=== PATIENT | female | born 1940 | race Caucasian/White ===

== ENCOUNTER 2023-07-01 19:27 | Inpatient (IN) | payer MEDICARE, OTHER, SELFPAY ==
[2023-07-01] VITALS (8 sets, daily range): BP systolic 98–128; BP diastolic 43–93; BMI 47.3; BMI 45.8
[2023-07-01 15:50] LABS: % Basophils 0.4 % (0-2); % Eosinophils 3.2 % (0-6); % Immature Granulocytes 0.3 % (0-0.5); % Lymphocytes 11.6 % (20.5-51.1); % Monocytes 10.2 % (1.7-9.3); % Neutrophils 74.3 % (42.2-75.2); Absolute Eosinophils 0.2 10^3/uL (0-0.7); Absolute Lymphocytes 0.8 10^3/uL (1.2-3.4); Absolute Monocytes 0.7 10^3/uL (0.1-0.6); Absolute Neutrophils 5.4 10^3/uL (1.4-6.5); Hematocrit 36.5 % (37.0-47.0); Hemoglobin 12.5 g/dL (12.0-16.0); Mean Corp Hgb Conc. 34.2 g/dL (33.0-37.0); Mean Corpuscular Hgb 31.7 pg (27.0-31.0); Mean Corpuscular Volume 92.6 fL (81.0-99.0); Mean Platelet Volume 10.4 fL (7.4-10.4); Nucleated Red Blood Cells % 0 %; Platelet Count 171 10^3/uL (130-400); Red Blood Cell Count 3.94 10^6/uL (4.20-5.40); Red Cell Dist. Width 15.1 % (11.5-14.5); White Blood Cell Count 7.2 10^3/uL (4.8-10.8)
--- NOTE | 2023-07-01 16:01 | ED.GENMED ---
History of Present Illness
General
Chief Complaint: Breathing Problem
Source: patient and family
Exam Limitations: non verbal-adult
Time Seen by Provider: 07/01/23 15:49
Travel History
Have you had any contact with someone who has COVID-19?: No
Do you have any symptoms of coronavirus? Fever > 100 degrees, chills, cough, shortness of breath, sore throat, loss of taste or smell, muscle aches, or headache?: No
History of Present Illness
History of Present Illness:
See MDM
Past History
Past History
ED Past Medical History: Cancer (Cervical), CVA (Left-sided CVA with right hemiplegia), HTN and Other (Previous stroke with right hemiparesthesias and aphasia, hypertension, DVT, Kidney stones, Urosepsis)
ED Past Surgical History: Cholecystectomy and Other (Noncontributory)
Social History
Tobacco: Former smoker
Alcohol: None
Drug: None
Personal:
Living: with family
Employment: Not employed
Family History
Family History: Other (Noncontributory); Negative Diabetes, Hypertension or CAD
Phy Exam
Physical Exam
Physical Exam:
See MDM
Scores
Heart Failure Risk
Heart Failure Risk Score: Yes
History of Stroke or TIA: No
History of intubation for respiratory distress: No
Heart rate on ED arrival >/= 110: No
SaO2 <90% on arrival on room air: No
HR >/=110 during 3min walk test (or too ill to perform test): Yes
ECG has acute ischemic changes: No
Urea >/=12mmol/L (BUN 33.6mg/dL): No
Serum CO2>/=35mmol/L: No
Troponin I or T elevated to NC Level (0.4mg/dL): No
NT-proBNP >/=5,000ng/L (5,000pg/ml): No
HF Risk Score: 2
Admission Status: MEDIUM RISK 9.2% Consider observation or discharge to home with homecare & f/u visit to PCP/Publication Designer, or SNF for treatment
Course
Orders/Labs/Results
Orders:
Orders
07/01/23 Dinner
Regular
At Your Request: Non-Participating
07/01/23 15:28
Electrocardiogram (*1) Urgent
Reason for Study: Chest Pain
Cardiac Monitoring- Treatment ONCE
EKG- Treatment ONCE
IV Insert/Care/Rem.- Treatment PRN
O2 Therapy [RESP] Urgent
Titrate/Wean O2 to maintain O2 sat greater than (%): 90
Special Instructions: Maintain sats >/=90%
Pulse Ox/spot Check [RESP] Urgent
Quantity: 1
Special Instructions: ON ROOM AIR
07/01/23 15:39
Complete Blood Count/With Diff Urgent
Comprehensive Metabolic Panel Urgent
NT-proBNP Urgent
Comment: ADD ON
Troponin I Urgent
07/01/23 16:00
Add On- LAB Urgent
Tests Added?: Pro-BNP
CT Head W/o Iv Contrast Urgent
Comment: Prior CVA with R side weakness
Reason For Exam: worsening R arm and leg weakness
CR Chest Portable - 1 View Urgent
Comment:
Reason For Exam: SOB, leg swelling
Reason Study Needs to be Portable: Patient Unstable
07/01/23 16:56
Furosemide [Lasix] 40 mg IV NOW STA
07/01/23 17:32
Urinalysis Reflex To Culture Urgent
Date Specimen was Collected: 07/01/23
Time Specimen was Collected: 17:29
07/01/23 18:08
Ipratropium/Albuterol Sulfate [Duoneb] 3 ml INH R NOW ONE
Ipratropium/Albuterol Sulfate [Duoneb] 3 ml INH R Q4HPRN PRN
07/01/23 18:09
Admit/Transfer Patient As Directed
Co-Sign Provider:
Level of Care: Inpatient admission
Assign to:: Telemetry
Physician / Group: maximino marcum
Diagnosis: acute bronchitis vs Chf
Reason for Telemetry: Subacute Heart Failure
Date to Stop Telemetry: 07/03/23
Time to Stop Telemetry: 11:00
Reason for Hospitalization: acute bronchitis vs Chf
Expected length of stay greater than two midnights?: Yes
ELOS- Estimated Length of Stay in days: 3
I certify the patient meets the requirements for IP care: Yes
07/01/23 18:10
Code Status As Directed
Resuscitation Status: Full Code
07/01/23 18:20
COVID-19 Antigen Urgent
Source: Nasal Swab
Influenza A+B Rapid Molecular Urgent
LAURA Source: Nasal Swab
Specimen Description:
07/01/23 20:00
Ipratropium/Albuterol Sulfate [Duoneb] 3 ml INH R QID
07/01/23 21:59
Acetaminophen [Tylenol] 650 mg PO Q4HPRN PRN
Carvedilol [Coreg] 3.125 mg PO BID
07/01/23 21:59
Activity As Directed
Activity Level: With Assistance
Comment: Uses cane with assist of 1 person
Intake/ Output As Directed
Frequency: Per unit guidelines
Pneumatic Compression Sleeves As Directed
Type: Knee high
Vital Signs As Directed
Frequency: Per unit guidelines
Weight As Directed
Frequency: Daily
Pulse Ox/spot Check [RESP] Routine
Quantity: 1
Ot Eval And Treat Routine
Pt Eval And Treat Routine
Activity Level: With Assistance
DX Deep Vein Thrombosis Video Routine
07/01/23 22:00
Baclofen [Lioresal] 10 mg PO TID
Gabapentin [Neurontin] 300 mg PO TID
07/02/23 06:23
Basic Metabolic Panel IN AM
Complete Blood Count/With Diff IN AM
07/02/23 08:00
Cholecalciferol (Vitamin D3) [VITAMIN D3 (cholecalciferol)] 50 mcg PO DAILY
Multivitamin [Theragran] 1 tablet PO DAILY
07/02/23 12:00
Duloxetine Delayed Release [Cymbalta Delayed Release] 60 mg PO DAILY@1200
07/03/23 06:09
Basic Metabolic Panel IN AM
Complete Blood Count/With Diff IN AM
07/03/23 11:00
DC Protocol for Telemetry ONCE
Abnormal Lab Results
07/01/23 07/01/23
15:39 18:20
RBC 3.94 L 10^6/uL
(4.20-5.40)
Hct 36.5 L %
(37.0-47.0)
MCH 31.7 H pg
(27.0-31.0)
RDW 15.1 H %
(11.5-14.5)
Absolute Lymphs (auto) 0.8 L 10^3/uL
(1.2-3.4)
Absolute Monos (auto) 0.7 H 10^3/uL
(0.1-0.6)
Lymphocytes % 11.6 L %
(20.5-51.1)
Monocytes % 10.2 H %
(1.7-9.3)
BUN 23 H mg/dl
(7-17)
SARS-CoV-2 Antigen Positive A
(Negative)
07/01/23 15:39
07/01/23 15:39
Vital Signs
Initial and Last Documented VS:
Initial Vital Signs
Temp Pulse Resp
98.6 F 71 27
07/01/23 15:19 07/01/23 15:19 07/01/23 15:19
Last Documented Vital Signs
Temp Pulse Resp BP Pulse Ox
97.9 F 69 18 120/57 98
07/04/23 11:00 07/04/23 11:36 07/04/23 11:00 07/04/23 11:36 07/04/23 11:00
MDM/Problems Addressed
Differential Diagnosis Includes:
HPI and MDM Narrative:
82-year-old female presenting with worsening shortness of breath and confusion. She is nonverbal from a prior stroke. Family at bedside stating that she is becoming anxious and more short of breath when laying flat. They have noticed increased
leg swelling. They are also concerned about worsening right-sided weakness. Patient has chronic right-sided weakness from prior stroke. They think the weakness has worsened.
Given her symptoms, will obtain CT head and chest x-ray. She is compliant with Eliquis. Will rule out pneumonia versus CHF. Given her symptoms and inability to care for self, will ultimately admit
Physical exam
General: weak and fatigued
HEENT: protecting airway
Neck: appears supple
CV: No evidence of cyanosis. Regular rate and rhythm
Resp: No accessory muscle use. Rhonchorous breath sounds
Abd: Non-distended
Extremities: +1 pitting edema bilateral lower extremities
Neuro: alert. Nonverbal. Right facial droop. Decreased muscle strength in right arm or right leg
Psych: Normal affect
Skin: Intact
Problems Addressed including Acute and Chronic Conditions affecting care:
1. Shortness of breath
Acuity: acute
Prognosis: stable
Details: Will obtain chest x-ray
2. Weakness
Acuity: Chronic
Prognosis: stable
Details: Will obtain CT looking for recurrent strokes versus bleed
Updates
Chest x-ray consistent with CHF. Will start IV Lasix
Differential Diagnosis (but not limited to): CVA, intracranial hemorrhage, pneumonia, CHF
Testing considered: Lactic acid
Drug therapy (if applicable): OTC meds, please see d/c instruction regarding Rx drugs
Amount and/or Complexity of Data Reviewed
Clinical info obtained from: Patient and daughter
External data reviewed: N/A
Labs I independently reviewed (but not limited to): Elevated BNP
Radiology: X-ray independently reviewed: Chest x-ray with pulmonary edema
Pulse Ox: not hypoxic
EKG independently reviewed: Sinus rhythm, normal axis, no STEMI
Automation Operator: Sinus rhythm
Critical Care: N/A
Risk of Complication:
Social Determinants of health: Good social support
Discussed with other providers: Hospitalist
Escalation of Care includes Admit/Obs: Given the new onset CHF and worsening symptoms, will admit
Occasional wrong word or 'sound a like' substitutions may have occurred due to the inherent limitations of voice recognition software. Read the chart carefully and recognize, using context, where substitutions have occurred.
*Critical Care Note
Total Time (30-74mins, 75-104mins- exclusive of procedures): Not Applicable
ED Attending Note
-
Portions of this chart may have been created with voice recognition software.� Occasional wrong word or��sound alike� substitutions may have occurred due to the inherent limitations of voice recognition software.
Discharge Plan
Departure
Patient Disposition: Admit
Date of Disposition: 07/01/23
Time of Disposition: 17:21
Admit to: Med/Surg
Presentation/result/management discussed w/ accepting MD/DO: Hospitalist
Discharge Problem:
New onset of congestive heart failure, Weakness
Interventions
Interventions:
*Risk Screen - Suicide Last Done: 07/01/23 22:43
*General Assessment Last Done: 07/01/23 15:19
*Neglect/Abuse Screening Last Done: 07/01/23 15:19
ED- Fall Risk Assessment Last Done: 07/01/23 21:49
*ED COVID-19 Vaccine History Last Done: 07/01/23 22:43
*Nursing Disposition Last Done: 07/01/23 21:49
ED- Cardiac Assessment Last Done: 07/01/23 18:04
ED- Pulmonary Assessment Last Done: 07/01/23 18:03
Discharge Date and Time
Discharge Date/Time: 07/01/23 21:50
[2023-07-01 16:04] LABS: ALT (SGPT) 18 U/L (0-35); AST (SGOT) 24 U/L (14-36); Albumin 3.6 g/dl (3.5-5.0); Alkaline Phosphatase 105 U/L (38-126); Blood Urea Nitrogen 23 mg/dl (7-17); Calcium 8.5 mg/dl (8.4-10.2); Carbon Dioxide 28 mmol/L (22-30); Chloride 105 mmol/L (98-107); Estimated Creatinine Clearance 60 ml/min; Glucose 98 mg/dl (70-99); Potassium 4.4 mmol/L (3.5-5.1); Sodium 136 mmol/L (135-145); Total Bilirubin 0.5 mg/dl (0.2-1.3); Total Protein 6.4 g/dl (6.3-8.2); eGFR > 60.00
[2023-07-01 16:11] LABS: Troponin I < 0.012 ng/ml
[2023-07-01 16:28] LABS: NT-proBNP 489 pg/ml
[2023-07-01] MEDS: LASIX 40 MG IV (17:20)
--- NOTE | 2023-07-01 17:21 | PHANOTE ---
med rec note- called daughter to see is patient took her morning home mediation but call went straight to voice mail
--- NOTE | 2023-07-01 17:31 | HPS.HSE ---
Addendum entered and electronically signed by Chano Omer MD 07/01/23 18:31:
I saw and examined the patient.
The ZANJERO's note was reviewed and I agree with the note.
Comment:
82-year-old female past medical history of severe left-sided stroke status post right hemiplegia and aphasia who is presenting from home with orthopnea. Patient also with lower extremity edema. Denies any chest pain. Patient able to ambulate with
a cane. No prior cardiac history. Patient received Lasix in the ER with significant urinary output noted.
General:�Comfortable; No Pain or Fever
HEENT:�NormoCephalic, Anicteric, Moist mucous membranes and [place] Conjunctivae
Respiratory:�Wheezes (Diffuse throughout both lung centeno); No Rales or Rhonchi
Cardiac:�S1/S2 and Regular Rhythm; No Murmur, Rub, Gallop or Peripheral Edema
Breast:�Deferred by me
GI:�Soft, Non Tender, Non Distended, Normal Bowel Sounds and No Hepatosplenomegaly
Rectal:�Deferred by Provider
Genito-urinary:�Deferred by me
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
Upper Extremity or Edema, Left Lower Extremity
Skin:�Warm and Dry; No Rash
Neuro:�Awake, Alert, Oriented (To name, daughter, some review of systems), Facial Droop (Chronic right side) and Other (Chronic aphasia with right-sided hemiparesis from prior stroke 2010)
Psych:�Calm
Impression
Shortness of breath likely secondary to suspected acute heart failure exacerbation versus viral bronchitis
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
Aphasia chronic
Primary hypertension
Wound disorder
Neuropathy
Hyperlipidemia
Plan
Monitor urinary output with Lasix given in the ER
Will consider Lasix on a daily basis
Start patient bronchodilators
Check patient for COVID influenza
Hold off on corticosteroids
Chest x-ray noted
Echocardiogram
DVT prophylaxis
Discussed with daughter at bedside in detail.
Original Note:
Family Physician
-
Family Physician: Riaz Sorensen
Chief Complaint
-
Cough, wheezing, chills
History of Present Illness
82-year-old female with cough, wheezing, chills for the past several weeks increased over the past 3 days. Her daughter Madison at bedside states she has had a nonproductive cough on and off possibly for 2 weeks she has noticed wheezing. She did
point to her head yesterday possibly could have had a headache her daughter gave her some Tylenol as she was also complaining of chills. she has baseline nonverbal secondary to prior CVA they feel she had worsening facial droop over the past
several days. Pt is awake and alert can shake head yes or no although daughter states this is sometimes not reliable cognitively. Patient denies current headache, chest pain, abdominal pain, nausea, vomiting, diarrhea, urinary symptoms.
Past medical history large left-sided CVA with chronic right hemiplegia October 2010 uses cane with assistance of 1, intermittent right arm pain post stroke syndrome, chronic aphasia, HTN, DVT, renal calculi, UTIs, cervical cancer post radiation,
former smoker, morbid obesity
Medical History
Past Medical History
Past Medical History: Reports Other ( large left-sided CVA with chronic right hemiplegia October 2010 uses cane with assistance of 1, chronic aphasia, HTN, DVT, renal calculi, UTIs, cervical cancer post radiation, former smoker, morbid obesity)
Past Surgical History: Reports None and Other (unsure)
Social History
Tobacco: Former Smoker
Alcohol: None
Drug: None
Personal:
Living: With Family ()
Employment: Retired
Family History
Family History: Not pertinent
Allergies / Home Medications
Allergies reflects when Allergies were last updated in [employer].
Home Medications with original date entered in [employer]
Allergy/Medication List:
Allergies
Allergy/AdvReac Type Severity Reaction Status Date / Time
No Known Drug Allergies Allergy NONE Verified 07/10/22 13:36
Home Medications
baclofen 10 mg tablet 10 mg PO TID 10/08/11
duloxetine 60 mg capsule,delayed release 60 mg PO DAILY@1200 10/08/11
gabapentin 300 mg capsule 300 mg PO TID 10/08/11
multivitamin with folic acid 400 mcg tablet (Tab-A-Rosalee) 1 tab PO DAILY 10/08/11
simvastatin 40 mg tablet 40 mg PO QPM 10/08/11
cholecalciferol (vitamin D3) 50 mcg (2,000 unit) tablet 5,000 unit PO DAILY 09/16/15
carvedilol 3.125 mg tablet 3.125 mg PO BID 05/30/19
Review of Systems
-
History Source: Patient and Family (Daughter Madison at bedside)
A 12 point ROS was completed and negative except as noted: Yes
Constitutional: Reports Chills; Denies Fever or Fatigue
EENT: Denies Sore Throat or Runny Nose
Respiratory: Reports Cough and Other (Wheezing)
Cardiac: Denies Chest Pain, Diaphoresis, Palpitations or Syncope
Abdomen/GI: Denies Abdominal Pain, Nausea, Vomiting, Diarrhea or Constipated
: Denies Dysuria, Frequency or Flank Pain
Musculoskeletal: Reports Edema (Chronic right lower extremity secondary to right hemiparesis); Denies Joint Pain
Skin: Denies Itching or Rash
Neurological: Reports Headache
Endocrine: Reports No Symptoms
Hematologic/Lymphatic: Reports No Symptoms
Psych: Reports Calm
Physical Exam
Vital Signs
Vital Signs
Temp Pulse Resp BP Pulse Ox
98.6 F 68 27 110/49 95
07/01/23 15:19 07/01/23 17:20 07/01/23 15:19 07/01/23 17:20 07/01/23 15:29
Physical Exam
General: Comfortable; No Pain or Fever
HEENT: NormoCephalic, Anicteric, Moist mucous membranes and [place] Conjunctivae
Respiratory: Wheezes (Diffuse throughout both lung centeno); No Rales or Rhonchi
Cardiac: S1/S2 and Regular Rhythm; No Murmur, Rub, Gallop or Peripheral Edema
Breast: Deferred by me
GI: Soft, Non Tender, Non Distended, Normal Bowel Sounds and No Hepatosplenomegaly
Rectal: Deferred by Provider
Genito-urinary: Deferred by me
Musculoskeletal: No Clubbing, No Cyanosis, Edema, Right Lower Extremity (Chronic +1 right lower extremity secondary to right hemiparesis) and Other (Chronic right hand contracture from prior stroke); No Edema, Left Upper Extremity, Edema, Right
Upper Extremity or Edema, Left Lower Extremity
Skin: Warm and Dry; No Rash
Neuro: Awake, Alert, Oriented (To name, daughter, some review of systems), Facial Droop (Chronic right side) and Other (Chronic aphasia with right-sided hemiparesis from prior stroke 2010)
Psych: Calm
Laboratory Results
-
07/01/23 15:39
07/01/23 15:39
Laboratory Results
Total Bilirubin 0.5 mg/dl (0.2-1.3) 07/01/23 15:39
AST 24 U/L (14-36) 07/01/23 15:39
ALT 18 U/L (0-35) 07/01/23 15:39
Alkaline Phosphatase 105 U/L (38-126) 07/01/23 15:39
Troponin I < 0.012 ng/ml 07/01/23 15:39
Impression/Plan
-
Impression/plan:
Admit to telemetry
Acute bronchitis likely viral poss mild component Chf
95% RA, 110/49, HR 68
-DuoNebs scheduled and as needed for wheezing
-Check COVID, flu swab
Given 1 dose of IV Lasix will monitor intake and output
-PT/OT/case management consult
-2D echo
CXR: Mild CHF
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
# Chronic profound aphasia nonverbal
# Chronic neuropathy post stroke right side
-Patient does ambulate with a cane and assist of 1
-Continue gabapentin 300 mg 3 times daily, duloxetine 60 mg daily
#HTN�benign
-Continue carvedilol 3.125 mg twice daily
#HLD
-Continue simvastatin 40 mg every afternoon
#Hx DVT in past
#Morbid obesity due to excess calorie consumption/mobility�BMI 47.2 kg
DVT prophylaxis
SCDs
Full code
[2023-07-01 17:47] LABS: Urine Albumin Negative (Neg - Trace); Urine Bilirubin Negative (Negative); Urine Character Clear (Clear); Urine Color Yellow; Urine Glucose Negative (Negative); Urine Ketone Negative (Negative); Urine Leukocyte Negative (Negative); Urine Nitrite Negative (Negative); Urine Occult Blood Negative (Negative); Urine Urobilinogen Negative (Neg - 1+); Urine pH 6.5 (5.0-9.0)
[2023-07-01 18:59] LABS: COVID-19 Antigen Positive (Negative)
--- NOTE | 2023-07-01 20:00 | W.PN.UPDATE ---
Update Note
Progress Note Update
Patient COVID-positive
-Will place on COVID precautions
-Is not hypoxic does not meet remdesivir or Decadron- requirements
-Will start Paxlovid
-Hold patient's statin while on Paxlovid
-Change DuoNeb to albuterol MDI
-Patient's daughter made aware of COVID-positive status
[2023-07-01] MEDS: NEURONTIN 300 MG PO (23:07)
[2023-07-01] MEDS: LIORESAL 10 MG PO (23:07)
[2023-07-01] MEDS: COREG 3.125 MG PO (23:07)
[2023-07-02] VITALS (8 sets, daily range): BP systolic 98–144; BP diastolic 48–78; PULSE 72; BMI 46.9
[2023-07-02] MEDS: PAXLOVID 2X150 MG-100 MG DOSE PACK PO (06:57)
[2023-07-02 08:23] LABS: % Basophils 0.6 % (0-2); % Eosinophils 4.1 % (0-6); % Immature Granulocytes 0.3 % (0-0.5); % Lymphocytes 13.1 % (20.5-51.1); % Monocytes 11.2 % (1.7-9.3); % Neutrophils 70.7 % (42.2-75.2); Absolute Eosinophils 0.3 10^3/uL (0-0.7); Absolute Lymphocytes 0.9 10^3/uL (1.2-3.4); Absolute Monocytes 0.7 10^3/uL (0.1-0.6); Absolute Neutrophils 4.7 10^3/uL (1.4-6.5); Hematocrit 37.6 % (37.0-47.0); Hemoglobin 12.3 g/dL (12.0-16.0); Mean Corp Hgb Conc. 32.7 g/dL (33.0-37.0); Mean Corpuscular Hgb 31.1 pg (27.0-31.0); Mean Corpuscular Volume 94.9 fL (81.0-99.0); Mean Platelet Volume 10.6 fL (7.4-10.4); Nucleated Red Blood Cells % 0 %; Platelet Count 157 10^3/uL (130-400); Red Blood Cell Count 3.96 10^6/uL (4.20-5.40); Red Cell Dist. Width 15.3 % (11.5-14.5); White Blood Cell Count 6.6 10^3/uL (4.8-10.8)
[2023-07-02 08:52] LABS: Blood Urea Nitrogen 21 mg/dl (7-17); Calcium 8.4 mg/dl (8.4-10.2); Carbon Dioxide 34 mmol/L (22-30); Chloride 100 mmol/L (98-107); Estimated Creatinine Clearance 76 ml/min; Glucose 100 mg/dl (70-99); Potassium 3.9 mmol/L (3.5-5.1); Sodium 139 mmol/L (135-145); eGFR > 60.00
[2023-07-02] MEDS: VITAMIN D3 (cholecalciferol) 50 MCG PO (10:57)
[2023-07-02] MEDS: THERAGRAN 1 TABLET PO (10:57)
[2023-07-02] MEDS: NEURONTIN 300 MG PO ×3 (10:57→21:07)
[2023-07-02] MEDS: PAXLOVID 2X150 MG-100 MG DOSE PACK 1 DOSE PO ×2 (10:57→21:08)
[2023-07-02] MEDS: LIORESAL 10 MG PO ×3 (10:57→21:07)
[2023-07-02] MEDS: COREG 3.125 MG PO ×2 (10:58→21:07)
[2023-07-02] MEDS: CYMBALTA DELAYED RELEASE 60 MG PO (11:02)
--- NOTE | 2023-07-02 11:06 | W.PN.HOSP.TC ---
Today's Communication/Plan
-
monitor o2
paxlovid
lovenox
pt/ot
Assessment / Plan
Assessment / Plan
General:�Comfortable; No Pain or Fever
HEENT:�NormoCephalic, Anicteric, Moist mucous membranes and [place] Conjunctivae
Respiratory:�Wheezes (Diffuse throughout both lung centeno); No Rales or Rhonchi
Cardiac:�S1/S2 and Regular Rhythm; No Murmur, Rub, Gallop or Peripheral Edema
Breast:�Deferred by me
GI:�Soft, Non Tender, Non Distended, Normal Bowel Sounds and No Hepatosplenomegaly
Rectal:�Deferred by Provider
Genito-urinary:�Deferred by me
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
Upper Extremity or Edema, Left Lower Extremity
Skin:�Warm and Dry; No Rash
Neuro:�Awake, Alert, Oriented (To name, daughter, some review of systems), Facial Droop (Chronic right side) and Other (Chronic aphasia with right-sided hemiparesis from prior stroke 2010)
Psych:�Calm
Acute bronchitis likely 2/2 COVID-19 infection
-bronchodilators
-started paxlovid
-CXR noted. Probnp could be low as pt with morbid obesity. No prior ECHO.
-Monitor for now. May require lasix prn
-not a candidate for steroids or remdesivir
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
# Chronic profound aphasia nonverbal
# Chronic neuropathy post stroke right side
-Patient does ambulate with a cane and assist of 1
-Continue gabapentin 300 mg 3 times daily, duloxetine 60 mg daily
#HTN�benign
-Continue carvedilol 3.125 mg twice daily
#HLD
-Continue simvastatin 40 mg every afternoon
#Hx DVT in past
#Morbid obesity due to excess calorie consumption/mobility�BMI 47.2 kg
DVT prophylaxis-start lovenox 40mg q12h due to BMI
Full code
PT/OT
Anticipated Discharge: > 48 hours
Subjective/Interval History
-
Date of Service: July 02, 2023
No overnight events
on room air
Objective Data
-
Labs:
Laboratory Results
07/02/23
06:23
WBC 6.6
Hgb 12.3
Hct 37.6
Plt Count 157
Sodium 139
Potassium 3.9
Chloride 100
Carbon Dioxide 34 H
BUN 21 H
Creatinine 0.7
Glucose 100 H
Calcium 8.4
Vital Signs:
Vital Signs
Temp Pulse Resp BP Pulse Ox
97.9 F 72 16 144/66 94
07/02/23 07:35 07/02/23 07:41 07/02/23 07:35 07/02/23 07:35 07/02/23 07:41
I&O
07/01/23 07/02/23 07/03/23
06:59 06:59 06:59
Intake Total 240 / 240
Output Total 300 / 300
Balance -60 / -60
Data Reviewed
-
Total Time Spent with Patient (in minutes): 54
[2023-07-02] MEDS: LOVENOX 40 MG SC (16:17)
[2023-07-03 03:42] VITALS: BP 122/47
[2023-07-03] MEDS: LOVENOX 40 MG SC ×2 (05:13→17:47)
[2023-07-03 05:33] VITALS: BMI 44.5
[2023-07-03 06:17] LABS: % Basophils 0.9 % (0-2); % Eosinophils 6.9 % (0-6); % Immature Granulocytes 0.2 % (0-0.5); % Lymphocytes 21.6 % (20.5-51.1); % Monocytes 15.6 % (1.7-9.3); % Neutrophils 54.8 % (42.2-75.2); Absolute Basophils 0.1 10^3/uL (0-0.2); Absolute Eosinophils 0.4 10^3/uL (0-0.7); Absolute Lymphocytes 1.2 10^3/uL (1.2-3.4); Absolute Monocytes 0.9 10^3/uL (0.1-0.6); Hematocrit 34.8 % (37.0-47.0); Hemoglobin 12.5 g/dL (12.0-16.0); Mean Corp Hgb Conc. 35.9 g/dL (33.0-37.0); Mean Corpuscular Hgb 31.6 pg (27.0-31.0); Mean Corpuscular Volume 88.1 fL (81.0-99.0); Mean Platelet Volume 10.4 fL (7.4-10.4); Nucleated Red Blood Cells % 0 %; Platelet Count 155 10^3/uL (130-400); Red Blood Cell Count 3.95 10^6/uL (4.20-5.40); Red Cell Dist. Width 14.8 % (11.5-14.5); White Blood Cell Count 5.5 10^3/uL (4.8-10.8)
[2023-07-03 06:43] LABS: Blood Urea Nitrogen 20 mg/dl (7-17); Calcium 8.6 mg/dl (8.4-10.2); Carbon Dioxide 28 mmol/L (22-30); Chloride 101 mmol/L (98-107); Estimated Creatinine Clearance 74 ml/min; Glucose 103 mg/dl (70-99); Sodium 136 mmol/L (135-145); eGFR > 60.00
[2023-07-03 08:10] VITALS: BP 123/50
[2023-07-03] MEDS: LIORESAL 10 MG PO ×3 (08:18→22:36)
[2023-07-03] MEDS: VITAMIN D3 (cholecalciferol) 50 MCG PO (08:18)
[2023-07-03] MEDS: NEURONTIN 300 MG PO ×3 (08:18→22:36)
[2023-07-03] MEDS: PAXLOVID 2X150 MG-100 MG DOSE PACK 1 DOSE PO ×2 (08:18→19:54)
[2023-07-03] MEDS: COREG 3.125 MG PO ×2 (08:18→19:54)
[2023-07-03] MEDS: THERAGRAN 1 TABLET PO (08:18)
--- NOTE | 2023-07-03 11:00 | W.PN.HOSP.TC ---
Addendum entered and electronically signed by Chano Omer MD 07/03/23 11:52:
Patient 2 daughters with COVID and spouse needs additional time to make home arrangements and unable to take patient home today.
hold dc today
Original Note:
Today's Communication/Plan
-
dc today
Assessment / Plan
Assessment / Plan
General:�Comfortable; No Pain or Fever
HEENT:�NormoCephalic, Anicteric, Moist mucous membranes and [place] Conjunctivae
Respiratory:�dec bs due to body habitus, No Rales or Rhonchi
Cardiac:�S1/S2 and Regular Rhythm; No Murmur, Rub, Gallop or Peripheral Edema
GI:�Soft, Non Tender, Non Distended, Normal Bowel Sounds and No Hepatosplenomegaly
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
Upper Extremity or Edema, Left Lower Extremity
Skin:�Warm and Dry; No Rash
Neuro:�Awake, Facial Droop (Chronic right side) and Other (Chronic aphasia with right-sided hemiparesis from prior stroke 2010)
Psych:�Calm
Acute bronchitis likely 2/2 COVID-19 infection
-bronchodilators
-started paxlovid. albuterol prn.
-CXR noted.
-Monitor for now.
-not a candidate for steroids or remdesivir
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
# Chronic profound aphasia nonverbal
# Chronic neuropathy post stroke right side
-Patient does ambulate with a cane and assist of 1
-Continue gabapentin 300 mg 3 times daily, duloxetine 60 mg daily
#HTN�benign
-Continue carvedilol 3.125 mg twice daily
#HLD
-Continue simvastatin 40 mg every afternoon
#Hx DVT in past
#Morbid obesity due to excess calorie consumption/mobility�BMI 47.2 kg
DVT prophylaxis-start lovenox 40mg q12h due to BMI
Full code
PT/OT-home health
updated daughter over the phone in details.
Anticipated Discharge: Today
Subjective/Interval History
-
Date of Service: July 03, 2023
on room air
afebrile
not tachypneic
looks comfortable
Objective Data
-
Labs:
Laboratory Results
07/03/23
06:09
WBC 5.5
Hgb 12.5
Hct 34.8 L
Plt Count 155
Sodium 136
Potassium 4.0
Chloride 101
Carbon Dioxide 28
BUN 20 H
Creatinine 0.7
Glucose 103 H
Calcium 8.6
Vital Signs:
Vital Signs
Temp Pulse Resp BP Pulse Ox
97.5 F 98 16 123/50 97
07/03/23 08:10 07/03/23 08:10 07/03/23 08:10 07/03/23 08:10 07/03/23 08:10
I&O
07/02/23 07/03/23 07/04/23
06:59 06:59 06:59
Intake Total 240 / 240 480 / 480
Output Total 300 / 300 850 / 850
Balance -60 / -60 -370 / -370
[2023-07-03 11:18] VITALS: BP 125/61
[2023-07-03] MEDS: CYMBALTA DELAYED RELEASE 60 MG PO (12:12)
[2023-07-03 15:24] VITALS: BP 97/57
--- NOTE | 2023-07-03 16:10 | CM ---
Chart reviewed. Spoke with pts spouse
Pt lives with with FF set-up
Ramp entry into home
Has care takers thru Home instead
Needs assist with adl's
Has WC, cane, shower chair in home
Denies past snf/HH
PCP - Dr Sorensen
Pharm - [facility]
Discussed IMM with spouse
Pt for d/c - requested d/c tomorrow as will be able to arrange assistance with transport for tomorrow
PT recs home health
Referred to [facility] for home care needs
Plan discharge to previous setting with home health
[2023-07-03 19:45] VITALS: BP 100/36
[2023-07-03 23:01] VITALS: BP 119/51
[2023-07-04 03:30] VITALS: BP 136/49
--- NOTE | 2023-07-04 04:24 | PTCARENOTE ---
No BM Documented for 3days, KOLE Brown made aware. See MAR for new orders.
[2023-07-04] MEDS: LOVENOX 40 MG SC (05:39)
[2023-07-04 06:00] VITALS: BMI 44.9
[2023-07-04 07:00] VITALS: BP 120/57
[2023-07-04] MEDS: THERAGRAN 1 TABLET PO (09:13)
[2023-07-04] MEDS: SENOKOT-S 1 TABLET PO (09:16)
[2023-07-04] MEDS: NEURONTIN 300 MG PO (09:16)
[2023-07-04] MEDS: COREG 3.125 MG PO (09:17)
[2023-07-04] MEDS: VITAMIN D3 (cholecalciferol) 50 MCG PO (09:17)
[2023-07-04] MEDS: LIORESAL 10 MG PO (09:17)
[2023-07-04] MEDS: PAXLOVID 2X150 MG-100 MG DOSE PACK 1 DOSE PO (09:19)
--- NOTE | 2023-07-04 09:58 | W.PN.HOSP.TC ---
Today's Communication/Plan
-
.
Assessment / Plan
Assessment / Plan
General:�Comfortable; No Pain or Fever
HEENT:�Normocephalic, Anicteric, Moist mucous membranes and [place] Conjunctivae
Respiratory:�dec bs due to body habitus, No Rales or Rhonchi
Cardiac:�S1/S2 and Regular Rhythm; No Murmur, Rub, Gallop or Peripheral Edema
GI:�Soft, Non Tender, Non Distended, Normal Bowel Sounds and No Hepatosplenomegaly
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
Upper Extremity or Edema, Left Lower Extremity
Skin:�Warm and Dry; No Rash
Neuro:�Awake, Facial Droop (Chronic right side) and Other (Chronic aphasia with right-sided hemiparesis from prior stroke 2010)
Psych:�Calm
Acute bronchitis likely 2/2 COVID-19 infection
No hypoxia
No sob
-bronchodilators
-started paxlovid. albuterol prn.
-CXR noted.
-not a candidate for steroids or remdesivir
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
# Chronic profound aphasia nonverbal
# Chronic neuropathy post stroke right side
-Patient does ambulate with a cane and assist of 1
-Continue gabapentin 300 mg 3 times daily, duloxetine 60 mg daily
# Acute HFpEF
Mild
will give IV Lasix
#HTN�benign
-Continue carvedilol 3.125 mg twice daily
#HLD
-Continue simvastatin 40 mg every afternoon
#Hx DVT in past
#Morbid obesity due to excess calorie consumption/mobility�BMI 47.2 kg
DVT prophylaxis-start lovenox 40mg q12h due to BMI
Full code
PT/OT-home health
Total time spent to see the patient, examine the patient on the floor, review data and lab results, discuss treatment plan with patient and nursing staff around 55 minutes
Anticipated Discharge: Within 24 hours
Subjective/Interval History
-
Date of Service: July 04, 2023
Objective Data
-
Vital Signs:
Vital Signs
Temp Pulse Resp BP Pulse Ox
97.4 F 69 17 120/57 96
07/04/23 07:00 07/04/23 09:17 07/04/23 07:00 07/04/23 09:17 07/04/23 07:00
I&O
07/03/23 07/04/23 07/05/23
06:59 06:59 06:59
Intake Total 480 / 480 600 / 600
Output Total 850 / 850 590 / 590
Balance -370 / -370
[2023-07-04 11:00] VITALS: BP 116/61
[2023-07-04] MEDS: CYMBALTA DELAYED RELEASE 60 MG PO (11:36)
[2023-07-04] MEDS: LASIX 20 MG IV (11:36)
--- NOTE | 2023-07-04 12:37 | CM ---
Addendum entered by TAMMY Duffy 07/04/23 12:47:
Updated Liason for VN.
Original Note:
Spoke with RN who stated that patient has been medically cleared for discharge. Placed a all to patient's daughter who confirmed that patient's spouse can transport home. IMM reviewed and is on chart. Attending updated.
Plan: Case mangement will continue to follow and assist with discharge planning. Patient returning home no needs.
--- NOTE | 2023-07-04 12:53 | W.DCSUMMARY ---
Discharge Summary
Discharge Data
Date of Admission: 07/01/23
Date of Discharge: 07/04/23
-
Pending Results: No
Hospital Course
82 years old female presented to the emergency room with dry cough, chills and weakness. Patient was diagnosed with acute bronchitis secondary to COVID infection. Patient did not have leukocytosis, fever or hypoxia. Chest x-ray was consistent
with mild congestive heart failure. Patient was diagnosed with acute heart failure with a preserved ejection fraction. Patient received Lasix and Paxlovid treatment. Patient did well with improvement of cough. She did not have chills or fevers.
She did not have hypotension. Patient was evaluated by physical therapy and recommended home health. Patient remained hemodynamically stable and was discharged in stable condition.
Discharge Plan
-
Patient Disposition: Home with Home Care
Discharge Diagnosis/Procedures: Acute bronchitis likely 2/2 COVID-19 infection. You have 5 doses remaining of Paxlovid.
Condition: Fair
Diet: Low Fat
Activity: With assistance and As tolerated
Driving Restrictions: No driving
Other Services: [facility]
Referrals:
Riaz Sorensen MD [Family Provider] - in less than 1 week
Prescriptions:
New
albuterol sulfate 1.25 mg/3 mL solution for nebulization
1.25 mg inhalation QID PRN (Reason: shortness of breath or wheezing) Qty: 90 0RF
Paxlovid 150-100 mg tablets,dose pack
See Rx Instructions .ROUTE .COMPLEX Qty: 20 0RF
Rx Instructions:
orally per package directions
Continued
baclofen 10 MG tablet
10 mg PO TID
gabapentin 300 MG capsule
300 mg PO TID
duloxetine 60 MG capsule,delayed release(DR/EC)
60 mg PO DAILY@1200
multivitamin with folic acid [Tab-A-Rosalee] 1 TABLET tablet
1 tab PO DAILY
cholecalciferol (vitamin D3) 2,000 UNITS tablet
5,000 unit PO DAILY
carvedilol 3.125 MG tablet
3.125 mg PO BID
sennosides [Senna Lax] 8.6 mg Tablet
8.6 mg PO HS
omeprazole 20 mg Tablet,Delayed Release (Dr/Ec)
20 mg PO DAILY
Eliquis 2.5 mg tablet
2.5 mg PO BID
Held
simvastatin 40 MG tablet
40 mg PO QPM
Hold Instructions: Resume on 07/11/23. hold while on paxlovid
Discharge Orders:
Discharge Patient (As Directed); Ordered 07/04/23
Ordered By: Lucy Flores
--- NOTE | 2023-07-04 14:08 | VNURNOTE ---
Home Health Liaison spoke with patient's spouse Edwin by phone at 1400 to discuss [facility] nurse/therapy, visits, schedule and homebound status. Spouse is agreeable and understands that visits at home will be 2-3 x per week to assess and teach medical
management. Edwin stated that he has a scale at home but patient has difficulty getting on & off scale and unsure if she can log a daily weight.
[facility] brochure provided with contact information. Edwin is aware that [facility] will contact them for start of care in 1-2 days after discharge from .
[facility] referral previously accepted in [facility].
--- NOTE | 2023-07-04 16:40 | CM ---
Received a call from patient's son who stated that he had some medical concerns about patient being provided with lasix just prior to discharge and mention that there may be a cardiac issue. He also stated that upon admission someone had told him
that patient would most likely go to acute rehab and after that there was no mention of it.
Reviewed criteria for acute rehab with patient's son and reviewed patient's PT. Advised of criteria to get into an acute rehab vrs, skilled.
Advised patient's son that CM will return call to him once further information was obtained.
Spoke with patient's RN at length and she stated that she spoke with patient's family at length about the medical plan and the discharge. Patient had already been discharged at the time of patient's son's call and was on her way home.
Spoke with CM medical records supervisor who advised to TT attending to determine if patient's family could get a call for further clarification. She stated that [facility] PT can do a home PT eval and if she/he feels that patient qualifies for SNF, patient can still be
placed with the help of [facility]N.
Placed a call back to patient's son who stated that he felt his concerns were more medical as he stated that they, the family, was just advised that patient may have a cardiac issue right before discharge and no further information or intervention
came from this.
Advised patient's son that attending was contacted and made aware that he had some concerns and request was made for her to return call however could not promise the outcome.
Patient's son was appreciative and stated that he will await a potential call and talk to home PT about patient's current level of functioning to determine if patient needs a higher level of care.
--- NOTE | 2023-07-07 14:57 | CM ---
Placed a call to patient's son as he had questions about patient's discharge. He stated that he wanted patient to go to a SNF. Patient's son was advised that when PT/OT come out to evaluate patient from VN, they can make an indication and if she is
still appropriate for SNF, the [facility] SW will make referrals. He expressed his appreciation and call ended pleasantly.
== END 2023-07-04 15:34 | disposition home health service (06) | DRG 177 ==
LOC: 3 WEST ACU 19:27
PROVIDERS: Clinical Nurse Specialist Family Health; ADMITTING PHYSICIAN Hospitalist; ATTENDING PHYSICIAN Internal Medicine; EMERGENCY PHYSICIAN Student in an Organized Health Care Education/Training Program; FAMILY PHYSICIAN Family Medicine
DX: U07.1 COVID-19 (principal); I50.31 Acute diastolic (congestive) heart failure; I69.351 Hemiplegia and hemiparesis following cerebral infarction affecting right dominant side; Z68.41 Body mass index [BMI] 40.0-44.9, adult; J20.8 Acute bronchitis due to other specified organisms; I11.0 Hypertensive heart disease with heart failure; G62.9 Polyneuropathy, unspecified; E78.5 Hyperlipidemia, unspecified; E66.01 Morbid (severe) obesity due to excess calories; I69.320 Aphasia following cerebral infarction; Z79.01 Long term (current) use of anticoagulants
CPT/HCPCS: 70450; 71045; 80048; 80053; 81003; 83880; 84484; 85025; 87502; 87811; 93005; 94760; 96374; 97163; 97167; 99285

== ENCOUNTER 2023-07-21 16:25 | Inpatient (IN) | payer MEDICARE, OTHER, SELFPAY ==
[2023-07-21] VITALS (7 sets, daily range): BP systolic 102–141; BP diastolic 47–100
[2023-07-21 13:59] LABS: % Basophils 0.5 % (0-2); % Eosinophils 6.2 % (0-6); % Immature Granulocytes 0.3 % (0-0.5); % Lymphocytes 20.5 % (20.5-51.1); % Monocytes 8.4 % (1.7-9.3); % Neutrophils 64.1 % (42.2-75.2); Absolute Basophils 0.1 10^3/uL (0-0.2); Absolute Eosinophils 0.6 10^3/uL (0-0.7); Absolute Lymphocytes 1.9 10^3/uL (1.2-3.4); Absolute Monocytes 0.8 10^3/uL (0.1-0.6); Absolute Neutrophils 6.1 10^3/uL (1.4-6.5); Hematocrit 37.1 % (37.0-47.0); Hemoglobin 12.6 g/dL (12.0-16.0); Mean Corpuscular Hgb 31.3 pg (27.0-31.0); Mean Corpuscular Volume 92.3 fL (81.0-99.0); Nucleated Red Blood Cells % 0 %; Platelet Count 179 10^3/uL (130-400); Red Blood Cell Count 4.02 10^6/uL (4.20-5.40); Red Cell Dist. Width 15.7 % (11.5-14.5); White Blood Cell Count 9.5 10^3/uL (4.8-10.8)
[2023-07-21 14:13] LABS: ALT (SGPT) 34 U/L (0-35); AST (SGOT) 24 U/L (14-36); Albumin 3.5 g/dl (3.5-5.0); Alkaline Phosphatase 98 U/L (38-126); Blood Urea Nitrogen 26 mg/dl (7-17); Calcium 8.7 mg/dl (8.4-10.2); Carbon Dioxide 29 mmol/L (22-30); Chloride 105 mmol/L (98-107); Glucose 113 mg/dl (70-99); Potassium 4.1 mmol/L (3.5-5.1); Sodium 136 mmol/L (135-145); Total Bilirubin 0.6 mg/dl (0.2-1.3); Total Protein 6.2 g/dl (6.3-8.2); eGFR > 60.00
[2023-07-21] MEDS: DUONEB 3 ML INH ×2 (14:23→19:56)
[2023-07-21] MEDS: SOLU-MEDROL PF 125 MG IV (14:23)
[2023-07-21 14:24] LABS: NT-proBNP 95.3 pg/ml; Troponin I < 0.012 ng/ml
--- NOTE | 2023-07-21 15:15 | ED.GENMED ---
History of Present Illness
General
Chief Complaint: Breathing Problem
Source: patient
Exam Limitations: none
Time Seen by Provider: 07/21/23 13:40
Nursing documentation reviewed up to this point in time: agreed with
Travel History
Have you had any contact with someone who has COVID-19?: No
Do you have any symptoms of coronavirus? Fever > 100 degrees, chills, cough, shortness of breath, sore throat, loss of taste or smell, muscle aches, or headache?: Yes
Symptoms:: SOB
History of Present Illness
History of Present Illness:
82-year-old female with past medical history as documented notable for stroke with residual expressive aphasia who presents to the emergency department from home for evaluation of breathing difficulties and chest tightness. Patient is very limited
as a historian due to her aphasia but family is at bedside aiding in history. Sounds like patient had been having some wheezing over the past few weeks and was prescribed DuoNebs and prednisone burst last week. It sounds like they have weaned her
off of DuoNebs recently over the past 2 days patient started having some more wheezing today was having audible wheezing and breathing difficulties complaining of tightness in her chest and EMS called to bring her to the hospital. She did receive
albuterol prehospital from EMS. No fevers or chills, no edema in the legs. Mild cough. No other symptoms reported. Family says she had similar symptoms with CHF in the past; she is an ex-smoker, no reported history of COPD or asthma.
Past History
Past History
ED Past Medical History: Cancer (Cervical), CVA (Left-sided CVA with right hemiplegia), HTN and Other (Previous stroke with right hemiparesthesias and aphasia, hypertension, DVT, Kidney stones, Urosepsis)
ED Past Surgical History: Cholecystectomy and Other (Noncontributory)
Social History
Tobacco: Former smoker
Alcohol: None
Drug: None
Personal:
Living: with family
Employment: Not employed
Family History
Family History: Other (Noncontributory); Negative Diabetes, Hypertension or CAD
Review of Systems
Review of Systems
Unable to obtain full review of systems at this time due to: non-verbal (Aphasia)
All Other Systems: Not applicable
Phy Exam
Physical Exam
Physical Exam:
General: Awake, alert; mild respiratory distress
Head: Normocephalic, atraumatic
Eyes: Conjunctiva normal, sclera anicteric
Throat: Airway intact, handling secretions
Neck: Trachea midline, supple without meningismus
Lungs: Audible wheezing throughout all lung centeno, prolonged expiration, mild tachypnea; pulse ox 95% on room air
Heart: Regular rate and rhythm, no murmurs, gallops, or rubs
Abd: Soft, non distended, nontender
Neuro: Expressive aphasia
Skin: no rash
Extremities: No notable edema in extremities, extremities are warm and well-perfused
Scores
Heart Failure Risk
Heart Failure Risk Score: Not Applicable
Heart Score for Chest Pain Patients
STEMI patient?: Not applicable
Withdrawal Assessment of Alcohol
Withdrawal Assessment Completed?: Not applicable
Course
Orders/Labs/Results
Orders:
Orders
07/21/23 13:40
Ipratropium/Albuterol Sulfate [Duoneb] 3 ml INH R NOW STA
MethylPREDNISolone PF [Solu-Medrol Pf] 125 mg IV NOW STA
07/21/23 13:41
Electrocardiogram (*1) Urgent
Reason for Study: Shortness of Breath
EKG- Treatment ONCE
CR Chest Portable - 1 View Urgent
Comment:
Reason For Exam: sob
Reason Study Needs to be Portable: Unable to Transport
07/21/23 13:53
Complete Blood Count/With Diff Urgent
Comprehensive Metabolic Panel Urgent
NT-proBNP Urgent
Troponin I Urgent
Abnormal Lab Results
07/21/23
13:53
RBC 4.02 L 10^6/uL
(4.20-5.40)
MCH 31.3 H pg
(27.0-31.0)
RDW 15.7 H %
(11.5-14.5)
Absolute Monos (auto) 0.8 H 10^3/uL
(0.1-0.6)
Eosinophils % 6.2 H %
(0-6)
BUN 26 H mg/dl
(7-17)
Glucose 113 H mg/dl
(70-99)
Total Protein 6.2 L g/dl
(6.3-8.2)
07/21/23 13:53
07/21/23 13:53
Vital Signs
Initial and Last Documented VS:
Initial Vital Signs
Temp Pulse Resp Pulse Ox
36.8 C 77 20 95
07/21/23 13:39 07/21/23 13:39 07/21/23 13:39 07/21/23 13:39
Last Documented Vital Signs
Temp Pulse Resp Pulse Ox
36.8 C 77 20 95
07/21/23 13:39 07/21/23 13:39 07/21/23 13:39 07/21/23 13:39
MDM/Problems Addressed
Differential Diagnosis Includes:
COPD/asthma, bronchitis, CHF, pneumonia
MDM/Problems Addressed:
82-year-old female presents with chest tightness and shortness of breath with audible wheezing progressive over the past 2 days as described above. Arrives in mild distress with some tachypnea, audible wheezing throughout all lung centeno and
prolonged expiration. IV placed labs sent off including a CBC and a CMP, troponin, BNP. Will obtain an EKG and portable chest x-ray. Will treat with DuoNeb and steroids for presumed bronchitis based on exam. Will monitor closely reassess after
the above.
Initial labs reviewed: CBC unremarkable, CMP no clinically significant abnormalities. Troponin negative x 1. BNP essentially normal at 95. Chest x-ray low lung volumes questionable interstitial edema but no pneumonia�somewhat lower suspicion for
CHF based on clinical exam and low BNP at 95 but will give a dose of IV Lasix given her significant respiratory symptoms. On clinical reassessment she has improved significantly with DuoNeb and steroid although she is still having some mild
tachypnea and wheezing. Suspect this is likely acute bronchitis. Will plan to admit for continued treatment. Discussed with hospitalist for admission.
*Radiology
Radiology exam reviewed: preliminary read by ED provider and radiology read reviewed
*Pulse Oximetry
Patient hypoxic: no
*EKG
Interpreted by ED Provider?: Yes
Heart Rate: 77
Rate: normal
Rhythm: sinus
[place]: normal axis
Interval: normal interval
QRS Pattern: low voltage
Ischemia: non-specific ST changes
*Critical Care Note
Total Time (30-74mins, 75-104mins- exclusive of procedures): Not Applicable
Data Reviewed
Review of Other/Old Records Reveals: Labs, Records and Discharge Summary
Source: patient, records, family and ambulance crew
Patient Management
Discussion with other providers: Hospitalist (Discussed with hospitalist)
Escalation/DeEscalation of care consider admission/obs:
Admission indicated
ED Attending Note
-
Portions of this chart may have been created with voice recognition software.� Occasional wrong word or��sound alike� substitutions may have occurred due to the inherent limitations of voice recognition software.
Discharge Plan
Departure
Patient Disposition: Admit
Date of Disposition: 07/21/23
Time of Disposition: 15:29
Admit to doctor: Ivonne
Presentation/result/management discussed w/ accepting MD/DO: Hospitalist
Discharge Problem:
Acute bronchitis, CHF exacerbation
Prescriptions:
No Action
simvastatin 40 MG tablet
40 mg PO QPM
Hold Instructions: Resume on 07/11/23. hold while on paxlovid
baclofen 10 MG tablet
10 mg PO TID
gabapentin 300 MG capsule
300 mg PO TID
duloxetine 60 MG capsule,delayed release(DR/EC)
60 mg PO DAILY@1200
multivitamin with folic acid [Tab-A-Rosalee] 1 TABLET tablet
1 tab PO DAILY
cholecalciferol (vitamin D3) 2,000 UNITS tablet
5,000 unit PO DAILY
carvedilol 3.125 MG tablet
3.125 mg PO BID
sennosides [Senna Lax] 8.6 mg Tablet
8.6 mg PO HS
omeprazole 20 mg Tablet,Delayed Release (Dr/Ec)
20 mg PO DAILY
Eliquis 2.5 mg tablet
2.5 mg PO BID
Paxlovid 150-100 mg tablets,dose pack
See Rx Instructions .ROUTE .COMPLEX Qty: 20 0RF
Rx Instructions:
orally per package directions
albuterol sulfate 1.25 mg/3 mL solution for nebulization
1.25 mg inhalation QID PRN (Reason: shortness of breath or wheezing) Qty: 90 0RF
Rx Instructions:
Diagnosis: Heart failure, ICD 10: I50.9
Interventions
Interventions:
*Risk Screen - Suicide Last Done: 07/21/23 13:39
*General Assessment Last Done: 07/21/23 13:39
*Neglect/Abuse Screening Last Done: 07/21/23 13:39
*ED COVID-19 Vaccine History Last Done: 07/21/23 13:39
ED- Cardiac Assessment Last Done: 07/21/23 14:00
ED- Pulmonary Assessment Last Done: 07/21/23 14:00
[2023-07-21] MEDS: LASIX 40 MG IV (15:39)
[2023-07-21 16:11] LABS: COVID-19 Antigen Negative (Negative)
--- NOTE | 2023-07-21 16:17 | HPS.HSE ---
Family Physician
-
Family Physician: Riaz Sorensen
Chief Complaint
-
Shortness of breath, wheezing
History of Present Illness
82-year-old female with a history of stroke and right hemiparesis, expressive aphasia, presents to the emergency room with shortness of breath, chest tightness, wheezing since yesterday. Recently hospitalized here and discharged on July 04 with
a diagnosis of bronchitis related to COVID infection as well as CHF exacerbation.
Also recently treated with nebulizers and steroids last week by her primary care doctor, last dose of prednisone was 7 days ago. [place] better up until yesterday when wheezing and shortness of breath recurred. Has had orthopnea for the past month.
Minimal cough. Does not get weight at home due to her right hemiparesis. All information gathered by speaking with family as patient has expressive aphasia.
Medical History
Past Medical History
Past Medical History: Reports Other
Additional Past Medical History:
History of stroke in 2010, right hemiparesis, expressive aphasia
Essential hypertension
Hyperlipidemia
History of DVT
History of cervical cancer
Heart failure with preserved EF
Nephrolithiasis
Past Surgical History: Reports Cholecystectomy
Social History
Tobacco: Former Smoker
Alcohol: None
Drug: None
Personal:
Living: With Family
Family History
Family History: Not pertinent
Allergies / Home Medications
Allergies reflects when Allergies were last updated in [employer].
Home Medications with original date entered in [employer]
Allergy/Medication List:
Allergies
Allergy/AdvReac Type Severity Reaction Status Date / Time
No Known Drug Allergies Allergy NONE Verified 07/10/22 13:36
Home Medications
baclofen 10 mg tablet 10 mg PO TID Muscle Spasms 10/08/11
duloxetine 60 mg capsule,delayed release 60 mg PO DAILY@1200 Mental Health/Anxiety 10/08/11
gabapentin 300 mg capsule 300 mg PO TID Pain 10/08/11
multivitamin with folic acid 400 mcg tablet (Tab-A-Rosalee) 1 tab PO DAILY Supplement 10/08/11
simvastatin 40 mg tablet 40 mg PO QPM High Cholesterol 10/08/11
cholecalciferol (vitamin D3) 50 mcg (2,000 unit) tablet 5,000 unit PO DAILY Supplement 09/16/15
carvedilol 3.125 mg tablet 3.125 mg PO BID Blood Pressure 05/30/19
apixaban 2.5 mg tablet (Eliquis) 2.5 mg PO BID Blood Clot Prevention/Tx 07/04/23
omeprazole 20 mg tablet,delayed release 20 mg PO DAILY Gastrointestinal Issue 07/04/23
sennosides 8.6 mg tablet (Senna Lax) 8.6 mg PO HS Constipation 07/04/23
Review of Systems
-
Unable to obtain full review of systems at this time due to: Acuity
History Source: Family
Respiratory: Reports Trouble Breathing
Physical Exam
Vital Signs
Vital Signs
Temp Pulse Resp BP Pulse Ox
98.2 F 76 27 106/55 95
07/21/23 13:39 07/21/23 15:45 07/21/23 15:45 07/21/23 15:00 07/21/23 15:45
Physical Exam
General: Well Developed, Well Nourished, No Apparent Distress and Comfortable
HEENT: NormoCephalic, Anicteric and Moist mucous membranes
Respiratory: Wheezes (Primarily upper airway wheezes over the trachea)
Cardiac: S1/S2 and Regular Rhythm
Breast: Deferred by me
GI: Soft, Non Tender and Non Distended
Genito-urinary: Deferred by me
Musculoskeletal: No Clubbing, No Cyanosis, Edema, Left Lower Extremity and Edema, Right Lower Extremity
Skin: Warm and Dry
Neuro: Awake and Alert
Hematologic/Lymphatic: No Lymphadenopathy
Psych: Calm
Laboratory Results
-
07/21/23 13:53
07/21/23 13:53
Laboratory Results
Total Bilirubin 0.6 mg/dl (0.2-1.3) 07/21/23 13:53
AST 24 U/L (14-36) 07/21/23 13:53
ALT 34 U/L (0-35) 07/21/23 13:53
Alkaline Phosphatase 98 U/L (38-126) 07/21/23 13:53
Troponin I < 0.012 ng/ml 07/21/23 13:53
Impression/Plan
-
Acute hypoxic respiratory insufficiency -oxygenation stable on room air currently. Suspect etiology is ongoing bronchospasm from tracheobronchitis due to recent COVID-19 infection. Cannot rule out a component of mild pulmonary edema from heart
failure exacerbation.
Admit to telemetry.
Subacute tracheobronchitis -suspect due to recent COVID-19 infection. Continue steroids and nebs. Add Mucinex and Acapella.
Given her smoking history, recommend outpatient follow-up with pulmonary for evaluation of COPD. Will need outpatient PFTs. Discussed with family.
Subacute heart failure with preserved EF exacerbation -check echocardiogram. Admit to telemetry. Continue IV Lasix. Consult cardiology. She is known to Dr. ROSALIA Membreno. BNP is low but can be suppressed in the face of obesity. Weight is noted to
be 2 kg higher today compared to her discharge weight on July 04.
Essential hypertension -stable.
Hyperlipidemia -on simvastatin at home.
History of stroke, right hemiparesis, expressive aphasia -family reports she is on Eliquis for secondary stroke prevention. Family denies history of atrial fibrillation or flutter.
History of DVT
Chronic ambulatory dysfunction -due to prior stroke, right hemiparesis. Uses a cane at home. Consult PT.
Morbid obesity due to excess calories
Full code
Family updated at the bedside.
--- NOTE | 2023-07-21 17:40 | CON.CAR ---
Consultation
Consultation Request
Date/Time Consultation Requested: July 21 2023
Date/Time Consultation Performed: July 21 2023
Requesting Provider: Dr Beckett
Performing Provider: Dr Leyva
Reason for Consultation: Eval for HF
Medical History
-
Chief Complaint: shortness of breath
History of Present Illness:
.
82-year-old female with a history of CVA and residual right hemiparesis, expressive aphasia, presented to the emergency room with shortness of breath, chest tightness, wheezing since yesterday.� She was recently discharged from Jul 04 with
treatment of bronchitis related to COVID infection as well as CHF exacerbation. She was gentley diuresed but not seen by cardiology at that time. She was recently treated by PCP last week with nebs and steroids with last prednisone 1 week ago.
Yesterday her symptoms recurred and she comes in for eval. She has had orthopnea per records. Her wt is up 4 lbs from discharge. History from records given pt has expressive aphasia.
Cardiology was consulted for evaluation for element of heart failure in the setting of tracheobronchitis and respiratory insufficiency. Her proBNP is 95. Her proBNP was 489 during her last hospitalization.
She was last seen by Dr. Alexi Membreno June 2022. At that time she was stable from a cardiac standpoint. No changes were made to her regimen. Her last echo August 2020 showed EF 55 to 60% with mild MR, PASP 33 mmHg. Last pharmacological
stress test August 2020 showed normal perfusion with EF 68%.
Past medical history
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
Hypertension
Hyperlipidemia
History of DVT
History of cervical cancer
Nephrolithiasis
Cholecystectomy history
Social History
Tobacco: Former Smoker
Alcohol: None
Drug: None
Personal:
Family History
Family History: Reviewed & Not Pertinent
Allergies / Home Medications
Allergy/AdvReac Type Severity Reaction Status Date / Time
No Known Drug Allergies Allergy NONE Verified 07/10/22 13:36
Medication Instructions Recorded Confirmed Type
baclofen 10 mg tablet 10 mg PO TID Muscle Spasms 10/08/11 07/21/23 History
duloxetine 60 mg capsule,delayed 60 mg PO DAILY@1200 Mental 10/08/11 07/21/23 History
release Health/Anxiety
gabapentin 300 mg capsule 300 mg PO TID Pain 10/08/11 07/21/23 History
multivitamin with folic acid 400 1 tab PO DAILY Supplement 10/08/11 07/21/23 History
mcg tablet (Tab-A-Rosalee)
simvastatin 40 mg tablet 40 mg PO QPM High Cholesterol 10/08/11 07/21/23 History
cholecalciferol (vitamin D3) 50 5,000 unit PO DAILY Supplement 09/16/15 07/21/23 History
mcg (2,000 unit) tablet
carvedilol 3.125 mg tablet 3.125 mg PO BID Blood Pressure 05/30/19 07/21/23 History
apixaban 2.5 mg tablet (Eliquis) 2.5 mg PO BID Blood Clot 07/04/23 07/21/23 History
Prevention/Tx
omeprazole 20 mg tablet,delayed 20 mg PO DAILY Gastrointestinal 07/04/23 07/21/23 History
release Issue
sennosides 8.6 mg tablet (Senna 8.6 mg PO HS Constipation 07/04/23 07/21/23 History
Lax)
Review of Systems
-
History Source: Patient (Pt has aphasia and can not answer questions) and Other (records)
All other systems: Negative unless noted
Respiratory: Trouble Breathing
Physical Exam
Vital Signs
Temp Pulse Resp BP Pulse Ox
98.2 F 76 27 106/55 95
07/21/23 13:39 07/21/23 15:45 07/21/23 15:45 07/21/23 15:00 07/21/23 15:45
Physical Examination:
General: No acute distress, Awake. expressive aphasia
Neck: Negative JVD
Heart: Regular, Negative S3 positive S1/S2, Negative S4, No murmur
Lungs: CTA b/l, negative wheezes/rales/rhonchi
Abd: Positive BS, NT/ND, neg rebound/rigidity/guarding
Ext: Negative cyanosis/clubbing/edema
Neuro: right sided weaknessl
Lab Results
07/21/23 13:53
07/21/23 13:53
Troponin I < 0.012 ng/ml 07/21/23 13:53
Xic-O-Hvmcvqbtxzp Pept 95.3 pg/ml 07/21/23 13:53
Impression / Plan
-
.
Impression:
Acute hypoxic respiratory insufficiency likely secondary to ongoing bronchospasm from tracheobronchitis/recent COVID infection
Possible mild diastolic congestive heart failure component
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
Hypertension
Hyperlipidemia
History of DVT
History of cervical cancer
Plan:
Multifactorial dyspnea more likely pulmonary in nature.
Gentle diuresis with IV Lasix.
Follow-up proBNP
Monitor daily weights. She is up 4 pounds from last visit.
Check echo to reevaluate left ventricular systolic function.
Continue Eliquis for stroke prophylaxis
Outpatient cardiac follow-up.
Data Reviewed
-
EKG: Tracing Personally Visualized and interpreted
Radiology: Image Personally Visualized and interpreted
Labs: Labs Reviewed by me
Old Records: Reviewed
[2023-07-21] MEDS: ELIQUIS 2.5 MG PO (19:34)
[2023-07-21] MEDS: MUCINEX 600 MG PO (19:34)
[2023-07-21] MEDS: COREG 3.125 MG PO (19:37)
[2023-07-21] MEDS: LIORESAL 10 MG PO (21:27)
[2023-07-21] MEDS: NEURONTIN 300 MG PO (21:27)
[2023-07-21] MEDS: SENOKOT 8.59999999999999964 MG PO (21:27)
[2023-07-22 03:54] VITALS: BP 120/50
[2023-07-22] MEDS: DUONEB 3 ML INH ×4 (07:20→19:59)
[2023-07-22 08:29] VITALS: BP 134/89
[2023-07-22 08:53] LABS: Blood Urea Nitrogen 21 mg/dl (7-17); Calcium 8.5 mg/dl (8.4-10.2); Carbon Dioxide 28 mmol/L (22-30); Chloride 103 mmol/L (98-107); Glucose 163 mg/dl (70-99); Potassium 4.2 mmol/L (3.5-5.1); Sodium 138 mmol/L (135-145); eGFR > 60.00
--- NOTE | 2023-07-22 09:51 | W.PN.HOSP.TC ---
Today's Communication/Plan
-
Follow-up echocardiogram
Continue Lasix
PT/OT
Assessment / Plan
Assessment / Plan
Gen-awake, alert, NAD
HEENT-NC, AT, anicteric, clear oral mm
Neck-supple
CV-reg, no M, +S1/S2
Lungs-clear B/L
Abd-soft, NT, ND
Ext-bilateral lower extremity edema
Musculoskeletal-no cyanosis, clubbing
Skin-warm and dry
Neuro-grossly non-focal
Psych-calm, cooperative
Acute hypoxic respiratory insufficiency - Suspect etiology is ongoing bronchospasm from tracheobronchitis due to recent COVID-19 infection.� Cannot rule out a component of mild pulmonary edema from heart failure exacerbation. Currently on 2 L nasal
cannula oxygen, wean down as able.
Subacute tracheobronchitis -suspect due to recent COVID-19 infection.� Continue steroids and nebs.� Add Mucinex and Acapella.
Given her smoking history, recommend outpatient follow-up with pulmonary for evaluation of COPD.� Will need outpatient PFTs.� Discussed with family.
Subacute heart failure with preserved EF exacerbation -check echocardiogram.� Continue IV Lasix.� Appreciate cardiology input.� She is known to Dr. ROSALIA Membreno.� BNP is low but can be suppressed in the face of obesity.� Weight is coming down on Lasix.
Essential hypertension -stable.
Hyperlipidemia -on simvastatin at home.
History of stroke, right hemiparesis, expressive aphasia -family reports she is on Eliquis for secondary stroke prevention.� Family denies history of atrial fibrillation or flutter.
History of DVT
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
Morbid obesity due to excess calories
Full code
Anticipated Discharge: 24 - 48 hours
Subjective/Interval History
-
Date of Service: July 22, 2023
Patient seen and examined. Just got back from echocardiogram this morning. Looks comfortable.
Objective Data
-
Labs:
Laboratory Results
07/22/23
06:57
Sodium 138
Potassium 4.2
Chloride 103
Carbon Dioxide 28
BUN 21 H
Creatinine 0.7
Glucose 163 H
Calcium 8.5
Vital Signs:
Vital Signs
Temp Pulse Resp BP Pulse Ox
97.9 F 82 18 134/89 94
07/22/23 08:29 07/22/23 08:29 07/22/23 08:29 07/22/23 08:29 07/22/23 08:29
I&O
07/21/23 07/22/23 07/23/23
06:59 06:59 06:59
Intake Total 240 / 240
Balance 240 / 240
Review of Systems
-
Unable to obtain full review of systems at this time due to: Other (Expressive aphasia)
[2023-07-22] MEDS: ELIQUIS 2.5 MG PO ×2 (09:54→20:27)
[2023-07-22] MEDS: LIORESAL 10 MG PO ×3 (09:54→21:10)
[2023-07-22] MEDS: MUCINEX 600 MG PO ×2 (09:55→20:28)
[2023-07-22] MEDS: NEURONTIN 300 MG PO ×3 (09:55→21:10)
[2023-07-22] MEDS: DELTASONE 40 MG PO (09:55)
[2023-07-22] MEDS: THERAGRAN 1 TABLET PO (09:56)
[2023-07-22] MEDS: VITAMIN D3 (cholecalciferol) 50 MCG PO (09:56)
[2023-07-22] MEDS: COREG 3.125 MG PO ×2 (09:56→20:27)
[2023-07-22] MEDS: LASIX 40 MG IV (09:57)
[2023-07-22 10:04] VITALS: PULSE 75; O2SAT 98
[2023-07-22 11:30] VITALS: BP 132/41
[2023-07-22] MEDS: CYMBALTA DELAYED RELEASE 60 MG PO (11:59)
--- NOTE | 2023-07-22 14:26 | VNURNOTE ---
Home health liaison met with patient to discuss resumption of care for [facility] services. Patient with expressive and receptive aphasia. Nods her head appropriately to name and address, says '[place]' to all questions. Patient made aware visits will be
1-2 times a week to assess and teach medical management. Patient made aware a visiting nurse will contact her for start of care within 1-2 days after discharge from . [facility] Referral completed in care port
--- NOTE | 2023-07-22 14:46 | CM ---
Patient seen bedside.
IA completed.
Patient lives with spouse in 2 story home with first floor set up.
patient with hx CVA with right hemiparesis and expressive aphasia.
Patient has a WC, Cane, Shower chair and ramp into the home.
Patient had [facility] in the past.
PT/OT recommending Home health.
Spoke with spouse, agreeable to [facility].
PCP: Dr Sorensen
Pharmacy: [facility]
Plan: home with [facility] when stable.
[2023-07-22 15:30] VITALS: BP 121/53
--- NOTE | 2023-07-22 16:20 | W.PN.CARDCBS ---
Addendum entered and electronically signed by Alexi Membreno MD 07/22/23 18:01:
She appears comfortable, family at bedside, discharged from [place] July 04 with COVID and CHF exacerbation, placed on steroids 1 week ago for bronchitis, now readmitted, is comfortable now has received IV Lasix
No allergies
Outpatient medications: Carvedilol 3.125 twice daily, Eliquis 2.5 twice daily for DVT, gabapentin, simvastatin 40 mg a day
Current medications: Eliquis 2.5 twice daily, carvedilol 3.125 twice daily, prednisone 40 mg a day, albuterol, furosemide 40 mg daily
PMH/PSH/SH/FH: Reviewed
ROS: Not obtainable
121/53, pulse 81, respiratory 20, head neck exam unremarkable, aphasia, mostly expressive, right hemiparesis/plegia, clear lungs, regular rate rhythm no obvious murmurs, abdomen benign extremities 1+ to 2+ edema
BUN and creatinine 21 and 0.7, proBNP was less than 100
Echo 07/22/2023: EF 55-60%, MAC, trace MR, mildly dilated left atrium, aortic sclerosis, pulmonary artery systolic pressure 34 mmHg
Impression:
Acute hypoxic respiratory insufficiency likely secondary to ongoing bronchospasm from tracheobronchitis/recent COVID infection
Possible mild diastolic congestive heart failure component
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
Hypertension
Hyperlipidemia
History of DVT
History of cervical cancer
Echo 08/28/2020:�EF 55 to 60%, stage I DD, mild MR
Lexiscan Nuclear Stress test 08/28/20:�EKG is inconclusive for ischemia given pharmacologic study. Arrhythmia: PVCs. Perfusion is normal and no fixed or reversible defects are seen. The transient dilation is not present. The ratio is 1.26. Functional
imaging shows normal contractility. Gated images revealed an EF of 68%.
Plan:
At this point, she seems stable from a cardiac standpoint, and her volume/CHF status is good on furosemide 40 mg a day.
Any residual pulmonary abnormalities likely related to her bronchitis/COVID earlier in the month.
No new cardiac recommendations at this time.
We will arrange for outpatient cardiac follow-up.
We will sign off, please call with questions.
Recommended cardiac meds at discharge:
Carvedilol 3.125 mg twice daily
Eliquis 2.5 mg twice daily
Furosemide 40 mg daily
Please check BMP in 1 week.
Original Note:
Today's Communication / Plan
-
Transition to oral Lasix in next 24 hours
Continue Eliquis and Coreg
Outpatient cardiology follow up arranged
Impression / Plan
-
Family Physician:� Riaz Sorensen
Museum Assistant:Dr. ROSALIA Membreno
Impression:
Presented 07/21/2023 with Shortness of breath, wheezing
Acute hypoxic respiratory insufficiency likely secondary to ongoing bronchospasm from tracheobronchitis/recent COVID infection
Possible mild diastolic congestive heart failure component
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
Hypertension
Hyperlipidemia
History of DVT
History of cervical cancer
Echo 08/28/2020: EF 55 to 60%, stage I DD, mild MR
Lexiscan Nuclear Stress test 08/28/20: EKG is inconclusive for ischemia given pharmacologic study. Arrhythmia: PVCs. Perfusion is normal and no fixed or reversible defects are seen. The transient dilation is not present. The ratio is 1.26. Functional
imaging shows normal contractility. Gated images revealed an EF of 68%.
Plan:
-Presented 07/21/2023 with SOB and wheezing.
-Suspect symptoms are likely multifactorial dyspnea and more pulmonary in nature as proBNP is 95.3
-Gentle diuresis with IV Lasix, weight is down 5 lbs overnight and overall weight is currently lower this admission than when she was here 3 weeks ago. Would transition to oral Lasix in next 24 hours. Patient was not in diuretic prior to admission
-Monitor daily weights.
-Echo to reevaluate left ventricular systolic function is pending
History of prior stroke and DVT. Continue Eliquis for stroke prophylaxis
Outpatient cardiac follow-up.
HPI data:
82-year-old female with a history of CVA and residual right hemiparesis, expressive aphasia, presented to the emergency room with shortness of breath, chest tightness, wheezing since yesterday.� She was recently discharged from Jul 04 with
treatment of bronchitis related to COVID infection as well as CHF exacerbation. She was gently diuresed but not seen by cardiology at that time. She was recently treated by PCP last week with nebs and steroids with last prednisone 1 week ago.
Yesterday her symptoms recurred and she comes in for eval. She has had orthopnea per records. Her wt is up 4 lbs from discharge. History from records given pt has expressive aphasia.
Cardiology was consulted for evaluation for element of heart failure in the setting of tracheobronchitis and respiratory insufficiency.� Her proBNP is 95.� Her proBNP was 489 during her last hospitalization.
She was last seen by Dr. Alexi Membreno June 2022.� At that time she was stable from a cardiac standpoint.� No changes were made to her regimen.� Her last echo August 2020 showed EF 55 to 60% with mild MR, PASP 33 mmHg.� Last pharmacological
stress test August 2020 showed normal perfusion with EF 68%.
Progress Note - Museum Assistant
Subjective
Date of Service: July 22, 2023
Patient seen and examined. Shakes head that she is feeling less SOB.
Objective
Labs:
07/21/23 13:53
07/22/23 06:57
Labs
Hgb 12.6 g/dL (12.0-16.0) 07/21/23 13:53
Hct 37.1 % (37.0-47.0) 07/21/23 13:53
Plt Count 179 10^3/uL (130-400) 07/21/23 13:53
Sodium 138 mmol/L (135-145) 07/22/23 06:57
Potassium 4.2 mmol/L (3.5-5.1) 07/22/23 06:57
BUN 21 mg/dl (7-17) H 07/22/23 06:57
Creatinine 0.7 mg/dL (0.6-1.0) 07/22/23 06:57
Glucose 163 mg/dl (70-99) H 07/22/23 06:57
Troponins
07/21/23
13:53
Troponin I < 0.012
Vital Signs and I&O:
Vital Signs
Temp Pulse Resp BP Pulse Ox
99.1 F 81 20 121/53 93
07/22/23 15:30 07/22/23 15:48 07/22/23 15:48 07/22/23 15:30 07/22/23 15:48
Vital Signs
Temp Pulse Resp BP Pulse Ox
99.1 F 81 20 121/53 93
07/22/23 15:30 07/22/23 15:48 07/22/23 15:48 07/22/23 15:30 07/22/23 15:48
Intake & Output
07/20/23 07/21/23 07/22/23 07/23/23
06:59 06:59 06:59 06:59
Intake Total 240 / 240
Balance 240 / 240
Physical Exam
Physical Exam
GEN: No distress, awake, Ox3, morbidly obese
HEENT: supple, anicteric, mmm
LUNGS: CTA, no wheezes/rales
CV: Reg, S1/S2, no murmur, rubs or gallops
ABD: soft, BS+, NT/ND
EXT: No edema, clubbing or cyanosis
NEURO: expressive aphasia and right sided weakness
SKIN: No rash, warm, dry
[2023-07-22 20:06] VITALS: BP 134/57
[2023-07-22] MEDS: SENOKOT 8.59999999999999964 MG PO (21:10)
[2023-07-23] VITALS (8 sets, daily range): BP systolic 120–146; BP diastolic 51–94
[2023-07-23] MEDS: DUONEB 3 ML INH ×4 (07:38→20:23)
[2023-07-23 07:53] LABS: Blood Urea Nitrogen 23 mg/dl (7-17); Calcium 8.5 mg/dl (8.4-10.2); Carbon Dioxide 31 mmol/L (22-30); Chloride 103 mmol/L (98-107); Glucose 117 mg/dl (70-99); Potassium 3.9 mmol/L (3.5-5.1); Sodium 137 mmol/L (135-145); eGFR > 60.00
[2023-07-23] MEDS: DELTASONE 40 MG PO (07:56)
[2023-07-23] MEDS: LIORESAL 10 MG PO ×3 (07:56→21:00)
[2023-07-23] MEDS: COREG 3.125 MG PO ×2 (07:56→19:25)
[2023-07-23] MEDS: MUCINEX 600 MG PO ×2 (07:56→19:25)
[2023-07-23] MEDS: VITAMIN D3 (cholecalciferol) 50 MCG PO (07:57)
[2023-07-23] MEDS: NEURONTIN 300 MG PO ×3 (07:57→21:00)
[2023-07-23] MEDS: LASIX 40 MG PO (07:57)
[2023-07-23] MEDS: THERAGRAN 1 TABLET PO (07:57)
[2023-07-23] MEDS: ELIQUIS 2.5 MG PO ×2 (08:01→19:25)
--- NOTE | 2023-07-23 08:17 | W.PN.HOSP.TC ---
Today's Communication/Plan
-
Discharge planning
Assessment / Plan
Assessment / Plan
Gen-awake, alert, NAD, obese
HEENT-NC, AT, anicteric, clear oral mm
Neck-supple
CV-reg, no M, +S1/S2
Lungs-clear B/L
Abd-soft, NT, ND
Ext-bilateral lower extremity edema
Musculoskeletal-no cyanosis, clubbing
Skin-warm and dry
Neuro-grossly non-focal
Psych-calm, cooperative
Acute hypoxic respiratory insufficiency - Suspect etiology is ongoing bronchospasm from tracheobronchitis due to recent COVID-19 infection.� Cannot rule out a component of mild pulmonary edema from heart failure exacerbation. Oxygenation improved,
now on room air.
Subacute tracheobronchitis -suspect due to recent COVID-19 infection.� Continue steroids and nebs.� Continue Mucinex and Acapella.
Given her smoking history, recommend outpatient follow-up with pulmonary for evaluation of COPD.� Will need outpatient PFTs.� Discussed with family.
Subacute heart failure with preserved EF exacerbation -echocardiogram with normal LVEF, indeterminate diastolic function.� Continue oral Lasix per cardiology.� Appreciate cardiology input.� She is known to Dr. ROSALIA Membreno.� BNP is low but can be
suppressed in the face of obesity.� Weight is coming down on Lasix.
Essential hypertension -stable.
Hyperlipidemia -on simvastatin at home.
History of stroke, right hemiparesis, expressive aphasia -family reports she is on Eliquis for secondary stroke prevention.� Family denies history of atrial fibrillation or flutter.
History of DVT
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
Morbid obesity due to excess calories
Full code
Dispo -medically stable for discharge. Family prefers SNF placement. Social work to assist. Updated daughter Madison on the phone today.
Anticipated Discharge: Within 24 hours
Subjective/Interval History
-
Date of Service: July 23, 2023
Patient seen and examined. Expressive aphasia makes it difficult assessing review of systems. Looks comfortable.
Objective Data
-
Labs:
Laboratory Results
07/23/23
06:07
Sodium 137
Potassium 3.9
Chloride 103
Carbon Dioxide 31 H
BUN 23 H
Creatinine 0.7
Glucose 117 H
Calcium 8.5
Vital Signs:
Vital Signs
Temp Pulse Resp BP Pulse Ox
98 F 72 18 130/59 93
07/23/23 08:11 07/23/23 08:11 07/23/23 08:11 07/23/23 08:11 07/23/23 08:11
I&O
07/22/23 07/23/23 07/24/23
06:59 06:59 06:59
Intake Total 240 / 240 660 / 660
Balance 240 / 240 660 / 660
Review of Systems
-
Unable to obtain full review of systems at this time due to: Other (Expressive aphasia)
[2023-07-23] MEDS: CYMBALTA DELAYED RELEASE 60 MG PO (11:37)
[2023-07-23] MEDS: SENOKOT 8.59999999999999964 MG PO (21:00)
[2023-07-24 03:42] VITALS: BP 126/61
[2023-07-24] MEDS: DUONEB 3 ML INH ×4 (07:24→20:31)
[2023-07-24 07:34] VITALS: BP 141/60
[2023-07-24 07:34] LABS: Blood Urea Nitrogen 27 mg/dl (7-17); Calcium 8.5 mg/dl (8.4-10.2); Carbon Dioxide 34 mmol/L (22-30); Chloride 102 mmol/L (98-107); Glucose 93 mg/dl (70-99); Potassium 3.8 mmol/L (3.5-5.1); Sodium 139 mmol/L (135-145); eGFR > 60.00
--- NOTE | 2023-07-24 08:27 | W.PN.HOSP.TC ---
Today's Communication/Plan
-
Taper steroids
Discharge planning
Assessment / Plan
Assessment / Plan
Gen-awake, alert, NAD, obese
HEENT-NC, AT, anicteric, clear oral mm
Neck-supple
CV-reg, no M, +S1/S2
Lungs-clear B/L
Abd-soft, NT, ND
Ext-bilateral lower extremity edema
Musculoskeletal-no cyanosis, clubbing
Skin-warm and dry
Neuro-right hemiparesis, expressive aphasia
Psych-calm, cooperative
Acute hypoxic respiratory insufficiency - Suspect etiology is ongoing bronchospasm from tracheobronchitis due to recent COVID-19 infection.� Cannot rule out a component of mild pulmonary edema from heart failure exacerbation. Oxygenation improved,
now on room air.
Subacute tracheobronchitis -suspect due to recent COVID-19 infection.� Continue steroids and nebs.� Continue Mucinex and Acapella. Taper prednisone.
Given her smoking history, recommend outpatient follow-up with pulmonary for evaluation of COPD.� Will need outpatient PFTs.� Discussed with family.
Subacute heart failure with preserved EF exacerbation -echocardiogram with normal LVEF, indeterminate diastolic function.� Continue oral Lasix per cardiology.� Appreciate cardiology input.� She is known to Dr. ROSALIA Membreno.� BNP is low but can be
suppressed in the face of obesity.� Weight is coming down on Lasix.
Essential hypertension -stable.
Hyperlipidemia -on simvastatin at home.
History of stroke, right hemiparesis, expressive aphasia -family reports she is on Eliquis for secondary stroke prevention.� Family denies history of atrial fibrillation or flutter.
History of DVT
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
Morbid obesity due to excess calories
Full code
Dispo -medically stable for discharge. Family prefers SNF placement. Social work to assist. Updated daughter Madison on the phone today.
Anticipated Discharge: Within 24 hours
Subjective/Interval History
-
Date of Service: July 24, 2023
Patient seen and examined. Looks comfortable. No complaints.
Objective Data
-
Labs:
Laboratory Results
07/24/23
06:31
Sodium 139
Potassium 3.8
Chloride 102
Carbon Dioxide 34 H
BUN 27 H
Creatinine 0.9
Glucose 93
Calcium 8.5
Vital Signs:
Vital Signs
Temp Pulse Resp BP Pulse Ox
97.4 F 66 16 126/61 92
07/24/23 03:42 07/24/23 07:27 07/24/23 07:27 07/24/23 03:42 07/24/23 07:27
I&O
07/23/23 07/24/23 07/25/23
06:59 06:59 06:59
Intake Total 660 / 660 680 / 680
Balance 660 / 660 680 / 680
Review of Systems
-
Unable to obtain full review of systems at this time due to: Other (Expressive aphasia)
[2023-07-24] MEDS: DELTASONE PO (08:38)
[2023-07-24] MEDS: THERAGRAN 1 TABLET PO (08:39)
[2023-07-24] MEDS: LIORESAL 10 MG PO ×3 (08:39→21:11)
[2023-07-24] MEDS: MUCINEX 600 MG PO ×2 (08:39→19:58)
[2023-07-24] MEDS: ELIQUIS 2.5 MG PO ×2 (08:39→19:58)
[2023-07-24] MEDS: LASIX 40 MG PO (08:39)
[2023-07-24] MEDS: NEURONTIN 300 MG PO ×3 (08:39→21:11)
[2023-07-24] MEDS: VITAMIN D3 (cholecalciferol) 50 MCG PO (08:39)
[2023-07-24] MEDS: COREG 3.125 MG PO ×2 (08:40→19:57)
[2023-07-24] MEDS: DELTASONE 30 MG PO (08:40)
[2023-07-24] MEDS: MIRALAX 17 GRAMS PO (08:48)
[2023-07-24 11:38] VITALS: BP 122/55
[2023-07-24] MEDS: CYMBALTA DELAYED RELEASE 60 MG PO (11:48)
[2023-07-24] MEDS: SENOKOT 8.59999999999999964 MG PO (21:11)
[2023-07-24 23:13] VITALS: BP 126/91
[2023-07-25] MEDS: DUONEB 3 ML INH ×4 (08:03→20:06)
[2023-07-25 08:30] LABS: Blood Urea Nitrogen 36 mg/dl (7-17); Calcium 8.6 mg/dl (8.4-10.2); Carbon Dioxide 34 mmol/L (22-30); Chloride 101 mmol/L (98-107); Glucose 132 mg/dl (70-99); Potassium 3.6 mmol/L (3.5-5.1); Sodium 138 mmol/L (135-145); eGFR > 60.00
[2023-07-25] MEDS: MIRALAX 17 GRAMS PO (08:47)
[2023-07-25] MEDS: ELIQUIS 2.5 MG PO ×2 (08:51→19:44)
[2023-07-25] MEDS: LASIX 40 MG PO (08:51)
[2023-07-25] MEDS: VITAMIN D3 (cholecalciferol) 50 MCG PO (08:51)
[2023-07-25] MEDS: THERAGRAN 1 TABLET PO (08:51)
[2023-07-25] MEDS: LIORESAL 10 MG PO ×3 (08:51→21:27)
[2023-07-25] MEDS: MUCINEX 600 MG PO ×2 (08:51→19:44)
[2023-07-25] MEDS: NEURONTIN 300 MG PO ×3 (08:52→21:27)
[2023-07-25] MEDS: DELTASONE 30 MG PO (08:52)
[2023-07-25] MEDS: COREG 3.125 MG PO ×2 (08:52→19:44)
[2023-07-25 09:14] VITALS: BP 118/59
[2023-07-25] MEDS: CYMBALTA DELAYED RELEASE 60 MG PO (11:23)
[2023-07-25 11:24] VITALS: BP 138/69; PULSE 79
--- NOTE | 2023-07-25 11:33 | W.PN.HOSP.TC ---
Today's Communication/Plan
-
d/c planning to SNF
Assessment / Plan
Assessment / Plan
pt is an 82 year old female
Acute hypoxic respiratory insufficiency - Suspect etiology is ongoing bronchospasm from tracheobronchitis due to recent COVID-19 infection.� Cannot rule out a component of mild pulmonary edema from heart failure exacerbation. Oxygenation improved,
now on room air.
Subacute tracheobronchitis -suspect due to recent COVID-19 infection.� Continue steroids and nebs.� Continue Mucinex and Acapella. Taper prednisone--Given her smoking history, recommend outpatient follow-up with pulmonary for evaluation of COPD.�
Will need outpatient PFTs.� Discussed with family.
Subacute heart failure with preserved EF exacerbation -echocardiogram with normal LVEF, indeterminate diastolic function.� Continue oral Lasix per cardiology.� Appreciate cardiology input.� She is known to Dr. ROSALIA Membreno.� BNP is low but can be
suppressed in the face of obesity.� Weight is coming down on Lasix.
Essential hypertension -stable.
Hyperlipidemia -on simvastatin at home.
History of stroke, right hemiparesis, expressive aphasia -family reports she is on Eliquis for secondary stroke prevention.� Family denies history of atrial fibrillation or flutter.
History of DVT
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
Morbid obesity due to excess calories
Full code
Dispo -medically stable for discharge. Family prefers SNF placement. Social work to assist. Updated daughter Madison on the phone today.
Anticipated Discharge: Within 24 hours
Subjective/Interval History
-
Date of Service: July 25, 2023
pt with expressive aphasia--therapy notes not at baseline and will need SNF
Objective Data
-
Labs:
Laboratory Results
07/25/23
07:31
Sodium 138
Potassium 3.6
Chloride 101
Carbon Dioxide 34 H
BUN 36 H
Creatinine 0.8
Glucose 132 H
Calcium 8.6
Vital Signs:
max temp for 24 hours
07/24/23
11:38
Temp 98.3 F
Vital Signs
Temp Pulse Resp BP Pulse Ox
98.0 F 79 18 118/59 95
07/25/23 09:14 07/25/23 09:14 07/25/23 09:14 07/25/23 09:14 07/25/23 08:06
I&O
07/24/23 07/25/23 07/26/23
06:59 06:59 06:59
Intake Total 680 / 680 1430 / 1430
Balance 680 / 680 1430 / 1430
Review of Systems
-
Unable to obtain full review of systems at this time due to: Other (expressive aphasia)
Physical Exam
-
General: Well Developed, Well Nourished, No Apparent Distress and Obese
HEENT: Normocephalic and Atraumatic; Negative Oxygen
Respiratory: Clear to Auscultation; Negative Wheezes or Rhonchi
Cardiac: Regular Rhythm and S1/S2; Negative Murmur
GI: Soft, Nontender, Nondistended and Normal Bowel Sounds
Musculoskeletal: No Clubbing, No Cyanosis and No Edema
Neuro: Other (expressive aphasia--contracted right arm/hand)
[2023-07-25 12:03] VITALS: BP 138/69; PULSE 79
--- NOTE | 2023-07-25 13:29 | CM ---
Addendum entered by Claudia Casanova 07/25/23 17:03:
referrals sent via all scripts. awaiting response
Original Note:
Patient daughter Madison, spoke with CM . Daughter requested referrals to SNF, [facility] and [facility] CM will send referrals via all script and await response.
Plan; SNF
[2023-07-25 15:30] VITALS: BP 114/61
[2023-07-25] MEDS: SENOKOT 8.59999999999999964 MG PO (21:27)
[2023-07-25 22:39] VITALS: BP 111/68
[2023-07-26 07:30] VITALS: BP 126/66
[2023-07-26] MEDS: DUONEB 3 ML INH ×3 (07:35→16:08)
[2023-07-26] MEDS: MIRALAX 17 GRAMS PO (08:28)
[2023-07-26] MEDS: DELTASONE 30 MG PO (08:29)
[2023-07-26] MEDS: ELIQUIS 2.5 MG PO (08:29)
[2023-07-26] MEDS: VITAMIN D3 (cholecalciferol) 50 MCG PO (08:30)
[2023-07-26] MEDS: COREG 3.125 MG PO (08:30)
[2023-07-26] MEDS: NEURONTIN 300 MG PO ×2 (08:30→15:08)
[2023-07-26] MEDS: MUCINEX 600 MG PO (08:30)
[2023-07-26] MEDS: THERAGRAN 1 TABLET PO (08:30)
[2023-07-26] MEDS: LIORESAL 10 MG PO ×2 (08:30→15:08)
[2023-07-26] MEDS: LASIX 40 MG PO (08:30)
[2023-07-26 08:39] LABS: Hematocrit 40.5 % (37.0-47.0); Hemoglobin 13.4 g/dL (12.0-16.0); Mean Corp Hgb Conc. 33.1 g/dL (33.0-37.0); Mean Corpuscular Hgb 30.7 pg (27.0-31.0); Mean Corpuscular Volume 92.9 fL (81.0-99.0); Mean Platelet Volume 10.4 fL (7.4-10.4); Platelet Count 177 10^3/uL (130-400); Red Blood Cell Count 4.36 10^6/uL (4.20-5.40); Red Cell Dist. Width 15.3 % (11.5-14.5); White Blood Cell Count 11.9 10^3/uL (4.8-10.8)
[2023-07-26 09:04] LABS: Blood Urea Nitrogen 31 mg/dl (7-17); Calcium 8.7 mg/dl (8.4-10.2); Carbon Dioxide 35 mmol/L (22-30); Chloride 99 mmol/L (98-107); Glucose 87 mg/dl (70-99); Magnesium 2.4 mg/dl (1.6-2.3); Sodium 137 mmol/L (135-145); eGFR > 60.00
[2023-07-26 09:40] LABS: Potassium 3.7 mmol/L (3.5-5.1)
[2023-07-26] MEDS: CYMBALTA DELAYED RELEASE 60 MG PO (11:09)
[2023-07-26 11:48] VITALS: BP 111/79; PULSE 71; O2SAT 95
--- NOTE | 2023-07-26 12:01 | W.PN.HOSP.TC ---
Today's Communication/Plan
-
d/c planning
Assessment / Plan
Assessment / Plan
pt is an 82 year old female
Acute hypoxic respiratory insufficiency - Suspect etiology is ongoing bronchospasm from tracheobronchitis due to recent COVID-19 infection.� Cannot rule out a component of mild pulmonary edema from heart failure exacerbation. Oxygenation improved,
now on room air.
Subacute tracheobronchitis -suspect due to recent COVID-19 infection.� Continue steroids and nebs.� Continue Mucinex and Acapella. Taper prednisone--Given her smoking history, recommend outpatient follow-up with pulmonary for evaluation of COPD.�
Will need outpatient PFTs.�
Subacute heart failure with preserved EF exacerbation -echocardiogram with normal LVEF, indeterminate diastolic function.� Continue oral Lasix per cardiology.� Appreciate cardiology input.� She is known to Dr. ROSALIA Membreno.� BNP is low but can be
suppressed in the face of obesity.� Weight is coming down on Lasix.
Essential hypertension -stable.
Hyperlipidemia -on simvastatin at home.
History of stroke, right hemiparesis, expressive aphasia -family reports she is on Eliquis for secondary stroke prevention.� Family denies history of atrial fibrillation or flutter.
History of DVT
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
Morbid obesity due to excess calories
Full code
Dispo -medically stable for discharge. Family prefers SNF placement. Social work to assist. Updated daughter Madison on the phone today.
Anticipated Discharge: 24 - 48 hours
Subjective/Interval History
-
Date of Service: July 26, 2023
pt denies pain or SOB--says nothing bothering her
Objective Data
-
Labs:
Laboratory Results
07/26/23
07:16
WBC 11.9 H
Hgb 13.4
Hct 40.5
Plt Count 177
Sodium 137
Potassium 3.7
Chloride 99
Carbon Dioxide 35 H
BUN 31 H
Creatinine 0.9
Glucose 87
Calcium 8.7
Vital Signs:
max temp for 24 hours
07/25/23
15:30
Temp 98.0 F
Vital Signs
Temp Pulse Resp BP Pulse Ox
97.8 F 67 16 126/66 94
07/26/23 07:30 07/26/23 11:44 07/26/23 11:44 07/26/23 07:30 07/26/23 11:44
I&O
07/25/23 07/26/23 07/27/23
06:59 06:59 06:59
Intake Total 1430 / 1430 820 / 820
Balance 1430 / 1430 820 / 820
Review of Systems
-
Unable to obtain full review of systems at this time due to: Language Barrier (expressive aphasia but will nod yes or no)
All other systems: Reviewed and negative
Physical Exam
-
General: Well Developed, Well Nourished and No Apparent Distress
HEENT: Normocephalic and Atraumatic
Respiratory: Clear to Auscultation; Negative Wheezes or Rhonchi
Cardiac: Regular Rhythm and S1/S2; Negative Murmur
GI: Soft, Nontender, Nondistended and Normal Bowel Sounds
Musculoskeletal: No Clubbing, No Cyanosis and No Edema
Neuro: Other (left sided hemiparesis -- expressive aphasia)
Psych: Calm
--- NOTE | 2023-07-26 13:11 | CM ---
Patient accepted to [facility] for transfer today. CM spoke with daughter and will email IMM to [email or web address]. Patient for ambulance transportation. Patient daughter indicated that she was happy with plan. Please [phone]/fax [phone]
for transfer to SNF today. CM completed transfer forms and placed on chart. CM will continue for discharge planning needs.
Plan; transfer to SNF today
[2023-07-26 15:30] VITALS: BP 124/55
--- NOTE | 2023-07-27 07:49 | W.DCSUMMARY ---
Discharge Summary
Discharge Data
Date of Admission: 07/21/23
Date of Discharge: 07/26/23
-
Pending Results: No
Hospital Course
Primary care physician : Moises Sorensen
Principal Discharge diagnosis : Acute hypoxemic respiratory insufficiency, subacute tracheobronchitis suspected due to recent COVID-19 infection, subacute diastolic congestive heart failure exacerbation
Chronic Discharge diagnosis : Essential hypertension, hyperlipidemia, history of stroke with right sided hemiparesis and expressive aphasia, history of deep venous thrombosis, chronic ambulatory dysfunction
Hospital Course : Patient was an 82-year-old female with a history of stroke and right-sided hemiparesis as well as expressive aphasia who presented with shortness of breath along with chest tightness and wheezing since the day prior to admission.
She was recently hospitalized for diagnosis of bronchitis related to COVID. She was treated with nebulizers and steroids without improvement. Last dose of prednisone was 7 days prior to admission. Patient was admitted.
Problem #1: Acute hypoxemic respiratory insufficiency. This was thought to be due to ongoing bronchospasm from tracheobronchitis due to recent COVID-19 infection. Patient was initially on oxygen but was weaned to room air by the time of discharge.
Steroids and nebulizers were continued. She was also given Mucinex and Acapella.
Problem #2: Subacute tracheobronchitis. This is likely due to COVID-19 infection as mentioned above.
Problem #3: Subacute diastolic congestive heart failure exacerbation. Patient was seen in consultation by cardiology. Echocardiogram showed normal left ventricular ejection fraction. Lasix was continued. Weights did improve.
Problem #4: All other medical issues. These include Essential hypertension, hyperlipidemia, history of stroke with right sided hemiparesis and expressive aphasia, history of deep venous thrombosis, chronic ambulatory dysfunction. These medical
issues were stable during her hospitalization. Medications were continued as able.
Patient was seen in consultation by physical therapy and Occupational Therapy who recommended jail facility. Patient is stable for discharge at this time. If there are any questions regarding this dictation or her hospital stay, please
not hesitate to call. Our office number is [phone].
Procedure findings :
ECHOCARDIOGRAM CONCLUSIONS:
�Normal left ventricular size, wall thickness and systolic function. No regional
�wall motion abnormalities are seen. LV ejection fraction is 55-60% by Haywood's
�method of discs. Diastolic function indeterminate.
�Mitral valve opens normally. Thickened mitral valve leaflets. Mitral annular
�calcification. Trace mitral regurgitation is seen.
�Mildly dilated left atrium. Indexed LA volume is within normal range (15-34
�mL/m2).
�Trileaflet aortic valve. Aortic valve opens normally. Aortic sclerosis without
�stenosis. No aortic regurgitation is seen.
�Since echocardiogram August 2020, there is no significant change.
Discharge Plan
-
Patient Disposition: Skilled Nursing/SNF
Discharge Diagnosis/Procedures: Acute hypoxemic respiratory insufficiency etiology is bronchospasm from tracheobronchitis due to recent COVID-19 infection, subacute tracheobronchitis, subacute congestive heart failure with preserved ejection
fraction and exacerbation, essential hypertension, hyperlipidemia, history of stroke and right hemiparesis with expressive aphasia, history of deep venous thrombosis, chronic ambulatory dysfunction, morbid obesity due to excess calories
Condition: Good
Diet: Low Cholesterol and 2 Gram Sodium
Activity: As tolerated
Driving Restrictions: No driving
Bathing Restrictions: None
Specialty Instructions: Weigh Daily- Call MD for wt gain/loss 3 lbs overnight/5 lbs in 1 week
Referrals:
Riaz Sorensen MD [Family Provider] - in less than 1 week
Barbara Drummond PA-C [Specified Professional Personl] - 08/04/23 1:00 pm (You have cardiology follow up with Barbara Drummond on August 03 at 1 pm in [address] [facility] [address] [facility]. If you are unable to make this visit please call [phone] to
reschedule)
Prescriptions:
New
acetaminophen 325 mg Tablet
650 mg PO Q6HPRN PRN (Reason: mild pain/ fever>100.5F) Qty: 0 0RF
ipratropium-albuterol 0.5 mg-3 mg(2.5 mg base)/3 mL Solution For Nebulization
3 ml inhalation R Q4HPRN PRN (Reason: wheezing) Qty: 0 0RF
polyethylene glycol 3350 [HealthyLax] 17 gram Powder In Packet
17 g PO DAILY Qty: 0 0RF
furosemide 40 mg Tablet
40 mg PO DAILY Qty: 0 0RF
guaifenesin 600 mg Tablet Extended Release 12hr
600 mg PO Q12 Qty: 0 0RF
prednisone 10 mg Tablet
See Rx Instructions .ROUTE .COMPLEX Qty: 30 0RF
Rx Instructions:
Take By Mouth:
20 mg daily x3 days, 10 mg daily x3 days.
Continued
simvastatin 40 MG tablet
40 mg PO QPM
Hold Instructions: Resume on 07/11/23. hold while on paxlovid
baclofen 10 MG tablet
10 mg PO TID
gabapentin 300 MG capsule
300 mg PO TID
duloxetine 60 MG capsule,delayed release(DR/EC)
60 mg PO DAILY@1200
multivitamin with folic acid [Tab-A-Rosalee] 1 TABLET tablet
1 tab PO DAILY
cholecalciferol (vitamin D3) 2,000 UNITS tablet
5,000 unit PO DAILY
carvedilol 3.125 MG tablet
3.125 mg PO BID
sennosides [Senna Lax] 8.6 mg Tablet
8.6 mg PO HS
omeprazole 20 mg Tablet,Delayed Release (Dr/Ec)
20 mg PO DAILY
Eliquis 2.5 mg tablet
2.5 mg PO BID
Discharge Orders:
Discharge Patient (As Directed); Ordered 07/26/23
Ordered By: Concha Bills
Discharge Date and Time
Discharge Date/Time: 07/26/23 19:01
== END 2023-07-26 19:01 | DRG 202 ==
LOC: 4 WEST ACU 16:25
PROVIDERS: ADMITTING PHYSICIAN Hospitalist; ATTENDING PHYSICIAN Internal Medicine; CONSULT PHYSICIAN Nuclear Medicine Nuclear Cardiology; EMERGENCY PHYSICIAN Emergency Medicine; FAMILY PHYSICIAN Family Medicine
DX: J20.8 Acute bronchitis due to other specified organisms (principal); I50.33 Acute on chronic diastolic (congestive) heart failure; I69.351 Hemiplegia and hemiparesis following cerebral infarction affecting right dominant side; U09.9 Post COVID-19 condition, unspecified; I11.0 Hypertensive heart disease with heart failure; R09.02 Hypoxemia; E78.00 Pure hypercholesterolemia, unspecified; E66.01 Morbid (severe) obesity due to excess calories; I69.320 Aphasia following cerebral infarction; Z86.718 Personal history of other venous thrombosis and embolism
CPT/HCPCS: 71045; 80048; 80053; 83735; 83880; 84484; 85025; 85027; 87502; 87811; 93005; 93306; 94640; 96374; 96375; 97116; 97163; 97167; 97530; 99285

== ENCOUNTER → 2023-07-29 11:08 | Outpatient (REF) | payer OTHER, MEDICARE, SELFPAY ==
[2023-07-29 12:13] LABS: % Basophils 0.3 % (0-2); % Eosinophils 5.2 % (0-6); % Immature Granulocytes 0.6 % (0-0.5); % Monocytes 6.6 % (1.7-9.3); % Neutrophils 68.3 % (42.2-75.2); Absolute Eosinophils 0.6 10^3/uL (0-0.7); Absolute Immature Granulocytes 0.1 10^3/uL (0-0.05); Absolute Lymphocytes 2.2 10^3/uL (1.2-3.4); Absolute Monocytes 0.8 10^3/uL (0.1-0.6); Absolute Neutrophils 7.8 10^3/uL (1.4-6.5); Hematocrit 37.1 % (37.0-47.0); Hemoglobin 12.4 g/dL (12.0-16.0); Mean Corp Hgb Conc. 33.4 g/dL (33.0-37.0); Mean Corpuscular Hgb 30.8 pg (27.0-31.0); Mean Corpuscular Volume 92.1 fL (81.0-99.0); Nucleated Red Blood Cells % 0 %; Platelet Count 173 10^3/uL (130-400); Red Blood Cell Count 4.03 10^6/uL (4.20-5.40); Red Cell Dist. Width 15.2 % (11.5-14.5); White Blood Cell Count 11.4 10^3/uL (4.8-10.8)
== END ==
LOC: OLABP 11:08
PROVIDERS: ATTENDING PHYSICIAN Family Medicine
DX: J96.01 Acute respiratory failure with hypoxia (principal); J20.9 Acute bronchitis, unspecified; I10 Essential (primary) hypertension; E78.5 Hyperlipidemia, unspecified; M62.81 Muscle weakness (generalized); R26.2 Difficulty in walking, not elsewhere classified; I50.33 Acute on chronic diastolic (congestive) heart failure
CPT/HCPCS: 36415; 85025

== ENCOUNTER → 2023-08-01 13:13 | Outpatient (REF) | payer OTHER, MEDICARE, SELFPAY ==
[2023-08-01 13:47] LABS: % Basophils 0.4 % (0-2); % Eosinophils 2.8 % (0-6); % Immature Granulocytes 0.5 % (0-0.5); % Lymphocytes 23.7 % (20.5-51.1); % Monocytes 7.7 % (1.7-9.3); % Neutrophils 64.9 % (42.2-75.2); Absolute Eosinophils 0.3 10^3/uL (0-0.7); Absolute Immature Granulocytes 0.1 10^3/uL (0-0.05); Absolute Lymphocytes 2.4 10^3/uL (1.2-3.4); Absolute Monocytes 0.8 10^3/uL (0.1-0.6); Absolute Neutrophils 6.6 10^3/uL (1.4-6.5); Hematocrit 35.6 % (37.0-47.0); Hemoglobin 11.8 g/dL (12.0-16.0); Mean Corp Hgb Conc. 33.1 g/dL (33.0-37.0); Mean Corpuscular Hgb 30.7 pg (27.0-31.0); Mean Corpuscular Volume 92.7 fL (81.0-99.0); Mean Platelet Volume 10.8 fL (7.4-10.4); Nucleated Red Blood Cells % 0 %; Platelet Count 181 10^3/uL (130-400); Red Blood Cell Count 3.84 10^6/uL (4.20-5.40); Red Cell Dist. Width 15.6 % (11.5-14.5); White Blood Cell Count 10.2 10^3/uL (4.8-10.8)
[2023-08-01 13:55] LABS: Blood Urea Nitrogen 24 mg/dl (7-17); Carbon Dioxide 30 mmol/L (22-30); Chloride 99 mmol/L (98-107); Glucose 86 mg/dl (70-99); Potassium 3.8 mmol/L (3.5-5.1); Sodium 137 mmol/L (135-145); eGFR > 60.00
== END ==
LOC: OLABP 13:13
PROVIDERS: ATTENDING PHYSICIAN Family Medicine
DX: J96.01 Acute respiratory failure with hypoxia (principal); J20.9 Acute bronchitis, unspecified; I10 Essential (primary) hypertension; E78.5 Hyperlipidemia, unspecified; M62.81 Muscle weakness (generalized); R26.2 Difficulty in walking, not elsewhere classified; I50.33 Acute on chronic diastolic (congestive) heart failure
CPT/HCPCS: 36415; 80048; 85025

== ENCOUNTER → 2023-08-04 14:22 | Outpatient (REF) | payer OTHER, MEDICARE, SELFPAY | LOC: RAD 14:22 | PROVIDERS: ATTENDING PHYSICIAN Physician Assistant; FAMILY PHYSICIAN Family Medicine | DX: R06.2 Wheezing (principal); I50.30 Unspecified diastolic (congestive) heart failure | CPT/HCPCS: 71046 ==

== ENCOUNTER → 2023-08-09 12:16 | Outpatient (REF) | payer OTHER, MEDICARE, SELFPAY ==
[2023-08-09 12:35] LABS: Hematocrit 33.7 % (37.0-47.0); Hemoglobin 11.5 g/dL (12.0-16.0); Mean Corp Hgb Conc. 34.1 g/dL (33.0-37.0); Mean Corpuscular Hgb 31.2 pg (27.0-31.0); Mean Corpuscular Volume 91.3 fL (81.0-99.0); Mean Platelet Volume 10.6 fL (7.4-10.4); Platelet Count 202 10^3/uL (130-400); Red Blood Cell Count 3.69 10^6/uL (4.20-5.40); Red Cell Dist. Width 15.1 % (11.5-14.5); White Blood Cell Count 9.1 10^3/uL (4.8-10.8)
[2023-08-09 13:08] LABS: Blood Urea Nitrogen 17 mg/dl (7-17); Calcium 8.7 mg/dl (8.4-10.2); Carbon Dioxide 30 mmol/L (22-30); Chloride 105 mmol/L (98-107); Glucose 116 mg/dl (70-99); Potassium 4.1 mmol/L (3.5-5.1); Sodium 137 mmol/L (135-145); eGFR > 60.00
== END ==
LOC: OLABP 12:16
PROVIDERS: ATTENDING PHYSICIAN Family Medicine
DX: J96.01 Acute respiratory failure with hypoxia (principal); J20.9 Acute bronchitis, unspecified; I10 Essential (primary) hypertension; E78.5 Hyperlipidemia, unspecified; M62.81 Muscle weakness (generalized); R26.2 Difficulty in walking, not elsewhere classified
CPT/HCPCS: 36415; 80048; 85027

== ENCOUNTER → 2023-08-16 11:34 | Outpatient (REF) | payer OTHER, MEDICARE, SELFPAY ==
[2023-08-16 12:16] LABS: % Basophils 0.4 % (0-2); % Eosinophils 5.7 % (0-6); % Immature Granulocytes 0.7 % (0-0.5); % Lymphocytes 19.2 % (20.5-51.1); % Monocytes 7.4 % (1.7-9.3); % Neutrophils 66.6 % (42.2-75.2); Absolute Eosinophils 0.5 10^3/uL (0-0.7); Absolute Immature Granulocytes 0.1 10^3/uL (0-0.05); Absolute Lymphocytes 1.8 10^3/uL (1.2-3.4); Absolute Monocytes 0.7 10^3/uL (0.1-0.6); Absolute Neutrophils 6.1 10^3/uL (1.4-6.5); Hematocrit 34.9 % (37.0-47.0); Hemoglobin 11.7 g/dL (12.0-16.0); Mean Corp Hgb Conc. 33.5 g/dL (33.0-37.0); Mean Corpuscular Hgb 30.9 pg (27.0-31.0); Mean Corpuscular Volume 92.1 fL (81.0-99.0); Mean Platelet Volume 10.3 fL (7.4-10.4); Nucleated Red Blood Cells % 0 %; Platelet Count 211 10^3/uL (130-400); Red Blood Cell Count 3.79 10^6/uL (4.20-5.40); Red Cell Dist. Width 15.9 % (11.5-14.5); White Blood Cell Count 9.2 10^3/uL (4.8-10.8)
[2023-08-16 12:24] LABS: Blood Urea Nitrogen 19 mg/dl (7-17); Carbon Dioxide 31 mmol/L (22-30); Chloride 102 mmol/L (98-107); Glucose 101 mg/dl (70-99); Potassium 3.9 mmol/L (3.5-5.1); Sodium 135 mmol/L (135-145); eGFR > 60.00
== END ==
LOC: OLABP 11:34
PROVIDERS: ATTENDING PHYSICIAN Family Medicine
DX: J96.01 Acute respiratory failure with hypoxia (principal); J20.9 Acute bronchitis, unspecified; I10 Essential (primary) hypertension; E78.5 Hyperlipidemia, unspecified; M62.81 Muscle weakness (generalized); R26.2 Difficulty in walking, not elsewhere classified; I50.33 Acute on chronic diastolic (congestive) heart failure
CPT/HCPCS: 36415; 80048; 85025

== ENCOUNTER → 2023-08-19 11:40 | Outpatient (REF) | payer OTHER, MEDICARE, SELFPAY ==
[2023-08-19 12:29] LABS: Blood Urea Nitrogen 18 mg/dl (7-17); Calcium 9.1 mg/dl (8.4-10.2); Carbon Dioxide 29 mmol/L (22-30); Chloride 101 mmol/L (98-107); Glucose 143 mg/dl (70-99); Sodium 139 mmol/L (135-145); eGFR > 60.00
== END ==
LOC: OLABP 11:40
PROVIDERS: ATTENDING PHYSICIAN Family Medicine
DX: J96.01 Acute respiratory failure with hypoxia (principal); J20.9 Acute bronchitis, unspecified; I10 Essential (primary) hypertension; E78.5 Hyperlipidemia, unspecified; M62.81 Muscle weakness (generalized); R26.2 Difficulty in walking, not elsewhere classified; I50.33 Acute on chronic diastolic (congestive) heart failure
CPT/HCPCS: 36415; 80048

== ENCOUNTER 2023-08-30 14:00 | Emergency (ER) | payer MEDICARE, OTHER, SELFPAY ==
[2023-08-30 14:03] VITALS: BP 130/83
[2023-08-30] MEDS: LET TOPICAL ANESTHETIC GEL 3 ML TOPICAL (15:07)
--- NOTE | 2023-08-30 15:46 | ED.GENMED ---
History of Present Illness
General
Chief Complaint: Head Injury
Source: patient
Exam Limitations: none
Time Seen by Provider: 08/30/23 14:45
Nursing documentation reviewed up to this point in time: agreed with
Travel History
Have you had any contact with someone who has COVID-19?: No
Do you have any symptoms of coronavirus? Fever > 100 degrees, chills, cough, shortness of breath, sore throat, loss of taste or smell, muscle aches, or headache?: No
History of Present Illness
History of Present Illness:
82-year-old female with Marielle history of previous stroke expressive aphasia previous DVT currently on Eliquis presenting to the emergency department after mechanical fall that was witnessed by the family where she hit the back of her head
otherwise is acting normally no vomiting no new neurologic deficits according to family and caregiver.
Past History
Past History
ED Past Medical History: Cancer (Cervical), CVA (Left-sided CVA with right hemiplegia), HTN and Other (Previous stroke with right hemiparesthesias and aphasia, hypertension, DVT, Kidney stones, Urosepsis)
ED Past Surgical History: Cholecystectomy and Other (Noncontributory)
Social History
Tobacco: Former smoker
Alcohol: None
Drug: None
Personal:
Living: with family
Employment: Not employed
Family History
Family History: Other (Noncontributory); Negative Diabetes, Hypertension or CAD
Review of Systems
Review of Systems
Allergies reviewed?: Yes
All Other Systems: ROS reviewed and negative except as documented in HPI and ROS
Phy Exam
Physical Exam
Physical Exam:
GENERAL: Alert , in no apparent distress
EYE: pupils equal and reactive
NECK: Supple, no significant adenopathy.
ENT: Scalp laceration occipital scalp 3.5 cm in length subcutaneous in depth o/p clr, mmm.
CARDIAC: Regular rate and rhythm .
LUNGS: Clear breath sounds bilaterally, no acute respiratory distress, no wheezes/rales/rhonchi
ABDOMEN: Soft, without focal tenderness, no r/g, no cvat
NEUROLOGICAL: Alert and oriented, weakness to the right side of the body which is at patient's baseline according to family and caregiver.
SKIN: Warm and dry, skin intact.
MUSCULOSKELETAL: No edema, well perfused.
PSYCH: Normal and appropriate interaction.
Course
Orders/Labs/Results
Orders:
Orders
08/30/23 14:07
CT Head W/o Iv Contrast Urgent
Comment:
Reason For Exam: fall on eliquis
08/30/23 15:04
Lidocaine/Epinephrine/Tetracai [Let Topical Anesthetic Gel] 3 ml TOPICAL NOW STA
Vital Signs
Initial and Last Documented VS:
Initial Vital Signs
Temp Pulse Resp BP Pulse Ox
98.5 F 73 20 130/83 95
08/30/23 14:03 08/30/23 14:03 08/30/23 14:03 08/30/23 14:03 08/30/23 14:03
Last Documented Vital Signs
Temp Pulse Resp BP Pulse Ox
98.5 F 73 20 130/83 95
08/30/23 14:03 08/30/23 14:03 08/30/23 14:03 08/30/23 14:03 08/30/23 14:03
MDM/Problems Addressed
MDM/Problems Addressed:
82-year-old female presenting to the emergency department today after mechanical fall hitting the back of her head causing a laceration. Otherwise at patient's baseline she does have chronic deficits to the right side from previous stroke. CT scan
without emergent findings. Laceration was thoroughly cleaned and closed with 6 sean to be removed in 7 to 10 days. Return precautions given but otherwise stable for discharge.
*Critical Care Note
Total Time (30-74mins, 75-104mins- exclusive of procedures): Not Applicable
ED Attending Note
-
Portions of this chart may have been created with voice recognition software.� Occasional wrong word or��sound alike� substitutions may have occurred due to the inherent limitations of voice recognition software.
Discharge Plan
Departure
Patient Disposition: Home (Routine Discharge)
Date of Disposition: 08/30/23
Time of Disposition: 15:46
Patient with high blood pressure during this ER visit?: No
Condition: Good
Covid-19: Not Applicable
Discharge Problem:
Laceration of scalp
Instructions: Laceration Repair With Sean (DC)
Prescriptions:
No Action
simvastatin 40 MG tablet
40 mg PO QPM
Hold Instructions: Resume on 07/11/23. hold while on paxlovid
baclofen 10 MG tablet
10 mg PO TID
gabapentin 300 MG capsule
300 mg PO TID
duloxetine 60 MG capsule,delayed release(DR/EC)
60 mg PO DAILY@1200
multivitamin with folic acid [Tab-A-Rosalee] 1 TABLET tablet
1 tab PO DAILY
cholecalciferol (vitamin D3) 2,000 UNITS tablet
5,000 unit PO DAILY
carvedilol 3.125 MG tablet
3.125 mg PO BID
sennosides [Senna Lax] 8.6 mg Tablet
8.6 mg PO HS
omeprazole 20 mg Tablet,Delayed Release (Dr/Ec)
20 mg PO DAILY
Eliquis 2.5 mg tablet
2.5 mg PO BID
acetaminophen 325 mg Tablet
650 mg PO Q6HPRN PRN (Reason: mild pain/ fever>100.5F) Qty: 0 0RF
ipratropium-albuterol 0.5 mg-3 mg(2.5 mg base)/3 mL Solution For Nebulization
3 ml inhalation R Q4HPRN PRN (Reason: wheezing) Qty: 0 0RF
polyethylene glycol 3350 [HealthyLax] 17 gram Powder In Packet
17 g PO DAILY Qty: 0 0RF
furosemide 40 mg Tablet
40 mg PO DAILY Qty: 0 0RF
guaifenesin 600 mg Tablet Extended Release 12hr
600 mg PO Q12 Qty: 0 0RF
prednisone 10 mg Tablet
See Rx Instructions .ROUTE .COMPLEX Qty: 30 0RF
Rx Instructions:
Take By Mouth:
20 mg daily x3 days, 10 mg daily x3 days.
Referrals:
Riaz Sorensen MD [Family Provider] -
Activity Restrictions/Additional Instructions:
And you came to the emergency department today after falling and hitting the back of your head. Here you had a normal CT scan without evidence of acute injury. Your laceration was cleaned thoroughly and was closed with 6 sean. Please have this
removed in 7 to 10 days and otherwise keep the area clean. Return to the emergency department for any worsening, new or concerning symptoms.
Interventions
Interventions:
*Risk Screen - Suicide Last Done: 08/30/23 14:03
*General Assessment Last Done: 08/30/23 14:03
*Neglect/Abuse Screening Last Done: 08/30/23 14:03
ED- Fall Risk Assessment Last Done: 08/30/23 14:53
*ED COVID-19 Vaccine History Last Done: 08/30/23 14:53
ED-Musculoskeletal Assessment Last Done: 08/30/23 14:53
ED- Neurological Assessment Last Done: 08/30/23 14:53
ED-Skin Assessment Last Done: 08/30/23 14:53
Discharge Date and Time
Print Language: UGANDAN
== END 2023-08-30 15:58 | disposition home or self-care (01) ==
LOC: EMR 14:00
PROVIDERS: EMERGENCY PHYSICIAN Emergency Medicine; FAMILY PHYSICIAN Family Medicine
DX: S01.01XA Laceration without foreign body of scalp, initial encounter (principal); W19.XXXA Unspecified fall, initial encounter; Z79.01 Long term (current) use of anticoagulants; Z87.891 Personal history of nicotine dependence; Z86.73 Personal history of transient ischemic attack (TIA), and cerebral infarction without residual deficits
CPT/HCPCS: 99284; 12002; 70450

== ENCOUNTER 2023-09-06 22:02 | Observation (INO) | payer MEDICARE, OTHER, SELFPAY ==
[2023-09-06] VITALS (8 sets, daily range): BP systolic 93–125; BP diastolic 40–76
[2023-09-06 18:15] LABS: % Basophils 0.3 % (0-2); % Eosinophils 5.7 % (0-6); % Immature Granulocytes 0.2 % (0-0.5); % Lymphocytes 10.7 % (20.5-51.1); % Monocytes 8.9 % (1.7-9.3); % Neutrophils 74.2 % (42.2-75.2); Absolute Eosinophils 0.6 10^3/uL (0-0.7); Absolute Lymphocytes 1.1 10^3/uL (1.2-3.4); Absolute Monocytes 0.9 10^3/uL (0.1-0.6); Absolute Neutrophils 7.7 10^3/uL (1.4-6.5); Hematocrit 39.9 % (37.0-47.0); Mean Corp Hgb Conc. 32.6 g/dL (33.0-37.0); Mean Corpuscular Hgb 30.7 pg (27.0-31.0); Mean Corpuscular Volume 94.1 fL (81.0-99.0); Mean Platelet Volume 10.4 fL (7.4-10.4); Nucleated Red Blood Cells % 0 %; Platelet Count 156 10^3/uL (130-400); Red Blood Cell Count 4.24 10^6/uL (4.20-5.40); Red Cell Dist. Width 16.1 % (11.5-14.5); White Blood Cell Count 10.4 10^3/uL (4.8-10.8)
--- NOTE | 2023-09-06 18:40 | ED.GENMED ---
History of Present Illness
General
Chief Complaint: Breathing Problem
Source: patient
Exam Limitations: none
Time Seen by Provider: 09/06/23 18:31
Nursing documentation reviewed up to this point in time: agreed with
Travel History
Have you had any contact with someone who has COVID-19?: No
Do you have any symptoms of coronavirus? Fever > 100 degrees, chills, cough, shortness of breath, sore throat, loss of taste or smell, muscle aches, or headache?: Yes
Symptoms:: SOB
History of Present Illness
History of Present Illness:
82-year-old female presents emergency department due to wheezing and shortness of breath. Is been ongoing for several days but worsening. She is a former smoker, with no formal diagnosis of COPD.
Past History
Past History
ED Past Medical History: Cancer (Cervical), CVA (Left-sided CVA with right hemiplegia), HTN and Other (Previous stroke with right hemiparesthesias and aphasia, hypertension, DVT, Kidney stones, Urosepsis)
ED Past Surgical History: Cholecystectomy and Other (Noncontributory)
Social History
Tobacco: Former smoker
Alcohol: None
Drug: None
Personal:
Living: with family
Employment: Not employed
Family History
Family History: Other (Noncontributory); Negative Diabetes, Hypertension or CAD
Review of Systems
Review of Systems
Allergies reviewed?: Yes
All Other Systems: Not applicable
Constitutional: Reports no symptoms
EENT: Reports no symptoms
Respiratory: Reports trouble breathing
Cardiac: Reports no symptoms
ABD/GI: Reports no symptoms
: Reports no symptoms
Musculoskeletal: Reports no symptoms
Skin: Reports no symptoms
Neurological: Reports other (Chronic expressive aphasia and right-sided weakness)
Endocrine: Reports no symptoms
Hematologic/Lymphatic: Reports no symptoms
Psychiatric: Reports no symptoms
Phy Exam
Physical Exam
Physical Exam:
Physical Exam
General: Afebrile
Neck: supple. no meningeal signs. normal posterior pharynx
Heart: s1/s2 regular rate and rhythm, no murmur. equal radial
pulses.
HEENT: Pupils equal round reactive to light, EOMI
Lungs: Moderate respiratory distress. Wheezing bilaterally
Abdomen: normal bowel sounds. not tender. no CVAT
Neuro: alert, right-sided weakness, expressive aphasia
Skin: no rash
Psychiatric: well kept. interactive and cooperative
Extremities: no edema. no calf tenderness. negative homans. good distal pulses
Scores
Heart Failure Risk
Heart Failure Risk Score: Not Applicable
Course
Orders/Labs/Results
Orders:
Orders
09/06/23 17:16
Chest [CR Chest - 2 Views ] Urgent
Comment:
Reason For Exam: wheezing, resp distress
09/06/23 17:17
EKG [Electrocardiogram (*1)] Urgent
Reason for Study: Shortness of Breath
EKG- Treatment ONCE
09/06/23 18:01
CBC/With Diff [Complete Blood Count/With Diff] Urgent
09/06/23 18:36
Ipratropium/Albuterol Sulfate [Duoneb] 3 ml INH R NOW STA
09/06/23 18:39
Dexamethasone Sod Phosphate [Decadron] 10 mg IV NOW STA
09/06/23 19:11
Comprehensive Metabolic Panel Urgent
NT-proBNP Urgent
Troponin I Urgent
09/06/23 19:56
Ipratropium/Albuterol Sulfate [Duoneb] 3 ml INH R NOW STA
09/06/23 21:44
Admit/Transfer Patient As Directed
Co-Sign Provider:
Level of Care: Observation services
Assign to:: Medical/Surgical
Physician / Group: Jose Roberto
Diagnosis: Wheezing
09/06/23 21:46
Code Status As Directed
Resuscitation Status: Full Code
09/06/23 22:17
Albuterol Nebs [Ventolin Nebules] 2.5 mg INH R Q4HPRN PRN
09/06/23 22:20
Acetaminophen [Tylenol] 650 mg PO Q6HPRN PRN
Baclofen [Lioresal] 10 mg PO TID
Gabapentin [Neurontin] 300 mg PO TID
Polyethylene Glycol Powder [Miralax] 17 grams PO DAILYPRN PRN
09/06/23 22:20
Activity As Directed
Activity Level: Ambulate
With Assistance
Bladder Scan As Directed
Follow Bladder Retention/Intermittent Cath Algorithm?: Yes
PRN if no void in __ hours: 6
Frequency: Per Retention Algorithm
If Bladder Scan Result >: 400
then:: Straight cath
I/O [Intake/ Output] As Directed
Frequency: Per unit guidelines
Straight Cath As Directed
Frequency: Per Retention Algorithm
Additional Instructions: straight cath as needed per acute urinary retention algorithm for 24 hrs
Additional Instructions: for bladder scan greater than 400 mL
Vital Signs As Directed
Frequency: Per unit guidelines
Weight As Directed
Frequency: Daily
Acapella [Rx Pep / Acapela] [RESP] Routine
Chest PT [Rx Chest Pt] [RESP] Routine
Special Instructions: BID
Oxygen Therapy [O2 Therapy] [RESP] Routine
Titrate/Wean O2 to maintain O2 sat greater than (%): 94
Ot Eval And Treat Routine
PT Consult [Pt Eval And Treat] Routine
Activity Level: Ambulate
With Assistance
09/07/23 Breakfast
Regular
At Your Request: Non-Participating
Basic Metabolic Panel IN AM
Complete Blood Count/No Diff IN AM
09/07/23 08:00
Apixaban [Eliquis] 2.5 mg PO BID
Carvedilol [Coreg] 3.125 mg PO BID
Docusate Sodium [Colace] 100 mg PO BID
Furosemide [Lasix] 40 mg PO DAILY
Guaifenesin [Mucinex] 600 mg PO Q12
Ipratropium/Albuterol Sulfate [Duoneb] 3 ml INH R QID
Pantoprazole [Protonix] 40 mg PO DAILY
Potassium Chloride 10% Elixir [KCl Elixir] 40 meq PO DAILY
09/07/23 12:00
Duloxetine Delayed Release [Cymbalta Delayed Release] 60 mg PO NOON
09/07/23 18:00
Atorvastatin [Lipitor] 20 mg PO QPM
Furosemide [Lasix] 20 mg PO QPM
Sennosides [Senokot] 8.6 mg PO QPM
Abnormal Lab Results
09/06/23 09/06/23
18:01 19:11
MCHC 32.6 L g/dL
(33.0-37.0)
RDW 16.1 H %
(11.5-14.5)
Absolute Neuts (auto) 7.7 H 10^3/uL
(1.4-6.5)
Absolute Lymphs (auto) 1.1 L 10^3/uL
(1.2-3.4)
Absolute Monos (auto) 0.9 H 10^3/uL
(0.1-0.6)
Lymphocytes % 10.7 L %
(20.5-51.1)
Potassium 3.4 L mmol/L
(3.5-5.1)
BUN 25 H mg/dl
(7-17)
Glucose 112 H mg/dl
(70-99)
Total Protein 5.8 L g/dl
(6.3-8.2)
Albumin 3.3 L g/dl
(3.5-5.0)
09/06/23 18:01
09/06/23 19:11
Vital Signs
Initial and Last Documented VS:
Initial Vital Signs
Temp Pulse Resp BP Pulse Ox
98.3 F 77 32 93/74 95
09/06/23 17:12 09/06/23 17:12 09/06/23 17:12 09/06/23 17:12 09/06/23 17:12
Last Documented Vital Signs
Temp Pulse Resp BP Pulse Ox
98.3 F 78 31 105/50 95
09/06/23 17:12 09/06/23 22:15 09/06/23 22:15 09/06/23 22:00 09/06/23 21:30
MDM/Problems Addressed
Differential Diagnosis Includes:
COPD, pneumonia, CHF
MDM/Problems Addressed:
82-year-old female with COPD exacerbation, no signs of pneumonia or CHF, do not suspect PE.
Chronic conditions affecting care: COPD
Acute Exacerbation and/or Progression of Chronic Illness: COPD
*Radiology
Radiology exam reviewed: radiology read reviewed (Chest x-ray no acute findings)
*Pulse Oximetry
Patient hypoxic: no
*EKG
Interpreted by ED Provider?: NA
*Manager Mail Interpretation
Rate: normal
Interpretation: normal
Rhythm: sinus
*Critical Care Note
Total Time (30-74mins, 75-104mins- exclusive of procedures): Not Applicable
Patient Management
Social determinants of health affecting care: Living situation
Discussion with other providers: Hospitalist
Escalation/DeEscalation of care consider admission/obs:
admit not indicated
ED Attending Note
-
Portions of this chart may have been created with voice recognition software.� Occasional wrong word or��sound alike� substitutions may have occurred due to the inherent limitations of voice recognition software.
Discharge Plan
Departure
Patient Disposition: Admit
Date of Disposition: 09/06/23
Time of Disposition: 20:44
Admit to: Telemetry
Presentation/result/management discussed w/ accepting MD/DO: Hospitalist
Patient with high blood pressure during this ER visit?: No
Condition: Fair
Discharge Problem:
Acute exacerbation of chronic obstructive pulmonary disease
Interventions
Interventions:
*Risk Screen - Suicide Last Done: 09/06/23 18:10
*General Assessment Last Done: 09/06/23 17:18
*Neglect/Abuse Screening Last Done: 09/06/23 18:10
*ED COVID-19 Vaccine History Last Done: 09/06/23 17:18
ED- Cardiac Assessment Last Done: 09/06/23 18:10
ED- Pulmonary Assessment Last Done: 09/06/23 18:10
[2023-09-06] MEDS: DECADRON 10 MG IV (18:53)
[2023-09-06] MEDS: DUONEB 3 ML INH ×2 (18:53→20:06)
[2023-09-06 19:42] LABS: ALT (SGPT) 20 U/L (0-35); AST (SGOT) 21 U/L (14-36); Albumin 3.3 g/dl (3.5-5.0); Alkaline Phosphatase 88 U/L (38-126); Blood Urea Nitrogen 25 mg/dl (7-17); Calcium 8.6 mg/dl (8.4-10.2); Carbon Dioxide 30 mmol/L (22-30); Chloride 99 mmol/L (98-107); Glucose 112 mg/dl (70-99); Potassium 3.4 mmol/L (3.5-5.1); Sodium 137 mmol/L (135-145); Total Protein 5.8 g/dl (6.3-8.2); eGFR > 60.00
[2023-09-06 19:43] LABS: NT-proBNP 178 pg/ml; Troponin I < 0.012 ng/ml
--- NOTE | 2023-09-06 21:51 | HPS.HSE ---
Addendum entered and electronically signed by Richard Cid DO 09/07/23 00:12:
Omitted from original H&P:
Patient seen here 08/29 for fall backwards and resultant scalp laceration. CT head at that time unremarkable.
Rising Fawn placed to laceration over the L posterior / superior scalp.
No interim neurologic changes per family.
No bleeding at staple line.
Follow for any changes and repeat [facility] [employer] imaging if needed.
Evaluate for staple removal in 7-10 days (September 05-) - likely prior to discharge.
Original Note:
Family Physician
-
Family Physician: Riaz Sorensen
Chief Complaint
-
Wheezing
History of Present Illness
Patient is an 82y F with PMH significant for CVA / R hemiparesis and aphasia, CHF, obesity and hypertension who presents to ED for evaluation of wheezing. History obtained from family at the bedside given patient's baseline expressive aphasia.
Patient had COVID-19 infection in late June. She was hospitalized here in July for wheezing / dyspnea associated with that diagnosis. Family states that she has continued to have some intermittent wheezing since that time. She has no fevers
/ chills. Rare, non-productive cough. No coughing / choking with eating or drinking.
Patient was seen recently by outpatient physicians who felt the patient was stable and noted that some degree of intermittent wheezing may be chronic.
Patient was seen by VN today who appreciated wheezing at home and 'other abnormal sounds' and recommended family bring her to the ED for evaluation.
In the ED, patient is afebrile. She has mild / intermittent hypoxemia with oxygen levels as low as 89% on room air.
She has very faint expiratory wheezing over the LUCHO - but lungs are otherwise decreased / clear.
On patient's last admission, she was treated with Acapella device and nebulizers - though family states that they have neither of these at home.
Family also notes that patient's recently - his was last week - and they suspect a degree of stress / grief is contributing to her symptoms.
Medical History
Past Medical History
Past Medical History: Reports Other
Additional Past Medical History:
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
Hypertension
Dyslipidemia
History of DVT
History of cervical cancer
Chronic HFpEF
Nephrolithiasis
Obesity
Depression
Past Surgical History: Reports Other
Additional Past Surgical History:
Cholecystectomy
JUVENTINO
Social History
Tobacco: Former Smoker (5 packs per day x 25 years. Quit smoking 30 years ago.)
Alcohol: None
Drug: None
Personal:
Living: With Family
Family History
Family History: Not pertinent
Allergies / Home Medications
Allergies reflects when Allergies were last updated in [facility].
Home Medications with original date entered in [facility]
Allergy/Medication List:
Allergies
Allergy/AdvReac Type Severity Reaction Status Date / Time
No Known Drug Allergies Allergy NONE Verified 09/06/23 17:16
Home Medications
baclofen 10 mg tablet 10 mg PO TID Muscle Spasms 10/08/11
duloxetine 60 mg capsule,delayed release 60 mg PO NOON Mental Health/Anxiety 10/08/11
gabapentin 300 mg capsule 300 mg PO TID Pain 10/08/11
simvastatin 40 mg tablet 40 mg PO QPM High Cholesterol 10/08/11
carvedilol 3.125 mg tablet 3.125 mg PO BID Blood Pressure 05/30/19
apixaban 2.5 mg tablet (Eliquis) 2.5 mg PO BID Blood Clot Prevention/Tx 07/04/23
sennosides 8.6 mg tablet (Senna Lax) 8.6 mg PO QPM Constipation 07/04/23
furosemide 40 mg tablet 40 mg PO DAILY #0 tabs 07/26/23
acetaminophen 325 mg tablet 650 mg PO Q6HPRN PRN mild pain 09/06/23
cholecalciferol (vitamin D3) 125 mcg (5,000 unit) tablet 125 mcg PO DAILY 09/06/23
furosemide 40 mg tablet 20 mg PO QPM 09/06/23
guaifenesin 600 mg tablet, extended release 12 hr 600 mg PO [id number] PRN cough 09/06/23
ipratropium 0.5 mg-albuterol 3 mg (2.5 mg base)/3 mL nebulization soln 3 ml inhalation R Q6HPRN PRN wheezing 09/06/23
omeprazole 20 mg capsule,delayed release 20 mg PO DAILY 09/06/23
therapeutic multivitamin 1 tab PO DAILY 09/06/23
Review of Systems
-
History Source: Family
A 12 point ROS was completed and negative except as noted: Yes
Constitutional: Denies Fever or Chills
EENT: Denies Sore Throat
Respiratory: Reports Cough, Trouble Breathing (orthopnea) and Other (wheezing); Denies Hemoptysis
Cardiac: Denies Chest Pain
Abdomen/GI: Denies Nausea, Vomiting or Diarrhea
Musculoskeletal: Denies Joint Pain or Edema
Psych: Reports Depression
Physical Exam
Vital Signs
Vital Signs
Temp Pulse Resp BP Pulse Ox
98.3 F 79 24 125/64 95
09/06/23 17:12 09/06/23 21:30 09/06/23 21:30 09/06/23 21:00 09/06/23 21:30
Physical Exam
General: Other (82y F in no acute distress. Lethargic / sleeping - but does respond to loud speech / noxious stimuli.)
HEENT: Other (Thick neck. No appreciable JVD. MMM.)
Respiratory: Other (Decreased BS throughout. Faint exp wheeze LUCHO. Otherwise clear.)
Cardiac: S1/S2 and Regular Rhythm; No Murmur
GI: Soft, Non Tender, Non Distended and Normal Bowel Sounds
Musculoskeletal: No Clubbing, No Cyanosis and Other (Trace - 1+ edema b/l LEs.)
Neuro: Other (R hemiparesis / expressive aphasia as late effect of prior CVA. No new appreciated deficitis.)
Laboratory Results
-
09/06/23 18:01
09/06/23 19:11
Laboratory Results
Total Bilirubin 1.0 mg/dl (0.2-1.3) 09/06/23 19:11
AST 21 U/L (14-36) 09/06/23 19:11
ALT 20 U/L (0-35) 09/06/23 19:11
Alkaline Phosphatase 88 U/L (38-126) 09/06/23 19:11
Troponin I < 0.012 ng/ml 09/06/23 19:11
Impression/Plan
-
A/P: Patient is an 82y F with PMH significant for CVA, HTN and significant smoking history who presents to ED for evaluation of wheezing.
Wheezing
Hypoxemic Respiratory Insufficiency
- Observe overnight for further evaluation and treatment.
- Likely multifactorial with components of recent URI / COVID, obesity / JAYLA, CHF, etc.
- Suspect underlying diagnosis of COPD / chronic bronchitis based on significant smoking history.
- Resume nebs, chest PT, Acapella, etc and follow for clinical improvement.
- Pulm evaluation.
- Patient would likely benefit from nebulizers, Acapella / vest therapy on chronic / ongoing basis at home.
- Will hold further systemic steroids for now as no significant wheezing noted during my exam.
Chronic HFpEF
- Stable. No evidence of significant / acute volume overload.
- Continue current diuretic regimen.
- Replace potassium as needed and follow.
- Monitor I/Os, daily weights, etc.
ASCVD
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
Chronic Pain / Spasticity secondary to the above.
- Stable. No new deficits.
- Continue current CV med regimen.
- PT / OT evaluations.
- Continue current pain control and antispasmodic regimen.
Benign Hypertension
- Stable. Continue current med regimen and adjust as needed.
History of DVT
DVT Prophylaxis
- Continue Eliquis.
Code Status: Full
[2023-09-06] MEDS: LIORESAL 10 MG PO (22:49)
[2023-09-06] MEDS: NEURONTIN 300 MG PO (22:49)
[2023-09-07] VITALS (10 sets, daily range): BP systolic 106–131; BP diastolic 48–87; PULSE 81
[2023-09-07 06:39] LABS: Hematocrit 38.6 % (37.0-47.0); Hemoglobin 12.7 g/dL (12.0-16.0); Mean Corp Hgb Conc. 32.9 g/dL (33.0-37.0); Mean Corpuscular Hgb 30.6 pg (27.0-31.0); Mean Platelet Volume 10.3 fL (7.4-10.4); Platelet Count 151 10^3/uL (130-400); Red Blood Cell Count 4.15 10^6/uL (4.20-5.40); Red Cell Dist. Width 15.3 % (11.5-14.5); White Blood Cell Count 8.5 10^3/uL (4.8-10.8)
[2023-09-07 06:58] LABS: Blood Urea Nitrogen 21 mg/dl (7-17); Calcium 8.5 mg/dl (8.4-10.2); Carbon Dioxide 30 mmol/L (22-30); Chloride 104 mmol/L (98-107); Estimated Creatinine Clearance 88 ml/min; Glucose 168 mg/dl (70-99); Potassium 3.8 mmol/L (3.5-5.1); Sodium 137 mmol/L (135-145); eGFR > 60.00
[2023-09-07] MEDS: PROTONIX 40 MG PO (08:23)
[2023-09-07] MEDS: MUCINEX 600 MG PO ×2 (08:23→20:27)
[2023-09-07] MEDS: NEURONTIN 300 MG PO ×3 (08:23→21:32)
[2023-09-07] MEDS: COLACE 100 MG PO ×2 (08:23→20:27)
[2023-09-07] MEDS: COREG 3.125 MG PO ×2 (08:23→20:27)
[2023-09-07] MEDS: ELIQUIS 2.5 MG PO ×2 (08:23→20:27)
[2023-09-07] MEDS: LASIX 40 MG PO (08:24)
[2023-09-07] MEDS: LIORESAL 10 MG PO ×3 (08:24→21:32)
[2023-09-07] MEDS: KCL ELIXIR 40 MEQ PO (08:24)
[2023-09-07] MEDS: DUONEB 3 ML INH ×3 (08:46→19:48)
--- NOTE | 2023-09-07 10:07 | VNURNOTE ---
Patient is current with [facility] since 07/05 with resumption of care 08/22 following stay at [facility], with SN/PT.
Will monitor progress and plan at discharge.
--- NOTE | 2023-09-07 10:36 | CON.PUL ---
Consultation
Consultation Request
Date/Time Consultation Requested: 09/07/23
Date/Time Consultation Performed: 09/07/23
Performing Provider: Amy
Reason for Consultation: Wheezing
Medical History
-
History of Present Illness:
Patient is an 82 year old F with PMH significant for CVA with R hemiparesis/ aphasia, COPD, obesity who presents to ED for evaluation of wheezing. History obtained from family/records given baseline expressive aphasia. Patient had COVID-19
infection 06/2023. She was hospitalized here in July for wheezing, this is noted to be chronic based on her outpatient records. She also has a history of chronic cough.
PFTs in 2019 showing moderate obstruction consistent with COPD, but she has never been seen by pulmonary. Managed as OP with nebs PRN no maintenance therapy.
In the ED, patient has mild hypoxemia with O2 thor 89% on room air. CXR is clear with no acute process.
Labs are mostly unremarkable.
Past Medical History
Past Medical History: Other (see list below)
Social History
Tobacco: Former Smoker
Alcohol: None
Drug: None
Family History
Family History: Reviewed & Not Pertinent
Allergies / Home Medications
Allergies
Allergy/AdvReac Type Severity Reaction Status Date / Time
No Known Drug Allergies Allergy NONE Verified 09/06/23 17:16
Home Medications
�Medication �Instructions �Recorded �Confirmed �Last Taken �Type
baclofen 10 mg tablet 10 mg PO TID Muscle Spasms 10/08/11 09/06/23 09/06/23 History
duloxetine 60 mg capsule,delayed 60 mg PO NOON Mental Health/Anxiety 10/08/11 09/06/23 09/06/23 History
release
gabapentin 300 mg capsule 300 mg PO TID Pain 10/08/11 09/06/23 09/06/23 History
simvastatin 40 mg tablet 40 mg PO QPM High Cholesterol 10/08/11 09/06/23 09/05/23 History
carvedilol 3.125 mg tablet 3.125 mg PO BID Blood Pressure 05/30/19 09/06/23 09/06/23 History
apixaban 2.5 mg tablet (Eliquis) 2.5 mg PO BID Blood Clot 07/04/23 09/06/23 09/06/23 History
Prevention/Tx
sennosides 8.6 mg tablet (Senna 8.6 mg PO QPM Constipation 07/04/23 09/06/23 09/05/23 History
Lax)
furosemide 40 mg tablet 40 mg PO DAILY #0 tabs 07/26/23 09/06/23 09/06/23 Rx
acetaminophen 325 mg tablet 650 mg PO Q6HPRN PRN mild pain 09/06/23 09/06/23 09/06/23 History
cholecalciferol (vitamin D3) 125 125 mcg PO DAILY 09/06/23 09/06/23 09/06/23 History
mcg (5,000 unit) tablet
furosemide 40 mg tablet 20 mg PO QPM 09/06/23 09/06/23 09/05/23 History
guaifenesin 600 mg tablet, 600 mg PO [id number] PRN cough 09/06/23 09/06/23 09/05/23 History
extended release 12 hr
ipratropium 0.5 mg-albuterol 3 mg 3 ml inhalation R Q6HPRN PRN 09/06/23 09/06/23 09/06/23 History
(2.5 mg base)/3 mL nebulization wheezing
soln
omeprazole 20 mg capsule,delayed 20 mg PO DAILY 09/06/23 09/06/23 09/06/23 History
release
therapeutic multivitamin 1 tab PO DAILY 09/06/23 09/06/23 09/06/23 History
Review of Systems
Vitals / Labs / Diagnostic Testing
Vital Signs
Temp Pulse Resp BP Pulse Ox
97.8 F 78 16 131/87 94
09/07/23 08:19 09/07/23 08:50 09/07/23 08:50 09/07/23 08:19 09/07/23 08:50
Lab Data
09/07/23 06:03
09/07/23 06:03
Diagnostic Testing:
Physical Exam
-
HEENT: Normocephalic, Anicteric and Moist Mucous Membranes
Cardiovascular: S1/S2 and Regular Rhythm
Respiratory: Clear and Non-Labored Respirations
GI: Soft, Non Distended and Non Tender
Neurology: Awake, Alert and Other (aphasia, does not respond appropriately or follow commands, can move L side spontaneously)
Skin: Warm, Dry and Good Color
General: Comfortable and Other (NAD)
Assessment
-
Patient is an 82 year old F with PMH significant for CVA with R hemiparesis/ aphasia, COPD, obesity who presents to ED for evaluation of wheezing. History obtained from family/records given baseline expressive aphasia. Patient had COVID-19
infection 06/2023. She was hospitalized here in July for wheezing, this is noted to be chronic based on her outpatient records. She also has a history of chronic cough. In the ED, patient has mild hypoxemia with O2 thor 89% on room air. CXR is
clear with no acute process. We are consulted for wheezing
Chronic wheezing
Chronic cough
Mild hypoxemia, not sufficient for O2 use, mild pulmonary insufficiency
COPD, not on treatment
Baseline aphasia with aspiration risk
Conditions present prior to admission:
COPD, moderate obstruction on PFTs
Not on maintenance inhalers at home, nebs PRN
Pulmonary nodules - 5 and 6 mm RLL pulmonary nodules, PET neg 2019
ELB-wvgacmyzewpwyf-0/2010 with brief ventilator dependence
Residual right hemiparesis/aphasia
CAD
Cervical/endometrial CA status post XRT
Hypertension
Renal calculi status post stone removal 2011
Acute cholecystitis status post cholecystectomy 2011
Right common femoral DVT-chronic Coumadin
Chronic anticoagulation
/right knee arthroscopy
Former smoker
Morbid obesity, BMI 45
Plan
Currently patient is 94% on room air
She is currently not wheezing and appears comfortable/not in distress
O2 thor 89% but this does not qualify for O2 use
She does not have history of O2 use at home
Former smoker
PFTs in 2019 showing moderate obstruction consistent with COPD, but she has never been seen by pulmonary.
Managed as OP with nebs PRN no maintenance therapy.
Prior OP notes reviewed in regards to her respiratory complaints--
Exertional dyspnea-Likely multifactorial, obesity, deconditioning and mild airflow obstruction
Past medical history of smoking-Patient also not able to ambulate for 6-minute walk due to her chronic immobility from her stroke.
Patient refused physical therapy in the past.
Discussed weight loss and increase activity as able- is trying his best.
Chronic cough likely multifactorial-aspiration it's a possibility. Will need speech evaluation at some point.
Patient has also upper airway sounds/stridor-perhaps from redundant tissue. It is encouraging that PET/CT in May 2019 did not show any abnormality on the cervical area.Soft tissue x-ray in July 2019 also normal.Hospital and did not take her to
ENT for evaluation.
Patient also with a crowded airway, history of stroke, morbid obesity. This makes her high risk of a obstructive sleep disordered. Her has decided not to pursue PSG at this point. He thinks that she is unable to tolerate CPAP.
Prior history of tiny lung nodules-on PET/CT 06/14/2028 lung nodules or FDG avidity in the long was found. No further imaging of the chest will be necessary.
Given chronicity of her complaints, this does not seem new
She was referred to ENT as OP for suspected UAO, VCD eval which I agree with
For completeness, will obtain speech eval for aspiration assessment given her past history of CVA
CXR on arrival, clear
No obvious pulmonary or cardiac cause for wheezing, proBNP neg
ECHO in past stable
COPD history-not on treatment
There may be an issue with using inhaler
I will add scheduled budesonide neb and TID Duoneb
She needs pulmonary OP FU
Snoring, EDS, morbid obesity noted
She is at risk for JAYLA, has declined testing
Chronic anticoagulation for history of DVT
Resumed
Outpatient pulmonary follow-up is recommended
We will follow
Diagnostic Data
Chest X-Ray: 09/06/23- No acute disease of the chest. Mild cardiomegaly. Stable
08/04/23- No acute cardiopulmonary process.
CT Scan:
PET/CT 06/14/19- There are no areas of abnormal FDG avidity in the chest. The 5 and 6 mm pulmonary nodules seen at the posterior right lung base on the 01/16/2019 examination are not seen on today's study this area is not significantly FDG avid
measuring 2.7 SUV max suggesting highly probably benign etiology. The lungs are otherwise clear. There is no hilar, mediastinal or axillary lymphadenopathy.
Echo: 07/22/23- Normal left ventricular size, wall thickness and systolic function. No regional wall motion abnormalities are seen. LV ejection fraction is 55-60% by Haywood's method of discs. Diastolic function indeterminate. Mitral valve opens
normally. Thickened mitral valve leaflets. Mitral annular
calcification. Trace mitral regurgitation is seen. Mildly dilated left atrium. Indexed LA volume is within normal range (15-34 mL/m2). Trileaflet aortic valve. Aortic valve opens normally. Aortic sclerosis without stenosis. No aortic
regurgitation is seen. Since echocardiogram August 2020, there is no significant change.
08/28/20- Normal left ventricular size, wall thickness and systolic function. No regional wall motion abnormalities are seen. Estimated ejection fraction is 55- 60%. Stage I diastolic dysfunction suggestive of abnormal relaxation. Mild mitral
regurgitation. Compared to prior echocardiogram from September 24, 2015 there is no significant change
PFT's: Spirometry 08/02/19: FEV1 0.96L 52%, FVC 1.49L 60%, ratio 64 (moderate obstruction)
Reports and relevant images were personally reviewed.
[2023-09-07] MEDS: CYMBALTA DELAYED RELEASE 60 MG PO (12:59)
--- NOTE | 2023-09-07 13:16 | W.PN.HOSP.TC ---
Today's Communication/Plan
-
All discussed with the son and daughter at the bedside
Discussed with the nurse
Assessment / Plan
Assessment / Plan
Physical exam: Does not follow command fully
General: Awake, alert and nonverbal only say 1 word, has mild audible wheezing, not in distress, has mild audible wheezing,
HEENT: No active discharge, ecchymosis or bruising, moist lips, tongue and mucous membrane.
Eyes: No discharge or red conjunctiva, no nystagmus, pupils are reactive and equal
Neck:Supple, no JVD no bruit no goiter.
Respiratory: Normal AP contour and diameter, normal chest wall movement, normal respiratory effort, no respiratory distress,
Lungs: Good air entry bilaterally, fine bilateral wheezing could be heard in neck, no rhonchi, no rales or crackles
Heart: S1, S2 regular, normal rate, no added sound.
Gastrointestinal: Positive bowel sounds, soft, nontender, no guarding or rigidity or organomegaly
Musculoskeletal: , no chest wall abnormality or tenderness. All joints and extremities have good range of motion, no muscle tenderness or any joint swelling or tenderness.
Extremities: pitting edema, good peripheral pulses, good range of motion
Skin: Warm and dry, no ulceration, normal color.
Neurological: Awake, alert nonverbal, weakness in the right extremity, expressive aphasia appreciated. Some degree of cognitive dysfunction appreciated, does not follows commands
Assessment and plan:
A/P: Patient is an 82y F with PMH significant for CVA, HTN and significant smoking history who presents to ED for evaluation of wheezing.
Wheezing: Pulmonary versus upper airway or from tracheal origin especially the wheezing is could be heard around her neck,
Hypoxemic Respiratory Insufficiency, resolved off oxygen
- Will get a CT of neck since this has been going on for a while according to the family to see if there is any source of a wheezing from upper airway and trachea
- Likely multifactorial with components of recent URI / COVID, obesity / JAYLA, CHF, etc.
- Suspect underlying diagnosis of COPD / chronic bronchitis based on significant smoking history.
- Resume nebs, chest PT, Acapella, etc and follow for clinical improvement.
- Pulm input appreciated, started on Pulmicort and scheduled DuoNeb
- Will hold further systemic steroids for now as no significant wheezing noted during my exam.
-Continue to monitor vital sign
Chronic HFpEF
- Stable. No evidence of significant / acute volume overload.
- Continue current diuretic regimen.
- Replace potassium as needed and follow.
- Monitor I/Os, daily weights, etc.
ASCVD
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
Chronic Pain / Spasticity secondary to the above.
- Stable. No new deficits.
- Continue current CV med regimen.
- PT / OT evaluations.
- Continue current pain control and antispasmodic regimen.
Benign Hypertension
- Stable. Continue current med regimen and adjust as needed.
History of DVT
DVT Prophylaxis
- Continue Eliquis.
Code Status: Full
Anticipated Discharge: > 48 hours
Subjective/Interval History
-
Date of Service: September 07, 2023
Seen and examined, awake and alert, having expressive aphasia because of prior strokes only reported as she says we while her son and daughter at the bedside help out to provide information.
Brought back to the hospital for wheezing. According to the family have wheezing and overall her shortness of breath is better today compared to yesterday in the last few days.
This happened couple months ago and she had a workup as an outpatient. And he wheezing mostly in upper airway and around her neck.
Not in distress
Objective Data
-
Labs:
Laboratory Results
09/07/23
06:03
WBC 8.5
Hgb 12.7
Hct 38.6
Plt Count 151
Sodium 137
Potassium 3.8
Chloride 104
Carbon Dioxide 30
BUN 21 H
Creatinine 0.6
Glucose 168 H
Calcium 8.5
Vital Signs:
Vital Signs
Temp Pulse Resp BP Pulse Ox
97.8 F 78 16 131/87 94
09/07/23 08:19 09/07/23 08:50 09/07/23 08:50 09/07/23 08:19 09/07/23 08:50
I&O
09/06/23 09/07/23 09/08/23
07:59 07:59 07:59
Output Total 150 / 150
Balance -150 / -150
Review of Systems
-
Unable to obtain full review of systems at this time due to: Patient Non-verbal
--- NOTE | 2023-09-07 13:36 | PTOTSP ---
Speech Therapy Swallowing Evaluation
Oral and pharyngeal swallow deemed within functional limits without overt signs of aspiration.
Recommend
1. Continue current diet of regular solids and thin liquids.
2. Upright with meals.
3. Meds with liquid as tolerated.
4. Rest breaks as needed if sob.
5. No skilled ST indicated at this time.
[2023-09-07 13:39] LABS: Urine Albumin Negative (Neg - Trace); Urine Bilirubin Negative (Negative); Urine Character Clear (Clear); Urine Color Yellow; Urine Glucose Negative (Negative); Urine Ketone 2+ (Negative); Urine Leukocyte 2+ (Negative); Urine Nitrite Positive (Negative); Urine Occult Blood Negative (Negative); Urine Urobilinogen Negative (Neg - 1+)
[2023-09-07 13:58] LABS: Urine Red Blood Cell 0-2 /HPF (0-2)
[2023-09-07 13:59] LABS: Urine Bacteria Many (Negative)
--- NOTE | 2023-09-07 16:18 | VNURNOTE ---
Home Health Liaison spoke to patient's son Edwin and the plan currently is to resume [facility] at discharge.
Liaison will contact intake office at the time of discharge.
--- NOTE | 2023-09-07 16:35 | CM ---
Addendum entered by Jazzmine Rocha RN 09/07/23 17:38:
Patient's son has decided NOT to sign patient out AMA.
Addendum entered by Jazzmine Rocha RN 09/07/23 17:28:
Patient's son has expressed that he doesn't agree with OBSERVATION status and is refusing to sign OBS letter. CM explained that OBSERVATION status is a billing status from medical while patient's physician's decide to admit to hospital. Son stated
that OBSERVATION means that the hospital is not 'doing' anything for patient. CM explained that patient is being observed for changes in her symptoms and testing.
CM updated attending physician and cross cover. Patient's son is going to call his sister to discuss if they want patient to leave AMA.
CM updated bedside RN.
Original Note:
CM spoke with patient's son via phone. He confirmed that patient lives alone, but currently has 24 hour supervision. Patient is current with [facility]. Patient has been to [email or web address], patient's son is adamant about not returning. Patient has a cane for
ambulation. PT has cleared for home. Patient is active with her PCP and has medication coverage.
[facility] letter discussed with home.
[facility] patient relations liaison updated with plan for home discharge.
Patient son is concerned that patient has an ortho appointment for tomorrow at 2pm. He is concerned that she will miss the appointment. CM made attending MD aware.
[2023-09-07] MEDS: LIPITOR 20 MG PO (18:11)
[2023-09-07] MEDS: LASIX 20 MG PO (18:11)
[2023-09-07] MEDS: SENOKOT 8.59999999999999964 MG PO (18:11)
[2023-09-07] MEDS: PULMICORT 0.5 MG INH (19:48)
[2023-09-07] MEDS: TYLENOL 650 MG PO (21:32)
[2023-09-07] MEDS: VENTOLIN NEBULES 2.5 MG INH (23:25)
[2023-09-08] MEDS: DUONEB 3 ML INH ×2 (07:27→11:31)
[2023-09-08] MEDS: PULMICORT 0.5 MG INH (07:27)
[2023-09-08] MEDS: ELIQUIS 2.5 MG PO (09:02)
[2023-09-08] MEDS: LASIX 40 MG PO (09:02)
[2023-09-08] MEDS: NEURONTIN 300 MG PO (09:02)
[2023-09-08] MEDS: COREG 3.125 MG PO (09:05)
[2023-09-08] MEDS: COLACE 100 MG PO (09:06)
[2023-09-08] MEDS: MUCINEX 600 MG PO (09:07)
[2023-09-08] MEDS: LIORESAL 10 MG PO (09:07)
[2023-09-08] MEDS: KCL ELIXIR 40 MEQ PO (09:08)
[2023-09-08 09:15] VITALS: BP 98/69
[2023-09-08] MEDS: PROTONIX 40 MG PO (09:20)
--- NOTE | 2023-09-08 10:04 | W.PN.PUL3 ---
Today's Communication / Plan
-
Still not wheezing, stable on room air
Neck CT neg
Would continue nebs at home, continue at discharge
Further OP w/u recommended, reviewed this with category consultant, we will arrange
We will sign off at this time
Discharge planning per team
Assessment
-
Patient is an 82 year old F with PMH significant for CVA with R hemiparesis/ aphasia, COPD, obesity who presents to ED for evaluation of wheezing. History obtained from family/records given baseline expressive aphasia. Patient had COVID-19
infection 06/2023. She was hospitalized here in July for wheezing, this is noted to be chronic based on her outpatient records. She also has a history of chronic cough. In the ED, patient has mild hypoxemia with O2 thor 89% on room air. CXR is
clear with no acute process. We are consulted for wheezing
Chronic wheezing
Chronic cough
Mild hypoxemia, not sufficient for O2 use, mild pulmonary insufficiency
COPD, not on treatment
Baseline aphasia with aspiration risk
Conditions present prior to admission:
COPD, moderate obstruction on PFTs
Not on maintenance inhalers at home, nebs PRN
Pulmonary nodules - 5 and 6 mm RLL pulmonary nodules, PET neg 2019
LUX-aeynhrdmzcadhx-4/2010 with brief ventilator dependence
Residual right hemiparesis/aphasia
CAD
Cervical/endometrial CA status post XRT
Hypertension
Renal calculi status post stone removal 2011
Acute cholecystitis status post cholecystectomy 2011
Right common femoral DVT-chronic Coumadin
Chronic anticoagulation
/right knee arthroscopy
Former smoker
Morbid obesity, BMI 45
Plan
Currently patient is 94% on room air
She is currently not wheezing and appears comfortable/not in distress
O2 thor 89% but this does not qualify for O2 use
She does not have history of O2 use at home
Former smoker
PFTs in 2019 showing moderate obstruction consistent with COPD, but she has never been seen by pulmonary.
Managed as OP with nebs PRN no maintenance therapy.
Prior OP notes reviewed in regards to her respiratory complaints--
Exertional dyspnea-Likely multifactorial, obesity, deconditioning and mild airflow obstruction
Past medical history of smoking-Patient also not able to ambulate for 6-minute walk due to her chronic immobility from her stroke.
Patient refused physical therapy in the past.
Discussed weight loss and increase activity as able- is trying his best.
Chronic cough likely multifactorial-aspiration it's a possibility. Will need speech evaluation at some point.
Patient has also upper airway sounds/stridor-perhaps from redundant tissue. It is encouraging that PET/CT in May 2019 did not show any abnormality on the cervical area.Soft tissue x-ray in July 2019 also normal.Hospital and did not take her to
ENT for evaluation.
Patient also with a crowded airway, history of stroke, morbid obesity. This makes her high risk of a obstructive sleep disordered. Her has decided not to pursue PSG at this point. He thinks that she is unable to tolerate CPAP.
Prior history of tiny lung nodules-on PET/CT 06/14/2028 lung nodules or FDG avidity in the long was found. No further imaging of the chest will be necessary.
Given chronicity of her complaints, this does not seem new
She was referred to ENT as OP for suspected UAO, VCD eval which I agree with
For completeness, will obtain speech eval for aspiration assessment given her past history of CVA
Speech eval showing no overt signs of aspiration
Neck CT neg for acute issue
CXR on arrival, clear
No obvious pulmonary or cardiac cause for wheezing, proBNP neg
ECHO in past stable
COPD history-not on treatment
There may be an issue with using inhaler
I will add scheduled budesonide neb and TID Duoneb--this can be continued as OP
She needs pulmonary OP FU
Snoring, EDS, morbid obesity noted
She is at risk for JAYLA, has declined testing
Chronic anticoagulation for history of DVT
Resumed
Outpatient pulmonary follow-up is recommended
Discharge planning per team
Diagnostic Data
Chest X-Ray: 09/06/23- No acute disease of the chest. Mild cardiomegaly. Stable
08/04/23- No acute cardiopulmonary process.
CT Scan:
PET/CT 06/14/19- There are no areas of abnormal FDG avidity in the chest. The 5 and 6 mm pulmonary nodules seen at the posterior right lung base on the 01/16/2019 examination are not seen on today's study this area is not significantly FDG avid
measuring 2.7 SUV max suggesting highly probably benign etiology. The lungs are otherwise clear. There is no hilar, mediastinal or axillary lymphadenopathy.
Echo: 07/22/23- Normal left ventricular size, wall thickness and systolic function. No regional wall motion abnormalities are seen. LV ejection fraction is 55-60% by Haywood's method of discs. Diastolic function indeterminate. Mitral valve opens
normally. Thickened mitral valve leaflets. Mitral annular
calcification. Trace mitral regurgitation is seen. Mildly dilated left atrium. Indexed LA volume is within normal range (15-34 mL/m2). Trileaflet aortic valve. Aortic valve opens normally. Aortic sclerosis without stenosis. No aortic
regurgitation is seen. Since echocardiogram August 2020, there is no significant change.
08/28/20- Normal left ventricular size, wall thickness and systolic function. No regional wall motion abnormalities are seen. Estimated ejection fraction is 55- 60%. Stage I diastolic dysfunction suggestive of abnormal relaxation. Mild mitral
regurgitation. Compared to prior echocardiogram from September 24, 2015 there is no significant change
PFT's: Spirometry 08/02/19: FEV1 0.96L 52%, FVC 1.49L 60%, ratio 64 (moderate obstruction)
Reports and relevant images were personally reviewed.
Subjective Data
-
Date of Service:
Date of Service: September 08, 2023
Chief Complaint: Pulmonary Follow Up
Subjective:
no acute events ON, stable on room air
category consultant at bedside
Objective Data
Data Reviewed
Vital Signs / I&O / Oxygen:
Vital Signs
Temp Pulse Resp BP Pulse Ox
97.8 F 78 16 98/69 97
09/07/23 22:47 09/08/23 09:05 09/07/23 23:25 09/08/23 09:15 09/08/23 09:58
Intake and Output
09/07/23 09/08/23 09/09/23
06:59 06:59 06:59
Output Total 150 / 150 1650 / 1650 600 / 600
Balance -150 / -150 -1650 / -1650 -600 / -600
SaO2 97
Nasal Cannula flow liters per 2
minute
Physical Exam
General: Comfortable and Other (NAD)
HEENT: Normocephalic, Anicteric and Moist Mucous Membranes
Cardiovascular: S1-S2 and Regular Rhythm
Respiratory: Clear and Non-Labored Respirations
GI: Soft, Non Distended and Non Tender
Neurology: Awake, Alert, Oriented, AO x 3 and No Motor Deficits
Skin: Warm, Dry and Good Color
Labs/Micro/Reports
Lab Data
09/07/23 06:03
09/07/23 06:03
Microbiology
09/07/23 13:19 Urine Urine Culture - Preliminary
Escherichia coli
[2023-09-08] MEDS: CYMBALTA DELAYED RELEASE 60 MG PO (11:52)
[2023-09-08] MEDS: STERILE WATER FOR INJECTION 10 ML IV (11:53)
[2023-09-08] MEDS: ROCEPHIN 1000 MG IV (11:53)
--- NOTE | 2023-09-08 12:07 | W.DS.TRANS ---
DC Summary - Assistant Manager
-
Discharge Instructions:
Discharge Diagnosis/Procedures COPD exacerbation
Diet Low Cholesterol,2 Gram Sodium
Activity With assistance
Driving Restrictions No driving
Instructions:
Stand-Alone Forms:
Changes to Home Medications: No
Discharge Medications:
DC Medications w/original date entered in [employer]
baclofen 10 mg tablet 10 mg PO TID Muscle Spasms 10/08/11
duloxetine 60 mg capsule,delayed release 60 mg PO NOON Mental Health/Anxiety 10/08/11
gabapentin 300 mg capsule 300 mg PO TID Pain 10/08/11
simvastatin 40 mg tablet 40 mg PO QPM High Cholesterol 10/08/11
carvedilol 3.125 mg tablet 3.125 mg PO BID Blood Pressure 05/30/19
apixaban 2.5 mg tablet (Eliquis) 2.5 mg PO BID Blood Clot Prevention/Tx 07/04/23
sennosides 8.6 mg tablet (Senna Lax) 8.6 mg PO QPM Constipation 07/04/23
furosemide 40 mg tablet 40 mg PO DAILY #0 tabs 07/26/23
acetaminophen 325 mg tablet 650 mg PO Q6HPRN PRN mild pain 09/06/23
cholecalciferol (vitamin D3) 125 mcg (5,000 unit) tablet 125 mcg PO DAILY 09/06/23
furosemide 40 mg tablet 20 mg PO QPM 09/06/23
guaifenesin 600 mg tablet, extended release 12 hr 600 mg PO [id number] PRN cough 09/06/23
ipratropium 0.5 mg-albuterol 3 mg (2.5 mg base)/3 mL nebulization soln 3 ml inhalation R Q6HPRN PRN wheezing 09/06/23
omeprazole 20 mg capsule,delayed release 20 mg PO DAILY 09/06/23
therapeutic multivitamin 1 tab PO DAILY 09/06/23
cefuroxime axetil 500 mg tablet 500 mg PO BID #14 tabs 09/08/23
Home Medication Changes
Pending Results: No
Additional Pending Results:
Physical exam:
General: Awake, alert and oriented x3, not in distress and holds appropriate conversation.
HEENT: No active discharge, ecchymosis or bruising, moist lips, tongue and mucous membrane.
Eyes: No discharge or red conjunctiva, no nystagmus, pupils are reactive and equal
Neck:Supple, no JVD no bruit no goiter.
Respiratory: Normal AP contour and diameter, normal chest wall movement, normal respiratory effort, no respiratory distress,
Lungs: Good air entry bilaterally, no wheezing or rhonchi, no rales or crackles
Heart: S1, S2 regular, normal rate, no added sound.
Gastrointestinal: Positive bowel sounds, soft, nontender, no guarding or rigidity or organomegaly
Musculoskeletal: , no chest wall abnormality or tenderness. All joints and extremities have good range of motion, no muscle tenderness or any joint swelling or tenderness.
Extremities: pitting edema, good peripheral pulses, good range of motion
Skin: Warm and dry, no ulceration, normal color.
Neurological: Awake, alert , severe expressive aphasia, moves extremities well,
Psychiatric: Normal mood, normal thought and judgment, normal affect,
Condition on discharge: Awake, alert and oriented x3, answer question properly, not able to make own decision and take care of activities of daily living, she needs close monitoring and care, have expressive aphasia continent of the bowel and
bladder, ambulate with assistant in nursing, goes home where lives with the family independently.
--- NOTE | 2023-09-08 12:24 | CM ---
CM reviewed medical records. Patient is discharged to home. [facility]. Cm updated [facility] patient relations liaison.
[2023-09-08 12:40] VITALS: BP 107/48
--- NOTE | 2023-09-08 14:45 | W.DCSUMMARY ---
Discharge Summary
Discharge Data
Date of Admission: 09/06/23
Date of Discharge: 10/01/23
-
Pending Results: No
Hospital Course
Discharging Physician : Dr. Hoa Guadalupe
Disposition :
Primary care physician :
Principal Discharge diagnosis :
1. COPD exacerbation
2. Acute hypoxic failure: Resolved
3. Chronic congestive heart failure with preserved ejection fraction, stable
4. History of atherosclerotic cardiovascular disease with a prior stroke and right hemiparesis
5. Chronic expressive and severe aphasia
5. Hypertension
6. Ambulatory dysfunction
7. History of DVT on Eliquis
8. Urinary tract infection
9. Recent fall and laceration of scalp, marisela removed
History of present illness:
Patient is an 82y F with PMH significant for CVA / R hemiparesis and aphasia, CHF, obesity and hypertension who presents to ED for evaluation of wheezing. History obtained from family at the bedside given patient's baseline expressive aphasia.
Patient had COVID-19 infection in late June. She was hospitalized here in July for wheezing / dyspnea associated with that diagnosis. Family states that she has continued to have some intermittent wheezing since that time. She has no fevers
/ chills. Rare, non-productive cough. No coughing / choking with eating or drinking.
Patient was seen recently by outpatient physicians who felt the patient was stable and noted that some degree of intermittent wheezing may be chronic.
Patient was seen by VN today who appreciated wheezing at home and 'other abnormal sounds' and recommended family bring her to the ED for evaluation.
In the ED, patient is afebrile. She has mild / intermittent hypoxemia with oxygen levels as low as 89% on room air.
She has very faint expiratory wheezing over the LUCHO - but lungs are otherwise decreased / clear.
On patient's last admission, she was treated with Acapella device and nebulizers - though family states that they have neither of these at home.
Family also notes that patient's recently - his was last week - and they suspect a degree of stress / grief is contributing to her symptoms.
Hospital Course :
So patient admitted for shortness of breath and audible wheezing this is her third admission this year for the same issue, with a history of prior smoking concern about COPD, even she has a DuoNeb at home.
In the ER started on DuoNeb and she turned around quickly. She had not much wheezing left but her wheezes kind of came in from upper airway and around her neck, therefore she was even referred to see ENT as an outpatient but look like she did not
make it. We did a CT neck with contrast showed no any airway abnormality in the neck causing wheezing and stridor.
Overall improved and she was doing well.
Some of the symptoms family can concern about having another UTI, urinalysis showed evidence urinary tract infection and culture grew E. coli. Given a dose of Rocephin and continue cefuroxime 500 twice daily at home and if the final culture came
back and not sensitive, we will call the patient and the family to adjust antibiotic, looking at the archive in the past she grew E. coli pansensitive.
Pulmonary were consulted and they recommended continuing DuoNeb and adding but then the site and nebulizer to her regimen and have outpatient follow-up with pulmonary.
Also had a staple on the left side of the scalp they were removed has been there for 8 to 9-day., The last 1 was can a little hard to take it out was flipped around, eventually ER physician help out to removing it, left a very small opening in the
scalp but decided against not stapling it and leave it be open and monitor for discharge or any infection.
Patient's condition discussed with his son and daughter on daily basis.
Stable for discharge home with outpatient follow-up with primary care and director drug.
Encourage oral hydration intake and have a cup of yogurt daily while on antibiotic.
Changes to Home Medications: No
Discharge Medications:
DC Medications w/original date entered in [employer]
baclofen 10 mg tablet 10 mg PO TID Muscle Spasms 10/08/11
duloxetine 60 mg capsule,delayed release 60 mg PO NOON Mental Health/Anxiety 10/08/11
gabapentin 300 mg capsule 300 mg PO TID Pain 10/08/11
simvastatin 40 mg tablet 40 mg PO QPM High Cholesterol 10/08/11
carvedilol 3.125 mg tablet 3.125 mg PO BID Blood Pressure 05/30/19
apixaban 2.5 mg tablet (Eliquis) 2.5 mg PO BID Blood Clot Prevention/Tx 07/04/23
sennosides 8.6 mg tablet (Senna Lax) 8.6 mg PO QPM Constipation 07/04/23
furosemide 40 mg tablet 40 mg PO DAILY #0 tabs 07/26/23
acetaminophen 325 mg tablet 650 mg PO Q6HPRN PRN mild pain 09/06/23
cholecalciferol (vitamin D3) 125 mcg (5,000 unit) tablet 125 mcg PO DAILY 09/06/23
furosemide 40 mg tablet 20 mg PO QPM 09/06/23
guaifenesin 600 mg tablet, extended release 12 hr 600 mg PO [id number] PRN cough 09/06/23
ipratropium 0.5 mg-albuterol 3 mg (2.5 mg base)/3 mL nebulization soln 3 ml inhalation R Q6HPRN PRN wheezing 09/06/23
omeprazole 20 mg capsule,delayed release 20 mg PO DAILY 09/06/23
therapeutic multivitamin 1 tab PO DAILY 09/06/23
cefuroxime axetil 500 mg tablet 500 mg PO BID #14 tabs 09/08/23
Home Medication Changes
Pending Results: No
Additional Pending Results:
Physical exam:
General: Awake, alert and oriented x3, not in distress and holds appropriate conversation.
HEENT: No active discharge, ecchymosis or bruising, moist lips, tongue and mucous membrane.
Eyes: No discharge or red conjunctiva, no nystagmus, pupils are reactive and equal
Neck:Supple, no JVD no bruit no goiter.
Respiratory: Normal AP contour and diameter, normal chest wall movement, normal respiratory effort, no respiratory distress,
Lungs: Good air entry bilaterally, no wheezing or rhonchi, no rales or crackles
Heart: S1, S2 regular, normal rate, no added sound.
Gastrointestinal: Positive bowel sounds, soft, nontender, no guarding or rigidity or organomegaly
Musculoskeletal: , no chest wall abnormality or tenderness. All joints and extremities have good range of motion, no muscle tenderness or any joint swelling or tenderness.
Extremities: pitting edema, good peripheral pulses, good range of motion
Skin: Warm and dry, no ulceration, normal color.
Neurological: Awake, alert , severe expressive aphasia, moves extremities well,
Psychiatric: Normal mood, normal thought and judgment, normal affect,
Condition on discharge: Awake, alert and oriented x3, answer question properly, not able to make own decision and take care of activities of daily living, she needs close monitoring and care, have expressive aphasia continent of the bowel and
bladder, ambulate with press assistant and feeder, goes home where lives with the family independently.
Discharge Plan
-
Patient Disposition: Home with Home Care
Discharge Diagnosis/Procedures: COPD exacerbation
Condition: Fair
Diet: Low Cholesterol and 2 Gram Sodium
Activity: With assistance
Driving Restrictions: No driving
Activity Restrictions/Additional Instructions:
Of COPD flareup
Continue DuoNeb scheduled at home for now as per recommendation of pulmonary
Outpatient follow-up with director drug
CT neck did not show any structural abnormalities
Scheduled to arrange outpatient follow-up with ENT
Return to the hospital if symptoms return
Urinalysis showed evidence of UTI, will start antibiotic orally cefuroxime 500 mg twice a day for 7-day, however Yogurt daily while on antibiotic
Antibiotic may cause diarrhea did not resolve outpatient no fever or abdominal pain need to come back to the hospital.
Referrals:
Samantha Reyes, DO [Active] - in two weeks (PFT, sleep study)
Riaz Sorensen MD [Family Provider] -
Prescriptions:
Continued
simvastatin 40 MG tablet
40 mg PO QPM
Hold Instructions: Resume on 07/11/23. hold while on paxlovid
baclofen 10 MG tablet
10 mg PO TID
gabapentin 300 MG capsule
300 mg PO TID
duloxetine 60 MG capsule,delayed release(DR/EC)
60 mg PO NOON
carvedilol 3.125 MG tablet
3.125 mg PO BID
sennosides [Senna Lax] 8.6 mg Tablet
8.6 mg PO QPM
Eliquis 2.5 mg tablet
2.5 mg PO BID
furosemide 40 mg Tablet
40 mg PO DAILY Qty: 0 0RF
furosemide 40 mg Tablet
20 mg PO QPM
therapeutic multivitamin Tablet
1 tab PO DAILY
omeprazole 20 mg Capsule,Delayed Release(Dr/Ec)
20 mg PO DAILY
cholecalciferol (vitamin D3) 125 mcg (5,000 unit) Tablet
125 mcg PO DAILY
acetaminophen 325 mg tablet
650 mg PO Q6HPRN PRN (Reason: mild pain)
guaifenesin 600 mg tablet extended release 12hr
600 mg PO [id number] PRN (Reason: cough)
No Action
ipratropium-albuterol 0.5 mg-3 mg(2.5 mg base)/3 mL Solution For Nebulization
3 ml inhalation R QID Qty: 180 0RF
budesonide 0.5 mg/2 mL Suspension For Nebulization
0.5 mg inhalation R BID Qty: 60 0RF
miconazole nitrate [Miconazorb AF] 2 % Powder
1 applic topical BID Qty: 85 0RF
metformin 500 mg tablet
500 mg PO DAILY Qty: 30 0RF
ipratropium-albuterol 0.5 mg-3 mg(2.5 mg base)/3 mL solution for nebulization
3 ml inhalation Q4H PRN (Reason: shortness of breath or wheezing) Qty: 180 0RF
prednisone 50 mg Tablet
50 mg PO DAILY Qty: 0 0RF
Rx Instructions:
Taper by 10 mg every 72 hours until done
cefdinir 300 mg capsule
300 mg PO BID 5 Days Qty: 10 0RF
Rx Instructions:
Last day September 28
Discharge Orders:
Discharge Patient (As Directed); Ordered 09/08/23
Ordered By: Hoa Guadalupe
Discharge Date and Time
Discharge Date/Time: 09/08/23 14:00
Print Language: NEPALI
--- NOTE | 2023-09-08 16:19 | VNURNOTE ---
[facility] intake notified of discharge earlier today, patient in OBS status.
== END 2023-09-08 14:00 | disposition home health service (06) ==
LOC: ED 22:02
PROVIDERS: ADMITTING PHYSICIAN Hospitalist; ATTENDING PHYSICIAN Internal Medicine; EMERGENCY PHYSICIAN Emergency Medicine; FAMILY PHYSICIAN Family Medicine; OTHER PHYSICIAN Internal Medicine
DX: J44.1 Chronic obstructive pulmonary disease with (acute) exacerbation (principal); J96.01 Acute respiratory failure with hypoxia; N39.0 Urinary tract infection, site not specified; I69.351 Hemiplegia and hemiparesis following cerebral infarction affecting right dominant side; I69.320 Aphasia following cerebral infarction; E66.01 Morbid (severe) obesity due to excess calories; I11.0 Hypertensive heart disease with heart failure; I50.32 Chronic diastolic (congestive) heart failure; E78.5 Hyperlipidemia, unspecified; F32.A Depression, unspecified; I25.10 Atherosclerotic heart disease of native coronary artery without angina pectoris; I82.511 Chronic embolism and thrombosis of right femoral vein; R06.83 Snoring; G89.29 Other chronic pain; R05.3 Chronic cough; R91.1 Solitary pulmonary nodule; R26.2 Difficulty in walking, not elsewhere classified; B96.20 Unspecified Escherichia coli [E. coli] as the cause of diseases classified elsewhere; Z68.42 Body mass index [BMI] 45.0-49.9, adult; Z79.01 Long term (current) use of anticoagulants; Z79.899 Other long term (current) drug therapy; Z85.41 Personal history of malignant neoplasm of cervix uteri; Z86.16 Personal history of COVID-19; Z86.718 Personal history of other venous thrombosis and embolism; Z87.891 Personal history of nicotine dependence
CPT/HCPCS: 70491; 71046; 80048; 80053; 81003; 81015; 83880; 84484; 85025; 85027; 87077; 87086; 87186; 92610; 94640; 94667; 96374; 99285; G0378; Q9967

== ENCOUNTER 2023-09-20 06:38 | Inpatient (IN) | payer MEDICARE, OTHER, SELFPAY ==
[2023-09-20] VITALS (88 sets, daily range): BP systolic 42–152; BP diastolic 21–85; BMI 46.8
[2023-09-20 05:33] LABS: % Basophils 0.6 % (0-2); % Eosinophils 5.2 % (0-6); % Immature Granulocytes 2.2 % (0-0.5); % Lymphocytes 14.5 % (20.5-51.1); % Monocytes 2.9 % (1.7-9.3); % Neutrophils 74.6 % (42.2-75.2); Absolute Basophils 0.1 10^3/uL (0-0.2); Absolute Eosinophils 0.4 10^3/uL (0-0.7); Absolute Immature Granulocytes 0.2 10^3/uL (0-0.05); Absolute Lymphocytes 1.2 10^3/uL (1.2-3.4); Absolute Monocytes 0.2 10^3/uL (0.1-0.6); Absolute Neutrophils 6.1 10^3/uL (1.4-6.5); Hemoglobin 11.7 g/dL (12.0-16.0); Mean Corp Hgb Conc. 32.5 g/dL (33.0-37.0); Mean Corpuscular Hgb 31.2 pg (27.0-31.0); Mean Platelet Volume 10.2 fL (7.4-10.4); Nucleated Red Blood Cells % 0 %; Platelet Count 245 10^3/uL (130-400); Red Blood Cell Count 3.75 10^6/uL (4.20-5.40); Red Cell Dist. Width 15.6 % (11.5-14.5); White Blood Cell Count 8.1 10^3/uL (4.8-10.8)
[2023-09-20 05:42] LABS: B.E. -4.9 mmol/L; HCO3 24.3 mmol/L (21-28); O2 Saturation % 99.6 % (94-98); PCO2 65 mmHg (32-35); PO2 277 mmHg (83-108)
--- NOTE | 2023-09-20 05:42 | EDRN ---
Addendum entered by Rosamaria Cullen RN 09/20/23 06:15:
06:15 2nd 1L NSS given per verbal order by Dr. Tompkins
Addendum entered by Rosamaria Cullen RN 09/20/23 06:14:
06:01 2nd 20mcg epi given per verbal order by Dr. Tompkins
06:03 3rd dose of 20mcg epi given per verbal order by Dr. Tompkins
Addendum entered by Rosamaria Cullen RN 09/20/23 05:58:
05:55 BP 60s/40s -- 20mcg epi given IV by Dr. Tompkins
Original Note:
05:12 Pt arrives to ED intubated in field, ETT 7 at 23 1/, resp at bedside.
05:24 1L NSS given bolus per verbal by Dr. Tompkins
05:26 16F OG tube placed
05:40 Propofol gtt started per verbal order by Dr. Tompkins at 25mg/kg/min (17.4ml/hr)
[2023-09-20 05:49] LABS: O2 Therapy VENT; pH 7.18 (7.35-7.45)
--- NOTE | 2023-09-20 06:00 | EDRN ---
Pts BP continues trending down, Dr. Tompkins notified and aware. Verbal order by Dr. Tompkins to given second dose of IV epi 20mcg. Dr. Tompkins at bedside with patient, BP isn't responding to the dose of Epi, Dr. Tompkins verbal order to give 3rd dose of IV epi
20mcg, will continue to evaluate patients BP.
[2023-09-20] MEDS: DECADRON 10 MG IV (06:04)
[2023-09-20 06:06] LABS: Lactic Acid 7.1 mmol/L (0.7-2.0)
--- NOTE | 2023-09-20 06:08 | EDRN ---
Pt not responding to IV, Dr. Tompkins notified. Order for IV kp placed by Dr. Tompkins and given per order -- See MAR and worklist for Levo protocol.
[2023-09-20] MEDS: LEVOPHED 250 IV (06:09)
[2023-09-20 06:12] LABS: Triglycerides 107 mg/dl (10-149)
[2023-09-20 06:22] LABS: ALT (SGPT) 42 U/L (0-35); AST (SGOT) 76 U/L (14-36); Albumin 2.9 g/dl (3.5-5.0); Alkaline Phosphatase 70 U/L (38-126); Blood Urea Nitrogen 14 mg/dl (7-17); Calcium 7.8 mg/dl (8.4-10.2); Carbon Dioxide 25 mmol/L (22-30); Chloride 107 mmol/L (98-107); Glucose 165 mg/dl (70-99); Sodium 140 mmol/L (135-145); Total Bilirubin 0.6 mg/dl (0.2-1.3); Total Protein 5.5 g/dl (6.3-8.2); eGFR > 60.00
[2023-09-20 06:23] LABS: NT-proBNP 238 pg/ml; Troponin I 0.024 ng/ml
--- NOTE | 2023-09-20 06:24 | ED.GENMED ---
History of Present Illness
General
Chief Complaint: Breathing Problem
Source: family (Daughters at bedside), ambulance crew and previous hospital records (Recent hospitalization September 05 to September 07 for COPD exacerbation, hypoxic respiratory failure requiring supplemental oxygen.)
Exam Limitations: clinical condition
Time Seen by Provider: 09/20/23 05:11
Nursing documentation reviewed up to this point in time: agreed with
Travel History
Have you had any contact with someone who has COVID-19?: Unable to Answer
Do you have any symptoms of coronavirus? Fever > 100 degrees, chills, cough, shortness of breath, sore throat, loss of taste or smell, muscle aches, or headache?: Unable to Answer
History of Present Illness
History of Present Illness:
This is an 82-year-old woman who resides at home with family. 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
and since that time has had repeated hospitalizations for shortness of breath, wheezing, exacerbation of COPD. Most recent hospitalization was September 05 to September 07 for cough, wheezing, acute hypoxic failure requiring supplemental nasal cannula
oxygen. Discharged to home on July 10 where family states patient continued with some cough and wheezing that has slowly worsened especially over the past 4 to 5 days and this morning she called her son complaining of severe shortness of
breath. Upon EMS arrival patient in severe respiratory distress with initial pulse ox in the 60s and significant wheezing on exam. She was given [id number] nebulizer treatments prehospital, supplemental oxygen with improvement in pulse ox to the
90s but patient became much more somnolent, poor respiratory drive requiring Ambu bag assisted ventilations and then subsequently sedated and orally intubated prehospital. Paramedics report initial blood pressure 140s to 150s, heart rate in the 80s
to 90s. She never lost a pulse but developed moderate hypotension after RSI and sedation prehospital.
Patient arrives to the ED orally intubated, sedated. She is assisting the ventilator and is noted to have intermittent cough. No spontaneous movement and no eye-opening with verbal nor tactile stimuli.
Transition to assist-control ventilator 100% oxygen, tidal volume of 450. Moderately elevated PIP's noted.
Past History
Past History
ED Past Medical History: Cancer (Cervical), COPD, CVA (Left-sided CVA with right hemiplegia), HTN and Other (Previous stroke with right hemiparesthesias and aphasia, hypertension, DVT, Kidney stones, Urosepsis)
ED Past Surgical History: Cholecystectomy and Other (Noncontributory)
Social History
Tobacco: Former smoker
Alcohol: None
Drug: None
Personal: ( July 2023)
Living: with family
Employment: Not employed
Family History
Family History: Other (Noncontributory); Negative Diabetes, Hypertension or CAD
Phy Exam
Physical Exam
Physical Exam:
GENERAL: 82-year-old morbidly obese woman arrives via EMS orally intubated, sedated. Spontaneous respirations are noted as well as occasional brief cough.
EYE: Eyes do not spontaneously open. Pupils are 5 mm briskly reactive to light bilaterally.
NECK: Supple, no JVD.
ENT: posterior pharynx is clear, oral mucosa is moist. TM clear b/l, nares patent. Orally intubated. There is a tiny abrasion mid upper lip as well as a small abrasion anterior tongue. No active bleeding. Teeth appear intact.
CARDIAC: Regular rate and rhythm. no murmur.
LUNGS: Orally intubated, ventilator assisted. Markedly decreased breath sounds bilaterally with expiratory wheezing bilaterally with prolonged expiratory phase.
ABDOMEN: Obese, soft, mildly distended, without focal tenderness, normoactive BS.
NEUROLOGICAL: Obtunded, GCS 3-T
SKIN: Warm and dry, normal color, no rash.
MUSCULOSKELETAL: No C/C/E. peripheral pulses are full and equal b/l.
PSYCH: Unobtainable.
Scores
Heart Failure Risk
Heart Failure Risk Score: Yes
History of Stroke or TIA: Yes
History of intubation for respiratory distress: Yes
Heart rate on ED arrival >/= 110: No
SaO2 <90% on arrival on room air: Yes
HR >/=110 during 3min walk test (or too ill to perform test): Yes
ECG has acute ischemic changes: No
Urea >/=12mmol/L (BUN 33.6mg/dL): No
Serum CO2>/=35mmol/L: No
Troponin I or T elevated to LA Level (0.4mg/dL): No
NT-proBNP >/=5,000ng/L (5,000pg/ml): No
HF Risk Score: 6
Admission Status: VERY HIGH RISK 55.3% Consider admission to hospital
Course
Orders/Labs/Results
Orders:
Orders
09/20/23 05:13
EKG [Electrocardiogram (*1)] Urgent
Reason for Study: Shortness of Breath
EKG- Treatment ONCE
09/20/23 05:19
Propofol 1,000,000 Mcg/100 ml [Diprivan] 1,000,000 mcg in 100 ml .ROUTE .STK-MED
09/20/23 05:22
Portable Chest Xray [CR Chest Portable - 1 View] Urgent
Comment:
Reason For Exam: vent/ resp arrest
Reason Study Needs to be Portable: Unable to Transport
09/20/23 05:24
Arterial Blood Gas Urgent
%Oxygen/Room Air: on vent
Complete Blood Count/With Diff Urgent
Lactic Acid Urgent
09/20/23 05:25
INR [Prothrombin Time] Urgent
PTT Urgent
09/20/23 05:31
Albuterol Nebs [Ventolin Nebules] 10 mg .ROUTE .STK-MED ONE
09/20/23 05:40
Fentanyl Citrate/Pf [Sublimaze] 50 mcg IV [id number] PRN
09/20/23 05:42
Dexamethasone Sod Phosphate [Decadron] 10 mg IV NOW STA
09/20/23 05:45
Propofol 1,000,000 Mcg/100 ml [Diprivan] 1,000,000 mcg in 100 ml IV PER PROTOCOL
Indication:: Light Sedation
Begin Infusion:: Now
Goal:: RASS 0 to -2
Maximum dose in mcg/kg/min:: 50
Initial dose based on RASS:: Yes
If RASS is:: +1 or pt hemodynamically unstable (SBP < 90mmHg), initiate at 10 mcg/kg/min
If RASS is:: +2, initiate at 20 mcg/kg/min
If RASS is:: greater than or equal to +3, initiate at 30 mcg/kg/min
Titration Instructions:: Titrate by 5-10 mcg/kg/min every 5 minutes until RASS 0 to -2 achieved.
Taper Instructions:: If RASS is at or below goal for 4 consecutive hours decrease infusion by
Taper Instructions:: 5-10 mcg/kg/min every 2 hours to off.
Over-sedation Instructions:: If CPOT 0-2 (at goal) AND RASS -3 to -5 (below goal) decrease sedative by
Over-sedation Instructions:: 50% first. If pain score remains at goal and RASS remains below goal in
Over-sedation Instructions:: 1 hour, decrease opioid infusion by 50%.
Notify provider:: immediately if patient exhibits signs/symptoms of propofol-related
Notify provider:: infusion syndrome.
Additional Instructions:: Patient MUST be mechanically ventilated and MUST recieve analgesia
09/20/23 05:46
Comprehensive Metabolic Panel Urgent
Magnesium Urgent
Comment: ADD ON
NT-proBNP Urgent
Triglycerides Routine
Comment: baseline levels with propofol infusion
Troponin I Urgent
09/20/23 06:06
NORepinephrine 4 MG/250 ML [Levophed] 4 mg in 250 ml IV NOW
Initial dose in mcg/min, then titrate:: 2
Titrate to keep:: MAP > 65 mmHg
Titrate by mcg/min:: 1-2 mcg/min
Frequency of titrations (minutes):: 5
Maximum dose in ICU in mcg/min:: 30
Maximum dose in IMU in mcg/min:: 8
Maximum dose in IVU in mcg/min:: 4
Begin to taper infusion when:: Remained at goal for 4hrs
Taper by mcg/min:: 1-2 mcg/min
Frequency of taper (minutes) if patient maintains goal:: 30
Taper to off?: Yes
If infusion off & no longer maintaining goal:: Contact Provider
09/20/23 06:08
NORepinephrine 4 MG/250 ML [Levophed] 4 mg in 250 ml .ROUTE .STK-MED
09/20/23 06:25
Admit/Transfer Patient As Directed
Co-Sign Provider:
Level of Care: Inpatient admission
Assign to:: ICU
Physician / Group: Jose Roberto
Diagnosis: Acute Hypoxemic Respiratory Failure / VDRF
Reason for Hospitalization: Acute Hypoxemic Respiratory Failure / VDRF
Expected length of stay greater than two midnights?: Yes
ELOS- Estimated Length of Stay in days: 5
I certify the patient meets the requirements for IP care: Yes
09/20/23 06:26
Code Status As Directed
Resuscitation Status: Full Code
09/20/23 07:05
COVID-19 Antigen Urgent
Source: Nasal Swab
Procalcitonin Urgent
PCT Algorithmm Indication: Sepsis
Influenza A+B Rapid Molecular Urgent
LAURA Source: Nasal Swab
Specimen Description:
09/20/23 07:17
Troponin I Q6H
Blood Culture Q1M
LAURA Source: Blood/Venous
Specimen Description:
Acetaminophen [Tylenol/Feverall] 650 mg RECTAL Q4HPRN PRN
Albuterol Nebs [Ventolin Nebules] 2.5 mg INH R Q4HPRN PRN
Dexamethasone Sod Phosphate [Decadron] 6 mg IV Q8H
FentaNYL 1,000 MCG/100 ML [Sublimaze] 1,000 mcg in 100 ml IV PER PROTOCOL
Indication:: Light Sedation
Begin Infusion:: Other
Begin infusion when:: patient requires 3 or more bolus doses in 2 consecutive hours
Goal:: pain score </= 1, CPOT 0-2, RASS 0 to -2
Maximum dose in mcg/hr:: 300
Initial Dose in mcg/hr:: 25
Titration Instructions:: Titrate every 30 minutes if patient exhibits signs of pain or discomfort
Titration Instructions:: (pain score >/= 2, CPOT>/= 3).
Titration Instructions:: Administer bolus dose and increase infusion by 25 mcg/hr.
Taper Instructions:: If pain score at goal for 4 consecutive hours (pain score </= 1, CPOT 0-2)
Taper Instructions:: decrease infusion by 50 mcg/hr every 2 hours.
Taper Instructions:: When dose </= 50 mcg/hr may turn infusion off and consider PRN
Taper Instructions:: intermittent bolus doses only.
Over-sedation Instructions:: If CPOT 0-2 (goal) and RASS -3 to -5 (below goal) decrease sedative by 50%
Over-sedation Instructions:: first. If pain score remains at goal and RASS remains below goal in 1 hour,
Over-sedation Instructions:: decrease opioid infusion by 50%.
Notify provider:: immediately if pt exhibits: chest wall rigidity, hemodynamic instability,
Notify provider:: agitation/pain despite maximum dosing, pain when RASS -3 to -5 (below goal)
Additional Instructions:: When starting infusion, administer bolus dose per PRN order first.
Additional Instructions:: Patient MUST be mechanically ventilated.
Fentanyl Citrate/Pf [Sublimaze] 50 mcg IV [id number] PRN
Prochlorperazine [Compazine] 5 mg IV Q6HPRN PRN
09/20/23 07:17
Consult Notification Routine
Specialty to Notify: Shingles Roofer
Date consulting provider notified: 09/20/23
Time consulting provider notified: :
Notified:: Provider
Shingles Roofer Consult Routine
Consulting Provider: Chris Olmos
Was physician already notified: No
Reason for consult: VDRF / Resp Failure
TSH Reflex To Free T4 Routine
STOOL [C difficile Antigen & Toxins] Routine
ALURA Source: Feces/Stool
Specimen Description:
Stool Culture Routine
LAURA Source: Feces/Stool
Specimen Description:
Stool For WBC Routine
LAURA Source: Feces/Stool
Specimen Description:
Activity As Directed
Activity Level: Bedrest
EKG with chest pain [ECG as needed] As Directed
ECG as needed for:: Chest Pain
Gastrointestinal Tubes As Directed
Type: Augustus olivia
To suction?: Yes
Type of suction: Low intermittent
Irrigate tube?: Yes
Irrigant: Tap Water
Frequency: Q4H
Amount in mls: 30
Irrigation Directions: Irrigate Q4H and PRN
I/O [Intake/ Output] As Directed
Frequency: Per unit guidelines
Pneumatic Compression Sleeves As Directed
Type: Knee high
Vital Signs As Directed
Frequency: Per unit guidelines
Weight As Directed
Frequency: Daily
Ventilator Initial Settings [RESP] Routine
DX Deep Vein Thrombosis Video Routine
09/20/23 07:18
Blood Culture Q1M
LAURA Source: Blood/Venous
Specimen Description:
09/20/23 07:30
ABG [Arterial Blood Gas] Routine
%Oxygen/Room Air: vent
09/20/23 08:00
Ipratropium/Albuterol Sulfate [Duoneb] 3 ml INH R QID
Pantoprazole [Protonix IV] 40 mg IV DAILY
Piperacillin/Tazo 4.5 Gram [Zosyn] 4.5 gram in 100 ml IV Q6H
VANCOMYCIN Pharmacy to Dose [VANCOCIN Pharmacy to Dose] 1 each Pharmacy To Prepare [Call Pharmacy To Prepare] 0 ml IV PER PROTOCOL
09/20/23 13:17
Troponin I Q6H
09/20/23 18:00
Enoxaparin Sodium [Lovenox] 40 mg SC QPM
09/20/23 19:17
Troponin I Q6H
09/21/23 06:00
EKG [Electrocardiogram (*1)] IN AM
Reason for Study: Chest Pain
NPO
Allow oral meds: Yes
Allow clear liquids: Sips of Clears
ABG [Arterial Blood Gas] IN AM
%Oxygen/Room Air: vent
Basic Metabolic Panel IN AM
Complete Blood Count/No Diff IN AM
09/21/23 08:00
Polyethylene Glycol Powder [Miralax] 17 grams TUBE DAILY
Polyethylene Glycol Powder [Miralax] 17 grams TUBE DAILY
09/23/23 06:00
Triglycerides Q3D
Comment: every 72 hours while patient is on propofol
09/26/23 06:00
Triglycerides Q3D
Comment: every 72 hours while patient is on propofol
09/29/23 06:00
Triglycerides Q3D
Comment: every 72 hours while patient is on propofol
Abnormal Lab Results
09/20/23 09/20/23 09/20/23
05: 05:25 05:46
RBC 3.75 L 10^6/uL
(4.20-5.40)
Hgb 11.7 L g/dL
(12.0-16.0)
Hct 36.0 L %
(37.0-47.0)
MCH 31.2 H pg
(27.0-31.0)
MCHC 32.5 L g/dL
(33.0-37.0)
RDW 15.6 H %
(11.5-14.5)
Abs Immat Gran (auto) 0.2 H 10^3/uL
(0-0.05)
Immature Gran % 2.2 H %
(0-0.5)
Lymphocytes % 14.5 L %
(20.5-51.1)
PT 16.0 H Sec
(11.4-14.6)
pH 7.18 L*
(7.35-7.45)
pCO2 65 H mmHg
(32-35)
pO2 277 H mmHg
(83-108)
ABG O2 Sat (Measured) 99.6 H %
(94-98)
Glucose 165 H mg/dl
(70-99)
Lactic Acid 7.1 H* mmol/L
(0.7-2.0)
Calcium 7.8 L mg/dl
(8.4-10.2)
AST 76 H U/L
(14-36)
ALT 42 H U/L
(0-35)
Total Protein 5.5 L g/dl
(6.3-8.2)
Albumin 2.9 L g/dl
(3.5-5.0)
09/20/23 05:24
09/20/23 05:46
Vital Signs
Initial and Last Documented VS:
Initial Vital Signs
BP
73/61
09/20/23 05:16
Last Documented Vital Signs
Temp Pulse Resp BP Pulse Ox
97.8 F 75 16 132/29 98
09/20/23 05:17 09/20/23 07:15 09/20/23 07:15 09/20/23 07:15 09/20/23 07:15
MDM/Problems Addressed
Differential Diagnosis Includes:
Patient presents after acute respiratory arrest requiring sedation and prehospital intubation.
Noted to to have significant wheezing with minimal air movement bilaterally. Although breath sounds are markedly decreased they are equal bilaterally and initial pulse ox 97% on 100% oxygen thus ET tube in correct position.
Initial blood pressure 70s to 80s I suspect is related to RSI and sedation medications. Will initiate IV fluid bolus and consider pressors if needed.
There has been no report of fever but must consider sepsis as well.
Peripheral pulses are equal bilaterally.
Will initiate continuous albuterol nebulizer through ET tube.
IV Decadron, IV fluids. Consider IV antibiotics. Consider CHF combined with exacerbation of COPD. Consider pneumonia.
Will check ABG, labs, BNP lactic acid.
2 daughters at bedside. Patient is currently full CODE STATUS.
Chronic conditions affecting care: HTN, COPD and Neurological disorder
Acute Exacerbation and/or Progression of Chronic Illness: COPD
*Radiology
Radiology exam reviewed: preliminary read by ED provider (Chest x-ray shows ET tube above ana, NG tube past the diaphragm into the stomach. No evidence of CHF nor infiltrate. Mildly hyperinflated. No pneumothorax.)
*Pulse Oximetry
Patient hypoxic: yes
*EKG
Interpreted by ED Provider?: Yes
Comparison EKG: no changes (Unchanged from previous June 2023)
Rate: normal
Rhythm: sinus
[place]: normal axis
Interval: long QT
QRS Pattern: low voltage
Ischemia: no ischemia
*Clinical Informatics Manager Interpretation
Rate: normal
Interpretation: normal
Rhythm: sinus
*Critical Care Note
Total Time (30-74mins, 75-104mins- exclusive of procedures): 60
comment:
Critical care statement: A total of 60 minutes of critical care time was provided for this patient. This includes management of unstable vital signs, evaluation of the patient at bedside, reviewing the patient's pertinent medical records, discussion
with consultants, review of old EKGs and review of pertinent medical records. This time with separate from time utilized to perform the aforementioned documented procedures
Update Note
Update Note:
Despite IV fluid bolus and push dose epinephrine patient remains hypotensive thus IV Levophed initiated, currently at 8 mcs with improvement in blood pressure to 1 20-1 30 systolic.
Labs show significant lactic acidosis at 7.1. This may be sepsis in nature but I suspect related to acute significantly hypoxic state. There has been no report of fever. And afebrile upon arrival to the ED.
BNP unremarkable at 238, no evidence of CHF. Will continue IV fluid bolus.
With initiation of IV propofol patient is much more comfortable. Albuterol nebulizer continues with marked improvement in air movement. She continues with moderate wheezing but markedly improved.
Due to elevated lactic acid there is some concern for sepsis, occult pneumonia thus will check procalcitonin.
Will admit to hospitalist service.
ED Attending Note
-
Portions of this chart may have been created with voice recognition software.� Occasional wrong word or��sound alike� substitutions may have occurred due to the inherent limitations of voice recognition software.
Discharge Plan
Departure
Patient Disposition: Admit
Date of Disposition: 09/20/23
Time of Disposition: 06:01
Admit to: ICU
Admit to doctor: Jose Roberto
Presentation/result/management discussed w/ accepting MD/DO: Hospitalist
Condition: Critical
Discharge Problem:
Acute on chronic respiratory failure with hypoxia and hypercapnia, Acute exacerbation of chronic obstructive pulmonary disease, Acute VDRF, Acute lactic acidosis
Interventions
Interventions:
*Risk Screen - Suicide Last Done: 09/20/23 05:17
*General Assessment Last Done: 09/20/23 05:17
*Neglect/Abuse Screening Last Done: 09/20/23 05:17
ED- Fall Risk Assessment Last Done: 09/20/23 07:29
*ED COVID-19 Vaccine History Last Done: 09/20/23 05:17
*Nursing Disposition Last Done: 09/20/23 07:29
ED- Cardiac Assessment Last Done: 09/20/23 05:56
ED- Pulmonary Assessment Last Done: 09/20/23 05:56
Discharge Date and Time
Discharge Date/Time: 09/20/23 07:20
[2023-09-20 06:29] LABS: APTT 29.2 Sec (23.4-35.0)
--- NOTE | 2023-09-20 06:58 | HPS.HSE ---
Family Physician
-
Family Physician: Riaz Sorensen
Chief Complaint
-
Respiratory Distress
History of Present Illness
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 History obtained from ED staff and discussion with
family at the bedside. Patient was recently hospitalized here from - 09/07 secondary to audible wheezing appreciated by visiting nurses. She received nebulizer therapy, mucolytics and chest PT / Acapella with improvement in her symptoms. She
did not require systemic steroids. CT of the neck was done during that stay and showed no evidence of airway compromise.
Patient was doing better at the time of discharge per family. Since that time, she has had gradually progressive SOB and audible wheezing.
Family states that wheezing is intermittent and quite severe at time. It does seem to improve with nebulizer treatments.
Follow-up with Pulmonary was scheduled for later this week.
Last PM, patient was given a nebulizer treatment at bedtime. Her oxygen saturation was 96% at that time per family and she appeared comfortable.
She woke around 4 AM today verbalizing for help (patient has very limited speech due to prior stroke).
Son responded and found that patient seemed agitated. Her lips appeared blue and she seemed to be having trouble breathing. He called 911 and notes that he 'pushed on her chest' for a bit - though he did not assess for or appreciate an absent
pulse.
EMS arrived and reported initial SpO2 in the 60s. Patient did have a pulse. They initiated bag ventilation and transport to the ED for further evaluation.
Patient had persistent hypoxemia despite attempts at bag ventilation and she was intubated in the ambulance en route to the ED.
In the ED, patient is sedated on the ventilator.
Medical History
Past Medical History
Past Medical History: Reports Other
Additional Past Medical History:
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
Hypertension
Dyslipidemia
History of DVT
History of cervical cancer
Chronic HFpEF
Nephrolithiasis
Obesity
Depression
Past Surgical History: Reports Other
Additional Past Surgical History:
Cholecystectomy
JUVENTINO
Social History
Tobacco: Former Smoker (5 packs per day x 25 years. Quit smoking 30 years ago.)
Alcohol: None
Drug: None
Personal:
Living: With Family
Family History
Family History: Not pertinent
Allergies / Home Medications
Allergies reflects when Allergies were last updated in [facility].
Home Medications with original date entered in [facility]
Allergy/Medication List:
Allergies
Allergy/AdvReac Type Severity Reaction Status Date / Time
No Known Drug Allergies Allergy NONE Verified 09/06/23 17:16
Home Medications
baclofen 10 mg tablet 10 mg PO TID Muscle Spasms 10/08/11
duloxetine 60 mg capsule,delayed release 60 mg PO NOON Mental Health/Anxiety 10/08/11
gabapentin 300 mg capsule 300 mg PO TID Pain 10/08/11
simvastatin 40 mg tablet 40 mg PO QPM High Cholesterol 10/08/11
carvedilol 3.125 mg tablet 3.125 mg PO BID Blood Pressure 05/30/19
apixaban 2.5 mg tablet (Eliquis) 2.5 mg PO BID Blood Clot Prevention/Tx 07/04/23
sennosides 8.6 mg tablet (Senna Lax) 8.6 mg PO QPM Constipation 07/04/23
furosemide 40 mg tablet 40 mg PO DAILY #0 tabs 07/26/23
acetaminophen 325 mg tablet 650 mg PO Q6HPRN PRN mild pain 09/06/23
cholecalciferol (vitamin D3) 125 mcg (5,000 unit) tablet 125 mcg PO DAILY 09/06/23
furosemide 40 mg tablet 20 mg PO QPM 09/06/23
guaifenesin 600 mg tablet, extended release 12 hr 600 mg PO [id number] PRN cough 09/06/23
ipratropium 0.5 mg-albuterol 3 mg (2.5 mg base)/3 mL nebulization soln 3 ml inhalation R Q6HPRN PRN wheezing 09/06/23
omeprazole 20 mg capsule,delayed release 20 mg PO DAILY 09/06/23
therapeutic multivitamin 1 tab PO DAILY 09/06/23
budesonide 0.5 mg/2 mL suspension for nebulization 0.5 mg (2 mL) inhalation R BID #60 mL 09/08/23
Review of Systems
-
Unable to obtain full review of systems at this time due to: Patient Intubation
Physical Exam
Vital Signs
Vital Signs
Temp Pulse Resp BP Pulse Ox
97.8 F 70 16 116/50 98
09/20/23 05:17 09/20/23 06:30 09/20/23 06:30 09/20/23 06:25 09/20/23 06:30
Physical Exam
General: Other (82y F intubated and sedated in the ED.)
HEENT: Other (Thick neck. ETT and OGT in place.)
Respiratory: Other (Decreased BS throughout. Prolonged inspiratory phase. Minimal wheezing. No rales / rhonchi.)
Cardiac: S1/S2 and Regular Rhythm; No Murmur
GI: Other (Obese, not tender, pos BS.)
Musculoskeletal: No Clubbing, No Cyanosis and No Edema
Neuro: Sedated
Laboratory Results
-
09/20/23 05:24
09/20/23 05:46
Laboratory Results
PT 16.0 Sec (11.4-14.6) H 09/20/23 05:25
INR 1.30 09/20/23 05:25
APTT 29.2 Sec (23.4-35.0) 09/20/23 05:25
pH 7.18 (7.35-7.45) L* 09/20/23 05:24
pCO2 65 mmHg (32-35) H 09/20/23 05:24
pO2 277 mmHg (83-108) H 09/20/23 05:24
HCO3 24.3 mmol/L (21-28) 09/20/23 05:24
Lactic Acid 7.1 mmol/L (0.7-2.0) H* 09/20/23 05:24
Total Bilirubin 0.6 mg/dl (0.2-1.3) 09/20/23 05:46
AST 76 U/L (14-36) H 09/20/23 05:46
ALT 42 U/L (0-35) H 09/20/23 05:46
Alkaline Phosphatase 70 U/L (38-126) 09/20/23 05:46
Troponin I 0.024 ng/ml 09/20/23 05:46
Impression/Plan
-
A/P: Patient is an 82y F with PMH significant for CVA, CHF and obesity who presents to ED via EMS in respiratory distress having been intubated in the field.
Acute Hypoxemic and Hypercapnic Respiratory Failure
VDRF secondary to the above
COPD with Acute Exacerbation
Suspected JAYLA / OHV
- Admit to ICU for further evaluation and treatment.
- Continue vent support, sedation, etc.
- IV steroids, nebs ATC and PRN.
- Pulmonary / Food Service Helper evaluation.
- Follow ABGs for improvement in gas exchange.
- Given timing of event - ? apnea triggered respiratory distress.
- Will cover with IV abx for now pending further evaluation.
- Procalcitonin, blood cultures, serial CXR.
- Follow for any fever, etc and discontinue abx in 24 hours if no evidence of infection.
- Patient does have prior history of DVT and is chronically sedentary due to prior CVA.
- Will check CTA chest to rule out PE - she is maintained on only low-dose Eliquis for stroke prevention.
Lactic Acidosis
Hypotension
- Lactate level 7 with normal anion gap.
- ? secondary to respiratory distress / albuterol treatments / etc.
- BP low in the ED, but responded to fluids +/- pressors.
- ? secondary to sedation. Wean pressors as able.
- Follow for normalization of lactate.
- Patient 'runs low' in terms of BP with systolic pressures in the 90s - 100s during last admission.
Chronic HFpEF
- No evidence on exam of volume overload.
- BNP is unremarkable.
- Hold diuretics acutely with borderline BPs.
- Follow daily weights, I/Os, etc.
ASCVD
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
- Stable. No evidence of any new deficit - though difficult exam given acuity / sedation / etc.
- Hold Eliquis acutely.
- Follow for any new symptoms.
Morbid Obesity due to excess calories
- Affects all aspects of care including increased risk for sleep disordered breathing, OHV, etc.
- PSG has been discussed in the past and declined as family does not believe she would tolerate PAP therapy - may wish to revisit this.
- Do not believe that this 82y F with R hemiparesis is capable of dietary or activity changes necessary to realize significant weight loss.
DVT Prophylaxis: Lovenox while Eliquis on hold.
Code Status: Full
[2023-09-20 07:34] LABS: COVID-19 Antigen Negative (Negative)
[2023-09-20] MEDS: DUONEB 3 ML INH ×5 (07:47→23:30)
[2023-09-20 08:05] LABS: Procalcitonin 0.13 ng/ml (0.0-0.25)
[2023-09-20 08:17] LABS: Magnesium 1.7 mg/dl (1.6-2.3)
[2023-09-20] MEDS: DIPRIVAN 100 IV ×3 (08:22→20:20)
[2023-09-20] MEDS: SUBLIMAZE 50 MCG IV ×3 (08:22→21:12)
[2023-09-20] MEDS: PROTONIX IV 40 MG IV (08:23)
--- NOTE | 2023-09-20 08:30 | PHA.VAN.IN ---
Assessment
- Assessment
Renal Function: Appears similar to baseline
Concomitant Antimicrobials: piperacilln/tazobactam
AUC Dosing Plan
- Dosing Variables
Dosing Weight (kg): 116
Dosing CrCl (ml/min): 67
Vd coefficient (L/kg): 0.5
Also evaluated CrCl (IBW) ~44 ml/min + Vd coefficient 0.5
Anticipate patient's CrCl is likely overestimated given BMI and probable that half-life is > 12H
- Empiric Dosing
Initial / Loading Dose: 2000mg - administration pending
Maintenance Regimen: Vanc 1750mg Q24H starting 09/20 06
Estimated AUC (mcg*h/mL): 533 - 548
Estimated Peak (mcg*h/mL): 34.5 - 39.5
Estimated Trough (mcg/ml): 10.6 - 14
Estimated Half Life (H): 11.5 - 16.9
- Monitoring
No levels ordered at this time: consider levels in next few days
MRSA Screen: Ordered per protocol
Pharmacokinetics Vancomycin I
- -
Patient Age: 82
Patient Sex: Female
Vancomycin Day #: 1
Indication: Pulmonary/Respiratory
Requesting Provider: Dr. Cid
Pertinent Antimicrobial Allergies:
NKDA
Height / Weight:
Height 5 ft 2 in
Actual Weight 116 kg
Pertinent Past Medical History: BMI ~47
- Vital Signs / Lab Results
Temp Pulse Resp BP Pulse Ox
96.0 F L 75 16 132/29 99
09/20/23 08:12 09/20/23 07:15 09/20/23 07:15 09/20/23 07:15 09/20/23 07:30
Lab Results - Hematology
09/20/23
05:24
WBC 8.1
Lab Results - Chemistry
09/20/23 09/20/23
05:24 05:46
BUN Cancelled 14
Creatinine Cancelled 0.8
Estimated Creat Clear Cancelled
Albumin Cancelled 2.9 L
09/20/23
05:24
Lactic Acid 7.1 H*
Microbiology Results
09/20/23 07:05 Influenza Types A & B (YUKI) - Final
Nasal Swab Negative for Influenza A & B, NAAT
Negative results must be combined with clinical observations
and patient history.
Nucleic Acid Amplification test (NAAT)performed on the
[employer] platform.
--- NOTE | 2023-09-20 08:45 | CON.INTV ---
Consultation
Consultation Request
Date/Time Consultation Requested: 09/20/2023716
Date/Time Consultation Performed: 09/20/2023854
Requesting Provider: Dr. Cid
Performing Provider: Dr. Olmos
Reason for Consultation: SOB/intubated
Medical History
-
Chief Complaint: SOB
History of Present Illness:
82-year-old F former tobacco smoker with PMHx of COVID-19, HX of CVA, ?COPD and HX of DVT on Eliquis who p/w SOB, and EMS found patient to be unresponsive, apneic with pulse ox in the 60s on room air. Patient was intubated in the field and then
BIBEMS here to for further management. Blood gas here showed that she was hypoxic and hypercapneic. Labs also showed severe lactic acidosis with lactic acid level of 7.1. Initial procalcitonin also negative at 0.13. Urinalysis does not show
evidence of UTI. COVID antigen as well as flu A/B were negative. Blood cultures were collected as well as urine culture. CXR showed widespread bilateral prominent interstitial markings suspicious for interstitial edema versus pneumonitis.
Patient given Decadron and also Levophed was started due to hypotension with SBP as low as the 40s. Pt brought to ICU for further care and Chief Privacy Officer service consulted for further care.
Pt seen this AM. She is sedated on propofol at 25mcg/kg/min. She does awaken but is too sedated to follow commands; plus her baseline with expressive aphasia also makes it difficult for her to interact as she is nonverbal. She is on levophed at
4mcg/min. She remains intubated on vent via AC/VC mode: 14/450/40%/5, SPo2 99%m R 77, BP 148/67, RR 14. Of note, CT of the chest was performed this morning showing no evidence of central PE, with subsegmental atelectasis in the upper lobes. No
obvious pneumonia seen. I discussed the patient's clinical status with the patient's family and answered all her questions.
Of note patient saw us at the [facility] office in June 2019 after hospitalization for a follow-up. At that time patient was seen due to CAP with worsening DAMON. Patient has severe aphasia at that time and was unable to perform spirometry as she was
unable to follow directions. She also was unable to do a 6MWT at that time due to chronic immobility from her stroke. Inhaler therapy was deferred at that time. She had upper airway stridor/wheezing and was referred to ENT. She also had
suspected JAYLA and PSG was discussed. She had followed with us in September 2019 as a telemedicine visit and PSG was deferred as the said at the time that the patient would likely not tolerate CPAP. Unfortunately since that office visit, the
patient's has since . The patient is scheduled to see us in the office on 09/22/2023, however this will need to be rescheduled given her current acutely ill state.
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
calculi, CAD
PSHx: Laparoscopic cholecystectomy, total hysterectomy
Past Medical History
Past Medical History: Other (Above as per HPI)
Past Surgical History: Other
Social History
Tobacco: Former Smoker
Alcohol: None
Drug: None
Family History
Family History: Other (Father: Stroke)
Allergies / Home Medications
Allergies
Allergy/AdvReac Type Severity Reaction Status Date / Time
No Known Drug Allergies Allergy NONE Verified 09/06/23 17:16
Home Medications
�Medication �Instructions �Recorded �Confirmed �Last Taken �Type
baclofen 10 mg tablet 10 mg PO TID Muscle Spasms 10/08/11 09/20/23 09/06/23 History
duloxetine 60 mg capsule,delayed 60 mg PO NOON Mental Health/Anxiety 10/08/11 09/20/23 09/06/23 History
release
gabapentin 300 mg capsule 300 mg PO TID Pain 10/08/11 09/20/23 09/06/23 History
simvastatin 40 mg tablet 40 mg PO QPM High Cholesterol 10/08/11 09/20/23 09/05/23 History
carvedilol 3.125 mg tablet 3.125 mg PO BID Blood Pressure 05/30/19 09/20/23 09/06/23 History
apixaban 2.5 mg tablet (Eliquis) 2.5 mg PO BID Blood Clot 07/04/23 09/20/23 09/06/23 History
Prevention/Tx
sennosides 8.6 mg tablet (Senna 8.6 mg PO QPM Constipation 07/04/23 09/20/23 09/05/23 History
Lax)
furosemide 40 mg tablet 40 mg PO DAILY #0 tabs 07/26/23 09/20/23 09/06/23 Rx
acetaminophen 325 mg tablet 650 mg PO Q6HPRN PRN mild pain 09/06/23 09/20/23 09/06/23 History
cholecalciferol (vitamin D3) 125 125 mcg PO DAILY Supplement 09/06/23 09/20/23 09/06/23 History
mcg (5,000 unit) tablet
furosemide 40 mg tablet 20 mg PO QPM Fluid 09/06/23 09/20/23 09/05/23 History
Retention/Swelling
guaifenesin 600 mg tablet, 600 mg PO [id number] PRN cough 09/06/23 09/20/23 09/05/23 History
extended release 12 hr
ipratropium 0.5 mg-albuterol 3 mg 3 ml inhalation R Q6HPRN PRN 09/06/23 09/20/23 09/06/23 History
(2.5 mg base)/3 mL nebulization wheezing
soln
omeprazole 20 mg capsule,delayed 20 mg PO DAILY Gastrointestinal 09/06/23 09/20/23 09/06/23 History
release Issue
therapeutic multivitamin 1 tab PO DAILY Supplement 09/06/23 09/20/23 09/06/23 History
budesonide 0.5 mg/2 mL suspension 0.5 mg (2 mL) inhalation R BID #60 09/08/23 09/20/23 Unknown Rx
for nebulization mL
Review of Systems
-
Unable to Obtain full review of systems at this time due to: Patient Intubation and Patient Non Verbal
Vitals / Labs / Diagnostic Testing
Vital Signs
Temp Pulse Resp BP Pulse Ox
96.0 F L 75 16 132/29 99
09/20/23 08:12 09/20/23 07:15 09/20/23 07:15 09/20/23 07:15 09/20/23 07:30
Lab Data
09/20/23 05:24
09/20/23 05:46
Laboratory Results
09/20/23 09/20/23
05:24 05:25
PT 16.0 H
INR 1.30
APTT 29.2
pH 7.18 L*
pCO2 65 H
pO2 277 H
HCO3 24.3
O2 Delivery Level Vent
Microbiology
09/20/23 07:05 Nasal Swab Influenza Types A & B (YUKI) - Final
Negative for Influenza A & B, NAAT
Negative results must be combined with clinical observations
and patient history.
Nucleic Acid Amplification test (NAAT)performed on the
[employer] platform.
Diagnostic Testing:
Physical Exam
-
HEENT: Normocephalic and Anicteric
Cardiovascular: S1/S2 and Peripheral Edema (Negative)
Respiratory: Wheeze (Negative), Rales (Negative) and Other (ETT in place; mechanical breath sounds heard bilaterally with coarse breath sounds)
GI: Soft, Non Distended and Non Tender
Neurology: Tremors (negative) and Other (Sedated; pupils are equal at 4-5 mm)
Skin: Warm and Dry
General: Chills (Negative)
Assessment
-
Assessment: 82-year-old F former tobacco smoker with PMHx of COVID-19, HX of CVA, ?COPD and HX of DVT on Eliquis who p/w SOB, and EMS found patient to be unresponsive, apneic with pulse ox in the 60s on room air. Patient was intubated in the field
and then BIBEMS here to for further management. Blood gas here showed that she was hypoxic and hypercapneic. Labs also showed severe lactic acidosis with lactic acid level of 7.1. Initial procalcitonin also negative at 0.13. Urinalysis does
not show evidence of UTI. COVID antigen as well as flu A/B were negative. Blood cultures were collected as well as urine culture. CXR showed widespread bilateral prominent interstitial markings suspicious for interstitial edema versus
pneumonitis. Patient given Decadron and also Levophed was started due to hypotension with SBP as low as the 40s. Pt brought to ICU for further care and Chief Privacy Officer service consulted for further care.
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
hyperlipidemia, history of renal calculi, CAD
Impression:
#Acute hypoxic/hypercapnic respiratory failure on mechanical ventilation � suspected to be due to AECOPD
#Suspected COPD with acute flare
#Shock - suspected to be due to sedation
#Anemia
#Lactic acidosis - resolved
#Elevated troponin - suspected to be due to type II ID/demand ischemia
#Abnormal spirometry with both obstructive and restrictive lung defect seen via spirometry from July 2019
#Former tobacco smoker (quit approximately 30 years ago)
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
#Morbid obesity with increased risk of JAYLA
#History of RLE DVT on chronic anticoagulation (Eliquis - ppx dosing)
Plan:
- No need for ABx given no PNA on CTA chest and procal negative
- Follow up blood Cx; scanty ETT secretions, hence unable to get sputum Cx at this time
- Daily blood gas and adjust ventlator as necessary
- Continue mechanical ventilation with daily SAT/SBT if clinically appropriate
- Lightly sedate with goal RASS -1 to -2, and plan to perform PS trial in AM on 10/01
- Titrate PEEP and FiO2 to maintain SpO2 >90-94%
- Maintain plateau pressure <30 & peak pressure <35
- Change decadron to solumedrol 40mg IV q6hr and wean as tolerated
- Change nebulized bronchodilators from QID to q4hr
Of note, she has a long chronic history of DAMON. She was referred to ENT as an outpatient for suspected vocal cord dysfunction - patient never ended up seeing ENT
- Continue vasopressors and maintain MAP>65
- Replete electrolytes with K>4, Mg>2
- Maintain euglycemia with goal BG 140-180
- Trend LFTs
- Continue to trend troponin until cTnI levels peak and begins to downtrend
- Incentive spirometer
- Stress ulcer ppx: PPI
- DVT ppx
Continue ICU level care for this critically ill patient.
Critical care statement: A total of 40 minutes of critical care time was provided for this patient today. This includes management of unstable vital signs, evaluation of the patient at bedside, reviewing the patient's pertinent medical records
including radiographs, microbiology, laboratory evaluations, and discussion with primary team, consultants, pharmacy, nutrition, physical therapy, case management, charge nurse, critical care nursing, and respiratory therapy.
Data:
CTA Chest 09-20-2023:
No evidence of central pulmonary embolism.
Small areas of opacification in the upper lobes bilaterally including the lingula most likely representing subsegmental atelectasis. Cannot exclude small areas of pneumonia.
Mild cardiomegaly.
No pneumothorax.
CXR 09-20-2023:
Endotracheal tube with tip in trachea above the ana. Nasogastric tube extending into the abdomen with tip off the image.
No pneumothorax.
Widespread bilateral prominent pulmonary interstitial markings. Findings could represent interstitial edema or pneumonitis.
TTE 07-22-2023:
Normal left ventricular size, wall thickness and systolic function. No regional
wall motion abnormalities are seen. LV ejection fraction is 55-60% by Haywood's
method of discs. Diastolic function indeterminate.
Mitral valve opens normally. Thickened mitral valve leaflets. Mitral annular
calcification. Trace mitral regurgitation is seen.
Mildly dilated left atrium. Indexed LA volume is within normal range (15-34
mL/m2).
Trileaflet aortic valve. Aortic valve opens normally. Aortic sclerosis without
stenosis. No aortic regurgitation is seen.
Since echocardiogram August 2020, there is no significant change.
[2023-09-20 08:49] LABS: Lactic Acid 1.2 mmol/L (0.7-2.0)
[2023-09-20 09:04] LABS: Troponin I 0.082 ng/ml
[2023-09-20] MEDS: NSS (PRESERVATIVE FREE) 10 ML IV (09:40)
[2023-09-20] MEDS: VANCOCIN 540 MG IV (09:41)
[2023-09-20 09:44] LABS: B.E. 1.5 mmol/L; HCO3 27.7 mmol/L (21-28); O2 Saturation % 99.1 % (94-98); PCO2 49 mmHg (32-35); PO2 104 mmHg (83-108); pH 7.36 (7.35-7.45)
[2023-09-20 09:45] LABS: Urine Albumin Negative (Neg - Trace); Urine Bilirubin Negative (Negative); Urine Character Clear (Clear); Urine Color Straw; Urine Glucose 1+ (Negative); Urine Ketone 1+ (Negative); Urine Leukocyte Negative (Negative); Urine Nitrite Negative (Negative); Urine Occult Blood Negative (Negative); Urine Specific Gravity 1.015 (<1.030); Urine Urobilinogen Negative (Neg - 1+)
--- NOTE | 2023-09-20 10:00 | PTCARENOTE ---
Pt admitted from ED for resp distress. Sedated with propofol gtt, Intubated 7.0/23R lip. Ventilator AC14/450/5/40%. Insp/Exp wheezing throughout. SpO2 98% with elevated peak pressures. Oropharynx with large amount of blood present. Oral care
performed. OGT to LIWS with small amt light green gastric contents out. NSS bolus 3L completed upon arrival in ICU. Duarte in place draining large amount clear yellow urine. MASD present in R groin. CHG bath given. Levophed infusing, weaning as
appropriate. Labs/cultures drawn. CT chest performed with no PE noted. Family at bedside and updated.
--- NOTE | 2023-09-20 12:11 | CM ---
CM following re: discharge planning.
Discussed in rounds, reviewed pt's chart, met with pt. Pt's 3 daughters, a son and [facility] caregiver at bedside.
Pt is an 82 year old female, admitted with primary dx of Acute Hypoxemic and Hypercapnic Respiratory Failure. Per Rounds meeting, pr was intubated at home, remains intubated, continue supportive care.
Per family, pt lives with son Edwin in a 2SH, no steps, there is a ramp. Per family pt ambulates with a cane, cannot use a walker due to stroke. Pt has / caregiver services provided by family and [facility]. Per family pt has a shower
chair. per family pt was before at [facility] and family members were adamant against going to [facility]. Pt is known to [facility].
Pt's family feels that pt might needs a short term rehab and they preferred [facility] acute [facility]. CM explained to pt's family acute rehab admitting criteria and they expressed their understanding. SNF level of care has been discussed as an
option, a list of SNFs provided and pt's family expressed not motivated feelings regarding placing their loved one to a SNFs and they feel if acute rehab will not be an option then returning pt home with [facility] and resumptions of caregiver services
will be a realistic option. Pt's family stated they still will visit a few SNFs.
PT and OT will evaluate the pt when clinically appropriate.
PCP: Riaz Sorensen
Pharmacy: [facility].
D/C plan: per family: Plan A - [facility] acute rehab at [place] or [place] acute rehab. Plan B: SNF or home with [facility]
CM will follow with discharge plan updates as hospitalization progresses
[2023-09-20] MEDS: CYMBALTA DELAYED RELEASE TUBE (12:29)
[2023-09-20] MEDS: SOLU-MEDROL PF 40 MG IV ×3 (12:29→23:28)
[2023-09-20] MEDS: NEURONTIN 300 MG TUBE ×3 (12:29→23:00)
[2023-09-20] MEDS: CYMBALTA DELAYED RELEASE 60 MG TUBE (12:37)
[2023-09-20 13:25] LABS: Troponin I 0.121 ng/ml
--- NOTE | 2023-09-20 13:25 | PTCARENOTE ---
Pt tolerating ventilator settings. Levophed weaned off with MAP currently 72. OGT clamped after med administration.
--- NOTE | 2023-09-20 14:19 | W.PN.UPDATE ---
Update Note
Progress Note Update
No clear evidence of infection at this time although urine is equivocal. Can follow-up urine cultures
� Continue DuoNebs, steroids
� Wean pressors as tolerated
� Wean sedation, SBT as tolerated
[2023-09-20] MEDS: LIORESAL 10 MG TUBE ×2 (15:00→23:00)
[2023-09-20] MEDS: DESENEX/MITRAZOL/ZEASORB 1 APPLIC TOPICAL ×2 (16:11→20:21)
--- NOTE | 2023-09-20 16:30 | PTCARENOTE ---
pt resting comfortably. Levophed off/on low dose throughout shift.
[2023-09-20] MEDS: LOVENOX 40 MG SC (18:11)
[2023-09-20 18:56] LABS: Troponin I 0.124 ng/ml
--- NOTE | 2023-09-20 21:00 | PTCARENOTE ---
Rec'd pt intubated/sedated no s/s pain. Afebrile. NSR on monitor. Positive pulses, no edema. blood sugar checks q6h requiring coverage with sliding scale. Turns q2h. Trending troponins. 7.0 @23, vent settings as ordered. expiratory wheezing/rhonchi.
Minimal secretions. Nebs ATC as well as solu medrol. OGT to liws. Duarte draining cloudy urine with sediment. Will monitor.
[2023-09-21] VITALS (73 sets, daily range): BP systolic 75–183; BP diastolic 39–96; BMI 45.8
[2023-09-21 00:09] LABS: Glucose - Point of Care 235 mg/dl (70-99)
[2023-09-21] MEDS: LEVOPHED 250 IV (00:16)
[2023-09-21] MEDS: DIPRIVAN 100 IV ×2 (00:16→04:58)
[2023-09-21] MEDS: NOVOLOG FLEXPEN-LOW RESISTANCE 2 UNITS SC (00:30)
--- NOTE | 2023-09-21 01:00 | PTCARENOTE ---
Pt reassessed. no change.
[2023-09-21 01:44] LABS: Hematocrit 33.4 % (37.0-47.0); Hemoglobin 11.7 g/dL (12.0-16.0); Mean Corpuscular Hgb 31.1 pg (27.0-31.0); Mean Corpuscular Volume 88.8 fL (81.0-99.0); Platelet Count 245 10^3/uL (130-400); Red Blood Cell Count 3.76 10^6/uL (4.20-5.40); Red Cell Dist. Width 15.4 % (11.5-14.5); White Blood Cell Count 13.8 10^3/uL (4.8-10.8)
[2023-09-21 02:07] LABS: Blood Urea Nitrogen 12 mg/dl (7-17); Calcium 8.2 mg/dl (8.4-10.2); Carbon Dioxide 26 mmol/L (22-30); Chloride 107 mmol/L (98-107); Estimated Creatinine Clearance 89 ml/min; Glucose 215 mg/dl (70-99); Potassium 3.1 mmol/L (3.5-5.1); Sodium 140 mmol/L (135-145); eGFR > 60.00
[2023-09-21 02:20] LABS: Troponin I 0.101 ng/ml
[2023-09-21] MEDS: DUONEB 3 ML INH ×5 (05:03→19:41)
[2023-09-21 05:30] LABS: B.E. 1.3 mmol/L; HCO3 25.9 mmol/L (21-28); O2 Saturation % 98.8 % (94-98); PCO2 40 mmHg (32-35); PO2 114 mmHg (83-108); pH 7.42 (7.35-7.45)
[2023-09-21 05:36] LABS: O2 Therapy VENT
[2023-09-21 06:08] LABS: Glucose - Point of Care 296 mg/dl (70-99)
[2023-09-21] MEDS: SOLU-MEDROL PF 40 MG IV ×3 (06:16→23:44)
[2023-09-21] MEDS: KCL ELIXIR 40 MEQ TUBE (06:16)
[2023-09-21] MEDS: NOVOLOG FLEXPEN-LOW RESISTANCE 3 UNITS SC (06:16)
[2023-09-21 07:12] LABS: Troponin I 0.093 ng/ml
[2023-09-21] MEDS: NEURONTIN 300 MG TUBE (08:06)
[2023-09-21] MEDS: MIRALAX 17 GRAMS TUBE (08:06)
[2023-09-21] MEDS: NSS (PRESERVATIVE FREE) 10 ML IV (08:07)
[2023-09-21] MEDS: LIORESAL 10 MG TUBE (08:07)
[2023-09-21] MEDS: PROTONIX IV 40 MG IV (08:09)
--- NOTE | 2023-09-21 08:10 | PTCARENOTE ---
Rec'd pt intubated/sedated no s/s pain. Afebrile. NSR on monitor. Positive pulses, no edema. blood sugar checks q6h requiring coverage with sliding scale. Turns q2h. 7.0 @23, vent settings as ordered. expiratory wheezing/rhonchi. Minimal secretions.
Nebs ATC as well as solu medrol.OGT clamped. Duarte draining cloudy urine with sediment. Propofol off for SBT/SAT. Will monitor.
[2023-09-21] MEDS: DESENEX/MITRAZOL/ZEASORB 1 APPLIC TOPICAL ×2 (08:16→21:58)
--- NOTE | 2023-09-21 08:35 | W.PN.INTV ---
Today's Communication / Plan
Recommendations
Extubated to nasal cannula this AM
Maintain SpO2>88%
Swallow eval by nursing
Wean off levophed - once able to tolerate PO then start midodrine
Start lantus and raise ISS to moderate resistance given hyperglycemia
Assessment
-
Assessment: 82-year-old F former tobacco smoker with PMHx of COVID-19, HX of CVA, ?COPD and HX of DVT on Eliquis who p/w SOB, and EMS found patient to be unresponsive, apneic with pulse ox in the 60s on room air. Patient was intubated in the field
and then BIBEMS here to for further management. Blood gas here showed that she was hypoxic and hypercapneic. Labs also showed severe lactic acidosis with lactic acid level of 7.1. Initial procalcitonin also negative at 0.13. Urinalysis does
not show evidence of UTI. COVID antigen as well as flu A/B were negative. Blood cultures were collected as well as urine culture. CXR showed widespread bilateral prominent interstitial markings suspicious for interstitial edema versus
pneumonitis. Patient given Decadron and also Levophed was started due to hypotension with SBP as low as the 40s. Pt brought to ICU for further care and Syruper service consulted for further care.
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
hyperlipidemia, history of renal calculi, CAD
Impression:
#Acute hypoxic/hypercapnic respiratory failure on mechanical ventilation � suspected to be due to AECOPD
#Suspected COPD with acute flare
#Shock - suspected to be due to sedation + reduced PO intake +/- sepsis from UTI (doubt sepsis as only 30,000 CFU seen on urine Cx of GNR)
#Positive urinalysis with suspected UTI
#Anemia - stable
#Lactic acidosis - resolved
#Hyperglycemia - likely steroid induced in setting of critical illness
#Elevated troponin - suspected to be due to type II MT/demand ischemia - peaked at 0.124 on 09/20/2023
#Abnormal spirometry with both obstructive and restrictive lung defect seen via spirometry from July 2019
#Former tobacco smoker (quit approximately 30 years ago)
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
#Morbid obesity with increased risk of JAYLA
#History of RLE DVT on chronic anticoagulation (Eliquis - ppx dosing)
Plan:
- Given urine culture is positive for gram-negative rods, I will resume antibiotics with Zosyn. Follow-up urine culture species/sensitivities
- Pressure support trial this morning was successful and patient extubated to nasal cannula. No stridor post-extubation
- Follow up blood Cx; scanty ETT secretions, hence unable to get sputum Cx at this time
- Maintain SpO2 >88-94%
- Changed decadron to solumedrol 40mg IV q6hr and wean as tolerated --> wean down to 40mg IV q8hr
- Changed nebulized bronchodilators from q4hr back to QID now that she has been extubated
- Of note, she has a long chronic history of DAMON. She was referred to ENT as an outpatient for suspected vocal cord dysfunction - patient never ended up seeing ENT
- Continue vasopressors and maintain MAP>65
- Replete electrolytes with K>4, Mg>2
- Maintain euglycemia with goal BG 140-180 --> start lantus tonight and raise ISS to moderate resistance scale
- Trend LFTs
- No longer need to trend troponin given it already peaked
- Incentive spirometer
- Stress ulcer ppx: n/a (will continue PPI however as she takes this at home)
- DVT ppx
Continue ICU level care for this critically ill patient given she remains on levophed.
Critical care statement: A total of 39 minutes of critical care time was provided for this patient today. This includes management of unstable vital signs, evaluation of the patient at bedside, reviewing the patient's pertinent medical records
including radiographs, microbiology, laboratory evaluations, and discussion with primary team, consultants, pharmacy, nutrition, physical therapy, case management, charge nurse, critical care nursing, and respiratory therapy.
Data:
CTA Chest 09-20-2023:
No evidence of central pulmonary embolism.
Small areas of opacification in the upper lobes bilaterally including the lingula most likely representing subsegmental atelectasis. Cannot exclude small areas of pneumonia.
Mild cardiomegaly.
No pneumothorax.
CXR 09-20-2023:
Endotracheal tube with tip in trachea above the ana. Nasogastric tube extending into the abdomen with tip off the image.
No pneumothorax.
Widespread bilateral prominent pulmonary interstitial markings. Findings could represent interstitial edema or pneumonitis.
TTE 07-22-2023:
Normal left ventricular size, wall thickness and systolic function. No regional
wall motion abnormalities are seen. LV ejection fraction is 55-60% by Haywood's
method of discs. Diastolic function indeterminate.
Mitral valve opens normally. Thickened mitral valve leaflets. Mitral annular
calcification. Trace mitral regurgitation is seen.
Mildly dilated left atrium. Indexed LA volume is within normal range (15-34
mL/m2).
Trileaflet aortic valve. Aortic valve opens normally. Aortic sclerosis without
stenosis. No aortic regurgitation is seen.
Since echocardiogram August 2020, there is no significant change.
Subjective Dataa
Subjective Data
Date of Service:
Date of Service: September 21, 2023
Chief Complaint: Syruper Follow Up
Subjective:
Patient seen this morning. Remains on ventilator this morning. Tolerated pressure support trial and extubated to nasal cannula. Family at bedside all questions were answered. Patient remains on Levophed at 2 mcg/min. No acute events reported
from overnight.
Review of Systems
General: Unobtainable - Pat Unresp
Objective Data
Data Reviewed
Vital Signs / I&O / Oxygen:
Vital Signs
Temp Pulse Resp BP Pulse Ox
98.1 F 98 23 110/44 96
09/21/23 07:59 09/21/23 08:58 09/21/23 08:58 09/21/23 06:15 09/21/23 09:33
Intake and Output
09/20/23 09/21/23 09/22/23
06:59 06:59 06:59
Intake Total 4120.3 / 4120.3
Output Total 4105 / 4105
Balance 15.3 / 15.3
SaO2 [A/C] 96
SaO2 96
Nasal Cannula flow liters per 3
minute
Physical Exam
General: Respiratory Distress (negative) and Comfortable
HEENT: Normocephalic and Anicteric
Cardiovascular: S1-S2 and Peripheral Edema (negative)
Respiratory: Wheeze (Faint wheezing heard during expiration), Crackles (negative), Rhonchi (negative), Non-Labored Respirations and ET Tube (this AM prior to extubation)
GI: Soft, Non Distended, Non Tender and Normal Bowel Sounds
Neurology: Tremors (negative) and Unresponsive
Skin: Warm and Dry
Labs/Micro/Reports
Lab Data
09/21/23 01:34
09/21/23 06:00
Laboratory Results
09/21/23 09/21/23
05:19 08:55
pH 7.42 7.45
pCO2 40 H 37 H
pO2 114 H 164 H
HCO3 25.9 25.7
O2 Delivery Level Vent
Microbiology
09/20/23 09:26 Urine Urine Culture - Preliminary
Gram negative bacilli
09/20/23 08:12 Blood/Venous Blood Culture - Preliminary
No Growth in 24 hours- Final report to follow
09/20/23 08:17 Blood/Venous Blood Culture - Preliminary
No Growth in 24 hours- Final report to follow
09/20/23 12:45 Nose Nasal Screen MRSA (PCR) - Final
MRSA not detected - performed by PCR methodology.
09/20/23 07:05 Nasal Swab Influenza Types A & B (YUKI) - Final
Negative for Influenza A & B, NAAT
Negative results must be combined with clinical observations
and patient history.
Nucleic Acid Amplification test (NAAT)performed on the
[employer] platform.
[2023-09-21 09:04] LABS: B.E. 1.8 mmol/L; HCO3 25.7 mmol/L (21-28); PCO2 37 mmHg (32-35); PO2 164 mmHg (83-108); pH 7.45 (7.35-7.45)
[2023-09-21 09:09] LABS: Glycohemoglobin (HgbA1c) 6.7 % (4.0-5.6)
--- NOTE | 2023-09-21 10:33 | VNURNOTE ---
Patient is current with [facility] since 07/05 with SN/PT, will monitor progress and plan at discharge.
[2023-09-21] MEDS: ZOSYN 100 IV ×3 (10:43→21:58)
[2023-09-21] MEDS: KCL 270 MEQ IV (11:28)
[2023-09-21] MEDS: NOVOLOG FLEXPEN-MODERATE RESISTANCE 5 UNITS SC (12:11)
--- NOTE | 2023-09-21 12:36 | PTCARENOTE ---
Pt extubated at 0925 to 2L NC. SpO2 97%. OGT removed. Family at bedside.
[2023-09-21 12:46] LABS: Glucose - Point of Care 297 mg/dl (70-99)
[2023-09-21] MEDS: CYMBALTA DELAYED RELEASE 60 MG TUBE (14:49)
--- NOTE | 2023-09-21 15:01 | W.PN.HOSP.TC ---
Today's Communication/Plan
-
cont duonebs, iv steroids
zosyn - f/u cultures
Assessment / Plan
Assessment / Plan
Physical Exam
General: Other (lethargic, extubated.)
Respiratory: Other (CTAB)
Cardiac: S1/S2 and Regular Rhythm; No Murmur
GI: Other (Obese, not tender, pos BS.)
Musculoskeletal: No Clubbing, No Cyanosis and No Edema
Neuro: lethargic
A/P: Patient is an 82y F with PMH significant for CVA, CHF and obesity who presents to ED via EMS in respiratory distress having been intubated in the field.
Acute Hypoxemic and Hypercapnic Respiratory Failure
VDRF secondary to the above
COPD with Acute Exacerbation
Suspected JAYLA / OHV
- IV steroids
- Duonebs standing
-Extubated today 09/20
�No evidence of pneumonia or PE on CT imaging
� Discontinue antibiotics for pneumonia
� Speech eval, lethargic postextubation
#Shock
#UTI
#Lactic acidosis
� Likely septic shock
� Continue antibiotics
� Wean pressors as tolerated
�follow-up cultures and urine
�IVF as needed
#Nonischemic myocardial injury
-This most likely secondary to septic shock
� Troponins peaked
� Follow-up echo
Chronic HFpEF
- No evidence on exam of volume overload.
- BNP is unremarkable.
- Hold diuretics acutely with borderline BPs.
- Follow daily weights, I/Os, etc.
ASCVD
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
- Stable. No evidence of any new deficit - though difficult exam given acuity / sedation / etc.
- Hold Eliquis acutely.
- Follow for any new symptoms.
#Hypokalemia
Monitor and replete
Morbid Obesity due to excess calories
- Affects all aspects of care including increased risk for sleep disordered breathing, OHV, etc.
- PSG has been discussed in the past and declined as family does not believe she would tolerate PAP therapy - may wish to revisit this.
- Do not believe that this 82y F with R hemiparesis is capable of dietary or activity changes necessary to realize significant weight loss.
DVT Prophylaxis: Lovenox while Eliquis on hold.
Code Status: Full
Total time spent on today's encounter was 50 minutes which included time spent in counseling the patient/family regarding diagnosis and treatment plan as listed above, goals of care, and symptom management. Case was discussed with nursing staff,
specialists, and care coordinators/case management. All labs and imaging personally reviewed by me. Remainder the time spent in detailed review of previous records, lab data, imaging, and other medical provider documentation.
Anticipated Discharge: Within 24 hours
Subjective/Interval History
-
Date of Service: September 21, 2023
extubated today, lethargic
Objective Data
-
Labs:
Laboratory Results
09/21/23 09/21/23 09/21/23
05:19 06:00 08:55
HCO3 25.9 25.7
Sodium Cancelled
Potassium Cancelled
Chloride Cancelled
Carbon Dioxide Cancelled
BUN Cancelled
Creatinine Cancelled
Glucose Cancelled
Calcium Cancelled
Vital Signs:
Vital Signs
Temp Pulse Resp BP Pulse Ox
98.5 F 91 19 122/76 96
09/21/23 11:01 09/21/23 13:00 09/21/23 13:00 09/21/23 13:00 09/21/23 13:00
I&O
09/20/23 09/21/23 09/22/23
06:59 06:59 06:59
Intake Total 4120.3 / 4145.2 184.9 / 184.9
Output Total 4105 / 4105 200 / 200
Balance 15.3 / 40.2 -15.1 / -15.1
Review of Systems
-
Unable to obtain full review of systems at this time due to: Patient Non-verbal
Physical Exam
-
General: Well Developed, Well Nourished and No Apparent Distress
HEENT: Normocephalic and Atraumatic
Respiratory: Clear to Auscultation; Negative Wheezes or Rhonchi
Cardiac: Regular Rhythm and S1/S2; Negative Murmur
GI: Soft, Nontender, Nondistended and Normal Bowel Sounds
Musculoskeletal: No Clubbing, No Cyanosis and No Edema
Neuro: Other (left sided hemiparesis -- expressive aphasia)
Psych: Calm
Data Reviewed
-
Total Time Spent with Patient (in minutes): 54
Diagnostic Radiology: Image personally visualized and interpreted and Report Reviewed by me
CT Scan: Image personally visualized and interpreted and Report Reviewed by me
Labs: Labs Reviewed by me
[2023-09-21] MEDS: NOVOLIN N vial 0.100000000000000006 UNITS SC (15:16)
[2023-09-21 16:37] LABS: Glucose - Point of Care 144 mg/dl (70-99)
[2023-09-21] MEDS: NOVOLOG FLEXPEN-MODERATE RESISTANCE SC (16:54)
--- NOTE | 2023-09-21 17:08 | PTCARENOTE ---
Pt resting comfortably. Following directions for bedside swallow intermittently. Swallows without issue when patient understands what the task is but sometimes blows on straw or opens mouth wide and will not close mouth around straw.
[2023-09-21] MEDS: LOVENOX 40 MG SC (17:53)
[2023-09-21] MEDS: PULMICORT 0.5 MG INH (19:41)
--- NOTE | 2023-09-21 20:00 | PTCARENOTE ---
Assumed care of patient at 1900. Patient with hx of CVA and right hemiplegia and expressive aphasia only able to say 'away', tracks with eyes, nods yes/no, and able to FSC. On RA, lung sounds diminished rhonchi throughout, with non productive dry
cough. SR/ST on monitor rates 90-100's, weak PP, TR edema to BLLE. Round obese abdomen, purewick in place draining leonor urine. Repositioned for comfort, family at bedside - answered all questions. Weaned levo off, see worklist for documentation.
VSS, call amezcua within reach, care ongoing.
[2023-09-21] MEDS: LANTUS 0.100000000000000006 UNITS SC (21:58)
[2023-09-21 22:08] LABS: Glucose - Point of Care 195 mg/dl (70-99)
[2023-09-21 23:07] LABS: Glucose - Point of Care 184 mg/dl (70-99)
[2023-09-22] VITALS (43 sets, daily range): BP systolic 90–145; BP diastolic 30–105; PULSE 90–132; O2SAT 92; BMI 45.5
--- NOTE | 2023-09-22 | PTCARENOTE ---
Physical assessment unchanged. Restarted levo for MAP of 59, see worklist for documentation. Patient resting comfortably. Call amezcua within reach, VSS, care ongoing.
[2023-09-22] MEDS: ZOSYN 100 IV ×4 (04:02→21:56)
[2023-09-22 04:30] LABS: Hematocrit 35.8 % (37.0-47.0); Hemoglobin 11.9 g/dL (12.0-16.0); Mean Corp Hgb Conc. 33.2 g/dL (33.0-37.0); Mean Corpuscular Hgb 30.9 pg (27.0-31.0); Mean Platelet Volume 10.1 fL (7.4-10.4); Platelet Count 262 10^3/uL (130-400); Red Blood Cell Count 3.85 10^6/uL (4.20-5.40); Red Cell Dist. Width 16.2 % (11.5-14.5); White Blood Cell Count 19.3 10^3/uL (4.8-10.8)
[2023-09-22 05:00] LABS: Blood Urea Nitrogen 16 mg/dl (7-17); Calcium 8.8 mg/dl (8.4-10.2); Carbon Dioxide 26 mmol/L (22-30); Chloride 107 mmol/L (98-107); Estimated Creatinine Clearance 88 ml/min; Glucose 185 mg/dl (70-99); Potassium 3.9 mmol/L (3.5-5.1); Sodium 140 mmol/L (135-145); eGFR > 60.00
[2023-09-22 06:22] LABS: Glucose - Point of Care 190 mg/dl (70-99)
[2023-09-22] MEDS: LEVOPHED 250 IV (07:20)
[2023-09-22] MEDS: DUONEB 3 ML INH ×4 (08:09→21:01)
[2023-09-22] MEDS: PULMICORT 0.5 MG INH ×2 (08:09→21:01)
--- NOTE | 2023-09-22 08:15 | W.PN.INTV ---
Today's Communication / Plan
Recommendations
Maintain SpO2>88%
Diet as per [employer]
Weaned off levophed - will start midodrine if SBP remains low
Continue basal-bolus insulin with lantus and ISS
Steroid taper
Duonebs and budesonide --> pt needs to be discharged home with nebulizer as she will derive a benefit from this given her difficulty with inhaler technique for MDI inhalers, given her Hx of COPD with current exacerabtion
Patient stable for downgrade out of ICU to IMU. Pulmonary service will continue to follow along and we will arrange for outpatient pulmonary follow-up.
Assessment
-
Assessment: 82-year-old F former tobacco smoker with PMHx of COVID-19, HX of CVA, ?COPD and HX of DVT on Eliquis who p/w SOB, and EMS found patient to be unresponsive, apneic with pulse ox in the 60s on room air. Patient was intubated in the field
and then BIBEMS here to for further management. Blood gas here showed that she was hypoxic and hypercapneic. Labs also showed severe lactic acidosis with lactic acid level of 7.1. Initial procalcitonin also negative at 0.13. Urinalysis does
not show evidence of UTI. COVID antigen as well as flu A/B were negative. Blood cultures were collected as well as urine culture. CXR showed widespread bilateral prominent interstitial markings suspicious for interstitial edema versus
pneumonitis. Patient given Decadron and also Levophed was started due to hypotension with SBP as low as the 40s. Pt brought to ICU for further care and [employer] service consulted for further care.
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
hyperlipidemia, history of renal calculi, CAD
Impression:
#Acute hypoxic/hypercapnic respiratory failure - intubated in field on 09/20/2023 - extubated 09/21/2023 � suspected to be due to AECOPD
#Suspected COPD with acute flare
#Chronic cough
#Shock - suspected to be due to sedation + reduced PO intake +/- sepsis from UTI (doubt sepsis as only 30,000 CFU seen on urine Cx of GNR)
#Positive urinalysis with suspected UTI - Enterobacter cloacae
#Anemia - stable
#Lactic acidosis - resolved
#Hyperglycemia - likely steroid induced in setting of critical illness
#Elevated troponin - suspected to be due to type II NH/demand ischemia - peaked at 0.124 on 09/20/2023
#Abnormal spirometry with both obstructive and restrictive lung defect seen via spirometry from July 2019
#Former tobacco smoker (quit approximately 30 years ago)
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
#Morbid obesity with increased risk of JAYLA
#History of RLE DVT on chronic anticoagulation (Eliquis - ppx dosing)
Plan:
- Given urine culture is positive for Enterobacter cloacae with MDR, continue Zosyn - restarted on 09/20 - give total of 7 days
- Follow up blood Cx; little sputum production, hence unable to get sputum Cx at this time
- Maintain SpO2 >88-94%
- Changed decadron to solumedrol 40mg IV q6hr and wean as tolerated --> on 09/20 I weaned down to 40mg IV q8hr --> will start 40mg IV q12hr tomorrow; once pt ready to go home, DC on prednisone taper starting at 50mg and reducing by 10mg every 4th day
until off.
- Changed nebulized bronchodilators from q4hr back to QID now that she has been extubated --> DC home on duonebs and budesonide
- Of note, she has a long chronic history of DAMON. She was referred to ENT as an outpatient for suspected vocal cord dysfunction - patient never ended up seeing ENT
- Pt weaned off vasopressors later on AM of 09/21 --> maintain MAP>65
- Replete electrolytes with K>4, Mg>2
- Maintain euglycemia with goal BG 140-180 --> started lantus on 09/20 and raised ISS to moderate resistance scale
- Trend LFTs
- No longer need to trend troponin given it already peaked
- Incentive spirometer
- Stress ulcer ppx: n/a (will continue PPI however as she takes this at home)
- DVT ppx
Patient stable for downgrade out of ICU to IMU. Pulmonary service will continue to follow along and we will arrange for outpatient pulmonary follow-up.
Total time spent today was 75 minutes for this encounter. Time includes reviewing laboratory test/imaging results, reviewing pertinent medical records, obtaining and reviewing medical history, performing an appropriate exam, ordering medications,
tests and procedures. Time also includes documentation of this encounter, coordinating patient care and communicating with other healthcare professionals. Total time does not include separately billed tests performed on this date of service.
Data:
CTA Chest 09-20-2023:
No evidence of central pulmonary embolism.
Small areas of opacification in the upper lobes bilaterally including the lingula most likely representing subsegmental atelectasis. Cannot exclude small areas of pneumonia.
Mild cardiomegaly.
No pneumothorax.
CXR 09-20-2023:
Endotracheal tube with tip in trachea above the ana. Nasogastric tube extending into the abdomen with tip off the image.
No pneumothorax.
Widespread bilateral prominent pulmonary interstitial markings. Findings could represent interstitial edema or pneumonitis.
TTE 07-22-2023:
Normal left ventricular size, wall thickness and systolic function. No regional
wall motion abnormalities are seen. LV ejection fraction is 55-60% by Haywood's
method of discs. Diastolic function indeterminate.
Mitral valve opens normally. Thickened mitral valve leaflets. Mitral annular
calcification. Trace mitral regurgitation is seen.
Mildly dilated left atrium. Indexed LA volume is within normal range (15-34
mL/m2).
Trileaflet aortic valve. Aortic valve opens normally. Aortic sclerosis without
stenosis. No aortic regurgitation is seen.
Since echocardiogram August 2020, there is no significant change.
Subjective Dataa
Subjective Data
Date of Service:
Date of Service: September 22, 2023
Chief Complaint: [employer] Follow Up
Subjective:
Pt seen this AM. Son was here at rounds this AM - all questions were answered. On room air this morning breathing comfortably. More awake today, and she only replies by saying 'away.' She is on Levophed at 1mcg/min.
Review of Systems
General: Other (Unable to obtain due to patient's clinical status with history of stroke/unable to communicate)
Objective Data
Data Reviewed
Vital Signs / I&O / Oxygen:
Vital Signs
Temp Pulse Resp BP Pulse Ox
99.0 F 88 22 126/50 98
09/22/23 07:53 09/22/23 08:30 09/22/23 08:30 09/22/23 08:30 09/22/23 08:30
Intake and Output
09/21/23 09/22/23 09/23/23
06:59 06:59 06:59
Intake Total 4120.3 / 4145.2 604.9 / 612.4 15.0 / 15.0
Output Total 4105 / 4105 580 / 580
Balance 15.3 / 40.2 24.9 / 32.4 15.0 / 15.0
SaO2 [CPAP] 98
SaO2 [A/C] 96
SaO2 98
Nasal Cannula flow liters per 3
minute
Physical Exam
General: Respiratory Distress (negative) and Comfortable
HEENT: Normocephalic and Anicteric
Cardiovascular: S1-S2 and Peripheral Edema (negative)
Respiratory: Wheeze (Negative), Crackles (negative), Rhonchi (negative), Non-Labored Respirations and ET Tube (this AM prior to extubation)
GI: Soft, Non Distended, Non Tender and Normal Bowel Sounds
Neurology: Awake, Alert, Tremors (negative) and Non Verbal (only says one word: 'away')
Skin: Warm and Dry
Labs/Micro/Reports
Lab Data
09/22/23 04:16
09/22/23 04:16
Microbiology
09/20/23 09:26 Urine Urine Culture - Final
Enterobacter cloacae
09/20/23 08:12 Blood/Venous Blood Culture - Preliminary
No Growth in 48 hours- Final report to follow
09/20/23 08:17 Blood/Venous Blood Culture - Preliminary
No Growth in 48 hours- Final report to follow
09/20/23 12:45 Nose Nasal Screen MRSA (PCR) - Final
MRSA not detected - performed by PCR methodology.
09/20/23 07:05 Nasal Swab Influenza Types A & B (YUKI) - Final
Negative for Influenza A & B, NAAT
Negative results must be combined with clinical observations
and patient history.
Nucleic Acid Amplification test (NAAT)performed on the
[employer] platform.
[2023-09-22] MEDS: NSS (PRESERVATIVE FREE) 10 ML IV (09:42)
[2023-09-22] MEDS: NOVOLOG FLEXPEN-MODERATE RESISTANCE 1 UNITS SC (09:42)
[2023-09-22] MEDS: PROTONIX IV 40 MG IV (09:43)
[2023-09-22] MEDS: SOLU-MEDROL PF 40 MG IV ×3 (09:43→23:41)
[2023-09-22] MEDS: DESENEX/MITRAZOL/ZEASORB 1 APPLIC TOPICAL ×2 (09:43→20:29)
--- NOTE | 2023-09-22 09:58 | PN.CDI ---
CDI
- -
CDI:
Physician Documentation Request
Admit Date: 09/20/23 06:38
Dear Doctor Janie,
Patient admitted with respiratory failure.
09/20 Buttonhole Marker PN: 'Elevated troponin - suspected to be due to type II IN/demand ischemia - peaked at 0.124 on 09/20/2023'
09/20 Hospitalist PN: 'Nonischemic myocardial injury -This most likely secondary to septic shock'
Laboratory Tests
09/20/23 09/20/23 09/21/23
08:06 18:22 06:25
Troponin I 0.082 H* D 0.124 H* 0.093 H*
Please clarify the following regarding the documented troponin elevation:
Non-ischemic myocardial injury
Type 2 IN due to demand ischemia
Other
Use of terms such as suspected, likely, concern for, or probable (associated with a specific diagnosis that is being evaluated, monitored, or treated as if it exists) are acceptable and can be coded in the inpatient setting, when documented at the
time of discharge.
Thank you,
Carmen Sanchez RN, BSN
CDI Specialist
Available via [employer] text
Please use your independent medical judgment in providing your response.
[2023-09-22 11:43] LABS: Glucose - Point of Care 211 mg/dl (70-99)
[2023-09-22] MEDS: NOVOLOG FLEXPEN-MODERATE RESISTANCE 3 UNITS SC ×2 (12:03→17:25)
--- NOTE | 2023-09-22 13:05 | PTCARENOTE ---
Pt alert and aphasic. Appears comfortable. Levophed weaned off. Moist cough. SpO2 93% on room air. Tolerating regular diet. Ate 90% of lunch. Incontinent of bowel and bladder. +small brown stool. All other assessments unchanged.
--- NOTE | 2023-09-22 13:52 | CM ---
CM following re: discharge planning.
Discussed in rounds, reviewed pt's chart, met with pt and pt's caregiver at bedside.
Pt extubated yesterday to NC of O2, currently on room air.
PT and OT will evaluate the pt to determine a level of care at discharge.
Per caregiver, pt's family is leaning towards bringing pt home with [facility] and resumptions of 24/7 caregiver services but they did not make final decision yet.
D/C plan: most likely home with [facility] and resumptions of 24/7 caregiver services and family support.
CM will follow with discharge plan updates as hospitalization progresses
--- NOTE | 2023-09-22 14:04 | W.PN.HOSP.TC ---
Today's Communication/Plan
-
wean pressors as tolerated; map goal >65
abx, narrow as appropriate
reg solids, thin liquids
steroids - wean; duonebs
Assessment / Plan
Assessment / Plan
Physical Exam
General: Other (lethargic, extubated.)
Respiratory: Other (CTAB)
Cardiac: S1/S2 and Regular Rhythm; No Murmur
GI: Other (Obese, not tender, pos BS.)
Musculoskeletal: No Clubbing, No Cyanosis and No Edema
Neuro: lethargic
A/P: Patient is an 82y F with PMH significant for CVA, CHF and obesity who presents to ED via EMS in respiratory distress having been intubated in the field.
Acute Hypoxemic and Hypercapnic Respiratory Failure
VDRF secondary to the above
COPD with Acute Exacerbation
Suspected JAYLA / OHV
- IV steroids - wean as tolerated
- Duonebs standing
-Extubated 09/20
�No evidence of pneumonia or PE on CT imaging
� Discontinue antibiotics for pneumonia
� Speech eval, lethargic postextubation - tolerating reg diet, thin liquids
#Shock
#UTI
#Lactic acidosis
� Likely septic shock
� Continue antibiotics
� Wean pressors as tolerated
�follow-up cultures and urine - enterobacter clocaeca
-wean abx as per icu
�IVF as needed
#Nonischemic myocardial injury
-This most likely secondary to septic shock
� Troponins peaked
� Follow-up echo - no regional wall motion abnormality
Chronic HFpEF
- No evidence on exam of volume overload.
- BNP is unremarkable.
- Hold diuretics acutely with borderline BPs.
- Follow daily weights, I/Os, etc.
ASCVD
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
- Stable. No evidence of any new deficit - though difficult exam given acuity / sedation / etc.
- Hold Eliquis acutely.
- Follow for any new symptoms.
#Hypokalemia
Monitor and replete
Morbid Obesity due to excess calories
- Affects all aspects of care including increased risk for sleep disordered breathing, OHV, etc.
- PSG has been discussed in the past and declined as family does not believe she would tolerate PAP therapy - may wish to revisit this.
- Do not believe that this 82y F with R hemiparesis is capable of dietary or activity changes necessary to realize significant weight loss.
DVT Prophylaxis: Lovenox while Eliquis on hold.
Code Status: Full
Anticipated Discharge: > 48 hours
Subjective/Interval History
-
Date of Service: September 22, 2023
Tolerated diet, mild wheezing persists
Objective Data
-
Labs:
Laboratory Results
09/22/23
04:16
WBC 19.3 H
Hgb 11.9 L
Hct 35.8 L
Plt Count 262
Sodium 140
Potassium 3.9 D
Chloride 107
Carbon Dioxide 26
BUN 16
Creatinine 0.6
Glucose 185 H
Calcium 8.8
Vital Signs:
Vital Signs
Temp Pulse Resp BP Pulse Ox
98.2 F 89 16 114/47 92
09/22/23 11:34 09/22/23 12:16 09/22/23 12:16 09/22/23 11:30 09/22/23 11:45
I&O
09/21/23 09/22/23 09/23/23
06:59 06:59 06:59
Intake Total 4120.3 / 4145.2 604.9 / 612.4 385.0 / 385.0
Output Total 4105 / 4105 580 / 580
Balance 15.3 / 40.2 24.9 / 32.4 385.0 / 385.0
Review of Systems
-
Unable to obtain full review of systems at this time due to: Patient Non-verbal
Data Reviewed
-
Total Time Spent with Patient (in minutes): 54
Diagnostic Radiology: Image personally visualized and interpreted and Report Reviewed by me
CT Scan: Image personally visualized and interpreted and Report Reviewed by me
Labs: Labs Reviewed by me
--- NOTE | 2023-09-22 14:08 | PTOTSP ---
Speech Therapy Swallowing Assessment
Oral/pharyngeal swallow deemed within functional limits without overt signs of aspiration.
Recommend
1. Regular Solids and Thin Liquids.
2. Upright with intake.
3. Meds with liquid as tolerated.
4. ST will follow briefly to ensure diet tolerance and/or need for VSE, especially if respiratory status does not improve or worsens or if strong concern for silent aspiration.
[2023-09-22] MEDS: NEURONTIN 300 MG PO ×2 (15:57→21:38)
[2023-09-22] MEDS: LIORESAL 10 MG PO ×2 (15:57→21:39)
[2023-09-22] MEDS: CYMBALTA DELAYED RELEASE 60 MG PO (15:57)
[2023-09-22] MEDS: TESSALON PERLES 200 MG PO ×2 (15:57→21:38)
[2023-09-22] MEDS: TESSALON PERLES PO (16:05)
[2023-09-22] MEDS: SENOKOT PO (17:28)
[2023-09-22 17:36] LABS: Glucose - Point of Care 233 mg/dl (70-99)
[2023-09-22] MEDS: ELIQUIS 2.5 MG PO (20:29)
[2023-09-22] MEDS: MUCINEX 1200 MG PO (20:30)
[2023-09-22] MEDS: LANTUS 0.100000000000000006 UNITS SC (21:39)
[2023-09-22 21:49] LABS: Glucose - Point of Care 173 mg/dl (70-99)
[2023-09-23] VITALS (15 sets, daily range): BP systolic 107–142; BP diastolic 43–98; PULSE 55–86; O2SAT 90–94
[2023-09-23] MEDS: ZOSYN 100 IV ×2 (04:08→10:48)
[2023-09-23 04:28] LABS: % Basophils 0.1 % (0-2); % Immature Granulocytes 0.9 % (0-0.5); % Lymphocytes 6.3 % (20.5-51.1); % Monocytes 3.8 % (1.7-9.3); % Neutrophils 88.9 % (42.2-75.2); Absolute Immature Granulocytes 0.1 10^3/uL (0-0.05); Absolute Lymphocytes 0.8 10^3/uL (1.2-3.4); Absolute Monocytes 0.5 10^3/uL (0.1-0.6); Absolute Neutrophils 10.7 10^3/uL (1.4-6.5); Hematocrit 31.8 % (37.0-47.0); Hemoglobin 10.9 g/dL (12.0-16.0); Mean Corp Hgb Conc. 34.3 g/dL (33.0-37.0); Mean Corpuscular Hgb 30.9 pg (27.0-31.0); Mean Corpuscular Volume 90.1 fL (81.0-99.0); Mean Platelet Volume 10.2 fL (7.4-10.4); Nucleated Red Blood Cells % 0 %; Platelet Count 185 10^3/uL (130-400); Red Blood Cell Count 3.53 10^6/uL (4.20-5.40); Red Cell Dist. Width 16.2 % (11.5-14.5); White Blood Cell Count 12.1 10^3/uL (4.8-10.8)
[2023-09-23 04:56] LABS: ALT (SGPT) 57 U/L (0-35); AST (SGOT) 55 U/L (14-36); Alkaline Phosphatase 72 U/L (38-126); Blood Urea Nitrogen 21 mg/dl (7-17); Calcium 8.7 mg/dl (8.4-10.2); Carbon Dioxide 29 mmol/L (22-30); Chloride 106 mmol/L (98-107); Estimated Creatinine Clearance 75 ml/min; Glucose 164 mg/dl (70-99); Magnesium 1.8 mg/dl (1.6-2.3); Phosphorus 3.4 mg/dl (2.5-4.5); Potassium 3.8 mmol/L (3.5-5.1); Sodium 137 mmol/L (135-145); Total Bilirubin 0.5 mg/dl (0.2-1.3); Total Protein 5.5 g/dl (6.3-8.2); Triglycerides 88 mg/dl (10-149); eGFR > 60.00
[2023-09-23] MEDS: DUONEB 3 ML INH ×4 (07:45→21:02)
[2023-09-23] MEDS: PULMICORT 0.5 MG INH ×2 (07:45→21:02)
[2023-09-23] MEDS: NOVOLOG FLEXPEN-MODERATE RESISTANCE 1 UNITS SC (07:51)
[2023-09-23] MEDS: DESENEX/MITRAZOL/ZEASORB 1 APPLIC TOPICAL ×2 (07:52→21:55)
[2023-09-23 08:01] LABS: Glucose - Point of Care 154 mg/dl (70-99)
--- NOTE | 2023-09-23 08:10 | W.PN.PUL3 ---
Today's Communication / Plan
-
Steroid with prednisone taper once ready to go home
PT recommends home PT vs SNF
OT recommend home health
Abx for UTI
Raise lantus to maintain euglycemia
Continue mucinex
Continue DuoNebs and budesonide and DC home with nebulizer
Assessment
-
Assessment: 82-year-old F former tobacco smoker with PMHx of COVID-19, HX of CVA, ?COPD and HX of DVT on Eliquis who p/w SOB, and EMS found patient to be unresponsive, apneic with pulse ox in the 60s on room air. Patient was intubated in the field
and then BIBEMS here to for further management. Blood gas here showed that she was hypoxic and hypercapneic. Labs also showed severe lactic acidosis with lactic acid level of 7.1. Initial procalcitonin also negative at 0.13. Urinalysis does
not show evidence of UTI. COVID antigen as well as flu A/B were negative. Blood cultures were collected as well as urine culture. CXR showed widespread bilateral prominent interstitial markings suspicious for interstitial edema versus
pneumonitis. Patient given Decadron and also Levophed was started due to hypotension with SBP as low as the 40s. Pt brought to ICU for further care and [facility] service consulted for further care.
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
hyperlipidemia, history of renal calculi, CAD
Impression:
#Acute hypoxic/hypercapnic respiratory failure - intubated in field on 09/20/2023 - extubated 09/21/2023 � suspected to be due to AECOPD
#Suspected COPD with acute flare
#Chronic cough - likely component of both COPD and UACS (pt has frequent rhinorrhea)
#Shock - suspected to be due to sedation + reduced PO intake +/- sepsis from UTI (doubt sepsis as only 30,000 CFU seen on urine Cx of GNR)
#Positive urinalysis with suspected UTI - Enterobacter cloacae
#Anemia - stable
#Lactic acidosis - resolved
#Hyperglycemia - likely steroid induced in setting of critical illness
#Elevated troponin - suspected to be due to type II PA/demand ischemia - peaked at 0.124 on 09/20/2023
#Abnormal spirometry with both obstructive and restrictive lung defect seen via spirometry from July 2019
#Former tobacco smoker (quit approximately 30 years ago)
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
#Morbid obesity with increased risk of JAYLA
#History of RLE DVT on chronic anticoagulation (Eliquis - ppx dosing)
Plan:
- Given urine culture is positive for Enterobacter cloacae with MDR, continue Zosyn - restarted on 09/20 - give total of 7 days
- Follow up blood Cx; little sputum production, hence unable to get sputum Cx at this time
- Maintain SpO2 >88-94%
- Changed decadron to solumedrol 40mg IV q6hr and wean as tolerated --> on 09/20 I weaned down to 40mg IV q8hr --> will start 40mg IV q12hr today; once pt ready to go home, DC on prednisone taper starting at 50mg and reducing by 10mg every 4th day
until off.
- Changed nebulized bronchodilators from q4hr back to QID now that she has been extubated --> DC home on duonebs and budesonide
- Of note, she has a long chronic history of DAMON. She was referred to ENT as an outpatient for suspected vocal cord dysfunction - patient never ended up seeing ENT
- Pt weaned off vasopressors later on AM of 09/21 --> maintain MAP>65
- Replete electrolytes with K>4, Mg>2
- Maintain euglycemia with goal BG 140-180 --> started lantus on 09/20 and raised ISS to moderate resistance scale --> adjust as needed to maintain euglycemia
- Trend LFTs
- No longer need to trend troponin given it already peaked
- Incentive spirometer
- Stress ulcer ppx: n/a (will continue PPI however as she takes this at home)
- DVT ppx
Pulmonary service will continue to follow along and we will arrange for outpatient pulmonary follow-up.
Total time spent today was 55 minutes for this encounter. Time includes reviewing laboratory test/imaging results, reviewing pertinent medical records, obtaining and reviewing medical history, performing an appropriate exam, ordering medications,
tests and procedures. Time also includes documentation of this encounter, coordinating patient care and communicating with other healthcare professionals. Total time does not include separately billed tests performed on this date of service.
Data:
CTA Chest 09-20-2023:
No evidence of central pulmonary embolism.
Small areas of opacification in the upper lobes bilaterally including the lingula most likely representing subsegmental atelectasis. Cannot exclude small areas of pneumonia.
Mild cardiomegaly.
No pneumothorax.
CXR 09-20-2023:
Endotracheal tube with tip in trachea above the ana. Nasogastric tube extending into the abdomen with tip off the image.
No pneumothorax.
Widespread bilateral prominent pulmonary interstitial markings. Findings could represent interstitial edema or pneumonitis.
TTE 07-22-2023:
Normal left ventricular size, wall thickness and systolic function. No regional
wall motion abnormalities are seen. LV ejection fraction is 55-60% by Haywood's
method of discs. Diastolic function indeterminate.
Mitral valve opens normally. Thickened mitral valve leaflets. Mitral annular
calcification. Trace mitral regurgitation is seen.
Mildly dilated left atrium. Indexed LA volume is within normal range (15-34
mL/m2).
Trileaflet aortic valve. Aortic valve opens normally. Aortic sclerosis without
stenosis. No aortic regurgitation is seen.
Since echocardiogram August 2020, there is no significant change.
Subjective Data
-
Date of Service:
Date of Service: September 23, 2023
Chief Complaint: Pulmonary Follow Up
Subjective:
Patient seen this morning. 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 She is on room air breathing comfortably. BP 136/101. No acute events reported from overnight.
Review of Systems
General: Other (Unable to obtain - nonverbal/history of stroke with limited ability to communicate as only says 1 word replies with the phrase 'away.')
Objective Data
Data Reviewed
Vital Signs / I&O / Oxygen:
Vital Signs
Temp Pulse Resp BP Pulse Ox
98.7 F 85 19 142/62 92
09/23/23 11:52 09/23/23 13:36 09/23/23 13:36 09/23/23 13:36 09/23/23 11:52
Intake and Output
09/22/23 09/23/23 09/24/23
06:59 06:59 06:59
Intake Total 604.9 / 612.4 1065.0 / 1065.0 460 / 460
Output Total 580 / 580 350 / 350
Balance 24.9 / 32.4 715.0 / 715.0 460 / 460
SaO2 [CPAP] 98
SaO2 [A/C] 96
SaO2 92
Nasal Cannula flow liters per 3
minute
Physical Exam
General: Respiratory Distress (negative) and Comfortable
HEENT: Normocephalic and Anicteric
Cardiovascular: S1-S2 and Peripheral Edema (negative)
Respiratory: Wheeze (faintly heard in posterior RUL), Crackles (negative), Rhonchi (negative) and Non-Labored Respirations
GI: Soft, Non Distended, Non Tender and Normal Bowel Sounds
Neurology: Awake, Alert and Non Verbal
Skin: Warm and Dry
Labs/Micro/Reports
Lab Data
09/23/23 04:05
09/23/23 04:05
Microbiology
09/20/23 08:12 Blood/Venous Blood Culture - Preliminary
No Growth in 72 hours- Final report to follow
09/20/23 08:17 Blood/Venous Blood Culture - Preliminary
No Growth in 72 hours- Final report to follow
09/20/23 09:26 Urine Urine Culture - Final
Enterobacter cloacae
09/20/23 12:45 Nose Nasal Screen MRSA (PCR) - Final
MRSA not detected - performed by PCR methodology.
[2023-09-23] MEDS: NEURONTIN 300 MG PO ×3 (08:34→21:56)
[2023-09-23] MEDS: MUCINEX 1200 MG PO ×2 (08:34→20:47)
[2023-09-23] MEDS: VITAMIN D3 (cholecalciferol) 125 MCG PO (08:35)
[2023-09-23] MEDS: TESSALON PERLES 200 MG PO ×3 (08:35→21:56)
[2023-09-23] MEDS: SOLU-MEDROL PF 40 MG IV ×2 (08:35→20:47)
[2023-09-23] MEDS: PROTONIX 40 MG PO (08:35)
[2023-09-23] MEDS: LIORESAL 10 MG PO ×3 (08:35→21:56)
[2023-09-23] MEDS: ELIQUIS 2.5 MG PO ×2 (08:35→20:47)
[2023-09-23] MEDS: THERAGRAN 1 TABLET PO (08:35)
[2023-09-23] MEDS: NOVOLOG FLEXPEN-MODERATE RESISTANCE 3 UNITS SC (11:40)
[2023-09-23] MEDS: CYMBALTA DELAYED RELEASE 60 MG PO (11:41)
[2023-09-23 11:51] LABS: Glucose - Point of Care 208 mg/dl (70-99)
--- NOTE | 2023-09-23 11:54 | PTCARENOTE ---
OOB to chair. Caregiver at the bedside. Exertional wheeze at times. No changes otherwise. Safe environment maintained.
--- NOTE | 2023-09-23 14:07 | CM ---
Addendum entered by Sagar Roa 09/23/23 15:18:
According to pt will be ready for discharge tomorrow.
Both pt and her family and caregiver are aware, expressed their agreement and confirmed that pt will return back home with VN, 24/ caregiver services and family support. Per family, they will transport pt home. IMM reviewed, placed in chart, pt
has a copy.
Please fax discharge instructions to [facility] at [phone]
D/C plan: home tomorrow 09/24/23 with resumptions of [facility], 20/12 caregiver services and family support. Family to transport at discharge.
Addendum entered by Sagar Roa 09/23/23 14:10:
Nebulizer machine was ordered yesterday and delivered to pt's room today by [employer] with tubing and mask.
Original Note:
CM following re: discharge planning.
Discussed in rounds, reviewed pt's chart, met with pt and pt's caregiver at bedside.
PT and OT evaluation noted - home PT vs SNF recommended. Family preferred home PT. Pt is current with [facility].
D/C plan:home with [facility] and resumptions of 20/12 caregiver services and family support. family to transport at discharge.
CM will follow with discharge plan updates as hospitalization progresses
--- NOTE | 2023-09-23 14:59 | W.PN.HOSP.TC ---
Addendum entered and electronically signed by Familia Lima MD 09/24/23 11:02:
#Diabetes
� Patient started on Lantus although on high-dose steroids
� As patient will have steroid taper, I am cautious/hesitant on discharging on insulin
� Therefore, will discharge on metformin, especially because hemoglobin A1c only at 6.7
� Follow-up PCP outpatient�follow blood sugars closely
Original Note:
Today's Communication/Plan
-
wean to ceftriaxone
anticipate dc ready within 24 hours
Assessment / Plan
Assessment / Plan
Physical Exam
General: Other (lethargic, extubated.)
Respiratory: Other (CTAB)
Cardiac: S1/S2 and Regular Rhythm; No Murmur
GI: Other (Obese, not tender, pos BS.)
Musculoskeletal: No Clubbing, No Cyanosis and No Edema
Neuro: lethargic
A/P: Patient is an 82y F with PMH significant for CVA, CHF and obesity who presents to ED via EMS in respiratory distress having been intubated in the field.
Acute Hypoxemic and Hypercapnic Respiratory Failure
VDRF secondary to the above
COPD with Acute Exacerbation
Suspected JAYLA / OHV
- IV steroids - wean as tolerated - steroid taper once ready
- Duonebs standing
-Extubated 09/20
�No evidence of pneumonia or PE on CT imaging
� Discontinue antibiotics for pneumonia
� Speech eval, lethargic postextubation - tolerating reg diet, thin liquids
-Will need to DC home on nebulizer
#Shock
#UTI
#Lactic acidosis
� Likely septic shock
� Continue antibiotics
� Wean pressors as tolerated
�follow-up cultures and urine - enterobacter clocaeca
-wean abx - ceftriaxone
�IVF as needed
#Nonischemic myocardial injury
-This most likely secondary to septic shock
� Troponins peaked
� Follow-up echo - no regional wall motion abnormality
Chronic HFpEF
- No evidence on exam of volume overload.
- BNP is unremarkable.
- Hold diuretics acutely with borderline BPs.
- Follow daily weights, I/Os, etc.
ASCVD
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
- Stable. No evidence of any new deficit - though difficult exam given acuity / sedation / etc.
- Hold Eliquis acutely.
- Follow for any new symptoms.
#Hypokalemia
Monitor and replete
Morbid Obesity due to excess calories
- Affects all aspects of care including increased risk for sleep disordered breathing, OHV, etc.
- PSG has been discussed in the past and declined as family does not believe she would tolerate PAP therapy - may wish to revisit this.
- Do not believe that this 82y F with R hemiparesis is capable of dietary or activity changes necessary to realize significant weight loss.
DVT Prophylaxis: Lovenox while Eliquis on hold.
Code Status: Full
Dispo in 24 hours
Anticipated Discharge: 24 - 48 hours
Subjective/Interval History
-
Date of Service: September 23, 2023
Doing well, wheezing improved
Objective Data
-
Labs:
Laboratory Results
09/23/23
04:05
WBC 12.1 H
Hgb 10.9 L
Hct 31.8 L
Plt Count 185 D
Sodium 137
Potassium 3.8
Chloride 106
Carbon Dioxide 29
BUN 21 H
Creatinine 0.7
Glucose 164 H
Calcium 8.7
Total Bilirubin 0.5
AST 55 H
ALT 57 H
Alkaline Phosphatase 72
Vital Signs:
Vital Signs
Temp Pulse Resp BP Pulse Ox
98.7 F 85 19 142/62 92
09/23/23 11:52 09/23/23 13:36 09/23/23 13:36 09/23/23 13:36 09/23/23 11:52
I&O
09/22/23 09/23/23 09/24/23
06:59 06:59 06:59
Intake Total 604.9 / 612.4 1065.0 / 1065.0 460 / 460
Output Total 580 / 580 350 / 350
Balance 24.9 / 32.4 715.0 / 715.0 460 / 460
Review of Systems
-
Unable to obtain full review of systems at this time due to: Language Barrier
History Source: Patient
Physical Exam
-
General: Well Developed, Well Nourished and No Apparent Distress
HEENT: Normocephalic and Atraumatic
Respiratory: Clear to Auscultation; Negative Wheezes or Rhonchi
Cardiac: Regular Rhythm and S1/S2; Negative Murmur
GI: Soft, Nontender, Nondistended and Normal Bowel Sounds
Musculoskeletal: No Clubbing, No Cyanosis and No Edema
Neuro: Other (left sided hemiparesis -- expressive aphasia)
Psych: Calm
Data Reviewed
-
Total Time Spent with Patient (in minutes): 54
Diagnostic Radiology: Image personally visualized and interpreted and Report Reviewed by me
CT Scan: Image personally visualized and interpreted and Report Reviewed by me
Labs: Labs Reviewed by me
[2023-09-23] MEDS: ROCEPHIN 1000 MG IV (15:47)
[2023-09-23] MEDS: STERILE WATER FOR INJECTION 10 ML IV (15:47)
[2023-09-23] MEDS: NOVOLOG FLEXPEN-MODERATE RESISTANCE 7 UNITS SC (17:09)
[2023-09-23] MEDS: SENOKOT 8.59999999999999964 MG PO (17:09)
[2023-09-23 17:19] LABS: Glucose - Point of Care 326 mg/dl (70-99)
--- NOTE | 2023-09-23 17:22 | PTCARENOTE ---
Glucose elevated. Pt on regular diet. Her caregiver ordered her meals with cranberry juice on all trays. They also shared a snack while watching TV. Dr. Lima notified, diet changed.
[2023-09-23] MEDS: TYLENOL 650 MG PO (20:46)
--- NOTE | 2023-09-23 21:07 | PTCARENOTE ---
Assumed care of pt at 1900. Difficult to assess pt's orientation, she is awake and alert and nods/shakes head appropriately, able to follow simple commands, but has expressive aphasia and the only word she says sounds like 'away'. Able to take pills
whole, one at a time, with sips of water. Nodded head that she is in pain, attempted to have her rate it numerically using her fingers but pt did not seem to understand, so CPOT used instead, acetaminophen administered, see EMAR. Physical assessment
completed, see nursing shift assessment flowsheet for full details. Pt is IMU level of care. Call [facility] within reach.
[2023-09-23] MEDS: LANTUS 0.149999999999999994 UNITS SC (21:56)
[2023-09-23 22:06] LABS: Glucose - Point of Care 209 mg/dl (70-99)
[2023-09-24] VITALS (8 sets, daily range): BP systolic 119–153; BP diastolic 49–90; BMI 47.1
[2023-09-24 05:47] LABS: % Basophils 0.1 % (0-2); % Lymphocytes 8.4 % (20.5-51.1); % Monocytes 5.9 % (1.7-9.3); % Neutrophils 83.6 % (42.2-75.2); Absolute Immature Granulocytes 0.2 10^3/uL (0-0.05); Absolute Lymphocytes 0.9 10^3/uL (1.2-3.4); Absolute Monocytes 0.6 10^3/uL (0.1-0.6); Absolute Neutrophils 8.7 10^3/uL (1.4-6.5); Hemoglobin 11.6 g/dL (12.0-16.0); Mean Corp Hgb Conc. 34.1 g/dL (33.0-37.0); Mean Corpuscular Volume 90.9 fL (81.0-99.0); Mean Platelet Volume 10.2 fL (7.4-10.4); Nucleated Red Blood Cells % 0.3 %; Platelet Count 175 10^3/uL (130-400); Red Blood Cell Count 3.74 10^6/uL (4.20-5.40); Red Cell Dist. Width 16.2 % (11.5-14.5); White Blood Cell Count 10.4 10^3/uL (4.8-10.8)
[2023-09-24 05:56] LABS: ALT (SGPT) 103 U/L (0-35); AST (SGOT) 91 U/L (14-36); Alkaline Phosphatase 85 U/L (38-126); Blood Urea Nitrogen 27 mg/dl (7-17); Calcium 9.1 mg/dl (8.4-10.2); Carbon Dioxide 31 mmol/L (22-30); Chloride 105 mmol/L (98-107); Estimated Creatinine Clearance 76 ml/min; Glucose 155 mg/dl (70-99); Magnesium 1.9 mg/dl (1.6-2.3); Phosphorus 3.9 mg/dl (2.5-4.5); Potassium 3.9 mmol/L (3.5-5.1); Sodium 138 mmol/L (135-145); Total Bilirubin 0.3 mg/dl (0.2-1.3); Total Protein 5.5 g/dl (6.3-8.2); eGFR > 60.00
[2023-09-24] MEDS: DUONEB 3 ML INH ×2 (07:39→11:19)
[2023-09-24] MEDS: PULMICORT 0.5 MG INH (07:40)
--- NOTE | 2023-09-24 07:58 | W.PN.PUL3 ---
Today's Communication / Plan
-
IV steroids while inpatient and TRX to prednisone taper once ready to go home
PT recommends home PT vs SNF
OT recommend home health
Abx for UTI - complete 7 days total
Maintain euglycemia
Continue mucinex
DC home with nebulizer with DuoNebs QID and budesonide 0.5mg BID
Patient likely being discharged today. Pulmonary service will continue to follow along while she remains inpatient, and we will arrange for outpatient pulmonary follow-up.
Assessment
-
Assessment: 82-year-old F former tobacco smoker with PMHx of COVID-19, HX of CVA, ?COPD and HX of DVT on Eliquis who p/w SOB, and EMS found patient to be unresponsive, apneic with pulse ox in the 60s on room air. Patient was intubated in the field
and then BIBEMS here to for further management. Blood gas here showed that she was hypoxic and hypercapneic. Labs also showed severe lactic acidosis with lactic acid level of 7.1. Initial procalcitonin also negative at 0.13. Urinalysis does
not show evidence of UTI. COVID antigen as well as flu A/B were negative. Blood cultures were collected as well as urine culture. CXR showed widespread bilateral prominent interstitial markings suspicious for interstitial edema versus
pneumonitis. Patient given Decadron and also Levophed was started due to hypotension with SBP as low as the 40s. Pt brought to ICU for further care and Rate Supervisor service consulted for further care.
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
hyperlipidemia, history of renal calculi, CAD
Impression:
#Acute hypoxic/hypercapnic respiratory failure - intubated in field on 09/20/2023 - extubated 09/21/2023 � suspected to be due to AECOPD
#Suspected COPD with acute exacerbation
#Chronic cough - likely component of both COPD and UACS (pt has frequent rhinorrhea as per home resident care spec)
#Shock (resolved)- suspected to be due to sedation + reduced PO intake +/- sepsis from UTI (doubt sepsis as only 30,000 CFU seen on urine Cx of GNR)
#Positive urinalysis with suspected UTI - Enterobacter cloacae
#Anemia - stable
#Lactic acidosis - resolved
#Hyperglycemia - likely steroid induced in setting of critical illness
#Elevated troponin - suspected to be due to type II ME/demand ischemia - peaked at 0.124 on 09/20/2023
#Abnormal spirometry with both obstructive and restrictive lung defect seen via spirometry from July 2019
#Former tobacco smoker (quit approximately 30 years ago)
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
#Morbid obesity with increased risk of JAYLA
#History of RLE DVT on chronic anticoagulation (Eliquis - ppx dosing)
Plan:
- Given urine culture is positive for Enterobacter cloacae with MDR, Zosyn was restarted on 09/20 - give total of 7 days total of ABx - patient now on rocephin as of 09/22
- Follow up blood Cx; little sputum production, hence unable to get sputum Cx at this time
- Maintain SpO2 >88-94%
- Changed decadron to solumedrol 40mg IV q6hr and wean as tolerated --> on 09/20 I weaned down to 40mg IV q8hr --> started 40mg IV q12hr on 09/22; once pt ready to go home, DC on prednisone taper starting at 50mg and reducing by 10mg every 4th day
until off.
- Changed nebulized bronchodilators from q4hr back to QID now that she has been extubated --> DC home on duonebs QID and budesonide 0.5mg BID
- Of note, she has a long chronic history of DAMON. She was referred to ENT as an outpatient for suspected vocal cord dysfunction - patient never ended up seeing ENT
- Pt weaned off vasopressors later on AM of 09/21 --> maintain MAP>65
- Replete electrolytes with K>4, Mg>2
- Maintain euglycemia with goal BG 140-180 --> started lantus on 09/20 and raised ISS to moderate resistance scale --> adjust as needed to maintain euglycemia
- Trend LFTs
- No longer need to trend troponin given it already peaked
- Incentive spirometer
- Stress ulcer ppx: n/a (will continue PPI however as she takes this at home)
- DVT ppx
Patient likely being discharged back home today. Pulmonary service will continue to follow along while she remains inpatient, and we will arrange for outpatient pulmonary follow-up.
Total time spent today was 35 minutes for this encounter. Time includes reviewing laboratory test/imaging results, reviewing pertinent medical records, obtaining and reviewing medical history, performing an appropriate exam, ordering medications,
tests and procedures. Time also includes documentation of this encounter, coordinating patient care and communicating with other healthcare professionals. Total time does not include separately billed tests performed on this date of service.
Data:
CTA Chest 09-20-2023:
No evidence of central pulmonary embolism.
Small areas of opacification in the upper lobes bilaterally including the lingula most likely representing subsegmental atelectasis. Cannot exclude small areas of pneumonia.
Mild cardiomegaly.
No pneumothorax.
CXR 09-20-2023:
Endotracheal tube with tip in trachea above the ana. Nasogastric tube extending into the abdomen with tip off the image.
No pneumothorax.
Widespread bilateral prominent pulmonary interstitial markings. Findings could represent interstitial edema or pneumonitis.
TTE 07-22-2023:
Normal left ventricular size, wall thickness and systolic function. No regional
wall motion abnormalities are seen. LV ejection fraction is 55-60% by Haywood's
method of discs. Diastolic function indeterminate.
Mitral valve opens normally. Thickened mitral valve leaflets. Mitral annular
calcification. Trace mitral regurgitation is seen.
Mildly dilated left atrium. Indexed LA volume is within normal range (15-34
mL/m2).
Trileaflet aortic valve. Aortic valve opens normally. Aortic sclerosis without
stenosis. No aortic regurgitation is seen.
Since echocardiogram August 2020, there is no significant change.
Subjective Data
-
Date of Service:
Date of Service: September 24, 2023
Chief Complaint: Pulmonary Follow Up
Subjective:
Patient seen this morning. Laying in bed no acute distress on room air breathing comfortably with SpO2 92%. HR: 77, BP: 133/64. No acute events reported from overnight.
Review of Systems
General: Other (Unable to obtain due to patient's baseline clinical status/Hx of CVA/Non-Verbal)
Objective Data
Data Reviewed
Vital Signs / I&O / Oxygen:
Vital Signs
Temp Pulse Resp BP Pulse Ox
97.7 F 71 25 136/57 97
09/24/23 04:10 09/24/23 08:00 09/24/23 08:00 09/24/23 08:00 09/24/23 08:00
Intake and Output
09/23/23 09/24/23 09/25/23
06:59 06:59 06:59
Intake Total 1065.0 / 1065.0 1660 / 1660
Output Total 350 / 350 650 / 650
Balance 715.0 / 715.0 1010 / 1010
SaO2 [CPAP] 98
SaO2 [A/C] 96
SaO2 97
Nasal Cannula flow liters per 3
minute
Physical Exam
General: Respiratory Distress (negative) and Comfortable
HEENT: Normocephalic and Anicteric
Cardiovascular: S1-S2 and Peripheral Edema (negative)
Respiratory: Wheeze (negative), Crackles (negative), Rhonchi (negative) and Non-Labored Respirations
GI: Soft, Non Distended, Non Tender and Normal Bowel Sounds
Neurology: Awake, Alert and Non Verbal
Skin: Warm and Dry
Labs/Micro/Reports
Lab Data
09/24/23 05:16
09/24/23 05:16
Microbiology
09/20/23 08:12 Blood/Venous Blood Culture - Preliminary
No Growth in 4 days- Final report to follow
09/20/23 08:17 Blood/Venous Blood Culture - Preliminary
No Growth in 4 days- Final report to follow
09/20/23 09:26 Urine Urine Culture - Final
Enterobacter cloacae
[2023-09-24] MEDS: NOVOLOG FLEXPEN-MODERATE RESISTANCE SC (08:21)
[2023-09-24] MEDS: SOLU-MEDROL PF 40 MG IV (08:21)
[2023-09-24] MEDS: ELIQUIS 2.5 MG PO (08:22)
[2023-09-24] MEDS: LIORESAL 10 MG PO (08:22)
[2023-09-24] MEDS: MUCINEX 1200 MG PO (08:22)
[2023-09-24] MEDS: PROTONIX 40 MG PO (08:22)
[2023-09-24] MEDS: TESSALON PERLES 200 MG PO (08:23)
[2023-09-24] MEDS: VITAMIN D3 (cholecalciferol) 125 MCG PO (08:23)
[2023-09-24] MEDS: THERAGRAN 1 TABLET PO (08:23)
[2023-09-24] MEDS: NEURONTIN 300 MG PO (08:23)
[2023-09-24 08:26] LABS: Glucose - Point of Care 130 mg/dl (70-99)
[2023-09-24] MEDS: DESENEX/MITRAZOL/ZEASORB 1 APPLIC TOPICAL (08:28)
--- NOTE | 2023-09-24 10:56 | W.PN.HOSP.TC ---
Today's Communication/Plan
-
dc on duonebs standing and prn, budesonide nebs standing, pred taper, cefdnir to complete coure for uti
f/u pulm, pcp outpatient
Assessment / Plan
Assessment / Plan
Physical Exam
General: Other (lethargic, extubated.)
Respiratory: Other (CTAB)
Cardiac: S1/S2 and Regular Rhythm; No Murmur
GI: Other (Obese, not tender, pos BS.)
Musculoskeletal: No Clubbing, No Cyanosis and No Edema
Neuro: lethargic
A/P: Patient is an 82y F with PMH significant for CVA, CHF and obesity who presents to ED via EMS in respiratory distress having been intubated in the field.
Acute Hypoxemic and Hypercapnic Respiratory Failure
VDRF secondary to the above
COPD with Acute Exacerbation
Suspected JAYLA / OHV
- IV steroids - wean as tolerated - steroid taper once ready�taper to prednisone taper, 50 mg daily and drop milligrams every 4 days
- Duonebs standing�discharged on DuoNebs nebulizer standing as well as as needed as patient unable to utilize inhaler as well/adequately
-Discharge on budesonide nebs standing
-f/u pulm outpatient
-Extubated 09/20
�No evidence of pneumonia or PE on CT imaging
� Discontinue antibiotics for pneumonia
� Speech eval, lethargic postextubation - tolerating reg diet, thin liquids
#Shock
#UTI
#Lactic acidosis
� Likely septic shock
� Continue antibiotics
� Wean pressors as tolerated
�follow-up cultures and urine - enterobacter clocaeca - ceftriaxone changed to cefdinir on dc for additional 5 days to complete 7 day course
�IVF as needed
#Nonischemic myocardial injury
-This most likely secondary to septic shock
� Troponins peaked
� Follow-up echo - no regional wall motion abnormality
-restart Coreg
Chronic HFpEF
- No evidence on exam of volume overload.
- BNP is unremarkable.
- resume diuretics
- Follow daily weights, I/Os, etc.
ASCVD
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
- Stable. No evidence of any new deficit - though difficult exam given acuity / sedation / etc.
- Eliquis
- Follow for any new symptoms.
#Hypokalemia
Monitor and replete
Morbid Obesity due to excess calories
-ont sure if will tolerate bipap at home /and poor candidate due to dementia
-f/u pulm outpatient
DVT Prophylaxis: Lovenox while Eliquis on hold.
Code Status: Full
More than 30 minutes spent in discharge including
Final examination of the patient
Summarizing hospital stay
Instructions for continuing care to all relevant caregivers
Preparation of discharge records, prescriptions, and referral forms
Total time spent (35 in minutes):
Anticipated Discharge: Today
Subjective/Interval History
-
Date of Service: September 24, 2023
respiratory status greatly improved, wheezing resolved
Objective Data
-
Labs:
Laboratory Results
09/24/23
05:16
WBC 10.4
Hgb 11.6 L
Hct 34.0 L
Plt Count 175
Sodium 138
Potassium 3.9
Chloride 105
Carbon Dioxide 31 H
BUN 27 H
Creatinine 0.7
Glucose 155 H
Calcium 9.1
Total Bilirubin 0.3
AST 91 H
ALT 103 H
Alkaline Phosphatase 85
Vital Signs:
Vital Signs
Temp Pulse Resp BP Pulse Ox
97.7 F 78 18 153/64 93
09/24/23 04:10 09/24/23 10:00 09/24/23 10:00 09/24/23 10:00 04/27/24 10:00
I&O
09/23/23 09/24/23 09/25/23
06:59 06:59 06:59
Intake Total 1065.0 / 1065.0 1660 / 1660
Output Total 350 / 350 650 / 650
Balance 715.0 / 715.0 1010 / 1010
Review of Systems
-
Unable to obtain full review of systems at this time due to: Language Barrier
History Source: Patient
Data Reviewed
-
Diagnostic Radiology: Image personally visualized and interpreted and Report Reviewed by me
CT Scan: Image personally visualized and interpreted and Report Reviewed by me
Labs: Labs Reviewed by me
--- NOTE | 2023-09-24 11:01 | W.DS.TRANS ---
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
-
Discharge Instructions:
Discharge Diagnosis/Procedures Acute Hypoxemic and Hypercapnic Respiratory
Failure
VDRF secondary to the above
COPD with Acute Exacerbation
Suspected JAYLA / OHS
Diet Low Cholesterol,Low Fat,2 Gram Sodium
Activity As tolerated
Blood Work bmp in 1 week with pcp
Instructions:
Stand-Alone Forms:
Changes to Home Medications: Yes
Discharge Medications:
DC Medications w/original date entered in [facility]
baclofen 10 mg tablet 10 mg PO TID Muscle Spasms 10/08/11
duloxetine 60 mg capsule,delayed release 60 mg PO NOON Mental Health/Anxiety 10/08/11
gabapentin 300 mg capsule 300 mg PO TID Pain 10/08/11
simvastatin 40 mg tablet 40 mg PO QPM High Cholesterol 10/08/11
carvedilol 3.125 mg tablet 3.125 mg PO BID Blood Pressure 05/30/19
apixaban 2.5 mg tablet (Eliquis) 2.5 mg PO BID Blood Clot Prevention/Tx 07/04/23
sennosides 8.6 mg tablet (Senna Lax) 8.6 mg PO QPM Constipation 07/04/23
furosemide 40 mg tablet 40 mg PO DAILY #0 tabs 07/26/23
acetaminophen 325 mg tablet 650 mg PO Q6HPRN PRN mild pain 09/06/23
cholecalciferol (vitamin D3) 125 mcg (5,000 unit) tablet 125 mcg PO DAILY Supplement 09/06/23
furosemide 40 mg tablet 20 mg PO QPM Fluid Retention/Swelling 09/06/23
guaifenesin 600 mg tablet, extended release 12 hr 600 mg PO [id number] PRN cough 09/06/23
omeprazole 20 mg capsule,delayed release 20 mg PO DAILY Gastrointestinal Issue 09/06/23
therapeutic multivitamin 1 tab PO DAILY Supplement 09/06/23
budesonide 0.5 mg/2 mL suspension for nebulization 0.5 mg (2 mL) inhalation R BID #60 mL 09/24/23
cefdinir 300 mg capsule 300 mg PO BID 5 days #10 caps 09/24/23
ipratropium 0.5 mg-albuterol 3 mg (2.5 mg base)/3 mL nebulization soln 3 ml inhalation Q4H PRN shortness of breath or wheezing #180 mL 09/24/23
ipratropium 0.5 mg-albuterol 3 mg (2.5 mg base)/3 mL nebulization soln 3 ml inhalation R QID #180 mL 09/24/23
metformin 500 mg tablet 500 mg PO DAILY #30 tabs 09/24/23
miconazole nitrate 2 % topical powder (Miconazorb AF) 1 applic topical BID #85 grams 09/24/23
prednisone 10 mg tablet 10 mg PO .TAPER #60 tabs 09/24/23
Home Medication Changes
budesonide 0.5 mg/2 mL suspension for nebulization 0.5 mg (2 mL) inhalation R BID #60 mL 09/24/23
cefdinir 300 mg capsule 300 mg PO BID 5 days #10 caps 09/24/23
ipratropium 0.5 mg-albuterol 3 mg (2.5 mg base)/3 mL nebulization soln 3 ml inhalation Q4H PRN shortness of breath or wheezing #180 mL 09/24/23
ipratropium 0.5 mg-albuterol 3 mg (2.5 mg base)/3 mL nebulization soln 3 ml inhalation R QID #180 mL 09/24/23
metformin 500 mg tablet 500 mg PO DAILY #30 tabs 09/24/23
miconazole nitrate 2 % topical powder (Miconazorb AF) 1 applic topical BID #85 grams 09/24/23
prednisone 10 mg tablet 10 mg PO .TAPER #60 tabs 09/24/23
Pending Results: No
[2023-09-24 12:20] LABS: Glucose - Point of Care 281 mg/dl (70-99)
[2023-09-24] MEDS: CYMBALTA DELAYED RELEASE 60 MG PO (12:47)
[2023-09-24] MEDS: NOVOLOG FLEXPEN-MODERATE RESISTANCE 5 UNITS SC (12:48)
--- NOTE | 2023-09-24 13:48 | CM ---
Chart reviewed and plan is for patient to return to home today with [facility], per family neb was delivered to patient's home yesterday.
Plan; Home with [facility], family to transport.
--- NOTE | 2023-09-24 15:18 | PTCARENOTE ---
Pt received in bed @ 0700. Expressive aphasia and right sided flaccidity with CVA history. Pt only able to say 'away.' Able to follow simple commands. Assist with turns to right side and is able to hold self on side with left hand. Nods head
appropriately. SaO2 93% on room air. Lungs with coarse rhonchi and expiratory wheeze. Scheduled nebulizers administered. Sinus rhythm on environmental programs specialist. Trace LE edema. Palpable peripheral pulses. Incontinent of loose brown stool. Purewick
removed. Discharge order in place. Instructions reviewed with patient, son, and hired caregiver at bedside. IV sites removed. Pt escorted to son's car by wheelchair.
== END 2023-09-24 15:10 | disposition home health service (06) | DRG 208 ==
LOC: ICU 06:38
PROVIDERS: Nurse Practitioner Family; ADMITTING PHYSICIAN Hospitalist; ATTENDING PHYSICIAN Internal Medicine; CONSULT PHYSICIAN Internal Medicine Critical Care Medicine; EMERGENCY PHYSICIAN Emergency Medicine; FAMILY PHYSICIAN Family Medicine
PROC: 0BH17EZ Insertion of Endotracheal Airway into Trachea, Via Natural or Artificial Opening (ICD-10-PCS; 2023-09-20)
PROC: 5A1945Z Respiratory Ventilation, 24-96 Consecutive Hours (ICD-10-PCS; 2023-09-20)
DX: J44.1 Chronic obstructive pulmonary disease with (acute) exacerbation (principal); A41.9 Sepsis, unspecified organism; I63.9 Cerebral infarction, unspecified; J96.21 Acute and chronic respiratory failure with hypoxia; J96.22 Acute and chronic respiratory failure with hypercapnia; I50.32 Chronic diastolic (congestive) heart failure; I69.351 Hemiplegia and hemiparesis following cerebral infarction affecting right dominant side; R57.9 Shock, unspecified; N39.0 Urinary tract infection, site not specified; E87.21 Acute metabolic acidosis; I5A Non-ischemic myocardial injury (non-traumatic); Z68.42 Body mass index [BMI] 45.0-49.9, adult; Z11.52 Encounter for screening for COVID-19; Z87.891 Personal history of nicotine dependence; I11.0 Hypertensive heart disease with heart failure; I25.10 Atherosclerotic heart disease of native coronary artery without angina pectoris; I69.320 Aphasia following cerebral infarction; E66.01 Morbid (severe) obesity due to excess calories; E87.6 Hypokalemia; D64.9 Anemia, unspecified
CPT/HCPCS: 36600; 71045; 71275; 80048; 80053; 81003; 82805; 82962; 83036; 83605; 83735; 83880; 84100; 84145; 84443; 84478; 84484; 85025; 85027; 85610; 85730; 87040; 87077; 87086; 87186; 87502; 87641; 87811; 92610; 93005; 93306; 94002; 94003; 94640; 96374; 96375; 97110; 97163; 97167; 97530; 99291; Q9967

== ENCOUNTER 2023-09-24 21:25 | Observation (INO) | payer MEDICARE, OTHER, SELFPAY ==
[2023-09-24 19:50] VITALS: BP 140/53; BMI 45.3
[2023-09-24 19:52] VITALS: BP 140/53
[2023-09-24 20:00] VITALS: BP 140/63
--- NOTE | 2023-09-24 20:33 | ED.GENMED ---
History of Present Illness
General
Chief Complaint: Weakness
Source: family
Exam Limitations: none
Time Seen by Provider: 09/24/23 19:52
Nursing documentation reviewed up to this point in time: agreed with
Travel History
Have you had any contact with someone who has COVID-19?: No
Do you have any symptoms of coronavirus? Fever > 100 degrees, chills, cough, shortness of breath, sore throat, loss of taste or smell, muscle aches, or headache?: No
History of Present Illness
History of Present Illness:
Patient to ED via EMS for weakness. She was discharged from here earlier today after inpatient stay for resp. failure, COPD. Family states she is extremely weak and that they can not safely care for her at home. Son states she had a near fall
while transferring from wheelchair to bed. Unable to get her back into car so EMS was called for transport.
Past History
Past History
ED Past Medical History: Cancer (Cervical), COPD, CVA (Left-sided CVA with right hemiplegia), HTN and Other (Previous stroke with right hemiparesthesias and aphasia, hypertension, DVT, Kidney stones, Urosepsis)
ED Past Surgical History: Cholecystectomy and Other (Noncontributory)
Social History
Tobacco: Former smoker
Alcohol: None
Drug: None
Personal: ( July 2023)
Living: with family
Employment: Not employed
Family History
Family History: Other (Noncontributory); Negative Diabetes, Hypertension or CAD
Review of Systems
Review of Systems
Allergies reviewed?: Yes
All Other Systems: ROS reviewed and negative except as documented in HPI and ROS
Constitutional: Reports no symptoms
EENT: Reports no symptoms
Respiratory: Reports no symptoms
Cardiac: Reports no symptoms
ABD/GI: Reports no symptoms
: Reports no symptoms
Musculoskeletal: Reports no symptoms
Skin: Reports no symptoms
Neurological: Reports weakness
Psychiatric: Reports no symptoms
Phy Exam
General Physical Exam
General Presentation: no apparent distress
General age: appears stated age
General Skin: warm and dry
General Habitus: obese
Cardiovascular Exam
Cardiovascular Exam: regular rate/rhythm
Pulmonary Exam
Pulmonary Exam: no respiratory distress and chest non tender
Gastrointestinal Exam
Gastrointestinal Exam: normal bowel sounds and non tender
Neurological Exam
Neurological Exam: alert (History of CVA, limited verbal)
Musculoskeletal Exam
Musculoskeletal Exam: neuro vasc intact
Skin Exam
Skin Exam: normal color, warm/dry and no rash
Psychiatric Exam
Psychiatric Exam: normal mood/affect
Course
Orders/Labs/Results
Orders:
Orders
09/24/23 Dinner
2000 calorie (17 carb) Diabetic
At Your Request: Non-Participating
09/24/23 20:26
Urinalysis Reflex To Culture Urgent
Date Specimen was Collected: 09/25/23
Time Specimen was Collected: 05:42
09/24/23 20:40
Complete Blood Count/With Diff Urgent
Comprehensive Metabolic Panel Urgent
09/24/23 21:05
Admit/Transfer Patient As Directed
Co-Sign Provider:
Level of Care: Observation services
Assign to:: Medical/Surgical
Physician / Group: hospitalist
Diagnosis: ambulatory dysfunction
09/24/23 21:08
Code Status As Directed
Resuscitation Status: Full Code
09/24/23 22:09
Acetaminophen [Tylenol] 650 mg PO Q6HPRN PRN
Baclofen [Lioresal] 10 mg PO TID
Bisacodyl [Dulcolax] 10 mg RECTAL [id number] PRN
Docusate W/Senna [Senokot-S] 1 tablet PO BIDPRN PRN
Gabapentin [Neurontin] 300 mg PO TID
Guaifenesin [Mucinex] 600 mg PO [id number] PRN
Ipratropium/Albuterol Sulfate [Duoneb] 3 ml INH R Q4HPRN PRN
Polyethylene Glycol Powder [Miralax] 17 grams PO DAILYPRN PRN
09/24/23 22:09
Activity As Directed
Activity Level: With Assistance
Pneumatic Compression Sleeves As Directed
Type: Knee high
Vital Signs As Directed
Frequency: Per unit guidelines
Pulse Ox/spot Check [RESP] Routine
Quantity: 1
Pt Eval And Treat Routine
Activity Level: With Assistance
DX Deep Vein Thrombosis Video Routine
09/25/23 08:00
Apixaban [Eliquis] 2.5 mg PO BID
Budesonide [Pulmicort] 0.5 mg INH R BID
Carvedilol [Coreg] 3.125 mg PO BID
Cefdinir [Omnicef] 300 mg PO BID
Cholecalciferol (Vitamin D3) [VITAMIN D3 (cholecalciferol)] 125 mcg PO DAILY
Furosemide [Lasix] 40 mg PO DAILY
Ipratropium/Albuterol Sulfate [Duoneb] 3 ml INH R QID
METFORMIN HCl [Glucophage] 500 mg PO DAILY
Miconazole Nitrate [Desenex/Mitrazol/Zeasorb] 1 applic TOPICAL BID
Multivitamin [Theragran] 1 tablet PO DAILY
Pantoprazole [Protonix] 40 mg PO DAILY
09/25/23 12:00
Duloxetine Delayed Release [Cymbalta Delayed Release] 60 mg PO NOON
09/25/23 18:00
Atorvastatin [Lipitor] 20 mg PO QPM
Furosemide [Lasix] 20 mg PO QPM
Sennosides [Senokot] 8.6 mg PO QPM
Abnormal Lab Results
09/24/23
20:40
WBC 13.0 H 10^3/uL
(4.8-10.8)
RBC 4.17 L 10^6/uL
(4.20-5.40)
RDW 16.2 H %
(11.5-14.5)
Abs Immat Gran (auto) 0.5 H 10^3/uL
(0-0.05)
Absolute Neuts (auto) 10.0 H 10^3/uL
(1.4-6.5)
Absolute Monos (auto) 1.1 H 10^3/uL
(0.1-0.6)
Immature Gran % 3.8 H %
(0-0.5)
Neutrophils % 77.1 H %
(42.2-75.2)
Lymphocytes % 10.3 L %
(20.5-51.1)
BUN 25 H mg/dl
(7-17)
Glucose 103 H mg/dl
(70-99)
AST 73 H U/L
(14-36)
ALT 109 H U/L
(0-35)
Total Protein 6.0 L g/dl
(6.3-8.2)
Albumin 3.3 L g/dl
(3.5-5.0)
09/24/23 20:40
09/24/23 20:40
Vital Signs
Initial and Last Documented VS:
Initial Vital Signs
Temp Pulse Resp BP
98.4 F 80 22 140/53
09/24/23 19:50 09/24/23 19:50 09/24/23 19:50 09/24/23 19:50
Last Documented Vital Signs
Temp Pulse Resp BP Pulse Ox
97.2 F 83 16 125/47 92
09/25/23 19:25 09/25/23 20:45 09/25/23 19:26 09/25/23 20:45 09/25/23 19:26
*Critical Care Note
Total Time (30-74mins, 75-104mins- exclusive of procedures): Not Applicable
Update Note
Update Note:
Family unable to care for patient at home. Requesting SNF. Will admit for placement. Case management consult placed.
ED Attending Note
-
Portions of this chart may have been created with voice recognition software.� Occasional wrong word or��sound alike� substitutions may have occurred due to the inherent limitations of voice recognition software.
Discharge Plan
Departure
Patient Disposition: Admit
Date of Disposition: 09/24/23
Time of Disposition: 20:39
Presentation/result/management discussed w/ accepting MD/DO: Hospitalist
Consults for patient: Case Management
Condition: Fair
Discharge Problem:
Weakness
Interventions
Interventions:
*Risk Screen - Suicide Last Done: 09/24/23 19:50
*General Assessment Last Done: 09/24/23 19:50
*Neglect/Abuse Screening Last Done: 09/24/23 19:50
ED- Fall Risk Assessment Last Done: 09/24/23 19:50
*ED COVID-19 Vaccine History Last Done: 09/24/23 19:50
*Nursing Disposition Last Done: 09/24/23 21:59
ED- Cardiac Assessment Last Done: 09/24/23 20:11
ED- Neurological Assessment Last Done: 09/24/23 20:11
ED- Pulmonary Assessment Last Done: 09/24/23 20:11
Discharge Date and Time
Discharge Date/Time: 09/24/23 22:01
[2023-09-24 20:51] LABS: % Basophils 0.3 % (0-2); % Immature Granulocytes 3.8 % (0-0.5); % Lymphocytes 10.3 % (20.5-51.1); % Monocytes 8.5 % (1.7-9.3); % Neutrophils 77.1 % (42.2-75.2); Absolute Immature Granulocytes 0.5 10^3/uL (0-0.05); Absolute Lymphocytes 1.3 10^3/uL (1.2-3.4); Absolute Monocytes 1.1 10^3/uL (0.1-0.6); Hematocrit 37.2 % (37.0-47.0); Hemoglobin 12.9 g/dL (12.0-16.0); Mean Corp Hgb Conc. 34.7 g/dL (33.0-37.0); Mean Corpuscular Hgb 30.9 pg (27.0-31.0); Mean Corpuscular Volume 89.2 fL (81.0-99.0); Mean Platelet Volume 10.1 fL (7.4-10.4); Nucleated Red Blood Cells % 0.6 %; Platelet Count 201 10^3/uL (130-400); Red Blood Cell Count 4.17 10^6/uL (4.20-5.40); Red Cell Dist. Width 16.2 % (11.5-14.5)
--- NOTE | 2023-09-24 20:53 | HPS.HSE ---
Family Physician
-
Family Physician: INTERVIEWE UNKNOWN - PT NOT
Chief Complaint
-
Ambulatory dysfunction
History of Present Illness
This is an 82-year-old female with past medical history significant for COPD, morbid obesity, hypertension, GERD who was recently admitted to the hospital for hypoxic and hypercapnic respiratory failure with ventilator dependent
respiratory failure status postextubation and went off of oxygen will stay and subsequently discharged to home today but developed ambulatory dysfunction immediately upon arrival at home. Brought to the emergency department for weakness and
ambulatory dysfunction.
Patient has history of CVA with severe residual aphasia and unable to provide any history. According to family members upon arrival at home he attempted to transition the patient to the bed she almost fell. Thereafter she was unable to ambulate by
herself whereas prior to coming to the hospital she was using a walker. They denied any other acute complaints.
In the emergency room the patient was afebrile hemodynamically stable and in no acute distress. Labs from earlier today are stable.
Medical History
Past Medical History
Past Medical History: Reports COPD, CVA (residual aphasia), GERD and HTN
Additional Past Medical History:
RECENT VDRF
diastolic CHF
Morbid obesity
Steroid dependent hyperglycemia
Past Surgical History: Reports None
Social History
Tobacco: Non-smoker
Alcohol: None
Drug: None
Personal:
Living: With Family
Employment: Not Employed
Family History
Family History: Not pertinent
Allergies / Home Medications
Allergies reflects when Allergies were last updated in [facility].
Home Medications with original date entered in [facility]
Allergy/Medication List:
Allergies
Allergy/AdvReac Type Severity Reaction Status Date / Time
No Known Drug Allergies Allergy NONE Verified 09/24/23 19:49
Home Medications
baclofen 10 mg tablet 10 mg PO TID Muscle Spasms 10/08/11
duloxetine 60 mg capsule,delayed release 60 mg PO NOON Mental Health/Anxiety 10/08/11
gabapentin 300 mg capsule 300 mg PO TID Pain 10/08/11
simvastatin 40 mg tablet 40 mg PO QPM High Cholesterol 10/08/11
carvedilol 3.125 mg tablet 3.125 mg PO BID Blood Pressure 05/30/19
apixaban 2.5 mg tablet (Eliquis) 2.5 mg PO BID Blood Clot Prevention/Tx 07/04/23
sennosides 8.6 mg tablet (Senna Lax) 8.6 mg PO QPM Constipation 07/04/23
furosemide 40 mg tablet 40 mg PO DAILY #0 tabs 07/26/23
acetaminophen 325 mg tablet 650 mg PO Q6HPRN PRN mild pain 09/06/23
cholecalciferol (vitamin D3) 125 mcg (5,000 unit) tablet 125 mcg PO DAILY Supplement 09/06/23
furosemide 40 mg tablet 20 mg PO QPM Fluid Retention/Swelling 09/06/23
guaifenesin 600 mg tablet, extended release 12 hr 600 mg PO [id number] PRN cough 09/06/23
omeprazole 20 mg capsule,delayed release 20 mg PO DAILY Gastrointestinal Issue 09/06/23
therapeutic multivitamin 1 tab PO DAILY Supplement 09/06/23
blood sugar diagnostic (Accu-Chek Guide test strips) #200 ea 09/24/23
blood sugar diagnostic (OneTouch Verio test strips) #200 ea 09/24/23
blood-glucose meter (Accu-Chek Guide Glucose Meter) #1 ea 09/24/23
budesonide 0.5 mg/2 mL suspension for nebulization 0.5 mg (2 mL) inhalation R BID #60 mL 09/24/23
cefdinir 300 mg capsule 300 mg PO BID 5 days #10 caps 09/24/23
ipratropium 0.5 mg-albuterol 3 mg (2.5 mg base)/3 mL nebulization soln 3 ml inhalation Q4H PRN shortness of breath or wheezing #180 mL 09/24/23
ipratropium 0.5 mg-albuterol 3 mg (2.5 mg base)/3 mL nebulization soln 3 ml inhalation R QID #180 mL 09/24/23
metformin 500 mg tablet 500 mg PO DAILY #30 tabs 09/24/23
miconazole nitrate 2 % topical powder (Miconazorb AF) 1 applic topical BID #85 grams 09/24/23
prednisone 10 mg tablet 10 mg PO .TAPER #60 tabs 09/24/23
Review of Systems
-
History Source: Family
Constitutional: Reports No Symptoms
EENT: Reports No Symptoms
Respiratory: Reports No Symptoms
Cardiac: Reports No Symptoms
Abdomen/GI: Reports No Symptoms
: Reports No Symptoms
Musculoskeletal: Reports No Symptoms
Skin: Reports No Symptoms
Neurological: Reports Weakness
Endocrine: Reports No Symptoms
Hematologic/Lymphatic: Reports No Symptoms
Psych: Reports No Symptoms
Physical Exam
Vital Signs
Vital Signs
Temp Pulse Resp BP Pulse Ox
98.4 F 76 19 140/63 93
09/24/23 19:50 09/24/23 20:30 09/24/23 20:30 09/24/23 20:00 09/24/23 20:49
Physical Exam
General: No Apparent Distress
HEENT: NormoCephalic, Anicteric, Moist mucous membranes, Atraumatic and PERRLA
Respiratory: Wheezes
Cardiac: S1/S2 and Regular Rhythm
Breast: Deferred by me
GI: Soft, Non Tender and Normal Bowel Sounds
Rectal: Deferred by Provider
Genito-urinary: Deferred by me
Musculoskeletal: No Clubbing, No Cyanosis and No Edema
Skin: Warm
Neuro: Alert and Nonfocal/grossly intact
Hematologic/Lymphatic: No Lymphadenopathy
Psych: Calm
Data Reviewed
-
Diagnostic Radiology: Report Reviewed by me
Medical Tests (Nuc Med, Echo, EKG etc): Image Personally Visualized and interpreted and Report Reviewed by me
Lab Data: Labs Reviewed by me
Old Records: Reviewed
Impression/Plan
-
IMPRESSION:
Patient with recent admission for acute respiratory failure requiring ventilator secondary to COPD exacerbation, complicated by morbid obesity presenting to ED following discharge with ambulatory dysfunction likely secondary to prolonged
hospitalization and her ICU stay. Prior to the hospitalization, she was ambulating independently with a walker. 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
PLAN:
1. Ambulatory dysfunction - Recent hospitalization and ICU. Did not want to go to SNF at time of discharge but now clearly unable to be care for safely at home due to ambulatory difficulties. No acute symptoms.
- admit to med/surg observation
- PT evaluation
- plan for short term rehab
2. COPD exacerbation - Stable.
- continue steroid taper (currently on 40mg)
- continue nebs
- complete course of cefdinir - 5 days
- continue budesonide
-
3. Steroid dependent hyperglycemia
- metformin 500 bid
- insulin sensitive sliding scale
4. HTN - diastolic CHF
- carvedilol 3.125
- furosemide 40mg daily, 20 pm
5. ASCVD
- eliquis 2.5 bid , statin
DVT PPX - on apixaban, SCDs
Full Code
[2023-09-24 21:00] VITALS: BP 133/55
[2023-09-24 21:06] LABS: ALT (SGPT) 109 U/L (0-35); AST (SGOT) 73 U/L (14-36); Albumin 3.3 g/dl (3.5-5.0); Alkaline Phosphatase 76 U/L (38-126); Blood Urea Nitrogen 25 mg/dl (7-17); Calcium 9.6 mg/dl (8.4-10.2); Carbon Dioxide 30 mmol/L (22-30); Chloride 104 mmol/L (98-107); Estimated Creatinine Clearance 77 ml/min; Glucose 103 mg/dl (70-99); Potassium 3.9 mmol/L (3.5-5.1); Sodium 137 mmol/L (135-145); Total Bilirubin 0.7 mg/dl (0.2-1.3); eGFR > 60.00
[2023-09-24 22:10] VITALS: BP 156/66
[2023-09-24 22:16] VITALS: BMI 44.9
[2023-09-24] MEDS: NEURONTIN 300 MG PO (22:26)
[2023-09-24] MEDS: LIORESAL 10 MG PO (22:26)
[2023-09-24] MEDS: PULMICORT 0.5 MG INH (23:24)
[2023-09-24] MEDS: DUONEB 3 ML INH (23:34)
--- NOTE | 2023-09-25 01:55 | PTCARENOTE ---
Received pt from ER at 2215. Pt awake and alert with severe expressive aphasia, repeating same phrase. Able to communicate with patient using thumbs up/down. VSS. Oriented pt to room, call [facility] and plan of care.
[2023-09-25 07:00] VITALS: BP 89/53
[2023-09-25 07:24] LABS: Urine Albumin Negative (Neg - Trace); Urine Bilirubin Negative (Negative); Urine Character Clear (Clear); Urine Color Yellow; Urine Glucose Negative (Negative); Urine Ketone Negative (Negative); Urine Leukocyte Trace (Negative); Urine Nitrite Negative (Negative); Urine Occult Blood Negative (Negative); Urine Specific Gravity 1.015 (<1.030); Urine Urobilinogen Negative (Neg - 1+)
[2023-09-25] MEDS: DUONEB 3 ML INH ×4 (07:55→19:17)
[2023-09-25] MEDS: PULMICORT 0.5 MG INH (07:56)
[2023-09-25 08:38] LABS: Urine Bacteria Few (Negative); Urine Calcium Oxalate Crystals Present; Urine White Cell 0-2 /HPF (0-5)
[2023-09-25] MEDS: THERAGRAN 1 TABLET PO (08:44)
[2023-09-25] MEDS: NEURONTIN 300 MG PO ×3 (08:44→21:25)
[2023-09-25] MEDS: DELTASONE 50 MG PO (08:44)
[2023-09-25] MEDS: LIORESAL 10 MG PO ×3 (08:44→21:25)
[2023-09-25] MEDS: COREG 3.125 MG PO ×2 (08:44→20:45)
[2023-09-25] MEDS: GLUCOPHAGE 500 MG PO (08:52)
[2023-09-25] MEDS: ELIQUIS 2.5 MG PO ×2 (08:52→20:42)
[2023-09-25] MEDS: DESENEX/MITRAZOL/ZEASORB 1 APPLIC TOPICAL ×2 (08:52→20:45)
[2023-09-25] MEDS: VITAMIN D3 (cholecalciferol) 125 MCG PO (08:52)
[2023-09-25] MEDS: LASIX 40 MG PO (08:52)
[2023-09-25] MEDS: PROTONIX 40 MG PO (08:52)
[2023-09-25] MEDS: OMNICEF 300 MG PO ×2 (08:53→20:41)
[2023-09-25 09:09] VITALS: BP 130/53; PULSE 78; O2SAT 91
[2023-09-25 09:10] VITALS: BP 130/53; PULSE 78; O2SAT 91
--- NOTE | 2023-09-25 09:17 | CM ---
Addendum entered by Daya Allen 09/25/23 12:46:
Patients son Edwin in to see patient. discussed d/c plan.
Edwin would like [facility] rehab.
Referral placed.
Went over PT recommendations for skilled rehab.
Addendum entered by Daya Allen 09/25/23 11:15:
Patient seen bedside.
Patient unable to answer questions, just says oh way.
patient able to nod yes and no.
Patient lives with her son Edwin in a 2 story home with ramp and has 24/7 caregivers from Home instead.
Patient has had [facility] in the past and has been to [facility] in the past.
Patient d/c from hospital and readmitted same day.
PT/OT recommending skilled rehab.
Plan:to be determined.
Original Note:
TC from Daughter Trinity voicing concerns and stating how unhappy she is with the way her mothers care was handled.
Daughter stated discharge plan was not discussed with family and they were unaware patient could not walk.
Daughter would like [facility] referral and PMR consultation. TT to MD.
Daughter of son would like to be updated on all care provided for their mother.
Plan: TBD, PT/OT evals pending.
[2023-09-25] MEDS: CYMBALTA DELAYED RELEASE 60 MG PO (12:52)
--- NOTE | 2023-09-25 12:59 | W.PN.HOSP.TC ---
Today's Communication/Plan
-
dispo planning
steroid taper and abx course
duonebs, budesonide
Assessment / Plan
Assessment / Plan
A/P: Patient is an 82y F with PMH significant for CVA, CHF and obesity who presents to ED via EMS in respiratory distress having been intubated in the field. Returned back for ambulatory dysfunction
#Ambulatory dysfunction - Recent hospitalization and ICU. Did not want to go to SNF at time of discharge but now clearly unable to be care for safely at home due to ambulatory difficulties. No acute symptoms.
- admit to med/surg observation
- PT evaluation
- plan for short term rehab
#Transaminitis
-possibly 2/2 to abx/DILI
-ctm closely
#leuokcytosis
most likely 2/2 to steroids
Monitor fever curve, wbc
#Acute Hypoxemic and Hypercapnic Respiratory Failure
#VDRF secondary to the above
#COPD with Acute Exacerbation
#Suspected JAYLA / OHV
-Steroid Taper
- Duonebs standing�discharge on DuoNebs and budesonide nebulizer standing as well as as needed as patient unable to utilize inhaler as well/adequately
-f/u pulm outpatient
-Extubated 09/20
�No evidence of pneumonia or PE on CT imaging
� Discontinue antibiotics for pneumonia
� Speech eval, lethargic postextubation - tolerating reg diet, thin liquids
#Shock
#UTI
#Lactic acidosis
� Likely septic shock
�follow-up cultures and urine - enterobacter clocaeca - ceftriaxone changed to cefdinir on dc for additional 5 days to complete 7 day course.
#Chronic HFpEF
- No evidence on exam of volume overload.
- diuretics
- Follow daily weights, I/Os, etc.
#Steroid induced hyperglycemia
#DM
- metformin 500 bid
- insulin sensitive sliding scale
-Hb1ac - 6.7
#HTN
#ASCVD
#Right Hemiparesis / Expressive Aphasia as Late Effect of CVA
- statin
- Eliquis
- Follow for any new symptoms.
- Coreg
Morbid Obesity due to excess calories
DVT Prophylaxis: Eliquis
Code Status: Full
Anticipated Discharge: 24 - 48 hours
Subjective/Interval History
-
Date of Service: September 25, 2023
Working with PT
Objective Data
-
Vital Signs:
Vital Signs
Temp Pulse Resp BP Pulse Ox
97.9 F 73 16 89/53 95
09/25/23 07:00 09/25/23 11:52 09/25/23 11:52 09/25/23 07:00 09/25/23 11:52
Review of Systems
-
Unable to obtain full review of systems at this time due to: Language Barrier
History Source: Patient
Physical Exam
-
General: Well Developed, Well Nourished and No Apparent Distress
HEENT: Normocephalic and Atraumatic
Respiratory: Clear to Auscultation; Negative Wheezes or Rhonchi
Cardiac: Regular Rhythm and S1/S2; Negative Murmur
GI: Soft, Nontender, Nondistended and Normal Bowel Sounds
Musculoskeletal: No Clubbing, No Cyanosis and No Edema
Neuro: Other (left sided hemiparesis -- expressive aphasia)
Psych: Calm
Data Reviewed
-
Diagnostic Radiology: Image personally visualized and interpreted and Report Reviewed by me
CT Scan: Image personally visualized and interpreted and Report Reviewed by me
Labs: Labs Reviewed by me
[2023-09-25 15:31] VITALS: BP 115/73
[2023-09-25] MEDS: SENOKOT 8.59999999999999964 MG PO (17:21)
[2023-09-25] MEDS: LIPITOR 20 MG PO (17:21)
[2023-09-25] MEDS: LASIX 20 MG PO (17:21)
[2023-09-25] MEDS: PULMICORT 0.5 MG NEB (19:17)
[2023-09-25 19:25] VITALS: BP 128/62
[2023-09-25 23:19] VITALS: BP 118/63
[2023-09-26 06:00] VITALS: BMI 44.3
[2023-09-26 07:22] LABS: Hematocrit 33.8 % (37.0-47.0); Hemoglobin 11.5 g/dL (12.0-16.0); Mean Corpuscular Hgb 31.2 pg (27.0-31.0); Mean Corpuscular Volume 91.6 fL (81.0-99.0); Mean Platelet Volume 10.5 fL (7.4-10.4); Platelet Count 180 10^3/uL (130-400); Red Blood Cell Count 3.69 10^6/uL (4.20-5.40); Red Cell Dist. Width 16.4 % (11.5-14.5); White Blood Cell Count 11.5 10^3/uL (4.8-10.8)
[2023-09-26] MEDS: DUONEB 3 ML INH ×2 (07:56→11:27)
[2023-09-26] MEDS: PULMICORT 0.5 MG NEB (07:56)
[2023-09-26 08:00] VITALS: BP 131/68
[2023-09-26 08:17] LABS: ALT (SGPT) 73 U/L (0-35); AST (SGOT) 34 U/L (14-36); Albumin 2.8 g/dl (3.5-5.0); Alkaline Phosphatase 67 U/L (38-126); Blood Urea Nitrogen 30 mg/dl (7-17); Calcium 9.1 mg/dl (8.4-10.2); Carbon Dioxide 29 mmol/L (22-30); Chloride 103 mmol/L (98-107); Estimated Creatinine Clearance 89 ml/min; Glucose 113 mg/dl (70-99); Potassium 3.5 mmol/L (3.5-5.1); Sodium 136 mmol/L (135-145); Total Bilirubin 0.7 mg/dl (0.2-1.3); Total Protein 5.3 g/dl (6.3-8.2); eGFR > 60.00
[2023-09-26] MEDS: COREG 3.125 MG PO (09:08)
[2023-09-26] MEDS: LASIX 40 MG PO (09:09)
[2023-09-26] MEDS: NEURONTIN 300 MG PO (09:09)
[2023-09-26] MEDS: PROTONIX 40 MG PO (09:09)
[2023-09-26] MEDS: ELIQUIS 2.5 MG PO (09:10)
[2023-09-26] MEDS: LIORESAL 10 MG PO (09:10)
[2023-09-26] MEDS: VITAMIN D3 (cholecalciferol) 125 MCG PO (09:10)
[2023-09-26] MEDS: OMNICEF 300 MG PO (09:10)
[2023-09-26] MEDS: THERAGRAN 1 TABLET PO (09:10)
[2023-09-26] MEDS: DESENEX/MITRAZOL/ZEASORB 1 APPLIC TOPICAL (09:11)
[2023-09-26] MEDS: DELTASONE 50 MG PO (09:20)
[2023-09-26] MEDS: GLUCOPHAGE 500 MG PO (09:37)
--- NOTE | 2023-09-26 11:27 | CM ---
administrative office manager reviewed patient's chart and reached out to admissions at [facility], and spoke with Rae [phone] this morning. administrative office manager discussed patient's physical therapy notes and reviewed patient's therapy along with previous admission,
per caregiver, patient was ambulating 50 feet in home with a cane, patient was able to walk to kitchen, family room and bedroom, notes from recent admission along with readmission also reviewed by [facility]. Per [facility] they can accept patient
and they have a bed for patient today. administrative office manager reached out to Edwin patient's son and primary contact for patient and made him aware of plan, per [facility] he is in agreement with plan for patient to transfer to [facility]. Patient's physician
also made aware that there is a bed at [facility] acute rehab today.
[facility]
Report [phone]
--- NOTE | 2023-09-26 11:52 | W.PN.HOSP.TC ---
Addendum entered and electronically signed by Familia Lima MD 10/03/23 16:53:
Non Ischemic Myocardial Injury
Original Note:
Today's Communication/Plan
-
Discharge
Assessment / Plan
Assessment / Plan
Gen-awake, alert, NAD
HEENT-NC, AT, anicteric, clear oral mm
Neck-supple
CV-reg, no M, +S1/S2
Lungs-clear B/L
Abd-soft, NT, ND
Ext-no edema
Musculoskeletal-no cyanosis, clubbing
Skin-warm and dry
Neuro-grossly non-focal
Psych-calm, cooperative
Ambulatory dysfunction - Recent hospitalization and ICU. Did not want to go to SNF at time of discharge but now clearly unable to be care for safely at home due to ambulatory difficulties. No acute symptoms.
- PT evaluation
- plan for short term rehab
Elevated transaminases -trending down. Hold statin.
-possibly 2/2 to abx/DILI
leuokcytosis
most likely 2/2 to steroids
Monitor fever curve, wbc
Acute Hypoxemic and Hypercapnic Respiratory Failure -during recent hospitalization. Resolved.
COPD with recent exacerbation -now stable.
-Steroid Taper
- Duonebs standing�discharge on DuoNebs and budesonide nebulizer standing as well as as needed as patient unable to utilize inhaler as well/adequately
-f/u pulm outpatient
-Extubated 09/20
�No evidence of pneumonia or PE on CT imaging
� Discontinue antibiotics for pneumonia
� Speech eval, lethargic postextubation - tolerating reg diet, thin liquids
Suspected JAYLA / OHV
Recent UTI with septic shock - resolved.
Urine cx - enterobacter clocaeca - ceftriaxone changed to cefdinir on dc for additional 5 days to complete 7 day course.
Chronic HFpEF
- No evidence on exam of volume overload.
- diuretics
- Follow daily weights, I/Os, etc.
Steroid induced hyperglycemia
DM2
- metformin 500 bid
- insulin sensitive sliding scale
-Hb1ac - 6.7
Essential HTN -stable.
CAD -stable.
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
Morbid Obesity due to excess calories
DVT Prophylaxis: Eliquis
Full code
Dispo -stable for rehab placement.
Updated patient's son Edwin on the phone. All questions answered.
32 minutes spent in discharge process.
Anticipated Discharge: Today
Subjective/Interval History
-
Date of Service: September 26, 2023
Patient seen and examined. Looks comfortable. Has expressive aphasia, unable to do review of systems.
Objective Data
-
Labs:
Laboratory Results
09/26/23
06:24
WBC 11.5 H
Hgb 11.5 L
Hct 33.8 L
Plt Count 180
Sodium 136
Potassium 3.5
Chloride 103
Carbon Dioxide 29
BUN 30 H
Creatinine 0.6
Glucose 113 H
Calcium 9.1
Total Bilirubin 0.7
AST 34
ALT 73 H
Alkaline Phosphatase 67
Vital Signs:
Vital Signs
Temp Pulse Resp BP Pulse Ox
97.4 F 71 16 131/68 93
09/26/23 08:00 09/26/23 11:29 09/26/23 11:29 09/26/23 08:00 09/26/23 11:29
Review of Systems
-
Unable to obtain full review of systems at this time due to: Other (Expressive aphasia)
--- NOTE | 2023-09-26 12:19 | W.DS.TRANS ---
DC Summary - Training Associate
-
Discharge Instructions:
Discharge Diagnosis/Procedures Ambulatory dysfunction, recent COPD exacerbation
, UTI
Diet Diabetic, Carb Controlled
Activity As tolerated,With assistance
Driving Restrictions No driving
Bathing Restrictions None
Instructions:
Stand-Alone Forms:
Changes to Home Medications: No
Discharge Medications:
DC Medications w/original date entered in [facility]
baclofen 10 mg tablet 10 mg PO TID Muscle Spasms 10/08/11
duloxetine 60 mg capsule,delayed release 60 mg PO NOON Mental Health/Anxiety 10/08/11
gabapentin 300 mg capsule 300 mg PO TID Pain 10/08/11
simvastatin 40 mg tablet 40 mg PO QPM High Cholesterol 10/08/11
carvedilol 3.125 mg tablet 3.125 mg PO BID Blood Pressure 05/30/19
apixaban 2.5 mg tablet (Eliquis) 2.5 mg PO BID Blood Clot Prevention/Tx 07/04/23
sennosides 8.6 mg tablet (Senna Lax) 8.6 mg PO QPM Constipation 07/04/23
furosemide 40 mg tablet 40 mg PO DAILY #0 tabs 07/26/23
acetaminophen 325 mg tablet 650 mg PO Q6HPRN PRN mild pain 09/06/23
cholecalciferol (vitamin D3) 125 mcg (5,000 unit) tablet 125 mcg PO DAILY Supplement 09/06/23
furosemide 40 mg tablet 20 mg PO QPM Fluid Retention/Swelling 09/06/23
guaifenesin 600 mg tablet, extended release 12 hr 600 mg PO [id number] PRN cough 09/06/23
omeprazole 20 mg capsule,delayed release 20 mg PO DAILY Gastrointestinal Issue 09/06/23
therapeutic multivitamin 1 tab PO DAILY Supplement 09/06/23
budesonide 0.5 mg/2 mL suspension for nebulization 0.5 mg (2 mL) inhalation R BID #60 mL 09/24/23
ipratropium 0.5 mg-albuterol 3 mg (2.5 mg base)/3 mL nebulization soln 3 ml inhalation Q4H PRN shortness of breath or wheezing #180 mL 09/24/23
ipratropium 0.5 mg-albuterol 3 mg (2.5 mg base)/3 mL nebulization soln 3 ml inhalation R QID #180 mL 09/24/23
metformin 500 mg tablet 500 mg PO DAILY #30 tabs 09/24/23
miconazole nitrate 2 % topical powder (Miconazorb AF) 1 applic topical BID #85 grams 09/24/23
cefdinir 300 mg capsule 300 mg PO BID 5 days #10 caps 09/26/23
prednisone 50 mg tablet 50 mg PO DAILY #0 tabs 09/26/23
Home Medication Changes
Pending Results: No
[2023-09-26] MEDS: CYMBALTA DELAYED RELEASE 60 MG PO (12:54)
[2023-09-26] MEDS: DUONEB INH (15:35)
== END 2023-09-26 15:51 ==
LOC: 4 WEST ACU 21:25
PROVIDERS: Internal Medicine; Nurse Practitioner; ADMITTING PHYSICIAN Internal Medicine; ATTENDING PHYSICIAN Hospitalist; EMERGENCY PHYSICIAN Emergency Medicine
DX: R26.2 Difficulty in walking, not elsewhere classified (principal); R53.1 Weakness; I69.351 Hemiplegia and hemiparesis following cerebral infarction affecting right dominant side; I11.0 Hypertensive heart disease with heart failure; I50.32 Chronic diastolic (congestive) heart failure; I69.320 Aphasia following cerebral infarction; E66.01 Morbid (severe) obesity due to excess calories; K21.9 Gastro-esophageal reflux disease without esophagitis; I25.10 Atherosclerotic heart disease of native coronary artery without angina pectoris; R74.8 Abnormal levels of other serum enzymes; D72.829 Elevated white blood cell count, unspecified; T38.0X5A Adverse effect of glucocorticoids and synthetic analogues, initial encounter; J44.9 Chronic obstructive pulmonary disease, unspecified; I5A Non-ischemic myocardial injury (non-traumatic); E11.65 Type 2 diabetes mellitus with hyperglycemia; Z68.41 Body mass index [BMI] 40.0-44.9, adult; Z79.01 Long term (current) use of anticoagulants; Z79.52 Long term (current) use of systemic steroids; Z79.84 Long term (current) use of oral hypoglycemic drugs; Z79.899 Other long term (current) drug therapy; Z86.718 Personal history of other venous thrombosis and embolism; Z87.891 Personal history of nicotine dependence
CPT/HCPCS: 80053; 81003; 81015; 85025; 85027; 94640; 97162; 97167; 99284; G0378

== ENCOUNTER → 2023-11-04 12:00 | Outpatient (REF) | payer MEDICARE, OTHER, SELFPAY | LOC: DHSLP 12:00 | PROVIDERS: ATTENDING PHYSICIAN Internal Medicine Critical Care Medicine; FAMILY PHYSICIAN Family Medicine | DX: G47.33 Obstructive sleep apnea (adult) (pediatric) (principal) | CPT/HCPCS: 95800 ==

== ENCOUNTER 2023-11-16 21:13 | Inpatient (IN) | payer MEDICARE, OTHER, SELFPAY ==
[2023-11-16 16:48] VITALS: BP 181/80
[2023-11-16] MEDS: ATROVENT NEBULES 0.5 MG INH ×2 (17:14→17:15)
[2023-11-16] MEDS: VENTOLIN NEBULES 7.5 MG INH (17:15)
[2023-11-16] MEDS: DECADRON 10 MG IV (17:15)
[2023-11-16 17:30] LABS: % Basophils 0.4 % (0-2); % Eosinophils 3.1 % (0-6); % Immature Granulocytes 0.5 % (0-0.5); % Lymphocytes 9.6 % (20.5-51.1); % Monocytes 6.8 % (1.7-9.3); % Neutrophils 79.6 % (42.2-75.2); Absolute Eosinophils 0.3 10^3/uL (0-0.7); Absolute Immature Granulocytes 0.1 10^3/uL (0-0.05); Absolute Lymphocytes 0.9 10^3/uL (1.2-3.4); Absolute Monocytes 0.7 10^3/uL (0.1-0.6); Absolute Neutrophils 7.7 10^3/uL (1.4-6.5); Hematocrit 36.2 % (37.0-47.0); Hemoglobin 12.2 g/dL (12.0-16.0); Mean Corp Hgb Conc. 33.7 g/dL (33.0-37.0); Mean Corpuscular Hgb 31.3 pg (27.0-31.0); Mean Corpuscular Volume 92.8 fL (81.0-99.0); Mean Platelet Volume 10.5 fL (7.4-10.4); Nucleated Red Blood Cells % 0 %; Platelet Count 213 10^3/uL (130-400); Red Cell Dist. Width 15.9 % (11.5-14.5); White Blood Cell Count 9.7 10^3/uL (4.8-10.8)
[2023-11-16 17:44] LABS: ALT (SGPT) 21 U/L (0-35); AST (SGOT) 26 U/L (14-36); Albumin 3.8 g/dl (3.5-5.0); Alkaline Phosphatase 107 U/L (38-126); Blood Urea Nitrogen 20 mg/dl (7-17); Calcium 9.1 mg/dl (8.4-10.2); Carbon Dioxide 28 mmol/L (22-30); Chloride 104 mmol/L (98-107); Glucose 172 mg/dl (70-99); Potassium 3.9 mmol/L (3.5-5.1); Sodium 142 mmol/L (135-145); Total Bilirubin 0.5 mg/dl (0.2-1.3); Total Protein 6.5 g/dl (6.3-8.2); eGFR > 60.00
[2023-11-16 17:56] LABS: NT-proBNP 285 pg/ml; Troponin I < 0.012 ng/ml
[2023-11-16 18:42] VITALS: BP 123/77
[2023-11-16 19:00] VITALS: BP 99/74
--- NOTE | 2023-11-16 19:24 | ED.GENMED ---
History of Present Illness
General
Chief Complaint: Breathing Problem
Source: family
Exam Limitations: clinical condition
Time Seen by Provider: 11/16/23 16:56
Travel History
Have you had any contact with someone who has COVID-19?: No
Do you have any symptoms of coronavirus? Fever > 100 degrees, chills, cough, shortness of breath, sore throat, loss of taste or smell, muscle aches, or headache?: No
History of Present Illness
History of Present Illness:
83-year-old female presents with 2 to 3 days of wheezing. The patient has been dealing with this issue for some time has been off and on steroids. Family doctor thought that maybe a more chronic taper may be necessary. Patient's son states he did
hear her gurgling the other day and night and became concerned. Patient is unable to communicate her history due to history of stroke. Patient does have a history of COPD and it has been considered that maybe this is all COPD exacerbation. Family
states that it has been like this since her COVID diagnosis.
Past History
Past History
ED Past Medical History: Cancer (Cervical), COPD, CVA (Left-sided CVA with right hemiplegia), HTN and Other (Previous stroke with right hemiparesthesias and aphasia, hypertension, DVT, Kidney stones, Urosepsis)
ED Past Surgical History: Cholecystectomy and Other (Noncontributory)
Social History
Tobacco: Former smoker
Alcohol: None
Drug: None
Personal: ( July 2023)
Living: with family
Employment: Not employed
Family History
Family History: Other (Noncontributory); Negative Diabetes, Hypertension or CAD
Phy Exam
Physical Exam
Physical Exam:
CONSTITUTIONAL Patient alert. Aphasic. Vital signs reviewed.
HEAD atraumatic, normocephalic.
EYES eyelids normal to inspection, Extraocular muscles intact, Conjunctiva normal, Sclera normal.
NECK normal range of motion, Trachea midline, no jugular venous distention.
RESPIRATORY CHEST mild respiratory distress noted, Chest expansion equal, wheezing bilaterally, question whether there is also additional upper airway sounds..
CARDIOVASCULAR regular rate and rhythm, Heart sounds normal.
UPPER EXTREMITY no cyanosis, no edema.
LOWER EXTREMITY no cyanosis, no edema.
NEURO aphasic, right-sided weakness noted
SKIN skin warm, dry, and normal in color.
Scores
Heart Failure Risk
Heart Failure Risk Score: Not Applicable
Course
Orders/Labs/Results
Orders:
Orders
11/16/23 17:04
Albuterol Sulfate [Ventolin Nebules] 7.5 mg INH R NOW STA
Ipratropium Nebs [Atrovent Nebules] 0.5 mg INH R NOW STA
11/16/23 17:06
Ipratropium Nebs [Atrovent Nebules] 0.5 mg INH R NOW STA
CR Chest Portable - 1 View Urgent
Comment:
Reason For Exam: sob
Reason Study Needs to be Portable: Patient Unstable
11/16/23 17:07
Dexamethasone Sod Phosphate [Decadron] 10 mg IV NOW STA
11/16/23 17:23
Complete Blood Count/With Diff Urgent
Comprehensive Metabolic Panel Urgent
NT-proBNP Urgent
TSH Reflex To Free T4 Urgent
Comment: ADD ON
Troponin I Urgent
11/16/23 17:29
CT Neck W/o Iv Contrast Urgent
Comment:
Reason For Exam: stridor, recently intubated
11/16/23 18:46
EKG [Electrocardiogram (*1)] Urgent
Reason for Study: Shortness of Breath
EKG- Treatment ONCE
11/16/23 19:47
Ipratropium/Albuterol Sulfate [Duoneb] 3 ml INH R NOW STA
11/16/23 20:22
COVID-19 Antigen Urgent
Source: Nasal Swab
11/16/23 20:47
Admit/Transfer Patient As Directed
Co-Sign Provider:
Level of Care: Inpatient admission
Assign to:: Telemetry
Physician / Group: Jose Roberto
Diagnosis: AE-COPD
Reason for Telemetry: Arrhythmia
Date to Stop Telemetry: 11/19/23
Time to Stop Telemetry: 11:00
Reason for Hospitalization: AE-COPD
Expected length of stay greater than two midnights?: Yes
ELOS- Estimated Length of Stay in days: 3
I certify the patient meets the requirements for IP care: Yes
11/16/23 20:50
Code Status As Directed
Resuscitation Status: Full Code
11/16/23 21:55
Acetaminophen [Tylenol] 650 mg PO Q4HPRN PRN
Albuterol Nebs [Ventolin Nebules] 2.5 mg INH R Q4HPRN PRN
Polyethylene Glycol Powder [Miralax] 17 grams PO DAILYPRN PRN
11/16/23 21:55
Activity As Directed
Activity Level: Ambulate
With Assistance
Bladder Scan As Directed
Follow Bladder Retention/Intermittent Cath Algorithm?: Yes
PRN if no void in __ hours: 6
Frequency: Per Retention Algorithm
If Bladder Scan Result >: 400
then:: Straight cath
EKG with chest pain [ECG as needed] As Directed
ECG as needed for:: Chest Pain
I/O [Intake/ Output] As Directed
Frequency: Per unit guidelines
Pneumatic Compression Sleeves As Directed
Type: Knee high
Straight Cath As Directed
Frequency: Per Retention Algorithm
Additional Instructions: straight cath as needed per acute urinary retention algorithm for 24 hrs
Additional Instructions: for bladder scan greater than 400 mL
Vital Signs As Directed
Frequency: Per unit guidelines
Weight As Directed
Frequency: Daily
Chest PT [Rx Chest Pt] [RESP] Routine
Special Instructions: BID
Oxygen Therapy [O2 Therapy] [RESP] Routine
Titrate/Wean O2 to maintain O2 sat greater than (%): 94
Ot Eval And Treat Routine
PT Consult [Pt Eval And Treat] Routine
Activity Level: Ambulate
With Assistance
DX Deep Vein Thrombosis Video Routine
11/16/23 22:00
Baclofen [Lioresal] 10 mg PO TID
Flush (0.9% Sodium Chloride) [Flush (Nss)] See Dose Instructions IV PER PROTOCOL
Gabapentin [Neurontin] 300 mg PO TID
Sennosides [Senokot] 17.2 mg PO HS
11/17/23 00:00
Dexamethasone Sod Phosphate [Decadron] 4 mg IV Q6H
11/17/23 Breakfast
Regular
At Your Request: Non-Participating
Basic Metabolic Panel IN AM
Complete Blood Count/No Diff IN AM
11/17/23 08:00
Apixaban [Eliquis] 2.5 mg PO BID
Budesonide [Pulmicort] 0.5 mg INH R BID
Docusate Sodium [Colace] 100 mg PO BID
Furosemide [Lasix] 40 mg PO BID AT 0800,1600
Ipratropium/Albuterol Sulfate [Duoneb] 3 ml INH R QID
Pantoprazole [Protonix] 40 mg PO DAILY
Potassium Chloride 10% Elixir [KCl Elixir] 20 meq PO BID
11/17/23 12:00
Duloxetine Delayed Release [Cymbalta Delayed Release] 60 mg PO NOON
11/17/23 18:00
Atorvastatin [Lipitor] 20 mg PO QPM
11/19/23 11:00
DC Protocol for Telemetry ONCE
Abnormal Lab Results
11/16/23
17:23
RBC 3.90 L 10^6/uL
(4.20-5.40)
Hct 36.2 L %
(37.0-47.0)
MCH 31.3 H pg
(27.0-31.0)
RDW 15.9 H %
(11.5-14.5)
MPV 10.5 H fL
(7.4-10.4)
Abs Immat Gran (auto) 0.1 H 10^3/uL
(0-0.05)
Absolute Neuts (auto) 7.7 H 10^3/uL
(1.4-6.5)
Absolute Lymphs (auto) 0.9 L 10^3/uL
(1.2-3.4)
Absolute Monos (auto) 0.7 H 10^3/uL
(0.1-0.6)
Neutrophils % 79.6 H %
(42.2-75.2)
Lymphocytes % 9.6 L %
(20.5-51.1)
BUN 20 H mg/dl
(7-17)
Glucose 172 H mg/dl
(70-99)
11/16/23 17:23
11/16/23 17:23
Vital Signs
Initial and Last Documented VS:
Initial Vital Signs
Temp Pulse Resp BP Pulse Ox
98.1 F 76 28 181/80 94
11/16/23 16:48 11/16/23 16:48 11/16/23 16:48 11/16/23 16:48 11/16/23 16:48
Last Documented Vital Signs
Temp Pulse Resp BP Pulse Ox
98.1 F 86 21 100/55 92
11/16/23 16:48 11/16/23 21:00 11/16/23 21:00 11/16/23 21:00 11/16/23 20:45
MDM/Problems Addressed
MDM/Problems Addressed:
Acute exacerbation of COPD
*Radiology
Radiology exam reviewed: all reviewed NAD by ED Provider
*Pulse Oximetry
Patient hypoxic: yes
*EKG
Interpreted by ED Provider?: Yes
Interpretation: normal
Rate: normal
Rhythm: sinus
Ischemia: non-specific ST changes
*Hardscape Foreman Interpretation
Rate: normal
Interpretation: normal
Rhythm: sinus
*Critical Care Note
Total Time (30-74mins, 75-104mins- exclusive of procedures): 30 minutes
Data Reviewed
Review of Other/Old Records Reveals: Discharge Summary (August discharge summary reviewed)
Source: family
Prescriptions/Medications Considered But Not Given:
Consider antibiotics but no overt fever or signs for pneumonia
Patient Management
Discussion with other providers: Hospitalist
Escalation/DeEscalation of care consider admission/obs:
Reassessed and adventitious sounds are much improved however she does not continue to wheeze and pulse ox 90%. Given her history, admit. Question whether this could be microaspiration causing a trigger. Family somewhat frustrated as this has been
somewhat recurrent.
ED Attending Note
-
Portions of this chart may have been created with voice recognition software.� Occasional wrong word or��sound alike� substitutions may have occurred due to the inherent limitations of voice recognition software.
Discharge Plan
Departure
Patient Disposition: Admit
Date of Disposition: 11/16/23
Time of Disposition: 19:45
Admit to: Telemetry
Presentation/result/management discussed w/ accepting MD/DO: Hospitalist
Discharge Problem:
Acute exacerbation of chronic obstructive pulmonary disease (COPD)
Interventions
Interventions:
*Risk Screen - Suicide Last Done: 11/16/23 21:48
*General Assessment Last Done: 11/16/23 16:48
*Neglect/Abuse Screening Last Done: 11/16/23 16:48
ED- Fall Risk Assessment Last Done: 11/16/23 21:48
*ED COVID-19 Vaccine History Last Done: 11/16/23 21:48
*Nursing Disposition Last Done: 11/16/23 21:48
ED- Pulmonary Assessment Last Done: 11/16/23 18:45
Discharge Date and Time
Discharge Date/Time: 11/16/23 21:50
[2023-11-16] MEDS: DUONEB 3 ML INH (19:53)
[2023-11-16 20:00] VITALS: BP 101/51
[2023-11-16 20:44] LABS: COVID-19 Antigen Negative (Negative)
--- NOTE | 2023-11-16 20:56 | HPS.HSE ---
Addendum entered and electronically signed by Richard Cid DO 11/16/23 22:22:
Correction: DVT Prophylaxis - Continue Eliquis.
Original Note:
Family Physician
-
Family Physician: Pito Betts
Chief Complaint
-
Wheezing / SOB
History of Present Illness
Patient is an 83y F with PMH significant for CVA with R hemiparesis and expressive aphasia, CHF and intermittent issues with wheezing who presents to ED complaining of recurrent wheezing and SOB. History obtained from family at the bedside given
patient's baseline aphasia. Patient has had multiple admissions since June 2023 for audible wheezing and respiratory distress. These symptoms seemed to begin following COVID-19 infection in June 2023. In August, she required mechanical
ventilation for a brief time. Patient was discharged to a rehab facility following her most recent admission (September 2023) and returned home about one month ago. She was discharged from rehab on a prednisone taper and was doing well with no wheezing
and no noted dyspnea at that time. She completed the prednisone and her symptoms returned within a few days.
Family specifically notes significant wheezing and apparent difficulty breathing over the past 4 days or so. Perhaps some throat discomfort (though it is difficult to tell due to patient's communication difficulty).
Her PCP restarted prednisone 10mg daily 2 days ago.
Her Facilities Officer also increased her Lasix from 40mg BID to 80mg BID 2 days ago.
There has been no change in her symptoms despite these changes.
Medical History
Past Medical History
Past Medical History: Reports Other
Additional Past Medical History:
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
Hypertension
Dyslipidemia
History of DVT
History of cervical cancer
Chronic HFpEF
Nephrolithiasis
Obesity
Depression
COVID-18 July 2023
Past Surgical History: Reports Other
Additional Past Surgical History:
Cholecystectomy
J[facility]INO
Social History
Tobacco: Former Smoker (5 packs per day x 25 years. Quit smoking 30 years ago.)
Alcohol: None
Drug: None
Personal:
Living: With Family
Family History
Family History: Not pertinent
Allergies / Home Medications
Allergies reflects when Allergies were last updated in [facility].
Home Medications with original date entered in [facility]
Allergy/Medication List:
Allergies
Allergy/AdvReac Type Severity Reaction Status Date / Time
No Known Drug Allergies Allergy NONE Verified 11/16/23 17:03
Home Medications
baclofen 10 mg tablet 10 mg PO TID Muscle Spasms 10/08/11
duloxetine 60 mg capsule,delayed release 60 mg PO NOON Mental Health/Anxiety 10/08/11
gabapentin 300 mg capsule 300 mg PO TID Pain 10/08/11
simvastatin 40 mg tablet 40 mg PO QPM High Cholesterol 10/08/11
carvedilol 3.125 mg tablet 3.125 mg PO BID Blood Pressure 05/30/19
apixaban 2.5 mg tablet (Eliquis) 2.5 mg PO BID Blood Clot Prevention/Tx 07/04/23
sennosides 8.6 mg tablet (Senna Lax) 8.6 mg PO DAILY Constipation 07/04/23
cholecalciferol (vitamin D3) 125 mcg (5,000 unit) tablet 125 mcg PO DAILY Supplement 09/06/23
omeprazole 20 mg capsule,delayed release 20 mg PO DAILY Gastrointestinal Issue 09/06/23
therapeutic multivitamin 1 tab PO DAILY Supplement 09/06/23
budesonide 0.5 mg/2 mL suspension for nebulization 0.5 mg (2 mL) inhalation R BID #60 mL 09/24/23
acetaminophen 500 mg tablet (Tylenol Extra Strength) 1,000 mg PO BIDPRN PRN mild pain 11/16/23
azithromycin 250 mg tablet 250 mg PO MOWEFR@1200 11/16/23
furosemide 40 mg tablet 40 mg PO BID 11/16/23
ipratropium 0.5 mg-albuterol 3 mg (2.5 mg base)/3 mL nebulization soln 3 ml inhalation R Q6HPRN PRN shortness of breath or wheezing 11/16/23
potassium chloride 20 mEq/15 mL oral liquid 20 meq PO BID 11/16/23
Review of Systems
-
History Source: Patient and Family
A 12 point ROS was completed and negative except as noted: Yes
Constitutional: Denies Fever or Chills
EENT: Reports Sore Throat
Respiratory: Reports Cough and Trouble Breathing; Denies Hemoptysis
Cardiac: Denies Chest Pain or Palpitations
Abdomen/GI: Denies Abdominal Pain, Nausea, Vomiting or Diarrhea
: Denies Dysuria or Frequency
Musculoskeletal: Reports Edema
Neurological: Reports Weakness and Other (Aphasia); Denies Dizzy or Headache
Psych: Denies Depression or Anxiety
Physical Exam
Vital Signs
Vital Signs
Temp Pulse Resp BP Pulse Ox
98.1 F 87 19 101/51 92
11/16/23 16:48 11/16/23 20:15 11/16/23 20:15 11/16/23 20:00 11/16/23 20:15
Physical Exam
General: Other (83y F with audible wheezing at the bedside. Not in apparent distress.)
HEENT: Moist mucous membranes and PERRLA
Respiratory: Other (Diffuse inspiratory and expiratory wheezing.)
Cardiac: S1/S2 and Regular Rhythm; No Murmur
GI: Soft, Non Tender, Non Distended and Normal Bowel Sounds
Musculoskeletal: No Clubbing, No Cyanosis and Other (Trace pedal edema.)
Neuro: Awake, Alert and Other (R hemiparesis / expressive aphasia - unchanged from prior.)
Psych: No Anxious or Depressed
Laboratory Results
-
11/16/23 17:23
11/16/23 17:23
Laboratory Results
Total Bilirubin 0.5 mg/dl (0.2-1.3) 11/16/23 17:23
AST 26 U/L (14-36) 11/16/23 17:23
ALT 21 U/L (0-35) 11/16/23 17:23
Alkaline Phosphatase 107 U/L (38-126) 11/16/23 17:23
Troponin I < 0.012 ng/ml 11/16/23 17:23
Impression/Plan
-
A/P: Patient is an 83y F with PMH significant for prior CVA, COPD and CHF who presents to ED for evaluation of wheezing and SOB.
Recurrent Wheezing / Dyspnea
COPD with Acute Exacerbation
- Admit for further evaluation and treatment.
- SpO2 in the low 90s in the ED. Diffuse wheezing appreciated on exam.
- Restart IV steroids for now and taper as symptoms improve.
- Inhaled medications ATC and PRN.
- Hold beta-ronaldo for now.
- Pulmonary re-evaluation.
- Some prior concern for possible vocal cord dysfunction - consider ENT eval.
- Follow for clinical improvement.
- Follow for any new / worsening symptoms.
Chronic HFpEF
- No evidence on exam of volume overload.
- BNP is unremarkable.
- Continue usual (40mg BID) dose of Lasix for now.
- Follow daily weights, I/Os, etc.
ASCVD
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
- Stable. No evidence of any new deficit.
- Follow for any new symptoms.
Morbid Obesity due to excess calories
- Affects all aspects of care including increased risk for sleep disordered breathing, OHV, etc.
- PSG has been discussed in the past and declined as family does not believe she would tolerate PAP therapy - may wish to revisit this.
- Do not believe that this 83y F with R hemiparesis is capable of dietary or activity changes necessary to realize significant weight loss.
DVT Prophylaxis: Lovenox while Eliquis on hold.
Code Status: Full
[2023-11-16 21:00] VITALS: BP 100/55
[2023-11-16] MEDS: NEURONTIN 300 MG PO (22:34)
[2023-11-16] MEDS: SENOKOT 17.1999999999999993 MG PO (22:34)
[2023-11-16] MEDS: LIORESAL 10 MG PO (22:34)
[2023-11-16 22:56] VITALS: BP 137/68
[2023-11-16 22:57] VITALS: BMI 45.0
[2023-11-16] MEDS: DECADRON 4 MG IV (22:59)
--- NOTE | 2023-11-16 23:00 | TRANSFER ---
Pt admitted from ED to room 422, pulled over from stretcher to bed. VSS. Pt has a hx of CVA, obtained admission information from family bedside. Bed alarm placed for safety. Pt and and family oriented to room and call amezcua placed within reach.
[2023-11-16 23:17] LABS: TSH Reflex To Free T4 1.76 uIU/ml (0.47-4.68)
[2023-11-17] VITALS (7 sets, daily range): BP systolic 125–148; BP diastolic 50–76; PULSE 91; BMI 44.4
[2023-11-17] MEDS: DECADRON 4 MG IV ×4 (05:24→23:42)
[2023-11-17 06:05] LABS: Hematocrit 33.6 % (37.0-47.0); Hemoglobin 11.5 g/dL (12.0-16.0); Mean Corp Hgb Conc. 34.2 g/dL (33.0-37.0); Mean Corpuscular Hgb 31.7 pg (27.0-31.0); Mean Corpuscular Volume 92.6 fL (81.0-99.0); Mean Platelet Volume 10.5 fL (7.4-10.4); Platelet Count 180 10^3/uL (130-400); Red Blood Cell Count 3.63 10^6/uL (4.20-5.40); Red Cell Dist. Width 15.5 % (11.5-14.5); White Blood Cell Count 7.8 10^3/uL (4.8-10.8)
[2023-11-17 06:30] LABS: Blood Urea Nitrogen 18 mg/dl (7-17); Carbon Dioxide 28 mmol/L (22-30); Chloride 103 mmol/L (98-107); Estimated Creatinine Clearance 88 ml/min; Glucose 212 mg/dl (70-99); Potassium 4.2 mmol/L (3.5-5.1); Sodium 139 mmol/L (135-145); eGFR > 60.00
[2023-11-17] MEDS: PULMICORT 0.5 MG INH ×2 (07:26→19:33)
[2023-11-17] MEDS: DUONEB 3 ML INH ×4 (07:26→19:33)
[2023-11-17] MEDS: LIORESAL 10 MG PO ×3 (07:47→20:58)
[2023-11-17] MEDS: COLACE 100 MG PO ×2 (07:47→20:58)
[2023-11-17] MEDS: PROTONIX 40 MG PO (07:47)
[2023-11-17] MEDS: ELIQUIS 2.5 MG PO ×2 (07:48→20:58)
[2023-11-17] MEDS: NEURONTIN 300 MG PO ×3 (07:48→20:59)
[2023-11-17] MEDS: KCL ELIXIR 20 MEQ PO ×2 (07:48→20:58)
[2023-11-17] MEDS: LASIX 40 MG PO ×2 (07:48→16:11)
--- NOTE | 2023-11-17 08:35 | VNURNOTE ---
Patient is current with [facility] since 07/05 w/ SN/PT/OT/ST, has private caregiver, will monitor progress and plan at discharge.
--- NOTE | 2023-11-17 08:41 | W.PN.HOSP.TC ---
Today's Communication/Plan
-
see bold
Assessment / Plan
Assessment / Plan
83y F with PMH significant for prior CVA, COPD and CHF who presents to ED for evaluation of wheezing and SOB.
Recurrent Wheezing / Dyspnea
COPD with Acute Exacerbation
- SpO2 in the low 90s in the ED. Diffuse wheezing appreciated on exam.
- Continue IV steroids, bronchodilators. Hold beta-ronaldo for now.
- Appreciate pulmonology input, azithromycin added
- Patient currently lives with son and caregiver
Chronic HFpEF
- No evidence on exam of volume overload.
- Continue usual (40mg BID) dose of Lasix for now.
- Follow daily weights, I/Os, etc.
ASCVD
Left-sided stroke with residual severe right Hemiparesis / Expressive Aphasia
- Continue Eliquis, statin
Morbid Obesity due to excess calories
- Affects all aspects of care including increased risk for sleep disordered breathing, OHV, etc.
- PSG has been discussed in the past and declined as family does not believe she would tolerate PAP therapy - may wish to revisit this.
- Do not believe that this 83y F with R hemiparesis is capable of dietary or activity changes necessary to realize significant weight loss.
DVT Prophylaxis: Eliquis
Code Status: Full
Updated son at bedside 11/16
Total time spent to see the patient on the floor, examine the patient, review data and lab results, discuss treatment plan with patient, nursing staff around 38 minutes.
Physical Exam
General: Obese, no acute distress
HEENT: Normocephalic, Atraumatic, EOMI, MMM
Respiratory: Poor air movement with wheezing noted
Cardiac: Normal S1/S2, Regular Rate and Rhythm
GI: Soft, Nontender, Nondistended, Normal Bowel Sounds
Extremities: No Clubbing, Cyanosis, or Edema
Neuro: Severe right-sided hemiparesis, aphasia noted
Psych: Calm, Cooperative
Anticipated Discharge: > 48 hours
Subjective/Interval History
-
Date of Service: November 17, 2023
Son at bedside, reports that patient's breathing is improved. Patient is not able to communicate due to her history of stroke. No fever, no vomiting.
Objective Data
-
Labs:
Laboratory Results
11/17/23
04:38
WBC 7.8
Hgb 11.5 L
Hct 33.6 L
Plt Count 180
Sodium 139
Potassium 4.2
Chloride 103
Carbon Dioxide 28
BUN 18 H
Creatinine 0.5 L
Glucose 212 H
Calcium 9.0
Vital Signs:
Vital Signs
Temp Pulse Resp BP Pulse Ox
97.8 F 84 18 151/66 95
11/17/23 07:30 11/17/23 07:48 11/17/23 07:30 11/17/23 07:48 11/17/23 07:30
--- NOTE | 2023-11-17 09:37 | CON.PUL ---
Consultation
Consultation Request
Date/Time Consultation Requested: 11/16/2023 - 2235
Date/Time Consultation Performed: 11/17/2023 - 921
Requesting Provider: Dr. Cid
Performing Provider: Dr. Olmos
Reason for Consultation: COPD exacerbation
Medical History
-
Chief Complaint: Wheezing
History of Present Illness:
83-year-old F former tobacco smoker with PMHx of COVID-19, HX of CVA, ?COPD and HX of DVT on Eliquis who p/w wheezing X 2-3 days. According to outpatient records, patient had been gaining weight recently since coming out of the hospital on
09/26/2023. Patient's PCP raised Lasix to 80mg daily from 60 mg daily. Patient also has a cough and was getting weaker with legs being very tight to touch. CXR was ordered but not done (at least not here at [facility]). Cardiology then raised Lasix
to 80 mg twice daily on Tuesday and Tuesday with potassium supplementation. Initial vitals in the ER showed hypertension 181/80, she was tachypneic to 28 breaths/min, afebrile to 98.1 �F, pulse rate 76 and she was saturating 94% on room air.
Initial labs showed Hb of 12.2, WBC 9.7, negative troponin of <0.012, proBNP of 285 (238 on 09/20/2023) and COVID antigen was negative. CXR showed no acute cardiopulmonary process. Patient given DuoNebs in ER, Decadron and admitted to telemetry
under the hospitalist service for COPD exacerbation. Pulmonary service now consulted for additional management/recommendations.
When I saw the patient she was in bed, on room air breathing comfortably in no acute distress. Shearing Supervisor at bedside however she does not speak Bel[place]ian. Patient answers all of her questions with 'go away.' She does, however, follow commands.
Unable to effectively obtain HPI from the patient or ROS given her clinical status s/p CVA.
Of note last saw us on 10/27/2023 in the office with,KOLE Uribe. Due to her recent COPD exacerbation requiring mechanical ventilation, she was started on azithromycin 250mg TIW. She had mild expiratory wheezing on exam, and was already
started on prednisone by her PCP and was advised to continue with this taper. She was on DuoNebs 4 times daily + Pulmicort twice daily. There was strong clinical suspicion for JAYLA/OHS and a home sleep study was done on 11/04/2023 showing mild JAYLA
(AHI: 9.[address] SpO2 81%). Unfortunately spirometry was unable to be done given her nonverbal state/aphasia. She was advised to see us again in 6 weeks for follow-up. Prior to that visit, patient saw us at the [facility] office in June 2019
after hospitalization for a follow-up. At that time patient was seen due to CAP with worsening DAMON. Patient has severe aphasia at that time and was unable to perform spirometry as she was unable to follow directions. She also was unable to do a
6MWT at that time due to chronic immobility from her stroke. Inhaler therapy was deferred at that time. She had upper airway stridor/wheezing and was referred to ENT. She also had suspected JAYLA and PSG was discussed. She had followed with us in
September 2019 as a telemedicine visit and PSG was deferred as the said at the time that the patient would likely not tolerate CPAP. Unfortunately since that office visit, the patient's has since .
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
calculi, CAD
PSHx: Laparoscopic cholecystectomy, total hysterectomy
Past Medical History
Past Medical History: Other (Above as per HPI)
Past Surgical History: Other (Above as per HPI)
Social History
Tobacco: Former Smoker
Alcohol: None
Drug: None
Family History
Family History: Other (Father: Stroke)
Allergies / Home Medications
Allergies
Allergy/AdvReac Type Severity Reaction Status Date / Time
No Known Drug Allergies Allergy NONE Verified 11/16/23 17:03
Home Medications
�Medication �Instructions �Recorded �Confirmed �Last Taken �Type
baclofen 10 mg tablet 10 mg PO TID Muscle Spasms 10/08/11 11/16/23 11/16/23 History
duloxetine 60 mg capsule,delayed 60 mg PO NOON Mental Health/Anxiety 10/08/11 11/16/23 11/16/23 History
release
gabapentin 300 mg capsule 300 mg PO TID Pain 10/08/11 11/16/23 11/16/23 History
simvastatin 40 mg tablet 40 mg PO QPM High Cholesterol 10/08/11 11/16/23 11/15/23 History
carvedilol 3.125 mg tablet 3.125 mg PO BID Heart Failure 05/30/19 11/16/23 11/16/23 History
apixaban 2.5 mg tablet (Eliquis) 2.5 mg PO BID Blood Clot 07/04/23 11/16/23 11/16/23 History
Prevention/Tx
sennosides 8.6 mg tablet (Senna 8.6 mg PO DAILY Constipation 07/04/23 11/16/23 11/16/23 History
Lax)
cholecalciferol (vitamin D3) 125 125 mcg PO DAILY Supplement 09/06/23 11/16/23 11/16/23 History
mcg (5,000 unit) tablet
omeprazole 20 mg capsule,delayed 20 mg PO DAILY Gastrointestinal 09/06/23 11/16/23 11/16/23 History
release Issue
therapeutic multivitamin 1 tab PO DAILY Supplement 09/06/23 11/16/23 11/16/23 History
budesonide 0.5 mg/2 mL suspension 0.5 mg (2 mL) inhalation R BID #60 09/24/23 11/16/23 11/16/23 Rx
for nebulization mL
acetaminophen 500 mg tablet 1,000 mg PO BIDPRN PRN mild pain 11/16/23 11/16/23 1 Week Ago History
(Tylenol Extra Strength) ~11/09/23
azithromycin 250 mg tablet 250 mg PO MOWEFR@1200 Infection 11/16/23 11/16/23 11/16/23 History
furosemide 40 mg tablet 40 mg PO BID Fluid 11/16/23 11/16/23 11/16/23 History
Retention/Swelling
ipratropium 0.5 mg-albuterol 3 mg 3 ml inhalation R Q6HPRN PRN 11/16/23 11/16/23 11/16/23 History
(2.5 mg base)/3 mL nebulization shortness of breath or wheezing
soln
potassium chloride 20 mEq/15 mL 20 meq PO BID Electrolyte Repletion 11/16/23 11/16/23 11/16/23 History
oral liquid
Review of Systems
-
Unable to Obtain full review of systems at this time due to: Patient Non Verbal
Vitals / Labs / Diagnostic Testing
Vital Signs
Temp Pulse Resp BP Pulse Ox
98.1 F 93 18 127/64 94
11/17/23 11:24 11/17/23 11:24 11/17/23 11:24 11/17/23 11:24 11/17/23 11:24
Lab Data
11/17/23 04:38
11/17/23 04:38
Diagnostic Testing:
Physical Exam
-
HEENT: Normocephalic and Anicteric
Cardiovascular: S1/S2 and Peripheral Edema (Negative)
Respiratory: Wheeze (Expiratory wheezing heard bilaterally), Rales (Negative), Rhonchi (Negative) and Non-Labored Respirations
GI: Soft, Distended (Abdominal obesity), Non Tender and Normal Bowel Sounds
Neurology: Awake, Alert and Tremors (Negative)
Skin: Warm and Dry
General: Comfortable and Chills (Negative)
Assessment
-
Assessment: 83-year-old F former tobacco smoker with PMHx of COVID-19, HX of CVA, ?COPD and HX of DVT on Eliquis who p/w wheezing X 2-3 days. According to outpatient records, patient had been gaining weight recently since coming out of the
hospital on 09/26/2023. Patient's PCP raised Lasix to 80mg daily from 60 mg daily. Patient also has a cough and was getting weaker with legs being very tight to touch. CXR was ordered but not done (at least not here at [facility]). Cardiology then
raised Lasix to 80 mg twice daily on Tuesday and Tuesday with potassium supplementation. Initial vitals in the ER showed hypertension 181/80, she was tachypneic to 28 breaths/min, afebrile to 98.1 �F, pulse rate 76 and she was saturating 94% on
room air. Initial labs showed Hb of 12.2, WBC 9.7, negative troponin of <0.012, proBNP of 285 (238 on 09/20/2023) and COVID antigen was negative. CXR showed no acute cardiopulmonary process. Patient given DuoNebs in ER, Decadron and admitted to
telemetry under the hospitalist service for COPD exacerbation. Pulmonary service now consulted for additional management/recommendations.
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
hyperlipidemia, history of renal calculi, CAD, suspected COPD
Impression:
#Wheezing + cough suspected for acute COPD exacerbation
#Acute respiratory failure with hypoxia not on supplemental oxygen
#Recent weight gain suspected for acute HFpEF exacerbation with Lasix dosing increased in the outpatient setting
#Ambulatory dysfunction � ambulates with a cane due to right-sided weakness given prior stroke
#Mild JAYLA � Home sleep study done on 11/04/2023 showing mild JAYLA with AHI of 9.[address] SpO2 81%
#Abnormal spirometry with both obstructive and restrictive lung defect seen via spirometry from July 2019 -uses DuoNebs 4 times daily + Pulmicort twice daily, not on home oxygen
#Former tobacco smoker (quit approximately 30 years ago)
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
#Morbid obesity with increased risk of JAYLA
#History of RLE DVT on chronic anticoagulation (Eliquis - ppx dosing)
Plan:
- Continue with systemic steroids and wean as tolerated � currently on Decadron 4 mg IV q6hr (prednisone equivalent of 106 mg daily)
- Maintain SpO2 >90-94% with supplemental O2 as needed
- Incentive spirometer encouraged although difficult to ensure proper use given nonverbal state and aphasia
- Monitor volume status with I/O, trend UOP and consider raising diuretic dosing if hypoxia worsens
- Replete electrolytes with K>4, Mg>2
- Maintain euglycemia with goal BG >100 and <180
- prn nebulized bronchodilators
- Outpatient management for her JAYLA --> will start nocturnal CPAP @ 8cmH2O while she is hospitalized to see if she tolerates this -she had a swallow assessment on 09/22/2023 showing no overt signs of aspiration, so I believe is safe to start
nocturnal PAP, however if she has signs of coughing or if she desaturates while on CPAP with concern for aspiration, then this will be stopped immediately
- Check VBG tomorrow AM to assess pCO2
- DVT ppx
Pulmonary service will continue to follow along.
Total time spent today was 55 minutes for this encounter. Time includes reviewing laboratory test/imaging results, reviewing pertinent medical records, obtaining and reviewing medical history, performing an appropriate exam, ordering medications,
tests and procedures. Time also includes documentation of this encounter, coordinating patient care and communicating with other healthcare professionals. Total time does not include separately billed tests performed on this date of service.
Data:
CXR 11-16-2023: No active cardiopulmonary disease.
CT Neck 11-16-2023: Normal neck; Old left temporal infarct
TTE 09-21-2023:
Normal left ventricular size, wall thickness and systolic function. No regional
wall motion abnormalities are seen. LV ejection fraction is 60-65% by visual
assessment. Normal diastolic function.
Normal right ventricular size and function.
Mild mitral regurgitation.
Mild tricuspid regurgitation. Estimated pulmonary artery pressure of 40 mmHg,
assuming a right atrial pressure of 3 mmHg.
Aortic sclerosis without stenosis.
Compared to the previous echo 07/22/23, there is no significant change.
Outpatient [facility] data:
PFT:
������ Spirometry 08/02/2019: FEV1/FVC 64%, FEV1 0.96-52 L, FVC 4.49 L-60%.Mixed ventilatory defect with mild airflow obstruction and a restriction.�
6MWT: 10/27/2023: Resting room air SpO2 90% with HR: 78, after 130 feet, SpO2 92-93% with HR: 98. Dyspnea scale: 2/10 reported
Sleep Studies: 11/04/2023: Home sleep apnea test: Overall apnea�hypopnea index was mild at 9.3 events per hour with a thor O2 saturation of 81%. RDI was 10.5 events per hour. Mean pulse rate was 78 bpm.
--- NOTE | 2023-11-17 12:00 | CM ---
Addendum entered by Daya Allen 11/17/23 14:53:
Spoke with Edwin, patients son.
Additional information, patient also has a live caregiver.
He will discuss with his sister home vs rehab ([facility]) and let CM know.
Original Note:
Patient seen bedside with private caregiver.
Patient unable to answer questions, just says oh way.
patient able to nod yes and no.
Patient lives with her son Edwin in a 2 story home with [facility] and has 24/7 caregivers from Home instead.
Patient has had [facility] in the past and has been to [facility] in the past.
PT/OT recommending rehab vs home.
PCP: Dr Betts
Pharmacy: [facility]
Plan: TBD, need to discuss with son. rehab vs home.
[2023-11-17] MEDS: CYMBALTA DELAYED RELEASE 60 MG PO (12:09)
[2023-11-17] MEDS: LIPITOR 20 MG PO (17:29)
[2023-11-17] MEDS: SENOKOT 17.1999999999999993 MG PO (20:59)
[2023-11-18] VITALS (7 sets, daily range): BP systolic 119–165; BP diastolic 56–79; PULSE 82; BMI 44.5
--- NOTE | 2023-11-18 05:27 | W.PN.HOSP.TC ---
Today's Communication/Plan
-
steroid taper
once Acetazolamide as per Pulm For Metabolic Alkalosis
monitor VBG
cont bedtime CPAP
low dose sliding scale
Assessment / Plan
Assessment / Plan
83y F with PMH significant for prior CVA, COPD and CHF who presents to ED for evaluation of wheezing and SOB.
Recurrent Wheezing / Dyspnea
COPD with Acute Exacerbation
- SpO2 in the low 90s in the ED. Diffuse wheezing appreciated on exam.
- Continue IV steroids tapered to 4mg IV Q12, bronchodilators, budesonide BID. Hold beta-ronaldo for now.
- Appreciate pulmonology input, azithromycin added, cont
- Patient currently lives with son and caregiver
Chronic HFpEF
- No evidence on exam of volume overload.
- Continue usual (40mg BID) dose of Lasix for now.
- Follow daily weights, I/Os, etc.
-Follow up ECHO notes no acute changes with prior.
-outpatient follow up with cardio recommended
ASCVD
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
- Continue Eliquis, statin
Morbid Obesity due to excess calories
JAYLA
- Affects all aspects of care including increased risk for sleep disordered breathing, OHV, etc.
- trialed CPAP as per pulm, appears to be tolerating.
Metabolic Alkalosis
-once acetazolamide as per Pulm 11/17
Diabetes
recent A1c 6.7 09/21/23
likely steroid induced hyperglycemia
low dose sliding scale for now
PT/OT appreciated SNF rehab vs HH
DVT Prophylaxis: Eliquis
Code Status: Full
Updated son at bedside 11/17
Total time spent to see the patient on the floor, examine the patient, review data and lab results, discuss treatment plan with patient, nursing staff around 50 minutes.
Physical Exam
General: Obese, no acute distress
HEENT: Normocephalic, Atraumatic, EOMI, MMM
Respiratory: Poor air movement with wheezing noted
Cardiac: Normal S1/S2, Regular Rate and Rhythm
GI: Soft, Nontender, Nondistended, Normal Bowel Sounds
Extremities: No Clubbing, Cyanosis, or Edema
Neuro: Severe right-sided hemiparesis, aphasia noted only able to say 'go away'
Psych: Calm, Cooperative
Anticipated Discharge: 24 - 48 hours
Subjective/Interval History
-
Date of Service: November 18, 2023
Seen and examined at bedside. Patient appears comfortable sitting up in bed no acute distress. Son at bedside continues to note overall improvement in patient's symptoms.
Objective Data
-
Labs:
Laboratory Results
11/18/23
06:00
WBC Pending
Hgb Pending
Hct Pending
Plt Count Pending
Sodium Pending
Potassium Pending
Chloride Pending
Carbon Dioxide Pending
BUN Pending
Creatinine Pending
Glucose Pending
Calcium Pending
Vital Signs:
Vital Signs
Temp Pulse Resp BP Pulse Ox
97.7 F 81 18 143/73 93
11/18/23 04:00 11/18/23 04:00 11/18/23 04:00 11/18/23 04:00 11/18/23 04:00
I&O
11/16/23 11/17/23 11/18/23
06:59 06:59 06:59
Intake Total 1170 / 1170
Output Total 1050 / 1050
Balance 120 / 120
[2023-11-18] MEDS: DECADRON 4 MG IV ×2 (05:31→20:43)
[2023-11-18] MEDS: PULMICORT 0.5 MG INH ×2 (07:24→19:38)
[2023-11-18] MEDS: DUONEB 3 ML INH ×4 (07:24→19:38)
[2023-11-18 07:30] LABS: Venous Blood Gas B.E. 7.5 mmol/L (-4 to +4); Venous Blood Gas HCO3 31.1 mmol/L (22-27); Venous Blood Gas O2 Sat % 99.2 %; Venous Blood Gas pCO2 39 mmHg (35-48); Venous Blood Gas pH 7.51 (7.32-7.43); Venous Blood Gas pO2 164 mmHg (30-50)
[2023-11-18 07:32] LABS: Hematocrit 35.5 % (37.0-47.0); Hemoglobin 11.9 g/dL (12.0-16.0); Mean Corp Hgb Conc. 33.5 g/dL (33.0-37.0); Mean Corpuscular Hgb 31.3 pg (27.0-31.0); Mean Corpuscular Volume 93.4 fL (81.0-99.0); Mean Platelet Volume 10.3 fL (7.4-10.4); Platelet Count 198 10^3/uL (130-400); Red Cell Dist. Width 15.5 % (11.5-14.5); White Blood Cell Count 12.9 10^3/uL (4.8-10.8)
[2023-11-18] MEDS: LIORESAL 10 MG PO ×3 (09:02→20:43)
[2023-11-18] MEDS: PROTONIX 40 MG PO (09:02)
[2023-11-18] MEDS: ELIQUIS 2.5 MG PO ×2 (09:02→20:41)
[2023-11-18] MEDS: NEURONTIN 300 MG PO ×3 (09:02→20:40)
[2023-11-18] MEDS: COLACE 100 MG PO ×2 (09:02→20:41)
[2023-11-18] MEDS: LASIX 40 MG PO ×2 (09:02→15:23)
[2023-11-18] MEDS: KCL ELIXIR 20 MEQ PO ×2 (09:02→20:39)
[2023-11-18] MEDS: ZITHROMAX 500 MG PO (09:04)
--- NOTE | 2023-11-18 09:19 | W.PN.PUL3 ---
Today's Communication / Plan
-
Wean steroids to 4mg IV q12hr (prednisone equivalent of 53mg daily)
Continue DuoNebs QID + budesonide BID
Aspiration precautions
CPAP with sleep at 8cmH2O
PT - recommending rehab vs home; OT - recommending skilled rehab
prn duonebs for breakthrough symptoms
Assessment
-
Assessment: 83-year-old F former tobacco smoker with PMHx of COVID-19, HX of CVA, ?COPD and HX of DVT on Eliquis who p/w wheezing X 2-3 days. According to outpatient records, patient had been gaining weight recently since coming out of the
hospital on 09/26/2023. Patient's PCP raised Lasix to 80mg daily from 60 mg daily. Patient also has a cough and was getting weaker with legs being very tight to touch. CXR was ordered but not done (at least not here at [facility]). Cardiology then
raised Lasix to 80 mg twice daily on Tuesday and Tuesday with potassium supplementation. Initial vitals in the ER showed hypertension 181/80, she was tachypneic to 28 breaths/min, afebrile to 98.1 �F, pulse rate 76 and she was saturating 94% on
room air. Initial labs showed Hb of 12.2, WBC 9.7, negative troponin of <0.012, proBNP of 285 (238 on 09/20/2023) and COVID antigen was negative. CXR showed no acute cardiopulmonary process. Patient given DuoNebs in ER, Decadron and admitted to
telemetry under the hospitalist service for COPD exacerbation. Pulmonary service now consulted for additional management/recommendations.
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
hyperlipidemia, history of renal calculi, CAD, suspected COPD
Impression:
#Wheezing + cough suspected for acute COPD exacerbation
#Acute respiratory failure with hypoxia not on supplemental oxygen
#Recent weight gain suspected for acute HFpEF exacerbation with Lasix dosing increased in the outpatient setting
#Ambulatory dysfunction � ambulates with a cane due to right-sided weakness given prior stroke
#Metabolic alkalosis
#Mild JAYLA � Home sleep study done on 11/04/2023 showing mild JAYLA with AHI of 9.3 [address] thor SpO2 81%
#Abnormal spirometry with both obstructive and restrictive lung defect seen via spirometry from July 2019 -uses DuoNebs 4 times daily + Pulmicort twice daily, not on home oxygen
#Former tobacco smoker (quit approximately 30 years ago)
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
#Morbid obesity with increased risk of JAYLA
#History of RLE DVT on chronic anticoagulation (Eliquis - ppx dosing)
Plan:
- Continue with systemic steroids and wean as tolerated � currently on Decadron 4 mg IV q6hr--> wean today to 4mg IV q12hr (prednisone equivalent of 53mg daily)
- Maintain SpO2 >90-94% with supplemental O2 as needed
- Incentive spirometer encouraged although difficult to ensure proper use given nonverbal state and aphasia
- Monitor volume status with I/O, trend UOP and consider raising diuretic dosing if hypoxia worsens
- Given her metabolic alkalosis with pH 7.51, serum bicarbonate 29, give Diamox x1; trned venous blood gas to assure pH and pCO2 are stable
- Replete electrolytes with K>4, Mg>2
- Maintain euglycemia with goal BG >100 and <180
- prn nebulized bronchodilators
- Mucolytics prn with chest PT prn
- Outpatient management for her JAYLA --> started nocturnal CPAP @ 8cmH2O on 11/16 ; continue this while she is hospitalized as she seems to be tolerating this - she had a swallow assessment on 09/22/2023 showing no overt signs of aspiration, so I
believe it is safe to continue nocturnal PAP, however if she has signs of coughing or if she desaturates while on CPAP with concern for aspiration, then this will be stopped immediately
- DVT ppx
Pulmonary service will continue to follow along.
Total time spent today was 35 minutes for this encounter. Time includes reviewing laboratory test/imaging results, reviewing pertinent medical records, obtaining and reviewing medical history, performing an appropriate exam, ordering medications,
tests and procedures. Time also includes documentation of this encounter, coordinating patient care and communicating with other healthcare professionals. Total time does not include separately billed tests performed on this date of service.
Data:
CXR 11-16-2023: No active cardiopulmonary disease.
CT Neck 11-16-2023: Normal neck; Old left temporal infarct
TTE 09-21-2023:
Normal left ventricular size, wall thickness and systolic function. No regional
wall motion abnormalities are seen. LV ejection fraction is 60-65% by visual
assessment. Normal diastolic function.
Normal right ventricular size and function.
Mild mitral regurgitation.
Mild tricuspid regurgitation. Estimated pulmonary artery pressure of 40 mmHg,
assuming a right atrial pressure of 3 mmHg.
Aortic sclerosis without stenosis.
Compared to the previous echo 07/22/23, there is no significant change.
Outpatient [facility] data:
PFT:
������ Spirometry 08/02/2019: FEV1/FVC 64%, FEV1 0.96-52 L, FVC 4.49 L-60%.Mixed ventilatory defect with mild airflow obstruction and a restriction.�
6MWT: 10/27/2023: Resting room air SpO2 90% with HR: 78, after 130 feet, SpO2 92-93% with HR: 98. Dyspnea scale: 2/10 reported
Sleep Studies: 11/04/2023: Home sleep apnea test: Overall apnea�hypopnea index was mild at 9.3 events per hour with a thor O2 saturation of 81%. RDI was 10.5 events per hour. Mean pulse rate was 78 bpm.
Subjective Data
-
Date of Service:
Date of Service: November 18, 2023
Chief Complaint: Pulmonary Follow Up
Subjective:
Patient seen and evaluated today at bedside. Following commands. On room air breathing comfortably. 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 Patient wore CPAP @ 8cmH2O overnight and tolerated it. Patient is afebrile overnight.
Review of Systems
General: Other (Unable to obtain ROS given patient's clinical status/aphasia)
Objective Data
Data Reviewed
Vital Signs / I&O / Oxygen:
Vital Signs
Temp Pulse Resp BP Pulse Ox
97.8 F 65 18 165/79 96
11/18/23 07:10 11/18/23 07:28 11/18/23 07:28 11/18/23 07:10 11/18/23 07:28
Intake and Output
11/17/23 11/18/23 11/19/23
06:59 06:59 06:59
Intake Total 1170 / 1170
Output Total 1850 / 1850
Balance -680 / -680
SaO2 96
Physical Exam
General: Respiratory Distress (Negative) and Comfortable
HEENT: Normocephalic and Anicteric
Cardiovascular: S1-S2 and Peripheral Edema (Negative)
Respiratory: Wheeze ([place] upon expiration bilaterally), Crackles (Negative), Rhonchi (Negative) and Non-Labored Respirations
GI: Soft, Distended (Abdominal obesity), Non Tender and Normal Bowel Sounds
Neurology: Awake, Alert and Other (Follows commands)
Skin: Warm and Dry
Labs/Micro/Reports
Lab Data
11/18/23 07:14
[2023-11-18 09:54] LABS: Blood Urea Nitrogen 23 mg/dl (7-17); Calcium 9.2 mg/dl (8.4-10.2); Carbon Dioxide 29 mmol/L (22-30); Chloride 102 mmol/L (98-107); Estimated Creatinine Clearance 75 ml/min; Glucose 189 mg/dl (70-99); Potassium 4.1 mmol/L (3.5-5.1); Sodium 140 mmol/L (135-145); eGFR > 60.00
--- NOTE | 2023-11-18 11:50 | CM ---
Addendum entered by Daya Allen 11/18/23 15:29:
Spoke with Alayna from [facility] in [place], they are able to accept patient Tuesday if she is medically stable for transfer and family is agreeable. Son was not sure of home with [facility] vs rehab.
Original Note:
Spoke with patient and son bedside.
Patient continues on IV steroids.
Plan: will be home with [facility] vs Rehab at [facility].
[facility] following, referal to [facility].
[2023-11-18] MEDS: CYMBALTA DELAYED RELEASE 60 MG PO (13:17)
[2023-11-18] MEDS: DESENEX/MITRAZOL/ZEASORB 1 APPLIC TOPICAL ×2 (13:17→20:41)
[2023-11-18] MEDS: DIAMOX 250 MG PO (15:02)
--- NOTE | 2023-11-18 15:50 | PTCARENOTE ---
Patient alert and oriented to self. Answers questions by saying 'away' and nodding her head. Follows commands and takes pills whole with water. Caregiver at bedside.
[2023-11-18] MEDS: LIPITOR 20 MG PO (17:28)
[2023-11-18] MEDS: SENOKOT 17.1999999999999993 MG PO (20:40)
[2023-11-18 21:23] LABS: Glucose - Point of Care 210 mg/dl (70-99)
[2023-11-19] VITALS (7 sets, daily range): BP systolic 123–163; BP diastolic 61–84; PULSE 89; BMI 43.6
[2023-11-19 06:45] LABS: Hematocrit 34.3 % (37.0-47.0); Hemoglobin 11.7 g/dL (12.0-16.0); Mean Corp Hgb Conc. 34.1 g/dL (33.0-37.0); Mean Corpuscular Hgb 31.3 pg (27.0-31.0); Mean Corpuscular Volume 91.7 fL (81.0-99.0); Mean Platelet Volume 10.2 fL (7.4-10.4); Platelet Count 221 10^3/uL (130-400); Red Blood Cell Count 3.74 10^6/uL (4.20-5.40); Red Cell Dist. Width 15.7 % (11.5-14.5); White Blood Cell Count 12.2 10^3/uL (4.8-10.8)
[2023-11-19 07:05] LABS: Blood Urea Nitrogen 29 mg/dl (7-17); Calcium 9.4 mg/dl (8.4-10.2); Carbon Dioxide 29 mmol/L (22-30); Chloride 102 mmol/L (98-107); Estimated Creatinine Clearance 52 ml/min; Glucose 172 mg/dl (70-99); Magnesium 2.2 mg/dl (1.6-2.3); Phosphorus 4.8 mg/dl (2.5-4.5); Potassium 3.8 mmol/L (3.5-5.1); Sodium 139 mmol/L (135-145); eGFR 56.25
[2023-11-19 07:32] LABS: Glucose - Point of Care 167 mg/dl (70-99)
[2023-11-19] MEDS: PULMICORT 0.5 MG INH ×2 (08:19→19:55)
[2023-11-19] MEDS: DUONEB 3 ML INH ×4 (08:19→19:54)
--- NOTE | 2023-11-19 09:17 | W.PN.HOSP.TC ---
Today's Communication/Plan
-
see bold
Assessment / Plan
Assessment / Plan
83y F with PMH significant for prior CVA, COPD and CHF who presents to ED for evaluation of wheezing and SOB.
Recurrent Wheezing / Dyspnea
COPD with Acute Exacerbation
- SpO2 in the low 90s in the ED. Diffuse wheezing appreciated on exam.
- Continue IV steroids tapered to 4mg IV Q12, bronchodilators, budesonide BID. Hold beta-ronaldo for now.
- Appreciate pulmonology input, azithromycin added
- Patient currently lives with son and caregiver
Chronic HFpEF
- No evidence on exam of volume overload.
- Appreciate cards input, continue usual (40mg BID) dose of Lasix for now.
- Follow daily weights, I/Os, etc.
- Follow up ECHO notes no acute changes with prior.
- Outpatient follow up with cardio recommended
ASCVD
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
- Continue Eliquis, statin
Morbid Obesity due to excess calories
JAYLA
- Affects all aspects of care including increased risk for sleep disordered breathing, OHV, etc.
- Trialed CPAP as per pulm, appears to be tolerating.
Metabolic Alkalosis
- Once acetazolamide as per Pulm 11/17
Diabetes
-recent A1c 6.7 09/21/23
-likely steroid induced hyperglycemia
-low dose sliding scale for now
PT/OT appreciated SNF rehab vs HH
DVT Prophylaxis: Eliquis
Code Status: Full
Updated son at bedside 11/18
Total time spent to see the patient on the floor, examine the patient, review data and lab results, discuss treatment plan with patient, nursing staff around 52 minutes.
Physical Exam
General: Obese, no acute distress
HEENT: Normocephalic, Atraumatic, EOMI, MMM
Respiratory: Poor air movement with wheezing noted
Cardiac: Normal S1/S2, Regular Rate and Rhythm
GI: Soft, Nontender, Nondistended, Normal Bowel Sounds
Extremities: No Clubbing, Cyanosis, or Edema
Neuro: Severe right-sided hemiparesis, aphasia noted only able to say 'go away'
Psych: Calm, Cooperative
Anticipated Discharge: 24 - 48 hours
Subjective/Interval History
-
Date of Service: November 19, 2023
Patient's breathing continues to improve. She is still wheezing. No fever, no vomiting.
Objective Data
-
Labs:
Laboratory Results
11/19/23
06:15
WBC 12.2 H
Hgb 11.7 L
Hct 34.3 L
Plt Count 221
Sodium 139
Potassium 3.8
Chloride 102
Carbon Dioxide 29
BUN 29 H
Creatinine 1.0
Glucose 172 H
Calcium 9.4
Vital Signs:
Vital Signs
Temp Pulse Resp BP Pulse Ox
98.3 F 76 20 161/75 92
11/19/23 03:10 11/19/23 03:10 11/19/23 03:10 11/19/23 03:10 11/19/23 03:10
I&O
11/18/23 11/19/23 11/20/23
06:59 06:59 06:59
Intake Total 1170 / 1170 900 / 900
Output Total 1850 / 1850 2550 / 2550
Balance -680 / -680 -1650 / -1650
[2023-11-19] MEDS: NOVOLOG FLEXPEN-LOW RESISTANCE 1 UNITS SC ×2 (09:36→13:17)
[2023-11-19] MEDS: ELIQUIS 2.5 MG PO ×2 (09:37→19:51)
[2023-11-19] MEDS: COLACE 100 MG PO ×2 (09:37→19:47)
[2023-11-19] MEDS: NEURONTIN 300 MG PO ×3 (09:37→19:47)
[2023-11-19] MEDS: LASIX 40 MG PO ×2 (09:37→16:17)
[2023-11-19] MEDS: LIORESAL 10 MG PO ×3 (09:37→19:50)
[2023-11-19] MEDS: PROTONIX 40 MG PO (09:37)
[2023-11-19] MEDS: KCL ELIXIR 20 MEQ PO ×2 (09:38→19:48)
[2023-11-19] MEDS: DESENEX/MITRAZOL/ZEASORB 1 APPLIC TOPICAL ×2 (09:38→19:44)
[2023-11-19] MEDS: DECADRON 4 MG IV ×2 (09:38→19:47)
[2023-11-19 10:14] LABS: Venous Blood Gas B.E. 2.7 mmol/L (-4 to +4); Venous Blood Gas HCO3 27.9 mmol/L (22-27); Venous Blood Gas O2 Sat % 99.2 %; Venous Blood Gas pCO2 44 mmHg (35-48); Venous Blood Gas pH 7.41 (7.32-7.43); Venous Blood Gas pO2 163 mmHg (30-50)
[2023-11-19 12:44] LABS: Glucose - Point of Care 169 mg/dl (70-99)
[2023-11-19] MEDS: CYMBALTA DELAYED RELEASE 60 MG PO (13:17)
--- NOTE | 2023-11-19 13:39 | W.PN.UPDATE ---
Update Note
Progress Note Update
Hospitalist asked me to clarify Lasix dosing and recommendations per family's request. Patient is known to Dr. Membreno and I reviewed outpatient correspondence and records. Patient had been taking Lasix 40 mg in the morning and 20 mg in the evening
which was recently increased by her primary care physician in October to 40 mg twice daily which was then later increased on 11/11/2023 to Lasix 80 mg twice daily for 2 days only. She appears euvolemic and is tolerating current Lasix dose. Will
continue Lasix 40 mg twice daily. She missed an appointment with Dr. Membreno on 11/17/2023 and I will have office facilitate rescheduling appointment next week. Discussed plan with patient and her aide who is at bedside however patient is aphasic and
aide speaks minimal Libyan. Discussed plan with hospitalist. I tried to call son from patient's room however was not able to reach him.
--- NOTE | 2023-11-19 16:02 | W.PN.PUL3 ---
Today's Communication / Plan
-
BDs
CSs
CPAP qhs
Assessment
-
Assessment:
83-year-old F former tobacco smoker with PMHx of COVID-19, HX of CVA, ?COPD and HX of DVT on Eliquis who p/w wheezing X 2-3 days. According to outpatient records, patient had been gaining weight recently since coming out of the hospital on
09/26/2023. Patient's PCP raised Lasix to 80mg daily from 60 mg daily. Patient also has a cough and was getting weaker with legs being very tight to touch. CXR was ordered but not done (at least not here at [facility]). Cardiology then raised Lasix
to 80 mg twice daily on Tuesday and Tuesday with potassium supplementation. Initial vitals in the ER showed hypertension 181/80, she was tachypneic to 28 breaths/min, afebrile to 98.1 �F, pulse rate 76 and she was saturating 94% on room air.
Initial labs showed Hb of 12.2, WBC 9.7, negative troponin of <0.012, proBNP of 285 (238 on 09/20/2023) and COVID antigen was negative. CXR showed no acute cardiopulmonary process. Patient given DuoNebs in ER, Decadron and admitted to telemetry
under the hospitalist service for COPD exacerbation. Pulmonary service now consulted for additional management/recommendations.
Chronic conditions [facility]: History of endometrial carcinoma, depression, history of right lower extremity DVT, history of left hemispheric CVA complicated by expressive aphasia and right hemiplegia (2009), history of UTI with urosepsis,
hyperlipidemia, history of renal calculi, CAD, suspected COPD
Impression:
#Wheezing + cough suspected for acute COPD exacerbation
#Acute respiratory failure with hypoxia not on supplemental oxygen
#Recent weight gain suspected for acute HFpEF exacerbation with Lasix dosing increased in the outpatient setting
#Ambulatory dysfunction � ambulates with a cane due to right-sided weakness given prior stroke
#Metabolic alkalosis
#Mild JAYLA � Home sleep study done on 11/04/2023 showing mild JAYLA with AHI of 9.[address] SpO2 81%
#Abnormal spirometry with both obstructive and restrictive lung defect seen via spirometry from July 2019 -uses DuoNebs 4 times daily + Pulmicort twice daily, not on home oxygen
#Former tobacco smoker (quit approximately 30 years ago)
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
#Morbid obesity with increased risk of JAYLA
#History of RLE DVT on chronic anticoagulation (Eliquis - ppx dosing)
Plan:
Continue with systemic steroids and wean as tolerated � Decadron 4 mg IV q6hr was weaned to 4mg IV q12hr on 11-17 (prednisone equivalent of 53 mg daily), continue. Not on chronic CSs
Continue budesonide bid
DNs qid
Alb nebs prn
Continue outpatient azithro prophylaxis at 250 mg MWF
Keep SpO2 >90-94% with supplemental O2 as needed
IS: difficult to ensure proper use given nonverbal state and aphasia
Monitor volume status with I/O, trend UOP and consider raising diuretic dosing if hypoxia worsens
Given her metabolic alkalosis with pH 7.51, serum bicarbonate 29, give Diamox x1 on 11-17
Replete electrolytes with K>4, Mg>2
Maintain euglycemia with goal BG >100 and <180
Mucolytics prn with chest PT prn
Continue outpatient diuretic
Outpatient management of JAYLA --> started nocturnal CPAP @ 8cmH2O on 11/16 ; continue this while she is hospitalized as she seems to be tolerating this -
Had a swallow assessment on 09/22/2023 showing no overt signs of aspiration, so it is safe to continue nocturnal PAP while inpatient, however if she has signs of coughing or if she desaturates while on CPAP with concern for aspiration, then this will
be stopped immediately
DVT ppx: already on chronic apixaban (h/o RLE DVT
Data:
CXR 11-16-2023: No active cardiopulmonary disease.
CT Neck 11-16-2023: Normal neck; Old left temporal infarct
TTE 09-21-2023:
Normal left ventricular size, wall thickness and systolic function. No regional
wall motion abnormalities are seen. LV ejection fraction is 60-65% by visual
assessment. Normal diastolic function.
Normal right ventricular size and function.
Mild mitral regurgitation.
Mild tricuspid regurgitation. Estimated pulmonary artery pressure of 40 mmHg,
assuming a right atrial pressure of 3 mmHg.
Aortic sclerosis without stenosis.
Compared to the previous echo 07/22/23, there is no significant change.
Outpatient [facility] data:
PFT:
������ Spirometry 08/02/2019: FEV1/FVC 64%, FEV1 0.96-52 L, FVC 4.49 L-60%.Mixed ventilatory defect with mild airflow obstruction and a restriction.�
6MWT: 10/27/2023: Resting room air SpO2 90% with HR: 78, after 130 feet, SpO2 92-93% with HR: 98. Dyspnea scale: 2/10 reported
Sleep Studies: 11/04/2023: Home sleep apnea test: Overall apnea�hypopnea index was mild at 9.3 events per hour with a thor O2 saturation of 81%. RDI was 10.5 events per hour. Mean pulse rate was 78 bpm.
Subjective Data
-
Date of Service:
Date of Service: November 19, 2023
Chief Complaint: Pulmonary Follow Up
Subjective:
No major events reported overnight
Chronic expressive aphasia, accompanied by caregiver
Patient on room air at time of visit
Review of Systems
General: Other (Aphasia)
Objective Data
Data Reviewed
Vital Signs / I&O / Oxygen:
Vital Signs
Temp Pulse Resp BP Pulse Ox
97.1 F 74 16 137/65 94
11/19/23 11:00 11/19/23 15:22 11/19/23 15:22 11/19/23 11:00 11/19/23 15:22
Intake and Output
11/18/23 11/19/2311/19/24
06:59 06:59 06:59
Intake Total 1170 / 1170 900 / 900
Output Total 1850 / 1850 2550 / 2550
Balance -680 / -680 -1650 / -1650
SaO2 94
Physical Exam
General: Respiratory Distress (Negative) and Comfortable
HEENT: Normocephalic, Anicteric and Moist Mucous Membranes
Cardiovascular: S1-S2, Regular Rhythm, Peripheral Edema (Negative) and Calf Tenderness (n)
Respiratory: Wheeze (trace), Crackles (Negative), Rhonchi (Negative), Non-Labored Respirations and Stridor (n)
GI: Soft, Non Distended, Non Tender and Normal Bowel Sounds
Neurology: Awake, Alert, Other (Follows simple commands) and Other (aphasic)
Skin: Warm and Dry
Labs/Micro/Reports
Lab Data
11/19/23 06:15
11/19/23 06:15
[2023-11-19] MEDS: LIPITOR 20 MG PO (16:17)
[2023-11-19 16:54] LABS: Glucose - Point of Care 205 mg/dl (70-99)
[2023-11-19 17:04] LABS: NT-proBNP 491 pg/ml
[2023-11-19] MEDS: NOVOLOG FLEXPEN-LOW RESISTANCE 2 UNITS SC (17:26)
[2023-11-19] MEDS: SENOKOT 17.1999999999999993 MG PO (19:47)
[2023-11-19 21:08] LABS: Glucose - Point of Care 196 mg/dl (70-99)
[2023-11-20 06:00] VITALS: BMI 43.1
[2023-11-20 07:08] VITALS: BP 142/65
[2023-11-20] MEDS: DUONEB 3 ML INH ×4 (07:21→18:16)
[2023-11-20] MEDS: PULMICORT 0.5 MG INH ×2 (07:21→18:17)
[2023-11-20 07:50] LABS: Hematocrit 35.7 % (37.0-47.0); Hemoglobin 12.1 g/dL (12.0-16.0); Mean Corp Hgb Conc. 33.9 g/dL (33.0-37.0); Mean Corpuscular Volume 91.5 fL (81.0-99.0); Mean Platelet Volume 10.2 fL (7.4-10.4); Platelet Count 230 10^3/uL (130-400); Red Cell Dist. Width 15.8 % (11.5-14.5); White Blood Cell Count 11.9 10^3/uL (4.8-10.8)
[2023-11-20 08:16] LABS: Blood Urea Nitrogen 31 mg/dl (7-17); Calcium 9.2 mg/dl (8.4-10.2); Carbon Dioxide 26 mmol/L (22-30); Chloride 103 mmol/L (98-107); Estimated Creatinine Clearance 52 ml/min; Glucose 153 mg/dl (70-99); Magnesium 2.5 mg/dl (1.6-2.3); Phosphorus 4.6 mg/dl (2.5-4.5); Potassium 4.1 mmol/L (3.5-5.1); Sodium 138 mmol/L (135-145); eGFR 56.25
[2023-11-20 08:48] LABS: Glucose - Point of Care 130 mg/dl (70-99)
--- NOTE | 2023-11-20 09:11 | W.PN.HOSP.TC ---
Today's Communication/Plan
-
see bold
Assessment / Plan
Assessment / Plan
83y F with PMH significant for prior CVA, COPD and CHF who presents to ED for evaluation of wheezing and SOB.
Recurrent Wheezing / Dyspnea
COPD with Acute Exacerbation
- SpO2 in the low 90s in the ED. Diffuse wheezing appreciated on exam.
- Continue IV steroids tapered to 4mg IV Q24H, bronchodilators, budesonide BID. Hold beta-ronaldo for now.
- Appreciate pulmonology input, azithromycin added
- Patient currently lives with son and caregiver
- Family reports patient walks with a cane, they would like her up and walking with PT prior to discharge
- PT/OT appreciated SNF rehab vs HH
Chronic HFpEF
- No evidence on exam of volume overload.
- Appreciate cards input, continue usual (40mg BID) dose of Lasix for now.
- Follow daily weights, I/Os, etc.
- Follow up ECHO notes no acute changes with prior.
- Outpatient follow up with cardio recommended
ASCVD
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
- Continue Eliquis, statin
Morbid Obesity due to excess calories
JAYLA
- Affects all aspects of care including increased risk for sleep disordered breathing, OHV, etc.
- Trialed CPAP as per pulm, appears to be tolerating.
Metabolic Alkalosis
- Once acetazolamide as per Pulm 11/17
Diabetes
-recent A1c 6.7 09/21/23
-likely steroid induced hyperglycemia
-low dose sliding scale for now
DVT Prophylaxis: Eliquis
Code Status: Full
Updated daughter on phone 11/19
Total time spent to see the patient on the floor, examine the patient, review data and lab results, discuss treatment plan with patient, nursing staff around 51 minutes.
Physical Exam
General: Obese, no acute distress
HEENT: Normocephalic, Atraumatic, EOMI, MMM
Respiratory: Poor air movement with wheezing noted
Cardiac: Normal S1/S2, Regular Rate and Rhythm
GI: Soft, Nontender, Nondistended, Normal Bowel Sounds
Extremities: No Clubbing, Cyanosis, or Edema
Neuro: Severe right-sided hemiparesis, aphasia noted only able to say 'go away'
Psych: Calm, Cooperative
Anticipated Discharge: Within 24 hours
Subjective/Interval History
-
Date of Service: November 20, 2023
Patient's breathing continues to improve. No fever, no vomiting.
Objective Data
-
Labs:
Laboratory Results
11/20/23
06:00
WBC 11.9 H
Hgb 12.1
Hct 35.7 L
Plt Count 230
Sodium 138
Potassium 4.1
Chloride 103
Carbon Dioxide 26
BUN 31 H
Creatinine 1.0
Glucose 153 H
Calcium 9.2
Vital Signs:
Vital Signs
Temp Pulse Resp BP Pulse Ox
97.8 F 72 16 123/68 92
11/19/23 23:39 11/20/23 07:25 11/20/23 07:25 11/19/23 23:39 11/20/23 07:25
I&O
11/19/23 11/20/23 11/21/23
06:59 06:59 06:59
Intake Total 900 / 900 960 / 960
Output Total 2550 / 2550 1800 / 1800
Balance -1650 / -1650 -840 / -840
[2023-11-20] MEDS: MIRALAX 17 GRAMS PO (09:19)
[2023-11-20] MEDS: NOVOLOG FLEXPEN-LOW RESISTANCE SC (09:19)
[2023-11-20] MEDS: NEURONTIN 300 MG PO ×3 (09:20→20:58)
[2023-11-20] MEDS: KCL ELIXIR 20 MEQ PO ×2 (09:20→20:58)
[2023-11-20] MEDS: LASIX 40 MG PO ×2 (09:21→16:49)
[2023-11-20] MEDS: COLACE 100 MG PO ×2 (09:21→20:58)
[2023-11-20] MEDS: PROTONIX 40 MG PO (09:21)
[2023-11-20] MEDS: LIORESAL 10 MG PO ×3 (09:21→20:58)
[2023-11-20] MEDS: ELIQUIS 2.5 MG PO ×2 (09:21→20:58)
[2023-11-20] MEDS: DESENEX/MITRAZOL/ZEASORB 1 APPLIC TOPICAL ×2 (09:22→20:58)
[2023-11-20] MEDS: DECADRON 4 MG IV (09:22)
[2023-11-20 10:08] VITALS: BP 142/65
[2023-11-20 12:03] LABS: Glucose - Point of Care 211 mg/dl (70-99)
[2023-11-20] MEDS: CYMBALTA DELAYED RELEASE 60 MG PO (13:25)
--- NOTE | 2023-11-20 13:41 | W.PN.PUL3 ---
Today's Communication / Plan
-
Prednisone taper
BDs
Assessment
-
Assessment:
83-year-old F former tobacco smoker with PMHx of COVID-19, HX of CVA, ?COPD and HX of DVT on Eliquis who p/w wheezing X 2-3 days. According to outpatient records, patient had been gaining weight recently since coming out of the hospital on
09/26/2023. Patient's PCP raised Lasix to 80mg daily from 60 mg daily. Patient also has a cough and was getting weaker with legs being very tight to touch. CXR was ordered but not done (at least not here at [facility]). Cardiology then raised Lasix
to 80 mg twice daily on Tuesday and Tuesday with potassium supplementation. Initial vitals in the ER showed hypertension 181/80, she was tachypneic to 28 breaths/min, afebrile to 98.1 �F, pulse rate 76 and she was saturating 94% on room air.
Initial labs showed Hb of 12.2, WBC 9.7, negative troponin of <0.012, proBNP of 285 (238 on 09/20/2023) and COVID antigen was negative. CXR showed no acute cardiopulmonary process. Patient given DuoNebs in ER, Decadron and admitted to telemetry
under the hospitalist service for COPD exacerbation. Pulmonary service now consulted for additional management/recommendations.
Chronic conditions [facility]: History of endometrial carcinoma, depression, history of right lower extremity DVT, history of left hemispheric CVA complicated by expressive aphasia and right hemiplegia (2009), history of UTI with urosepsis,
hyperlipidemia, history of renal calculi, CAD, suspected COPD
Impression:
#Wheezing + cough suspected for acute COPD exacerbation
#Acute respiratory failure with hypoxia not on supplemental oxygen
#Recent weight gain suspected for acute HFpEF exacerbation with Lasix dosing increased in the outpatient setting
#Ambulatory dysfunction � ambulates with a cane due to right-sided weakness given prior stroke
#Metabolic alkalosis
#Mild JAYLA � Home sleep study done on 11/04/2023 showing mild JAYLA with AHI of 9.[address] SpO2 81%
#Abnormal spirometry with both obstructive and restrictive lung defect seen via spirometry from July 2019 -uses DuoNebs 4 times daily + Pulmicort twice daily, not on home oxygen
#Former tobacco smoker (quit approximately 30 years ago)
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
#Morbid obesity with increased risk of JAYLA
#History of RLE DVT on chronic anticoagulation (Eliquis - ppx dosing)
Plan:
Continue with systemic steroids and wean as tolerated � Decadron 4 mg IV q6hr was weaned to 4mg IV q12hr on 11-17 (prednisone equivalent of 53 mg daily)
Decrease to prednisone 40 mg 11-20, taper by 10 mg q3d to off. Not on chronic CSs
Continue budesonide bid
DNs qid
Alb nebs prn
Continue outpatient azithro prophylaxis at 250 mg MWF
Keep SpO2 >90-94% with supplemental O2 as needed
Currently on RA, POx 94% at rest
IS: difficult to ensure proper use given nonverbal state and aphasia
Monitor volume status with I/O, trend UOP and consider raising diuretic dosing if hypoxia worsens
Given her metabolic alkalosis with pH 7.51, serum bicarbonate 29, gave Diamox x1 on 11-17
Replete electrolytes with K>4, Mg>2
Maintain euglycemia with goal BG >100 and <180
Mucolytics prn with chest PT prn
Continue outpatient diuretic
Outpatient management of JAYLA --> started nocturnal CPAP @ 8cmH2O on 11/16 ; continue this while she is hospitalized as she seems to be tolerating this -
Had a swallow assessment on 09/22/2023 showing no overt signs of aspiration, so it is safe to continue nocturnal PAP while inpatient, however if she has signs of coughing or if she desaturates while on CPAP with concern for aspiration, then this will
be stopped immediately
DVT ppx: already on chronic apixaban (h/o RLE DVT)
Data:
CXR 11-16-2023: No active cardiopulmonary disease.
CT Neck 11-16-2023: Normal neck; Old left temporal infarct
TTE 09-21-2023:
Normal left ventricular size, wall thickness and systolic function. No regional
wall motion abnormalities are seen. LV ejection fraction is 60-65% by visual
assessment. Normal diastolic function.
Normal right ventricular size and function.
Mild mitral regurgitation.
Mild tricuspid regurgitation. Estimated pulmonary artery pressure of 40 mmHg,
assuming a right atrial pressure of 3 mmHg.
Aortic sclerosis without stenosis.
Compared to the previous echo 07/22/23, there is no significant change.
Outpatient [facility] data:
PFT:
������ Spirometry 08/02/2019: FEV1/FVC 64%, FEV1 0.96-52 L, FVC 4.49 L-60%.Mixed ventilatory defect with mild airflow obstruction and a restriction.�
6MWT: 10/27/2023: Resting room air SpO2 90% with HR: 78, after 130 feet, SpO2 92-93% with HR: 98. Dyspnea scale: 2/10 reported
Sleep Studies: 11/04/2023: Home sleep apnea test: Overall apnea�hypopnea index was mild at 9.3 events per hour with a thor O2 saturation of 81%. RDI was 10.5 events per hour. Mean pulse rate was 78 bpm.
Subjective Data
-
Date of Service:
Date of Service: November 20, 2023
Chief Complaint: Pulmonary Follow Up
Subjective:
No major events reported overnight
Review reports improvement in dyspnea
Nebulizing bronchodilator at time of visit, in no respiratory distress
Chronic expressive aphasia
Review of Systems
General: Other (Chronic aphasia)
Objective Data
Data Reviewed
Vital Signs / I&O / Oxygen:
Vital Signs
Temp Pulse Resp BP Pulse Ox
97.7 F 78 16 142/65 94
11/20/23 07:08 11/20/23 11:38 11/20/23 11:38 11/20/23 07:08 11/20/23 11:38
Intake and Output
11/19/23 11/20/23 11/21/23
06:59 06:59 06:59
Intake Total 900 / 900 960 / 960
Output Total 2550 / 2550 1800 / 1800
Balance -1650 / -1650 -840 / -840
SaO2 94
Physical Exam
General: Respiratory Distress (Negative) and Comfortable
HEENT: Normocephalic, Anicteric and Moist Mucous Membranes
Cardiovascular: S1-S2, Regular Rhythm, Peripheral Edema (Negative) and Calf Tenderness (n)
Respiratory: Wheeze (trace), Crackles (Negative), Rhonchi (Negative), Non-Labored Respirations and Stridor (n)
GI: Soft, Non Distended, Non Tender and Normal Bowel Sounds
Neurology: Awake, Alert, Other (Follows simple commands) and Other (aphasic)
Skin: Warm and Dry
Labs/Micro/Reports
Lab Data
11/20/23 06:00
11/20/23 06:00
[2023-11-20] MEDS: NOVOLOG FLEXPEN-LOW RESISTANCE 2 UNITS SC (13:43)
[2023-11-20 15:00] VITALS: BP 123/63
[2023-11-20] MEDS: LIPITOR 20 MG PO (16:45)
[2023-11-20 17:10] LABS: Glucose - Point of Care 195 mg/dl (70-99)
[2023-11-20] MEDS: NOVOLOG FLEXPEN-LOW RESISTANCE 1 UNITS SC (17:19)
[2023-11-20] MEDS: SENOKOT 17.1999999999999993 MG PO (20:58)
[2023-11-20 21:24] LABS: Glucose - Point of Care 178 mg/dl (70-99)
[2023-11-20 21:29] VITALS: PULSE 81
[2023-11-20 23:00] VITALS: BP 137/65
[2023-11-21 06:00] VITALS: BMI 43.1
[2023-11-21 07:00] VITALS: BP 133/72
[2023-11-21 07:20] LABS: Glucose - Point of Care 101 mg/dl (70-99)
[2023-11-21] MEDS: NOVOLOG FLEXPEN-LOW RESISTANCE SC ×2 (07:28→11:56)
--- NOTE | 2023-11-21 07:37 | W.PN.HOSP.TC ---
Today's Communication/Plan
-
Discharge today
Assessment / Plan
Assessment / Plan
83y F with PMH significant for prior CVA, COPD and CHF who presents to ED for evaluation of wheezing and SOB.
Recurrent Wheezing / Dyspnea
COPD with Acute Exacerbation
- SpO2 in the low 90s in the ED. Diffuse wheezing appreciated on exam.
- Appreciate pulmonology input
- Improved status post IV steroids, bronchodilators, budesonide BID. Resume Coreg upon discharge.
- Patient currently lives with son and caregiver
- Medically stable for discharge on prednisone taper, follow-up with pulmonology in the office
- Seen by PT on the day of discharge, cleared for home with home PT
Chronic HFpEF
- No evidence on exam of volume overload.
- Appreciate cards input, continue usual (40mg BID) dose of Lasix for now. Resume Coreg upon discharge
- Follow up ECHO notes no acute changes with prior.
- Outpatient follow up with cardio arranged for 11/22
ASCVD
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
- Continue Eliquis, statin
Morbid Obesity due to excess calories
JAYLA
- Affects all aspects of care including increased risk for sleep disordered breathing, OHV, etc.
- Trialed CPAP as per pulm, appears to be tolerating
- Follow-up with pulmonology in the office to obtain CPAP
Metabolic Alkalosis
- Once acetazolamide as per Pulm 11/17
Diabetes
-recent A1c 6.7 09/21/23
-likely steroid induced hyperglycemia
-low dose sliding scale for now
DVT Prophylaxis: Eliquis
Code Status: Full
Updated family at bedside 11/20
Physical Exam
General: Obese, no acute distress
HEENT: Normocephalic, Atraumatic, EOMI, MMM
Respiratory: Poor air movement with wheezing noted
Cardiac: Normal S1/S2, Regular Rate and Rhythm
GI: Soft, Nontender, Nondistended, Normal Bowel Sounds
Extremities: No Clubbing, Cyanosis, or Edema
Neuro: Severe right-sided hemiparesis, aphasia noted only able to say 'go away'
Psych: Calm, Cooperative
Anticipated Discharge: Today
Subjective/Interval History
-
Date of Service: November 21, 2023
Patient's breathing continues to improve. No fever, no vomiting.
Objective Data
-
Vital Signs:
Vital Signs
Temp Pulse Resp BP Pulse Ox
97.8 F 80 16 137/65 100
11/20/23 23:00 11/20/23 23:00 11/20/23 23:00 11/20/23 23:00 11/20/23 23:00
I&O
11/20/23 11/21/23 11/22/23
06:59 06:59 06:59
Intake Total 960 / 960 1200 / 1200
Output Total 1800 / 1800 1950 / 1950
Balance -840 / -840 -750 / -750
[2023-11-21] MEDS: KCL ELIXIR 20 MEQ PO (07:47)
[2023-11-21] MEDS: COLACE 100 MG PO (07:48)
[2023-11-21] MEDS: NEURONTIN 300 MG PO (07:48)
[2023-11-21] MEDS: LASIX 40 MG PO (07:48)
[2023-11-21] MEDS: LIORESAL 10 MG PO (07:48)
[2023-11-21] MEDS: ELIQUIS 2.5 MG PO (07:48)
[2023-11-21] MEDS: PROTONIX 40 MG PO (07:48)
[2023-11-21] MEDS: DELTASONE 40 MG PO (07:48)
[2023-11-21] MEDS: DESENEX/MITRAZOL/ZEASORB 1 APPLIC TOPICAL (07:50)
[2023-11-21] MEDS: DUONEB 3 ML INH ×2 (07:52→11:24)
[2023-11-21] MEDS: PULMICORT 0.5 MG INH (07:52)
[2023-11-21] MEDS: ZITHROMAX 500 MG PO (07:54)
[2023-11-21 09:29] VITALS: BP 144/69; PULSE 77; O2SAT 93
--- NOTE | 2023-11-21 10:02 | CM ---
Addendum entered by Claudia Casanova 11/21/23 13:29:
Patient son here and states that they will take patient home with aides. CM sent tt to liaison with [facility] about restart of care. Patient son completed IMM and signed form placed on chart. Patient family to transport via wheelchair home.
Addendum entered by Claudia Casanova 11/21/23 10:18:
Patient son called and updated. Patient son to come and walk with patient to confirm ability to maneuver in home. CM will provide IMM form and await patient son update.
Original Note:
Patient seen at bedside today. Patient also seen by therapy -PT and she was able to ambulate with walker 20 feet with min assist. CM called to son to review options for discharge and VM left requesting call back. CM will continue to follow for
discharge planning needs.
Plan; home with aides and VN; vs rehab pending family discussion
[2023-11-21 11:40] LABS: Glucose - Point of Care 138 mg/dl (70-99)
[2023-11-21] MEDS: CYMBALTA DELAYED RELEASE 60 MG PO (12:00)
--- NOTE | 2023-11-22 08:28 | VNURNOTE ---
Call to patient's son 11/20 @ 1500 to review [facility] resumption of care and he stated that his mother was currently en route back to [facility] following a fall after she arrived home.
ED CM updated with above and patient's current [facility] services.
== END 2023-11-21 13:51 | disposition home health service (06) | DRG 191 ==
LOC: 4 WEST ACU 21:13
PROVIDERS: ADMITTING PHYSICIAN Hospitalist; ATTENDING PHYSICIAN Family Medicine; EMERGENCY PHYSICIAN Emergency Medicine; FAMILY PHYSICIAN Family Medicine; OTHER PHYSICIAN Internal Medicine Critical Care Medicine
PROC: 5A09357 Assistance with Respiratory Ventilation, Less than 24 Consecutive Hours, Continuous Positive Airway Pressure (ICD-10-PCS; 2023-11-17)
DX: J44.1 Chronic obstructive pulmonary disease with (acute) exacerbation (principal); E87.3 Alkalosis; I69.351 Hemiplegia and hemiparesis following cerebral infarction affecting right dominant side; I50.32 Chronic diastolic (congestive) heart failure; Z68.42 Body mass index [BMI] 45.0-49.9, adult; I11.0 Hypertensive heart disease with heart failure; I69.320 Aphasia following cerebral infarction; E66.01 Morbid (severe) obesity due to excess calories; F32.A Depression, unspecified; E11.65 Type 2 diabetes mellitus with hyperglycemia; I25.10 Atherosclerotic heart disease of native coronary artery without angina pectoris; E78.5 Hyperlipidemia, unspecified; G47.33 Obstructive sleep apnea (adult) (pediatric); R06.02 Shortness of breath; R06.2 Wheezing; Z79.01 Long term (current) use of anticoagulants; Z79.899 Other long term (current) drug therapy; Z86.16 Personal history of COVID-19; Z87.891 Personal history of nicotine dependence; Z86.718 Personal history of other venous thrombosis and embolism; Z85.41 Personal history of malignant neoplasm of cervix uteri; Z90.49 Acquired absence of other specified parts of digestive tract; Z90.710 Acquired absence of both cervix and uterus; Z82.3 Family history of stroke
CPT/HCPCS: 93308; 70490; 71045; 80048; 80053; 82805; 82962; 83735; 83880; 84100; 84443; 84484; 85025; 85027; 87811; 93005; 93321; 93325; 94640; 94644; 94660; 96374; 97161; 97167; 97530; 99291

== ENCOUNTER 2023-11-21 22:01 | Inpatient (IN) | payer MEDICARE, OTHER, SELFPAY ==
[2023-11-21] VITALS (9 sets, daily range): BP systolic 112–128; BP diastolic 42–80; BMI 44.1; BMI 39.8
--- NOTE | 2023-11-21 16:02 | CM ---
Cm was updated by [facility] frame assembler that patient was returning shortly after discharge today.
--- NOTE | 2023-11-21 19:55 | ED.GENMED ---
History of Present Illness
General
Chief Complaint: Fall
Source: family
Exam Limitations: none
Time Seen by Provider: 11/21/23 18:03
Nursing documentation reviewed up to this point in time: agreed with
History of Present Illness
History of Present Illness:
Patient was discharged home today after inpatient stay for exacerbation of COPD. She was cleared by PT for discharge home with in home PT. Family states she slipped and fell in tub and was unable to get up. EMS was contacted by family for
assistance. After EMS got her to a standing position she could not stand or transfer due to weakness. Brought back to ED via EMS. Family requesting inpatient rehab admission.
Past History
Past History
ED Past Medical History: Cancer (Cervical), COPD, CVA (Left-sided CVA with right hemiplegia), HTN and Other (Previous stroke with right hemiparesthesias and aphasia, hypertension, DVT, Kidney stones, Urosepsis)
ED Past Surgical History: Cholecystectomy and Other (Noncontributory)
Social History
Tobacco: Former smoker
Alcohol: None
Drug: None
Personal: ( July 2023)
Living: with family
Employment: Not employed
Family History
Family History: Other (Noncontributory); Negative Diabetes, Hypertension or CAD
Review of Systems
Review of Systems
Allergies reviewed?: Yes
All Other Systems: ROS reviewed and negative except as documented in HPI and ROS
Constitutional: Reports no symptoms
EENT: Reports no symptoms
Respiratory: Reports no symptoms
Cardiac: Reports no symptoms
ABD/GI: Reports no symptoms
Musculoskeletal: Reports joint pain (pain to right knee and lower leg, left knee, right elbow. )
Skin: Reports no symptoms
Neurological: Reports weakness
Psychiatric: Reports no symptoms
Phy Exam
General Physical Exam
General Presentation: well appearing and no apparent distress
General age: appears stated age
General Skin: warm and dry
General Habitus: normal
General Mental: alert
Cardiovascular Exam
Cardiovascular Exam: regular rate/rhythm
Gastrointestinal Exam
Gastrointestinal Exam: non tender and soft
Musculoskeletal Exam
Musculoskeletal Exam: neuro vasc intact
Skin Exam
Skin Exam: other (bruising bilateral knees.)
Psychiatric Exam
Psychiatric Exam: normal mood/affect
Course
Orders/Labs/Results
Orders:
Orders
11/21/23 Breakfast
Cholesterol Lowering
At Your Request: Non-Participating
Cholesterol Lowering: Sodium, 2 Gram
11/21/23 19:04
Elbow, Right 3 View [CR Elbow - Right Min 3 Views] Urgent
Comment:
Reason For Exam: fall
Femur, Right 2 View [CR Femur - Right Min 2 Vw] Urgent
Comment:
Reason For Exam: fall
Knee, Left 4 or More Views [CR Knee - Left 4 Or More View*] Urgent
Comment:
Reason For Exam: fall
Tib/Fib, Right 2 View [CR Leg Tibia/fibula Right 2 Vw] Urgent
Comment:
Reason For Exam: fall
11/21/23 21:25
Admit/Transfer Patient As Directed
Co-Sign Provider:
Level of Care: Inpatient admission
Assign to:: Telemetry
Physician / Group: [email or web address]
Diagnosis: Fall, gait dysfunction FTT at home
Reason for Telemetry: Subacute Heart Failure
Date to Stop Telemetry: 11/23/23
Time to Stop Telemetry: 11:00
Reason for Hospitalization: Fall, gait dysfunction FTT at home
Expected length of stay greater than two midnights?: Yes
ELOS- Estimated Length of Stay in days: 3
I certify the patient meets the requirements for IP care: Yes
11/21/23 21:30
Code Status As Directed
Resuscitation Status: Full Code
11/21/23 22:00
Flush (0.9% Sodium Chloride) [Flush (Nss)] See Dose Instructions IV PER PROTOCOL
11/21/23 22:18
Complete Blood Count/With Diff Urgent
11/21/23 22:44
Bisacodyl [Dulcolax] 10 mg RECTAL [id number] PRN
Docusate W/Senna [Senokot-S] 1 tablet PO BIDPRN PRN
Gabapentin [Neurontin] 300 mg PO TID
Ipratropium/Albuterol Sulfate [Duoneb] 3 ml INH R Q6HPRN PRN
Polyethylene Glycol Powder [Miralax] 17 grams PO DAILYPRN PRN
11/21/23 22:44
Case Management Consult ONCE
Case Management Consult: Discharge Planning
Activity As Directed
Activity Level: With Assistance
Vital Signs As Directed
Frequency: Per unit guidelines
Weight As Directed
Frequency: Daily
Ot Eval And Treat Routine
Pt Eval And Treat Routine
Activity Level: With Assistance
11/22/23 06:00
Basic Metabolic Panel IN AM
Complete Blood Count/No Diff IN AM
11/22/23 08:00
Apixaban [Eliquis] 2.5 mg PO BID
Budesonide [Pulmicort] 0.5 mg INH R BID
Carvedilol [Coreg] 3.125 mg PO BID
Furosemide [Lasix] 40 mg PO BID AT 0800,1600
Potassium Chloride 10% Elixir [KCl Elixir] 20 meq PO BID
11/22/23 12:00
Duloxetine Delayed Release [Cymbalta Delayed Release] 60 mg PO NOON
11/22/23 18:00
Atorvastatin [Lipitor] 20 mg PO QPM
11/23/23 11:00
DC Protocol for Telemetry ONCE
11/23/23 12:00
Azithromycin [Zithromax] 250 mg PO MOWEFR@1200
Vital Signs
Initial and Last Documented VS:
Initial Vital Signs
Temp Pulse Resp BP Pulse Ox
98.7 F 82 18 117/80 91
11/21/23 15:51 11/21/23 15:51 11/21/23 15:51 11/21/23 15:51 11/21/23 15:51
Last Documented Vital Signs
Temp Pulse Resp BP Pulse Ox
97.4 F 77 16 124/62 96
11/21/23 23:40 11/21/23 23:40 11/21/23 23:40 11/21/23 23:40 11/21/23 23:40
*Radiology
Radiology exam reviewed: preliminary read by ED provider (No fx)
*Pulse Oximetry
Patient hypoxic: no
*Critical Care Note
Total Time (30-74mins, 75-104mins- exclusive of procedures): Not Applicable
Update Note
Update Note:
Patient discharged home today from after inpatient stay for COPD exacerbation. Family reports fall in tub at home. Patient is unable to stand or transfer due to weakness. Family unable to care for her at home, requesting inpatient rehab. Will
admit to hospitalist. Case management consult.
ED Attending Note
-
Portions of this chart may have been created with voice recognition software.� Occasional wrong word or��sound alike� substitutions may have occurred due to the inherent limitations of voice recognition software.
Discharge Plan
Departure
Patient Disposition: Admit
Date of Disposition: 11/21/23
Time of Disposition: 20:05
Presentation/result/management discussed w/ accepting MD/DO: Hospitalist
Patient with high blood pressure during this ER visit?: Yes
Condition: Fair
Covid-19: Not Applicable
Discharge Problem:
Ambulatory dysfunction
Interventions
Interventions:
*Risk Screen - Suicide Last Done: 11/21/23 16:01
*General Assessment Last Done: 11/21/23 16:01
*Neglect/Abuse Screening Last Done: 11/21/23 16:01
*ED COVID-19 Vaccine History Last Done: 11/21/23 16:01
*Nursing Disposition Last Done: 11/21/23 22:49
ED-Musculoskeletal Assessment Last Done: 11/21/23 16:02
ED- Neurological Assessment Last Done: 11/21/23 16:01
ED-Skin Assessment Last Done: 11/21/23 16:02
Discharge Date and Time
Discharge Date/Time: 11/21/23 22:50
Musculoskeletal Injury Exam
Musculoskeletal Injury Exam
Right Knee:
Pain with Movement?: Mild
Tender to palpation?: Mild
Soft tissue swelling?: Mild
External deformity and angulation?: None
Joint effusion?: None
Contusion?: Moderate
Hematoma-local bleeding into tissue?: Moderate
Strain- Sprain- Tear (Connective tissue injury)?: None
Crepitus with movement?: No
Joint instability?: No
Malalignment/deformity?: No
Range of motion: Limited
Distal skin color and temperature: normal-warm & good color
Capillary Refill: normal
Normal distal neurovascular exam?: Yes
Left Knee:
Pain with Movement?: Mild
Tender to palpation?: Mild
Soft tissue swelling?: Mild
External deformity and angulation?: None
Joint effusion?: None
Contusion?: Moderate
Hematoma-local bleeding into tissue?: Moderate
Strain- Sprain- Tear (Connective tissue injury)?: None
Crepitus with movement?: No
Joint instability?: No
Malalignment/deformity?: No
Range of motion: Limited
Distal skin color and temperature: normal-warm & good color
Capillary Refill: normal
Normal distal neurovascular exam?: Yes
Right Lower Leg:
Pain with Movement?: Mild
Tender to palpation?: Mild
Soft tissue swelling?: Mild
External deformity and angulation?: None
Joint effusion?: None
Contusion?: Mild
Hematoma-local bleeding into tissue?: None
Strain- Sprain- Tear (Connective tissue injury)?: None
Crepitus with movement?: No
Joint instability?: No
Malalignment/deformity?: No
Range of motion: Limited
Distal skin color and temperature: normal-warm & good color
Capillary Refill: normal
Normal distal neurovascular exam?: Yes
Right Elbow:
Pain with Movement?: Mild
Tender to palpation?: Mild
Soft tissue swelling?: Mild
External deformity and angulation?: None
Joint effusion?: None
Contusion?: Moderate
Hematoma-local bleeding into tissue?: Mild
Strain- Sprain- Tear (Connective tissue injury)?: None
Crepitus with movement?: No
Joint instability?: No
Malalignment/deformity?: No
Range of motion: Full
Distal skin color and temperature: normal-warm & good color
Capillary Refill: normal
Normal distal neurovascular exam?: Yes
--- NOTE | 2023-11-21 21:20 | HPS.HSE ---
Family Physician
-
Family Physician: Pito Betts
Chief Complaint
-
DC'd home today with home PT , Fell unable to get up , need EMS to ASSIST
History of Present Illness
83y F with PMH significant for prior CVA, COPD and CHF
Patient was discharged home today after inpatient stay for exacerbation of COPD. She was cleared by PT for discharge home with in home PT. Family states she slipped and fell in tub and was unable to get up. EMS was contacted by family for
assistance. After EMS got her to a standing position she could not stand or transfer due to weakness. Brought back to ED via EMS.
Family requesting inpatient rehab
Medical History
Past Medical History
Past Medical History: Reports Other
Additional Past Medical History:
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
Hypertension
Dyslipidemia
History of DVT
History of cervical cancer
Chronic HFpEF
Nephrolithiasis
Obesity
Depression
COVID-18 July 2023
Past Surgical History: Reports Other
Additional Past Surgical History:
Cholecystectomy
JUVENTINO
Social History
Tobacco: Former Smoker (5 packs per day x 25 years. Quit smoking 30 years ago.)
Alcohol: None
Drug: None
Personal:
Living: With Family
Family History
Family History: Not pertinent
Allergies / Home Medications
Allergies reflects when Allergies were last updated in [facility].
Home Medications with original date entered in [facility]
Allergy/Medication List:
Allergies
Allergy/AdvReac Type Severity Reaction Status Date / Time
No Known Drug Allergies Allergy NONE Verified 11/16/23 17:03
Home Medications
baclofen 10 mg tablet 10 mg PO TID Muscle Spasms 10/08/11
duloxetine 60 mg capsule,delayed release 60 mg PO NOON Mental Health/Anxiety 10/08/11
gabapentin 300 mg capsule 300 mg PO TID Pain 10/08/11
simvastatin 40 mg tablet 40 mg PO QPM High Cholesterol 10/08/11
carvedilol 3.125 mg tablet 3.125 mg PO BID Blood Pressure 05/30/19
apixaban 2.5 mg tablet (Eliquis) 2.5 mg PO BID Blood Clot Prevention/Tx 07/04/23
sennosides 8.6 mg tablet (Senna Lax) 8.6 mg PO DAILY Constipation 07/04/23
cholecalciferol (vitamin D3) 125 mcg (5,000 unit) tablet 125 mcg PO DAILY Supplement 09/06/23
omeprazole 20 mg capsule,delayed release 20 mg PO DAILY Gastrointestinal Issue 09/06/23
therapeutic multivitamin 1 tab PO DAILY Supplement 09/06/23
budesonide 0.5 mg/2 mL suspension for nebulization 0.5 mg (2 mL) inhalation R BID #60 mL 09/24/23
acetaminophen 500 mg tablet (Tylenol Extra Strength) 1,000 mg PO BIDPRN PRN mild pain 11/16/23
azithromycin 250 mg tablet 250 mg PO MOWEFR@1200 11/16/23
furosemide 40 mg tablet 40 mg PO BID 11/16/23
ipratropium 0.5 mg-albuterol 3 mg (2.5 mg base)/3 mL nebulization soln 3 ml inhalation R Q6HPRN PRN shortness of breath or wheezing 11/16/23
potassium chloride 20 mEq/15 mL oral liquid 20 meq PO BID 11/16/23
Review of Systems
-
History Source: Patient and Family
A 12 point ROS was completed and negative except as noted: Yes
Constitutional: Denies Fever or Chills
EENT: Reports Sore Throat
Respiratory: Reports Cough and Trouble Breathing; Denies Hemoptysis
Cardiac: Denies Chest Pain or Palpitations
Abdomen/GI: Denies Abdominal Pain, Nausea, Vomiting or Diarrhea
: Denies Dysuria or Frequency
Musculoskeletal: Reports Edema
Neurological: Reports Weakness and Other (Aphasia); Denies Dizzy or Headache
Psych: Denies Depression or Anxiety
Physical Exam
Vital Signs
Vital Signs
Temp Pulse Resp BP Pulse Ox
98.7 F 80 17 123/53 93
11/21/23 15:51 11/21/23 18:00 11/21/23 18:00 11/21/23 18:00 11/21/23 18:00
Physical Exam
General: Other (Not in apparent distress.)
HEENT: Moist mucous membranes and PERRLA
Respiratory: Other (Diffuse inspiratory and expiratory wheezing.)
Cardiac: S1/S2 and Regular Rhythm; No Murmur
GI: Soft, Non Tender, Non Distended and Normal Bowel Sounds
Musculoskeletal: No Clubbing, No Cyanosis and Other (Trace pedal edema.)
Neuro: Awake, Alert and Other (R hemiparesis / expressive aphasia - unchanged from prior.)
Psych: No Anxious or Depressed
Laboratory Results
-
PENDING CBC
Data Reviewed
-
Diagnostic Radiology: Report Reviewed by me
CT Scan: Report Reviewed by me
Lab Data: Labs Reviewed by me
Old Records: Reviewed
Impression/Plan
-
Data
pending CBC upon admission
Labs from 11/19
WCC 11.9
Hgb 12
BUN 31
nl Cr
eGFRT 56
BG 153
11/19/23 VBG : 7.41/ pCO2 44/ pO2 163
Rt Elbow XR
No acute fracture or dislocation. Diffuse demineralization. Joint spaces are well-maintained. Soft tissues are grossly unremarkable. No significant joint effusion.
XR R Femur - Tibia/fibula 2 Vw
No acute fracture or dislocation. Partially visualized regional joints demonstrate degenerative changes. Moderate calcaneal enthesopathy. Soft tissues are grossly unremarkable.
Lt Knee XR
No acute fracture or dislocation. Mild tricompartmental osteoarthritis. No significant joint effusion
11/16/23 CXR : No active cardiopulmonary disease.
11/16/23 CT Neck: Normal neck; Old left temporal infarct
11/21/23 ECHO
LV EF 60-65% /
Normal diastolic function.
Normal right ventricular size and function.
Mild mitral regurgitation.
Mild tricuspid regurgitation. Estimated pulmonary artery pressure of 40 mmHg,
Aortic sclerosis without stenosis.
Compared to the previous echo 07/22/23, there is no significant change.
Last hospitalist admission: 11/15- 11/20/23
ASSESSMENT & PLAN
Pending Rx reconciliation
Mechanical Fall at home without any Fx injury
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
Chr gait dysfunction: ambulates with a cane due to right-sided weakness given prior stroke
Patient currently lives with son and caregiver
- PT/OT and CRM consult
- family considering SNF IP rehab
COPD : Recurrent Wheezing / Dyspnea HX
She was improved status post IV steroids, bronchodilators, budesonide BID. Resume Coreg upon discharge.
Former tobacco smoker (quit approximately 30 years ago)
- OP follow-up with pulmonology in the office
- Continue outpatient azithro prophylaxis at 250 mg MWF
Chronic HFpEF HX
Metabolic alkalosis HX - Once acetazolamide as per Pulm 11/17
- No evidence acute HF
- cont Lasix 40mg BID
- cont. Coreg
- Outpatient follow up with cardio arranged for 11/22
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
Of note: Had a swallow assessment on 09/22/2023 showing no overt signs of aspiration
- Stable.
Mild JAYLA
� Home sleep study done on 11/04/2023 showing mild JAYLA with AHI of 9.[address] SpO2 81%
- continue nocturnal PAP while inpatient, however if she has signs of coughing or if she desaturates while on CPAP with concern for aspiration, then this will be stopped immediately
Morbid Obesity due to excess calories
- Affects all aspects of care including increased risk for sleep disordered breathing, OHV, etc.
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
T2DM -recent A1c 6.7 09/21/23
- likely steroid induced hyperglycemia
- ISS
DVT Prophylaxis: Eliquis
Code Status: Full
IP MS
[2023-11-21 22:23] LABS: % Basophils 0.1 % (0-2); % Eosinophils 0.1 % (0-6); % Immature Granulocytes 1.4 % (0-0.5); % Lymphocytes 14.3 % (20.5-51.1); % Neutrophils 76.1 % (42.2-75.2); Absolute Immature Granulocytes 0.2 10^3/uL (0-0.05); Absolute Lymphocytes 2.2 10^3/uL (1.2-3.4); Absolute Monocytes 1.2 10^3/uL (0.1-0.6); Absolute Neutrophils 11.6 10^3/uL (1.4-6.5); Hematocrit 37.2 % (37.0-47.0); Mean Corp Hgb Conc. 34.9 g/dL (33.0-37.0); Mean Corpuscular Hgb 31.4 pg (27.0-31.0); Mean Corpuscular Volume 89.9 fL (81.0-99.0); Mean Platelet Volume 9.9 fL (7.4-10.4); Nucleated Red Blood Cells % 0.2 %; Platelet Count 261 10^3/uL (130-400); Red Blood Cell Count 4.14 10^6/uL (4.20-5.40); Red Cell Dist. Width 15.7 % (11.5-14.5); White Blood Cell Count 15.2 10^3/uL (4.8-10.8)
[2023-11-21] MEDS: NEURONTIN 300 MG PO (23:34)
--- NOTE | 2023-11-22 | PTCARENOTE ---
Pt transferred from ED. Pt slid over into bed with assistance. Pt oriented to unit, call amezcua within reach, bed alarm applied. Will continue with current plan.
[2023-11-22 04:01] VITALS: BP 141/71
[2023-11-22 05:45] VITALS: BMI 41.1
[2023-11-22] MEDS: COREG 3.125 MG PO ×2 (07:38→19:55)
[2023-11-22] MEDS: NEURONTIN 300 MG PO ×3 (07:38→21:48)
[2023-11-22] MEDS: ELIQUIS 2.5 MG PO ×2 (07:39→19:52)
[2023-11-22] MEDS: LASIX 40 MG PO ×2 (07:39→16:04)
[2023-11-22] MEDS: KCL ELIXIR 20 MEQ PO ×2 (07:39→20:03)
[2023-11-22 07:46] LABS: Hematocrit 38.6 % (37.0-47.0); Hemoglobin 12.7 g/dL (12.0-16.0); Mean Corp Hgb Conc. 32.9 g/dL (33.0-37.0); Mean Corpuscular Hgb 30.8 pg (27.0-31.0); Mean Corpuscular Volume 93.7 fL (81.0-99.0); Platelet Count 231 10^3/uL (130-400); Red Blood Cell Count 4.12 10^6/uL (4.20-5.40); Red Cell Dist. Width 15.6 % (11.5-14.5); White Blood Cell Count 11.8 10^3/uL (4.8-10.8)
[2023-11-22] MEDS: PULMICORT 0.5 MG INH ×2 (07:57→20:20)
[2023-11-22 08:00] VITALS: BP 126/60
--- NOTE | 2023-11-22 08:16 | CM ---
Addendum entered by Claudia Casanova 11/22/23 14:24:
Facility requested admission tomorrow. CM updated physician and patient son. Patient son requesting ambulance transport. CM called and reviewed medical necessity with ambulance liaison. tomorrow please call report to [phone]/fax [phone].
medical necessity form completed and on front of chart.
Addendum entered by Claudia Casanova 11/22/23 11:59:
[facility]. CM sent tt to physician updating him and asking for tentative discharge date today or tomorrow.
Addendum entered by Claudia Casanova 11/22/23 10:03:
Pending PT/OT assessment referral sent to [facility]. Per admissions they are anticipating accepting patient pending review of latest clinical documents.
Original Note:
Patient readmitted to hospital following discharge yesterday and fall in the bathtube. Per patient son plan is now for her to go to acute rehab and CM left for admissions cordinator and will send referral via all scripts. Per family, pt normally
resides with son Edwin in a 2SH, no steps, with a ramp. Per family pt ambulates with a cane, cannot use a walker due to stroke. Pt has 20/12 caregiver services provided by family and Home [facility]. Per family pt has a shower chair. Pt is known
to [facility].
Pt's family requesting referral to [facility]. PT and OT to evaluate patient. PCP is Dr. Sorensen and she uses the [facility] in [place] for pharmacy needs. CM will continue to follow for discharge planning needs.
Plan; referral to [facility] pending acceptance
[2023-11-22 08:23] LABS: Blood Urea Nitrogen 38 mg/dl (7-17); Carbon Dioxide 30 mmol/L (22-30); Chloride 102 mmol/L (98-107); Estimated Creatinine Clearance 60 ml/min; Glucose 88 mg/dl (70-99); Potassium 3.5 mmol/L (3.5-5.1); Sodium 138 mmol/L (135-145); eGFR > 60.00
--- NOTE | 2023-11-22 09:40 | VNURNOTE ---
Patient is current with [facility] since 07/05 w/SN/PT/OT/ST, will monitor progress and plan at discharge.
--- NOTE | 2023-11-22 09:45 | W.PN.HOSP.TC ---
Today's Communication/Plan
-
Medically stable for DC to a rehab pending arrangements, PT/OT and CM to eval
continue current regimen as of yesterdays discharge
Assessment / Plan
Assessment / Plan
Assessment:
Mechanical fall in the bathtub without syncope/LOC
- likely from generalized weakness
- trauma workup negative
- Pt dc'd home with VN yesterday; now family would like to pursue rehab
- PT/OT and CM to follow
Recurrent Wheezing/Dyspnea
COPD with Acute Exacerbation
- on Prednisone 40mg as of yesterday, will continue and taper by 10mg q3 days
- continue Budesonide and nebs
- OP Pulmonary follow up
Chronic HFpEF
- No evidence on exam of volume overload.
- continue Coreg/Lasix
- Follow up ECHO notes no acute changes with prior.
- Outpatient follow up with cardio arranged for 11/22; will need to re-schedule
ASCVD
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
- Continue Eliquis, statin
Morbid Obesity due to excess calories
JAYLA
- Affects all aspects of care including increased risk for sleep disordered breathing, OHV, etc.
- Trialed CPAP as per pulm, appears to be tolerating
- Follow-up with pulmonology in the office to obtain CPAP
Diabetes
- recent A1c 6.7 09/21/23
- likely steroid induced hyperglycemia
- low dose sliding scale for now
DVT Prophylaxis: Eliquis
Code Status: Full
Anticipated Discharge: 24 - 48 hours
Subjective/Interval History
-
Date of Service: November 22, 2023
no new complaints presently
caregiver at bedside
Objective Data
-
Labs:
Laboratory Results
11/21/23 11/22/23
22:18 07:22
WBC 15.2 H 11.8 H
Hgb 13.0 12.7
Hct 37.2 38.6
Plt Count 261 231
Sodium 138
Potassium 3.5
Chloride 102
Carbon Dioxide 30
BUN 38 H
Creatinine 0.9
Glucose 88
Calcium 9.0
Vital Signs:
Vital Signs
Temp Pulse Resp BP Pulse Ox
97.8 F 78 15 126/60 98
11/22/23 08:00 11/22/23 08:01 11/22/23 08:01 11/22/23 08:00 11/22/23 08:01
Physical Exam
-
General: No Apparent Distress
HEENT: Normocephalic and Atraumatic
Respiratory: Wheezes (poor air movement)
Cardiac: Regular Rhythm and S1/S2
Genito-urinary: Negative No Costovertebral Tender
Musculoskeletal: No Edema
Neuro: AO x 3
Hematologic / Lymphatic: No Lymphadenopathy
Psych: Calm
Data Reviewed
-
Total Time Spent with Patient (in minutes): 44
Labs: Labs Reviewed by me
[2023-11-22] MEDS: DELTASONE 40 MG PO (11:23)
[2023-11-22] MEDS: CYMBALTA DELAYED RELEASE 60 MG PO (11:24)
[2023-11-22 11:56] VITALS: BP 125/70
--- NOTE | 2023-11-22 13:36 | W.DS.TRANS ---
DC Summary - Parent Trainer
-
Discharge Instructions:
Discharge Diagnosis/Procedures mechanical fall from weakness. recent acute COPD
exacerbation
Diet Low Cholesterol
Activity As tolerated
Bathing Restrictions None
Other Services PT,OT
Instructions:
Stand-Alone Forms:
Changes to Home Medications: No
Discharge Medications:
DC Medications w/original date entered in [facility]
baclofen 10 mg tablet 10 mg PO TID Muscle Spasms 10/08/11
duloxetine 60 mg capsule,delayed release 60 mg PO NOON Mental Health/Anxiety 10/08/11
gabapentin 300 mg capsule 300 mg PO TID Pain 10/08/11
simvastatin 40 mg tablet 40 mg PO QPM High Cholesterol 10/08/11
carvedilol 3.125 mg tablet 3.125 mg PO BID Heart Failure 05/30/19
apixaban 2.5 mg tablet (Eliquis) 2.5 mg PO BID Blood Clot Prevention/Tx 07/04/23
sennosides 8.6 mg tablet (Senna Lax) 8.6 mg PO DAILY Constipation 07/04/23
cholecalciferol (vitamin D3) 125 mcg (5,000 unit) tablet 125 mcg PO DAILY Supplement 09/06/23
omeprazole 20 mg capsule,delayed release 20 mg PO DAILY Gastrointestinal Issue 09/06/23
therapeutic multivitamin 1 tab PO DAILY Supplement 09/06/23
budesonide 0.5 mg/2 mL suspension for nebulization 0.5 mg (2 mL) inhalation R BID #60 mL 09/24/23
acetaminophen 500 mg tablet (Tylenol Extra Strength) 1,000 mg PO BIDPRN PRN mild pain 11/16/23
azithromycin 250 mg tablet 250 mg PO MOWEFR@1200 Infection 11/16/23
furosemide 40 mg tablet 40 mg PO BID Fluid Retention/Swelling 11/16/23
ipratropium 0.5 mg-albuterol 3 mg (2.5 mg base)/3 mL nebulization soln 3 ml inhalation R Q6HPRN PRN shortness of breath or wheezing 11/16/23
potassium chloride 20 mEq/15 mL oral liquid 20 meq PO BID Electrolyte Repletion 11/16/23
miconazole nitrate 2 % topical powder (Miconazorb AF) 1 applic topical BID 7 days #85 grams 11/21/23
prednisone 10 mg tablet See Rx Instructions .Route .COMPLEX #30 tabs 11/21/23
Home Medication Changes
Pending Results: No
Total time spent discharging patient (in min): 42
[2023-11-22] MEDS: LIORESAL 10 MG PO ×2 (16:04→21:48)
[2023-11-22] MEDS: LIPITOR 20 MG PO (16:05)
[2023-11-22 16:16] VITALS: BP 135/73
--- NOTE | 2023-11-22 16:29 | PTCARENOTE ---
11/21- As per CM, Discharge is not to occur until tomorrow d/t Facility not being ready to receive patient till tomorrow. Discharge documentation and education not to be done until 11/22.
[2023-11-22 19:50] VITALS: BP 125/69
[2023-11-22 23:31] VITALS: BP 118/65
[2023-11-23 03:20] VITALS: BP 100/70
[2023-11-23 06:00] VITALS: BMI 39.6
[2023-11-23 07:34] LABS: Hematocrit 40.2 % (37.0-47.0); Hemoglobin 13.1 g/dL (12.0-16.0); Mean Corp Hgb Conc. 32.6 g/dL (33.0-37.0); Mean Corpuscular Hgb 30.6 pg (27.0-31.0); Mean Corpuscular Volume 93.9 fL (81.0-99.0); Mean Platelet Volume 10.3 fL (7.4-10.4); Platelet Count 252 10^3/uL (130-400); Red Blood Cell Count 4.28 10^6/uL (4.20-5.40); Red Cell Dist. Width 15.9 % (11.5-14.5); White Blood Cell Count 12.8 10^3/uL (4.8-10.8)
[2023-11-23] MEDS: NEURONTIN 300 MG PO (07:39)
[2023-11-23] MEDS: COREG 3.125 MG PO (07:39)
[2023-11-23] MEDS: LASIX 40 MG PO (07:40)
[2023-11-23] MEDS: DELTASONE 40 MG PO (07:40)
[2023-11-23] MEDS: ELIQUIS 2.5 MG PO (07:40)
[2023-11-23] MEDS: KCL ELIXIR 20 MEQ PO (07:40)
[2023-11-23] MEDS: LIORESAL 10 MG PO (07:40)
[2023-11-23] MEDS: PROTONIX 40 MG PO (07:41)
[2023-11-23 07:54] LABS: Blood Urea Nitrogen 43 mg/dl (7-17); Calcium 9.1 mg/dl (8.4-10.2); Carbon Dioxide 26 mmol/L (22-30); Chloride 102 mmol/L (98-107); Estimated Creatinine Clearance 53 ml/min; Glucose 120 mg/dl (70-99); Potassium 3.9 mmol/L (3.5-5.1); Sodium 137 mmol/L (135-145); eGFR 56.25
[2023-11-23] MEDS: PULMICORT 0.5 MG INH (07:55)
[2023-11-23] MEDS: DUONEB 3 ML INH ×2 (07:55→11:51)
[2023-11-23 08:00] VITALS: BP 134/62
--- NOTE | 2023-11-23 11:41 | CM ---
CM reviewed pt with Dr Gallo- remains ready for dc
Pt will need cpap on dc to be arranged
Update to [place]- [facility] acute rehab
Updated dc orders including cpap orders and settings sent to [facility]
CM confirmed cpap availability rehab today
Bedside update to pt and family
Discharge Disposition- [facility] via BLS/1500 pickup
[2023-11-23] MEDS: CYMBALTA DELAYED RELEASE 60 MG PO (11:55)
[2023-11-23] MEDS: ZITHROMAX 250 MG PO (11:55)
--- NOTE | 2023-11-23 12:18 | W.PN.HOSP.TC ---
Addendum entered and electronically signed by Jono Schwarz MD 11/28/23 07:48:
Weakness related to their sequela of stroke with right hemiparesis
Original Note:
Today's Communication/Plan
-
Monitor vital signs and see plan
Continue CPAP
Continue DuoNebs
Continue Pulmicort
Prednisone
Discharge today to rehab
Assessment / Plan
Assessment / Plan
Assessment:
Mechanical fall in the bathtub without syncope/LOC
- likely from generalized weakness
- trauma workup negative
- Pt dc'd home with VN 11/20; now family would like to pursue rehab
- PT/OT and CM to follow
Recurrent Wheezing/Dyspnea
COPD with Acute Exacerbation
- on Prednisone 40mg as of yesterday, will continue and taper by 10mg q3 days
- continue Budesonide and nebs
- OP Pulmonary follow up
Chronic HFpEF
- No evidence on exam of volume overload.
- continue Coreg/Lasix
- Follow up ECHO notes no acute changes with prior.
- Outpatient follow up with cardio arranged for 11/22; will need to re-schedule
ASCVD
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
- Continue Eliquis, statin
Morbid Obesity due to excess calories
JAYLA
- Affects all aspects of care including increased risk for sleep disordered breathing, OHV, etc.
- Trialed CPAP as per pulm, appears to be tolerating; on dc she should be on cpap @ 8 and needs pulmonary f/u
- Follow-up with pulmonology in the office to obtain CPAP
Diabetes
- recent A1c 6.7 09/21/23
- likely steroid induced hyperglycemia
- low dose sliding scale for now
DVT Prophylaxis: Eliquis
Code Status: Full
General: No Apparent Distress
HEENT: Normocephalic and Atraumatic
Respiratory: mild wheezing
Cardiac: Regular Rhythm and S1/S2
Genito-urinary: Negative No Costovertebral Tender
Musculoskeletal: No Edema
Neuro: AO x 3
Hematologic / Lymphatic: No Lymphadenopathy
Psych: Calm
Anticipated Discharge: Today
Subjective/Interval History
-
Date of Service: November 23, 2023
no pain
Objective Data
-
Labs:
Laboratory Results
11/23/23
06:53
WBC 12.8 H
Hgb 13.1
Hct 40.2
Plt Count 252
Sodium 137
Potassium 3.9
Chloride 102
Carbon Dioxide 26
BUN 43 H
Creatinine 1.0
Glucose 120 H
Calcium 9.1
Vital Signs:
Vital Signs
Temp Pulse Resp BP Pulse Ox
98.6 F 76 18 134/62 95
11/23/23 08:00 11/23/23 11:55 11/23/23 11:55 11/23/23 08:00 11/23/23 11:55
I&O
11/22/23 11/23/23 11/24/23
06:59 06:59 06:59
Intake Total 720 / 720
Balance 720 / 720
[2023-11-23 15:35] VITALS: BP 118/58
--- NOTE | 2023-11-25 10:37 | PN.CDI ---
CDI
- -
CDI:
Physician Documentation Request
Admit Date: 11/21/23 22:01
Dear Doctor Karishma,
Please review the following and provide your response in the progress notes.
Clinical Indicators:
Pt admitted with mechanical fall/generalized weakness
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
Documented per H&P,' Chr gait dysfunction: ambulates with a cane due to right-sided weakness given prior stroke...'
Please provide the suspected etiology of the patient's documented generalized weakness :
Weakness related to their sequela of stroke with right hemiparesis
Weakness due to other cause (please specify)
Unable to determine
Use of terms such as suspected, likely, concern for, or probable (associated with a specific diagnosis that is being evaluated, monitored, or treated as if it exists) are acceptable and can be coded in the inpatient setting, when documented at the
time of discharge.
Thank you,
Rimma Gibson RN
CDI Specialist
[facility]
Please use your independent medical judgment in providing your response.
== END 2023-11-23 15:51 | DRG 57 ==
LOC: 4 WEST ACU 22:01
PROVIDERS: Internal Medicine; Nurse Practitioner; ADMITTING PHYSICIAN Internal Medicine; ATTENDING PHYSICIAN Internal Medicine; EMERGENCY PHYSICIAN Emergency Medicine; FAMILY PHYSICIAN Family Medicine
DX: I69.351 Hemiplegia and hemiparesis following cerebral infarction affecting right dominant side (principal); J44.1 Chronic obstructive pulmonary disease with (acute) exacerbation; I50.32 Chronic diastolic (congestive) heart failure; Z68.41 Body mass index [BMI] 40.0-44.9, adult; I11.0 Hypertensive heart disease with heart failure; I69.320 Aphasia following cerebral infarction; E66.01 Morbid (severe) obesity due to excess calories; F32.A Depression, unspecified; E11.65 Type 2 diabetes mellitus with hyperglycemia; G47.33 Obstructive sleep apnea (adult) (pediatric); T38.0X5A Adverse effect of glucocorticoids and synthetic analogues, initial encounter; E87.5 Hyperkalemia; W18.2XXA Fall in (into) shower or empty bathtub, initial encounter; Y92.002 Bathroom of unspecified non-institutional (private) residence as the place of occurrence of the external cause; Z79.899 Other long term (current) drug therapy; Z86.16 Personal history of COVID-19; Z86.718 Personal history of other venous thrombosis and embolism; Z90.49 Acquired absence of other specified parts of digestive tract; Z85.41 Personal history of malignant neoplasm of cervix uteri; Z90.710 Acquired absence of both cervix and uterus
CPT/HCPCS: 73080; 73552; 73564; 73590; 80048; 85025; 85027; 87070; 94640; 97163; 97166; 99285

== ENCOUNTER → 2023-12-09 | Outpatient (REF) | payer MEDICARE, OTHER, SELFPAY | LOC: DHSLP | PROVIDERS: ATTENDING PHYSICIAN Internal Medicine Critical Care Medicine | DX: G47.33 Obstructive sleep apnea (adult) (pediatric) (principal) | CPT/HCPCS: 95811 ==

== ENCOUNTER 2024-04-18 19:09 | Inpatient (IN) | payer MEDICARE, OTHER, SELFPAY ==
[2024-04-18] VITALS (8 sets, daily range): BP systolic 114–141; BP diastolic 47–108; BMI 48.6
--- NOTE | 2024-04-18 13:49 | ED.GENMED ---
History of Present Illness
General
Chief Complaint: Cold/Flu/URI Symptoms
Source: patient
Exam Limitations: none
Time Seen by Provider: 04/18/24 13:36
History of Present Illness
History of Present Illness:
83-year-old female presents via EMS from home with complaints of lethargy not acting her self. She has a history of prior stroke resulting in aphasia and right-sided deficit. She has been coughing. She has been less active than usual. Family
notes that she is not herself. Patient cannot provide any valuable history otherwise
Past History
Past History
ED Past Medical History: Cancer (Cervical), COPD, CVA (Left-sided CVA with right hemiplegia), HTN and Other (Previous stroke with right hemiparesthesias and aphasia, hypertension, DVT, Kidney stones, Urosepsis)
ED Past Surgical History: Cholecystectomy and Other (Noncontributory)
Social History
Tobacco: Former smoker
Alcohol: None
Drug: None
Personal: ( July 2023)
Living: with family
Employment: Not employed
Family History
Family History: Other (Noncontributory); Negative Diabetes, Hypertension or CAD
Phy Exam
Physical Exam
Physical Exam:
General: Well-appearing female no acute respiratory distress coughing throughout the exam
HEENT: Normocephalic atraumatic
Heart: Regular rate and rhythm
Lungs: Subtle wheeze upon inspiration bilaterally
Abdomen soft nontender nondistended neurologic exam: Alert follows commands chronic right-sided deficit
She has chronic expressive aphasia
Extremities: No cyanosis mild edema bilateral lower extremity
Course
Orders/Labs/Results
Orders:
Orders
04/18/24 13:43
Ipratropium/Albuterol Sulfate [Duoneb] 3 ml INH R NOW STA
CR Chest - 2 Views Urgent
Comment:
Reason For Exam: cough
04/18/24 13:49
COVID-19 Antigen Urgent
Source: Nasal Swab
Complete Blood Count/With Diff Urgent
Comprehensive Metabolic Panel Urgent
NT-proBNP Urgent
Influenza A+B Rapid Molecular Urgent
LAURA Source: Nasal Swab
Specimen Description:
04/18/24 14:38
Lactic Acid Q4H
Comment: CANCEL 2nd LACTIC ACID IF 1st LACTIC ACID IS LESS THAN 2
04/18/24 15:03
Urinalysis Reflex To Culture Urgent
Date Specimen was Collected: 04/18/24
Time Specimen was Collected: 15:02
Urine Microscopic Reflex Cult Urgent
Urine Culture Urgent
LAURA Source: U
Specimen Description:
Date Specimen was Collected: 04/18/24
Time Specimen was Collected: 15:02
04/18/24 16:05
CefTRIAXone [Rocephin] 1,000 mg IV NOW STA
04/18/24 18:45
Lactic Acid Q4H
Comment: CANCEL 2nd LACTIC ACID IF 1st LACTIC ACID IS LESS THAN 2
Abnormal Lab Results
04/18/24 04/18/24 04/18/24
13:49 14:38 15:03
WBC 13.5 H 10^3/uL
(4.8-10.8)
MCHC 32.2 L g/dL
(33.0-37.0)
RDW 15.4 H %
(11.5-14.5)
Abs Immat Gran (auto) 0.1 H 10^3/uL
(0-0.05)
Absolute Neuts (auto) 11.5 H 10^3/uL
(1.4-6.5)
Absolute Lymphs (auto) 0.9 L 10^3/uL
(1.2-3.4)
Absolute Monos (auto) 0.9 H 10^3/uL
(0.1-0.6)
Immature Gran % 0.6 H %
(0-0.5)
Neutrophils % 85.1 H %
(42.2-75.2)
Lymphocytes % 7.0 L %
(20.5-51.1)
Chloride 93 L mmol/L
(98-107)
Carbon Dioxide 35 H mmol/L
(22-30)
BUN 51 H mg/dl
(7-17)
Glucose 251 H mg/dl
(70-99)
Lactic Acid 2.4 H mmol/L
(0.7-2.0)
Leukocyte Esterase Rfl 2+ A
(Negative)
Urine WBC (Reflex) 50-60 A /HPF
(0-5)
Urine Bacteria (Reflex) Many A
(Negative)
04/18/24 13:49
04/18/24 13:49
Vital Signs
Initial and Last Documented VS:
Initial Vital Signs
Resp BP
26 131/68
04/18/24 13:40 04/18/24 13:40
Last Documented Vital Signs
Temp Pulse Resp BP Pulse Ox
98.5 F 81 19 133/108 90
04/18/24 13:41 04/18/24 16:00 04/18/24 16:00 04/18/24 14:00 04/18/24 15:30
MDM/Problems Addressed
Differential Diagnosis Includes:
Patient with fatigue cough not acting her self. Consider pneumonia versus bronchitis versus COVID or flu. Will consider electrolyte abnormality or sepsis.
Afebrile triage not tachycardic or hypoxic at triage. Labs pending including CBC CMP COVID flu test BNP chest x-ray
*Critical Care Note
Total Time (30-74mins, 75-104mins- exclusive of procedures): Not Applicable
Update Note
Update Note:
Urinalysis suspicious for UTI. Patient here with weakness cough not acting her self. Difficult historian secondary to her expressive aphasia and chronic right-sided deficit. Family now in room describes that she was falling asleep quickly not
acting her self unable to lift her arm up and generally weak. White blood cell count is 13,000 with a left shift. Will keep in hospital Rocephin ordered fluids ordered.
ED Attending Note
-
Portions of this chart may have been created with voice recognition software.� Occasional wrong word or��sound alike� substitutions may have occurred due to the inherent limitations of voice recognition software.
Discharge Plan
Departure
Patient Disposition: Admit
Date of Disposition: 04/18/24
Time of Disposition: 16:06
Admit to: Telemetry
Presentation/result/management discussed w/ accepting MD/DO: Hospitalist
Discharge Problem:
Acute UTI
Prescriptions:
No Action
simvastatin 40 MG tablet
40 mg PO QPM
baclofen 10 MG tablet
10 mg PO TID
gabapentin 300 MG capsule
300 mg PO TID
duloxetine 60 MG capsule,delayed release(DR/EC)
60 mg PO NOON
carvedilol 3.125 MG tablet
3.125 mg PO BID
sennosides [Senna Lax] 8.6 mg Tablet
8.6 mg PO DAILY
Eliquis 2.5 mg tablet
2.5 mg PO BID
therapeutic multivitamin Tablet
1 tab PO DAILY
omeprazole 20 mg Capsule,Delayed Release(Dr/Ec)
20 mg PO DAILY
cholecalciferol (vitamin D3) 125 mcg (5,000 unit) Tablet
125 mcg PO DAILY
budesonide 0.5 mg/2 mL Suspension For Nebulization
0.5 mg inhalation R BID Qty: 60 0RF
azithromycin 250 mg Tablet
250 mg PO MOWEFR@1200
acetaminophen [Tylenol Extra Strength] 500 mg Tablet
1,000 mg PO BIDPRN PRN (Reason: mild pain)
potassium chloride 20 mEq/15 mL Liquid
20 meq PO BID
furosemide 40 mg tablet
40 mg PO BID
ipratropium-albuterol 0.5 mg-3 mg(2.5 mg base)/3 mL solution for nebulization
3 ml inhalation R Q6HPRN PRN (Reason: shortness of breath or wheezing)
prednisone 10 mg Tablet
See Rx Instructions .ROUTE .COMPLEX Qty: 30 0RF
Rx Instructions:
Take By Mouth:
40 mg daily x3 days, 30 mg daily x3 days,
20 mg daily x3 days, 10 mg daily x3 days.
miconazole nitrate [Miconazorb AF] 2 % Powder
1 applic topical BID 7 Days Qty: 85 0RF
ipratropium-albuterol 0.5 mg-3 mg(2.5 mg base)/3 mL Solution For Nebulization
3 ml inhalation R QID Qty: 0 0RF
Interventions
Interventions:
*Risk Screen - Suicide Last Done: 04/18/24 13:46
*General Assessment Last Done: 04/18/24 13:46
*Neglect/Abuse Screening Last Done: 04/18/24 13:46
*ED COVID-19 Vaccine History Last Done: 04/18/24 13:46
ED- Pulmonary Assessment Last Done: 04/18/24 13:46
Discharge Date and Time
Print Language: SAMI
[2024-04-18] MEDS: DUONEB 3 ML INH ×2 (13:52→20:39)
[2024-04-18 14:01] LABS: % Basophils 0.2 % (0-2); % Eosinophils 0.7 % (0-6); % Immature Granulocytes 0.6 % (0-0.5); % Monocytes 6.4 % (1.7-9.3); % Neutrophils 85.1 % (42.2-75.2); Absolute Eosinophils 0.1 10^3/uL (0-0.7); Absolute Immature Granulocytes 0.1 10^3/uL (0-0.05); Absolute Lymphocytes 0.9 10^3/uL (1.2-3.4); Absolute Monocytes 0.9 10^3/uL (0.1-0.6); Absolute Neutrophils 11.5 10^3/uL (1.4-6.5); Hematocrit 40.7 % (37.0-47.0); Hemoglobin 13.1 g/dL (12.0-16.0); Mean Corp Hgb Conc. 32.2 g/dL (33.0-37.0); Mean Corpuscular Volume 93.1 fL (81.0-99.0); Mean Platelet Volume 9.6 fL (7.4-10.4); Nucleated Red Blood Cells % 0 %; Platelet Count 213 10^3/uL (130-400); Red Blood Cell Count 4.37 10^6/uL (4.20-5.40); Red Cell Dist. Width 15.4 % (11.5-14.5); White Blood Cell Count 13.5 10^3/uL (4.8-10.8)
[2024-04-18 14:16] LABS: COVID-19 Antigen Negative (Negative)
[2024-04-18 14:30] LABS: ALT (SGPT) 31 U/L (0-35); AST (SGOT) 34 U/L (14-36); Albumin 3.8 g/dl (3.5-5.0); Alkaline Phosphatase 87 U/L (38-126); Blood Urea Nitrogen 51 mg/dl (7-17); Calcium 8.8 mg/dl (8.4-10.2); Carbon Dioxide 35 mmol/L (22-30); Chloride 93 mmol/L (98-107); Glucose 251 mg/dl (70-99); Potassium 3.7 mmol/L (3.5-5.1); Sodium 140 mmol/L (135-145); Total Bilirubin 0.7 mg/dl (0.2-1.3); Total Protein 6.4 g/dl (6.3-8.2); eGFR 56.25
[2024-04-18 14:39] LABS: NT-proBNP 281 pg/ml
[2024-04-18 15:01] LABS: Lactic Acid 2.4 mmol/L (0.7-2.0)
[2024-04-18 15:25] LABS: Urine Albumin Negative (Neg - Trace); Urine Bilirubin Negative (Negative); Urine Character Slightly Cloudy (Clear); Urine Color Yellow; Urine Glucose Negative (Negative); Urine Ketone Negative (Negative); Urine Leukocyte 2+ (Negative); Urine Nitrite Negative (Negative); Urine Occult Blood Negative (Negative); Urine Specific Gravity 1.005 (<1.030); Urine Urobilinogen Negative (Neg - 1+)
[2024-04-18 15:59] LABS: Urine Red Blood Cell 0-2 /HPF (0-2); Urine Squamous Cell 16-20 /LPF (Few); Urine White Cell 50-60 /HPF (0-5)
[2024-04-18 16:00] LABS: Urine Bacteria Many (Negative)
[2024-04-18] MEDS: ROCEPHIN 1000 MG IV (16:09)
--- NOTE | 2024-04-18 16:49 | HPS.HSE ---
Addendum entered and electronically signed by KOLE Lombardo 04/18/24 18:15:
Elevated bun concern volume depletion
Will hold patient's Bumex and give IV NSS 80 cc/h x 1 L max
Original Note:
Family Physician
-
Family Physician: * NONE
Chief Complaint
-
Lethargic times several days
History of Present Illness
83-year-old female from home with family who states they feel she has not been herself over the past couple days. They feel she is a little more lethargic and a little weak when she stands up to walk with her single cane. She lives at home with
24-hour home care aides she is able to walk unassisted with a cane but family states she was always supervised with walking and sometimes needs assistance with getting up or sitting down. She has no difficulty with swallowing and can eat a regular
diet. She has aphasia since her stroke in 2009 and the only words she can say is 'away'. She had a stroke in 2009 leaving her with right-sided deficit, right hand and arm contracture, right lower extremity weakness/needs to wear a brace when
walking and aphasia. She normally has a daily chronic cough which some of family members think is a little bit worse and sounding different than normal. She is prone to urinary tract infections, although family states they have not noticed any
odor changes in her. They deny any fever, diaphoresis, vomiting, diarrhea, rash.
She has a past medical history of left-sided CVA with right hemiplegia/aphasia 2009, chronic ambulatory dysfunction uses cane at baseline since stroke 2009, chronic contracture right arm and hand, chronic brace to right lower extremity, HTN,
superficial thrombosis approximately 3 months ago, renal calculi, urosepsis 03/2010, COPD former smoker, COPD requiring intubation, uterine cancer treated with with pellets, former smoker, cholelithiasis, vitamin D deficiency
Medical History
Past Medical History
Past Medical History: Reports Other
Additional Past Medical History:
ASCVD / CVA with R Hemiparesis / Aphasia can only say AWAY
Is able to walk with single cane at baseline
History of steroid-induced hyperglycemia
Hypertension
Dyslipidemia
History of superficial phlebitis
History of uterine cancer treated with pellets
Chronic HFpEF
Nephrolithiasis
Obesity
Depression
COVID-18 July 2023
Past Surgical History: Reports Other
Additional Past Surgical History:
Cholecystectomy
JUVENTINO
Social History
Tobacco: Former Smoker (5 packs per day x 25 years. Quit smoking 30 years ago.)
Alcohol: None
Drug: None
Personal:
Living: With Family
Family History
Family History: Not pertinent
Allergies / Home Medications
Allergies reflects when Allergies were last updated in [facility].
Home Medications with original date entered in [facility]
Allergy/Medication List:
Allergies
Allergy/AdvReac Type Severity Reaction Status Date / Time
No Known Drug Allergies Allergy NONE Verified 11/16/23 17:03
Home Medications
baclofen 10 mg tablet 10 mg PO TID Muscle Spasms 10/08/11
duloxetine 60 mg capsule,delayed release 60 mg PO NOON Mental Health/Anxiety 10/08/11
gabapentin 300 mg capsule 300 mg PO TID Pain 10/08/11
simvastatin 40 mg tablet 40 mg PO QPM High Cholesterol 10/08/11
carvedilol 3.125 mg tablet 3.125 mg PO BID Heart Failure 05/30/19
apixaban 2.5 mg tablet (Eliquis) 2.5 mg PO BID Blood Clot Prevention/Tx 07/04/23
sennosides 8.6 mg tablet (Senna Lax) 8.6 mg PO QPM Constipation 07/04/23
cholecalciferol (vitamin D3) 125 mcg (5,000 unit) tablet 125 mcg PO DAILY Supplement 09/06/23
omeprazole 20 mg capsule,delayed release 20 mg PO DAILY Gastrointestinal Issue 09/06/23
therapeutic multivitamin 1 tab PO DAILY Supplement 09/06/23
budesonide 0.5 mg/2 mL suspension for nebulization 0.5 mg (2 mL) inhalation R BID #60 mL 09/24/23
acetaminophen 500 mg tablet (Tylenol Extra Strength) 1,000 mg PO BIDPRN PRN mild pain 11/16/23
azithromycin 250 mg tablet 250 mg PO MOWEFR@1200 Infection 11/16/23
ipratropium 0.5 mg-albuterol 3 mg (2.5 mg base)/3 mL nebulization soln 3 ml inhalation R Q6HPRN PRN shortness of breath or wheezing 11/16/23
potassium chloride 20 mEq/15 mL oral liquid 20 meq PO DAILY Electrolyte Repletion 11/16/23
bumetanide 2 mg tablet 2 mg PO BID 04/18/24
ipratropium 0.5 mg-albuterol 3 mg (2.5 mg base)/3 mL nebulization soln 3 ml inhalation R TID 04/18/24
miconazole nitrate 2 % topical powder (Miconazorb AF) 1 applic topical BIDPRN PRN antifungal 04/18/24
prednisone 10 mg tablet 10 mg PO Q48H alternating w/ 5mg 04/18/24
prednisone 5 mg tablet 5 mg PO Q48H alternating w/ 10mg 04/18/24
Review of Systems
-
A 12 point ROS was completed and negative except as noted: Yes
Constitutional: Denies Fever or Chills
EENT: Denies Sore Throat or Runny Nose
Respiratory: Reports Cough (Chronic)
Cardiac: Denies Diaphoresis or Syncope
Abdomen/GI: Denies Vomiting, Diarrhea or Constipated
: Reports Incontinence (Wears a depends); Denies Dark Urine
Musculoskeletal: Denies Joint Swelling or Edema
Skin: Denies Rash
Neurological: Reports Weakness (Generalized)
Hematologic/Lymphatic: Denies Bleeding
Psych: Reports Calm
Physical Exam
Vital Signs
Vital Signs
Temp Pulse Resp BP Pulse Ox
98.5 F 81 19 133/108 90
04/18/24 13:41 04/18/24 16:00 04/18/24 16:00 04/18/24 14:00 04/18/24 15:30
Physical Exam
General: Comfortable; No Pain or Chills
HEENT: NormoCephalic, Anicteric, PERRLA, [place] Conjunctivae and No Ptosis
Respiratory: Clear; No Wheezes, Rales or Rhonchi
Cardiac: S1/S2 and Regular Rhythm; No Murmur, Rub, Gallop or Peripheral Edema
GI: Soft, Non Tender, Non Distended and Normal Bowel Sounds
Rectal: Deferred by Provider
Genito-urinary: Deferred by me
Musculoskeletal: No Clubbing, No Cyanosis, No Edema and Other (Chronic contracture of right elbow, right hand right fingers, right leg hemiparesis wears brace)
Skin: Warm, Dry and Other (Fungal breast rash)
Neuro: Awake and Alert (Only is able to say 'Away' patient was able to follow my commands to take deep breaths, open her mouth.); No Slurred Speech, Facial Droop, Tremors or Sedated
Psych: Calm
Laboratory Results
-
04/18/24 13:49
04/18/24 13:49
Laboratory Results
Lactic Acid 2.4 mmol/L (0.7-2.0) H 04/18/24 14:38
Total Bilirubin 0.7 mg/dl (0.2-1.3) 04/18/24 13:49
AST 34 U/L (14-36) 04/18/24 13:49
ALT 31 U/L (0-35) 04/18/24 13:49
Alkaline Phosphatase 87 U/L (38-126) 04/18/24 13:49
Impression/Plan
-
Impression/plan:
Admit to MedSurg
#Acute generalized weakness possibly secondary to UTI
#History of UTIs with urosepsis/shock per family has always required inpatient acute rehab after hospital admissions
#Hx UTI Enterobacter Cloacae 09/20/2023, E. coli urine 09/07/2023
WBC 13.5, lactic acid 2.4
UA WBC 50�60, squamous epithelial 16�20+ leukocytes many bacteria
COVID/flu-negative
CXR negative
-IV Rocephin
-Follow CBC, CMP
-PT/OT/case management consult
Family would like mother to go home tomorrow
They do not want mother going to a intermediate facility only if it is acute
#Acute hyperglycemia concern for DM2/history of steroid-induced DM 2
BS 251
Accu-Cheks with SSI, check HgbA1c
-Patient was on prior metformin 500 mg twice daily but according to family this was discontinued by a physician they are unsure of the name.
-If HgbA1c elevated would recommend prescription for metformin 500 mg twice daily to be resumed as patient will be on chronic steroids
#COPD-no acute exacerbation steroid-dependent
#Former smoker quit before her stroke in 2009
-Has required intubation in August 2023 due to hypoxemic and hypercapnic respiratory failure(family was made aware why she was intubated last admission as they were unsure)
-Continue ipratropium/albuterol inhalers 3 times daily, budesonide
-Continue prednisone 10 mg alternating with 5 mg every other day and preventative azithromycin to 50 mg p.o. Tuesday
-Patient follows with pulmonology here at [facility]
# Left-sided CVA with right hemiplegia/aphasia 2009(patient only says the word 'AWAY')
#Chronic right hand tremors/spasms/pain
#Chronic ambulatory dysfunction uses a single cane when walking
-Continue simvastatin 40 mg at bedtime, Eliquis 2.5 mg twice daily
-Continue baclofen 10 mg 3 times daily, gabapentin 300 mg p.o. 3 times daily
#Chronic diastolic heart failure
-I/O, daily weights
-Hold Bumex 2 mg twice daily due to elevated bun 54
-Continue carvedilol 3.125 mg twice daily with hold parameters
#HTN benign
BP 129/54
#Superficial phlebitis greater than 3 months ago
#Anxiety/depression
-Continue duloxetine 60 mg at noon
#GERD
-Continue omeprazole 20 mg daily
#Vitamin D deficiency
-Continue vitamin D3 supplementation
#Obesity class III�multifactorial right hemiaplegia chronic ambulatory dysfunction
#JAYLA
-Full mask setting for
Other PMH:
COVID-18 July 2023
Renal calculi
Urosepsis 03/2010
Uterine cancer treated with with pellets
Cholelithiasis
DVT prophylaxis
Continue MESSAGING ARCHITECT Eliquis 2.5 mg twice daily
Full code per family
--- NOTE | 2024-04-18 17:59 | W.PN.UPDATE ---
Update Note
Progress Note Update
This is an addendum to the H&P written by Julia Tyler on 04/18/2024. Patient seen examined independently with ROTARY CUTTER. 83-year-old female past medical history of COPD, chronic HFrEF, left-sided CVA with residual severe right hemiparesis/expressive
aphasia, morbid obesity, diabetes, here for lethargy. Slightly worse cough and chronic cough. Labs show leukocytosis. Lactate of 2.4. COVID and influenza negative. Chest x-ray unremarkable. Urinalysis indicating UTI. Ceftriaxone. Nebulizer
given
[2024-04-18 20:00] LABS: Lactic Acid 1.7 mmol/L (0.7-2.0)
[2024-04-18] MEDS: NSS 1000 IV (20:28)
[2024-04-18] MEDS: ELIQUIS 2.5 MG PO (20:31)
[2024-04-18] MEDS: COREG 3.125 MG PO (20:32)
[2024-04-18] MEDS: PULMICORT 0.5 MG INH (20:39)
[2024-04-18] MEDS: NEURONTIN 300 MG PO (21:02)
[2024-04-18] MEDS: LIORESAL 10 MG PO (21:03)
--- NOTE | 2024-04-18 21:15 | PTCARENOTE ---
Pt received on unit around 2014 med-surge. Pt alert and awake but unable to assess orientation d/t aphasia from stroke in 2009. VSS. Pt oriented to room and call amezcua. Evening meds administered, no signs of pain noted.
[2024-04-18 21:22] LABS: Glucose - Point of Care 188 mg/dl (70-99)
[2024-04-19 06:00] VITALS: BMI 46.9
--- NOTE | 2024-04-19 07:27 | W.PN.HOSP.TC ---
Addendum entered and electronically signed by Concha Bills MD 04/19/24 19:02:
I saw and evaluated the patient independently. I reviewed the resident�s note and agree with findings and plan as documented by Dr. Dixon.
GENERAL: well developed, well nourished, morbidly obese female in no apparent distress
HEENT: NC/AT--O2 off
HEART: regular rate and rhythm, +S1, +S2
LUNGS : clear to auscultation bilaterally anteriorly but with loose sounding cough
ABDOM: soft, nontender, nondistended, + bowel sounds
EXT: no cyanosis, clubbing, or edema
NEUROLOGIC: right sided hemiplegia/aphasia
Acute generalized weakness--likely due to UTI (not septic)--cultures pending--given Rocephin--will transition to oral keflex at d/c--WBC now normal--CXR/flu/covid all negative
Acute hyperglycemia--Blood sugar at time of admission 251--Continue Accu-Cheks with SSI, check hemoglobin A1c
prednisone dependent COPD--Former smoker--Continue ipratropium/albuterol inhaler--cont zithromax
Left-sided CVA with right hemiplegia/aphasia since 2009--Continue simvastatin and Eliquis--Continue baclofen and gabapentin
Chronic diastolic heart failure--Hold Bumex due to elevated BUN (currently downtrending)--Monitor ins and outs and daily weights--Continue carvedilol
Essential Hypertension--blood pressure well 129/54
Anxiety/depression--Continue duloxetine
GERD--Continue omeprazole
Vitamin D--Continue vitamin D supplementation
History of obesity class III--affects all aspects of care
History of superficial phlebitis
History of obstructive sleep apnea-continue sleep mask
History of uterine cancer treated with brachytherapy
DVT prophylaxis: Continue Eliquis twice daily
code status --Full code
Son was at bedside. He really wished to take his mom home today and did not want to keep her in the hospital because he did not want to have to send her to rehab. With improvement of her white blood cell count and less than 24 hours in the
hospital, I had no objection to her being discharged. Her urine culture, however, was not resulted. We did send her on Keflex since she was on IV Rocephin here with improvement of the white count as mentioned. Son had no objection to discharge
either.
Original Note:
Today's Communication/Plan
-
.
Assessment / Plan
Assessment / Plan
83-year-old female with past medical history of left-sided CVA with right hemiplegia/aphasia since 2009, chronic ambulatory dysfunction uses, chronic contracture right arm and hand, chronic brace to right lower extremity, HTN, superficial
thrombosis, COPD, former smoker, uterine cancer treated with with brachytherapy, cholelithiasis, and vitamin D deficiency presenting to [facility] with progressive lethargy and weakness per family.
#Acute generalized weakness
History of UTI Enterobacter cloacae and E. coli in August 2023
WBC 13.5 at time of admission, now downtrending to 10
Lactic acid downtrending from 2.4-1 point COVID flu negative, chest x-ray negative
Patient started on IV Rocephin and will be transition to oral Keflex at time of discharge
Family would like to discharge patient today and take home
#Acute hyperglycemia
Blood sugar at time of admission 251
Continue Accu-Cheks with SSI, check hemoglobin A1c
#COPD
Former smoker
Continue ipratropium/albuterol inhaler
Continue prednisone alternating 10 mg and 5 mg every other day
Continue preventative azithromycin
#Left-sided CVA with right hemiplegia/aphasia since 2009
Continue simvastatin and Eliquis
Continue baclofen and gabapentin
#Chronic diastolic heart failure
Hold Bumex due to elevated BUN (currently downtrending)
Monitor ins and outs and daily weights
Continue carvedilol
#Hypertension
Currently blood pressure well 129/54
#Anxiety/depression
Continue duloxetine
#GERD
Continue omeprazole
#Vitamin D
Continue vitamin D supplementation
#History of obesity class III
#History of superficial phlebitis
#History of obstructive sleep apnea-continue sleep mask
#History of uterine cancer treated with brachytherapy
#Cholelithiasis
DVT prophylaxis: Continue Eliquis twice daily
Full code
Anticipated Discharge: Today
Subjective/Interval History
-
Date of Service: April 19, 2024
83-year-old female with past medical history of left-sided CVA with right hemiplegia/aphasia since 2009, chronic ambulatory dysfunction uses, chronic contracture right arm and hand, chronic brace to right lower extremity, HTN, superficial
thrombosis, COPD, former smoker, uterine cancer treated with with brachytherapy, cholelithiasis, and vitamin D deficiency presenting to [facility] with progressive lethargy and weakness per family. Patient has aphasia at baseline and is
only able to say 1 word. Family felt that she was seeming weaker and requiring more assistance. Seems to be progressing and had a 15 pound weight loss on new medication per family records. She is prone to UTI infections, however family did not
notice any change in consistency or odor of urine. Additionally they deny any fever, diaphoresis, vomiting, diarrhea, rash, chest pain or other abnormalities at home.
Objective Data
-
Labs:
Laboratory Results
04/19/24
06:00
WBC Pending
Hgb Pending
Hct Pending
Plt Count Pending
Sodium Pending
Potassium Pending
Chloride Pending
Carbon Dioxide Pending
BUN Pending
Creatinine Pending
Glucose Pending
Calcium Pending
Total Bilirubin Pending
AST Pending
ALT Pending
Alkaline Phosphatase Pending
Vital Signs:
Vital Signs
Temp Pulse Resp BP Pulse Ox
97.9 F 77 18 141/68 94
04/18/24 23:05 04/18/24 23:05 04/18/24 23:05 04/18/24 23:05 04/18/24 23:05
I&O
04/18/24 04/19/24 04/20/24
06:59 06:59 06:59
Intake Total 1000 / 1000
Output Total 300 / 300
Balance 700 / 700
Review of Systems
-
Unable to obtain full review of systems at this time due to: Patient Non-verbal (aphasia post stroke)
Physical Exam
-
General: Well Developed, Well Nourished, Respiratory Distress and Morbidly Obese
HEENT: Normocephalic and Atraumatic
Respiratory: Wheezes and Accessory Resp Muscle Use
GI: Soft, Nontender, Nondistended and Normal Bowel Sounds
Skin: Warm and Dry
Neuro: Awake
Psych: Calm
Data Reviewed
-
Diagnostic Radiology: Report Reviewed by me
Labs: Labs Reviewed by me and Discussed with Physician
Old Records: Reviewed
[2024-04-19 07:31] VITALS: BP 124/60
[2024-04-19 07:51] LABS: Glucose - Point of Care 119 mg/dl (70-99)
[2024-04-19] MEDS: NOVOLOG FLEXPEN-LOW RESISTANCE SC (08:19)
[2024-04-19] MEDS: PULMICORT 0.5 MG INH (08:20)
[2024-04-19] MEDS: DUONEB 3 ML INH ×2 (08:20→13:45)
[2024-04-19 08:31] LABS: % Basophils 0.4 % (0-2); % Eosinophils 2.9 % (0-6); % Immature Granulocytes 0.8 % (0-0.5); % Lymphocytes 20.4 % (20.5-51.1); % Monocytes 7.9 % (1.7-9.3); % Neutrophils 67.6 % (42.2-75.2); Absolute Eosinophils 0.3 10^3/uL (0-0.7); Absolute Immature Granulocytes 0.1 10^3/uL (0-0.05); Absolute Monocytes 0.8 10^3/uL (0.1-0.6); Absolute Neutrophils 6.7 10^3/uL (1.4-6.5); Hematocrit 37.7 % (37.0-47.0); Hemoglobin 11.9 g/dL (12.0-16.0); Mean Corp Hgb Conc. 31.6 g/dL (33.0-37.0); Mean Corpuscular Hgb 29.9 pg (27.0-31.0); Mean Corpuscular Volume 94.7 fL (81.0-99.0); Mean Platelet Volume 10.1 fL (7.4-10.4); Nucleated Red Blood Cells % 0 %; Platelet Count 194 10^3/uL (130-400); Red Blood Cell Count 3.98 10^6/uL (4.20-5.40); Red Cell Dist. Width 15.4 % (11.5-14.5)
[2024-04-19] MEDS: NEURONTIN 300 MG PO (09:09)
[2024-04-19] MEDS: VITAMIN D3 (cholecalciferol) 125 MCG PO (09:09)
[2024-04-19] MEDS: DELTASONE 10 MG PO (09:10)
[2024-04-19] MEDS: LIORESAL 10 MG PO (09:10)
[2024-04-19] MEDS: THERAGRAN 1 TABLET PO (09:10)
[2024-04-19] MEDS: PROTONIX 40 MG PO (09:10)
[2024-04-19] MEDS: ELIQUIS 2.5 MG PO (09:10)
[2024-04-19] MEDS: COREG 3.125 MG PO (09:10)
[2024-04-19] MEDS: TYLENOL 650 MG PO (09:40)
[2024-04-19 10:01] LABS: ALT (SGPT) 26 U/L (0-35); AST (SGOT) 24 U/L (14-36); Albumin 3.2 g/dl (3.5-5.0); Alkaline Phosphatase 80 U/L (38-126); Blood Urea Nitrogen 39 mg/dl (7-17); Calcium 8.5 mg/dl (8.4-10.2); Carbon Dioxide 35 mmol/L (22-30); Chloride 97 mmol/L (98-107); Estimated Creatinine Clearance 58 ml/min; Glucose 114 mg/dl (70-99); Potassium 3.1 mmol/L (3.5-5.1); Sodium 142 mmol/L (135-145); Total Bilirubin 0.4 mg/dl (0.2-1.3); Total Protein 5.7 g/dl (6.3-8.2); eGFR > 60.00
[2024-04-19 11:40] LABS: Glucose - Point of Care 207 mg/dl (70-99)
[2024-04-19] MEDS: NOVOLOG FLEXPEN-LOW RESISTANCE 2 UNITS SC (11:44)
[2024-04-19] MEDS: CYMBALTA DELAYED RELEASE 60 MG PO (11:49)
--- NOTE | 2024-04-19 14:40 | CM ---
Addendum entered by Claudia Casanova 04/19/24 16:14:
YES response from [facility] ([facility]) re: Referral [id number] for patient in [facility] [id number]: Yes, willing to accept patient THANK YOU, DAVID! CLIENT IS KNOWN TO US AND PCP IS DR. BARNEY BANKS. PLEASE FAX
D/C INSTRUCTIONS TO THE FAX AT [phone]. RACHELL C: [phone].
Addendum entered by Claudia Casanova 04/19/24 15:09:
clarification sent referral to [facility] care awaiting response
Original Note:
Patient seen at bedside with patient son and daughter also present with physician. Patient lives with son Edwin and daughter in a 2SH, no steps, there is a ramp. Per family pt ambulates with a cane. Pt has 20/12 caregiver services provided by
family and Home [facility]. Per family pt has a shower chair. per family pt was before at [facility], and [facility]. Patient has had [facility] but currently is open to [facility]. Patient family asked for discharge home today with [facility] and
IMM completed yesterday in ED. Patient family to provide transportation. Patient verbal only with word away. But appeared comfortable and to interact with family. Patient for discharge home today and CM will send updated referral to [facility] for [facility]. CM
will continue to follow for discharge planning needs.
Plan; home with family and [facility]; CM sent referral for [facility]
[2024-04-19 14:50] VITALS: BP 125/52
--- NOTE | 2024-04-19 15:35 | W.DCSUMMARY ---
Addendum entered and electronically signed by Concha Bills MD 04/19/24 19:04:
Read, reviewed, and agree. See same day progress note for additional details. Time spent coordinating care, DC planning, review of DC plan of care with resident, transition of care, review of records in EMR, med rec, consults, notes, d/w
consultants, nursing, family, and CM = 32 minutes
Original Note:
Discharge Summary
Discharge Data
Date of Admission: 04/18/24
Date of Discharge: 04/19/24
Total time spent discharging patient (in min): 32
-
Pending Results: Yes
Additional Pending Results:
urine culture pending
Hospital Course
Presenting symptoms: Progressive weakness
Hospital diagnosis: Acute UTI
Hospital Course: 83-year-old female with past medical history of left-sided CVA with right hemiplegia/aphasia since 2009, chronic ambulatory dysfunction uses, chronic contracture right arm and hand, chronic brace to right lower extremity, HTN,
superficial thrombosis, COPD, former smoker, uterine cancer treated with brachytherapy, cholelithiasis, and vitamin D deficiency presenting to [facility] with progressive lethargy and weakness per family. Patient has aphasia and is only
able to say 1 word at baseline. Patient has wet cough and required oxygen stay. Elected to follow-up outpatient with pulmonary doctor. Chest x-ray negative for cardiopulmonary abnormality. Patient presented with leukocytosis (13.5) at time of
admission, down trended to 10 at time of discharge. Lactic acid also down trended from 2.4-1. COVID and flu negative. UTI was positive and patient was started on IV Rocephin. Culture pending. Patient transition to oral Keflex 4 times a day at
time of discharge. Patient discharged home with family.
#Acute generalized weakness: Leukocytosis resolved. UTI culture pending. Keflex 500 mg 4x a day for 7 days.
#Acute hyperglycemia: Blood sugar at time of admission 251. Follow up outpatient with PCP regarding restarting metformin.
#COPD: Continue ipratropium/albuterol inhaler. Continue prednisone alternating 10 mg and 5 mg every other day. Continue preventative azithromycin. Follow up OP with Pulmonology.
#Left-sided CVA with right hemiplegia/aphasia since 2009: Continue simvastatin and Eliquis. Continue baclofen and gabapentin.
#Chronic diastolic heart failure: Continue carvedilol.
#Hypertension: stable.
#Anxiety/depression: Continue duloxetine
#GERD: Continue omeprazole
#Vitamin D: Continue vitamin D supplementation
#History of obesity class III
#History of superficial phlebitis
#History of obstructive sleep apnea-continue sleep mask
#History of uterine cancer treated with brachytherapy
#Cholelithiasis
Imaging reviewed during stay:
Chest x-ray (1120)
IMPRESSION:
No acute cardiopulmonary abnormality.
Discharge Plan
-
Patient Disposition: Home (Routine Discharge)
Discharge Diagnosis/Procedures: Weakness and UTI
Condition: Fair
Diet: As tolerated
Activity: As tolerated
Driving Restrictions: As prior to admission
Bathing Restrictions: None
Other Services: VN, PT and OT
Referrals:
Pito Betts DO [Family Provider] - in one to two weeks
Additional Discharge Medication Instructions: Please follow up outpatient with known Pulmonary physician
Prescriptions:
New
cephalexin 500 mg capsule
500 mg PO QID Qty: 28 0RF
Continued
simvastatin 40 MG tablet
40 mg PO QPM
baclofen 10 MG tablet
10 mg PO TID
gabapentin 300 MG capsule
300 mg PO TID
duloxetine 60 MG capsule,delayed release(DR/EC)
60 mg PO NOON
carvedilol 3.125 MG tablet
3.125 mg PO BID
sennosides [Senna Lax] 8.6 mg Tablet
8.6 mg PO QPM
Eliquis 2.5 mg tablet
2.5 mg PO BID
therapeutic multivitamin Tablet
1 tab PO DAILY
omeprazole 20 mg Capsule,Delayed Release(Dr/Ec)
20 mg PO DAILY
cholecalciferol (vitamin D3) 125 mcg (5,000 unit) Tablet
125 mcg PO DAILY
budesonide 0.5 mg/2 mL Suspension For Nebulization
0.5 mg inhalation R BID Qty: 60 0RF
azithromycin 250 mg Tablet
250 mg PO MOWEFR@1200
acetaminophen [Tylenol Extra Strength] 500 mg Tablet
1,000 mg PO BIDPRN PRN (Reason: mild pain)
potassium chloride 20 mEq/15 mL Liquid
20 meq PO DAILY
ipratropium-albuterol 0.5 mg-3 mg(2.5 mg base)/3 mL solution for nebulization
3 ml inhalation R Q6HPRN PRN (Reason: shortness of breath or wheezing)
bumetanide 2 mg tablet
2 mg PO BID
prednisone 5 mg tablet
5 mg PO Q48H
prednisone 10 mg tablet
10 mg PO Q48H
ipratropium-albuterol 0.5 mg-3 mg(2.5 mg base)/3 mL solution for nebulization
3 ml inhalation R TID
miconazole nitrate [Miconazorb AF] 2 % powder
1 applic topical BIDPRN PRN (Reason: antifungal)
Discharge Orders:
Discharge Patient (As Directed); Ordered 04/19/24
Ordered By: Porsche Dixon
Discharge Date and Time
Discharge Date/Time: 04/19/24 16:40
Print Language: SALVADOREAN
== END 2024-04-19 16:40 | disposition home or self-care (01) | DRG 690 ==
LOC: 4 WEST ACU 19:09
PROVIDERS: Clinical Nurse Specialist Family Health; Physician Assistant; ADMITTING PHYSICIAN Hospitalist; ATTENDING PHYSICIAN Internal Medicine; EMERGENCY PHYSICIAN Emergency Medicine; FAMILY PHYSICIAN Family Medicine
DX: N39.0 Urinary tract infection, site not specified (principal); I69.351 Hemiplegia and hemiparesis following cerebral infarction affecting right dominant side; I50.32 Chronic diastolic (congestive) heart failure; Z68.42 Body mass index [BMI] 45.0-49.9, adult; R73.9 Hyperglycemia, unspecified; I69.320 Aphasia following cerebral infarction; J44.9 Chronic obstructive pulmonary disease, unspecified; I11.0 Hypertensive heart disease with heart failure; G47.33 Obstructive sleep apnea (adult) (pediatric); F41.9 Anxiety disorder, unspecified; F32.A Depression, unspecified; E86.9 Volume depletion, unspecified; E55.9 Vitamin D deficiency, unspecified; E78.5 Hyperlipidemia, unspecified; K21.9 Gastro-esophageal reflux disease without esophagitis; E66.813 Obesity, class 3; E66.01 Morbid (severe) obesity due to excess calories; Z86.16 Personal history of COVID-19; Z86.72 Personal history of thrombophlebitis; Z87.440 Personal history of urinary (tract) infections; Z79.01 Long term (current) use of anticoagulants; Z79.899 Other long term (current) drug therapy; Z87.891 Personal history of nicotine dependence; Z79.52 Long term (current) use of systemic steroids; Z85.42 Personal history of malignant neoplasm of other parts of uterus; Z11.52 Encounter for screening for COVID-19
CPT/HCPCS: 71046; 80053; 81003; 81015; 82962; 83036; 83605; 83880; 85025; 87077; 87086; 87502; 87811; 94640; 96374; 99285

== ENCOUNTER 2024-07-09 22:02 | Inpatient (IN) | payer MEDICARE, OTHER, SELFPAY ==
[2024-07-09] VITALS (9 sets, daily range): BP systolic 106–153; BP diastolic 52–81; BMI 48.0
[2024-07-09 18:04] LABS: % Basophils 0.4 % (0-2); % Eosinophils 0.2 % (0-6); % Immature Granulocytes 0.6 % (0-0.5); % Lymphocytes 6.5 % (20.5-51.1); % Monocytes 4.5 % (1.7-9.3); % Neutrophils 87.8 % (42.2-75.2); Absolute Basophils 0.1 10^3/uL (0-0.2); Absolute Immature Granulocytes 0.1 10^3/uL (0-0.05); Absolute Lymphocytes 0.9 10^3/uL (1.2-3.4); Absolute Monocytes 0.6 10^3/uL (0.1-0.6); Absolute Neutrophils 12.2 10^3/uL (1.4-6.5); Hematocrit 36.8 % (37.0-47.0); Hemoglobin 12.3 g/dL (12.0-16.0); Mean Corp Hgb Conc. 33.4 g/dL (33.0-37.0); Mean Corpuscular Hgb 30.1 pg (27.0-31.0); Mean Corpuscular Volume 90.2 fL (81.0-99.0); Mean Platelet Volume 9.6 fL (7.4-10.4); Nucleated Red Blood Cells % 0 %; Platelet Count 244 10^3/uL (130-400); Red Blood Cell Count 4.08 10^6/uL (4.20-5.40); Red Cell Dist. Width 15.9 % (11.5-14.5); White Blood Cell Count 13.9 10^3/uL (4.8-10.8)
[2024-07-09 18:13] LABS: ALT (SGPT) 28 U/L (0-35); AST (SGOT) 26 U/L (14-36); Albumin 3.7 g/dl (3.5-5.0); Alkaline Phosphatase 95 U/L (38-126); Blood Urea Nitrogen 52 mg/dl (7-17); Carbon Dioxide 38 mmol/L (22-30); Chloride 87 mmol/L (98-107); Glucose 242 mg/dl (70-99); Potassium 3.7 mmol/L (3.5-5.1); Sodium 133 mmol/L (135-145); Total Bilirubin 0.8 mg/dl (0.2-1.3); Total Protein 6.3 g/dl (6.3-8.2); eGFR 50.17
[2024-07-09 18:35] LABS: NT-proBNP 351 pg/ml
[2024-07-09 20:20] LABS: Urine Albumin Negative (Neg - Trace); Urine Bilirubin Negative (Negative); Urine Character Clear (Clear); Urine Color Yellow; Urine Glucose Negative (Negative); Urine Ketone Negative (Negative); Urine Leukocyte 3+ (Negative); Urine Nitrite Negative (Negative); Urine Occult Blood 1+ (Negative); Urine Urobilinogen Negative (Neg - 1+)
[2024-07-09 20:35] LABS: Urine Squamous Cell 0-2 /LPF (Few)
[2024-07-09 20:37] LABS: Urine Red Blood Cell 0-2 /HPF (0-2)
[2024-07-09 20:38] LABS: Urine Bacteria Many (Negative); Urine White Cell 16-20 /HPF (0-5)
--- NOTE | 2024-07-09 20:59 | ED.GENMED ---
History of Present Illness
General
Chief Complaint: Breathing Problem
Source: family
Exam Limitations: clinical condition
Time Seen by Provider: 07/09/24 17:52
History of Present Illness
History of Present Illness:
This an 83-year-old female who presents with family. Family is at bedside. Patient has a history of aphasia and stroke in the past. Family reports they are concerned that over the last few days has had a 10 pound weight gain. In addition she has
had a weight gain months. Patient has been less active and recently has not been behaving herself. Typically she is able to take her pills but has recently been playing with them and sort of staring off and not recognizing family. The patient's
daughters also state that she does have history of UTI. She has not really been short of breath but EMS did feel that she was a bit dyspneic when they picked her up. They did lay her back for a brief period time. Again daughters also state that
she typically gets up and out with these but recently has been very difficult to get her to move around. She also has not been able to use the bathroom like she typically is able to do.
Past History
Past History
ED Past Medical History: Cancer (Cervical), COPD, CVA (Left-sided CVA with right hemiplegia), HTN and Other (Previous stroke with right hemiparesthesias and aphasia, hypertension, DVT, Kidney stones, Urosepsis)
ED Past Surgical History: Cholecystectomy and Other (Noncontributory)
Social History
Tobacco: Former smoker
Alcohol: None
Drug: None
Personal: ( July 2023)
Living: with family
Employment: Not employed
Family History
Family History: Other (Noncontributory); Negative Diabetes, Hypertension or CAD
Phy Exam
Physical Exam
Physical Exam:
CONSTITUTIONAL Patient alert. Well-appearing. Vital signs reviewed. Obese
HEAD atraumatic, normocephalic.
EYES eyelids normal to inspection, Extraocular muscles intact, Conjunctiva normal, Sclera normal.
NECK normal range of motion, Trachea midline, no jugular venous distention.
RESPIRATORY CHEST No respiratory distress noted, Chest expansion equal, diminished bilateral bases
CARDIOVASCULAR regular rate and rhythm, Heart sounds normal.
ABDOMEN No distention.
BACK normal inspection, no obvious deformities
UPPER EXTREMITY no cyanosis, no edema.
LOWER EXTREMITY no cyanosis, no edema.
NEURO aphasic, contracted right upper extremity, no focal movement to right lower extremity.
Scores
Heart Failure Risk
Heart Failure Risk Score: Not Applicable
Course
Orders/Labs/Results
Orders:
Orders
07/09/24 17:34
Electrocardiogram (*1) Urgent
Reason for Study: Shortness of Breath
EKG- Treatment ONCE
CXR2 [CR Chest - 2 Views ] Urgent
Comment:
Reason For Exam: shortness of breath
07/09/24 17:49
Complete Blood Count/With Diff Urgent
Comprehensive Metabolic Panel Urgent
NT-proBNP Urgent
07/09/24 18:47
CT Head W/o Iv Contrast Urgent
Comment:
Reason For Exam: change in MS
07/09/24 20:05
Urinalysis Reflex To Culture Urgent
Date Specimen was Collected: 07/09/24
Time Specimen was Collected: 19:23
Urine Microscopic Reflex Cult Urgent
Urine Culture Urgent
LAURA Source: U
Specimen Description:
Date Specimen was Collected: 07/09/24
Time Specimen was Collected: 19:23
07/09/24 20:58
Cefepime HCl [Maxipime] 2,000 mg IV NOW STA
07/09/24 21:00
Lactic Acid Q4H
Comment: CANCEL 2nd LACTIC ACID IF 1st LACTIC ACID IS LESS THAN 2
Blood Culture Q30M
LAURA Source: Blood/Venous
Specimen Description:
07/09/24 21:30
Blood Culture Q30M
LAURA Source: Blood/Venous
Specimen Description:
07/10/24 01:00
Lactic Acid Q4H
Comment: CANCEL 2nd LACTIC ACID IF 1st LACTIC ACID IS LESS THAN 2
Abnormal Lab Results
07/09/24 07/09/24
17:49 20:05
WBC 13.9 H 10^3/uL
(4.8-10.8)
RBC 4.08 L 10^6/uL
(4.20-5.40)
Hct 36.8 L %
(37.0-47.0)
RDW 15.9 H %
(11.5-14.5)
Abs Immat Gran (auto) 0.1 H 10^3/uL
(0-0.05)
Absolute Neuts (auto) 12.2 H 10^3/uL
(1.4-6.5)
Absolute Lymphs (auto) 0.9 L 10^3/uL
(1.2-3.4)
Immature Gran % 0.6 H %
(0-0.5)
Neutrophils % 87.8 H %
(42.2-75.2)
Lymphocytes % 6.5 L %
(20.5-51.1)
Sodium 133 L mmol/L
(135-145)
Chloride 87 L mmol/L
(98-107)
Carbon Dioxide 38 H mmol/L
(22-30)
BUN 52 H mg/dl
(7-17)
Creatinine 1.1 H mg/dL
(0.6-1.0)
Glucose 242 H mg/dl
(70-99)
Ur Occult Blood Reflex 1+ A
(Negative)
Leukocyte Esterase Rfl 3+ A
(Negative)
Urine WBC (Reflex) 16-20 A /HPF
(0-5)
Urine Bacteria (Reflex) Many A
(Negative)
07/09/24 17:49
07/09/24 17:49
Vital Signs
Initial and Last Documented VS:
Initial Vital Signs
Temp Pulse Resp BP Pulse Ox
99.8 F 82 16 136/81 96
07/09/24 17:27 07/09/24 17:27 07/09/24 17:27 07/09/24 17:27 07/09/24 17:27
Last Documented Vital Signs
Temp Pulse Resp BP Pulse Ox
99.8 F 74 24 120/61 93
07/09/24 17:27 07/09/24 20:00 07/09/24 20:00 07/09/24 20:00 07/09/24 20:00
MDM/Problems Addressed
MDM/Problems Addressed:
Metabolic encephalopathy, UTI, weakness
*Radiology
Radiology exam reviewed: radiology read reviewed
*Pulse Oximetry
Patient hypoxic: no
*EKG
Interpreted by ED Provider?: Yes
Interpretation: abnormal
Rate: normal
Rhythm: sinus
QRS Pattern: poor R-wave progression
Ischemia: non-specific ST changes
*Records And Tape Recordings Engineer Interpretation
Rate: normal
Interpretation: normal
Rhythm: sinus
*Critical Care Note
Total Time (30-74mins, 75-104mins- exclusive of procedures): Not Applicable
Data Reviewed
Review of Other/Old Records Reveals: Labs (Prior urine culture revealed E. coli with similar UA result)
Source: family
Patient Management
Discussion with other providers: Hospitalist
Escalation/DeEscalation of care consider admission/obs:
83-year-old female presents with changes in her typical behavior. Family report a variety of different changes but was also concerned about weight gain. I do not find overt volume overload. BNP okay. However, she does have a urinalysis
suspicious for infection and looks similar to the way did back in March when she tested positive for E. coli by culture. Question whether some of this is just related to a toxic metabolic encephalopathy due to UTI. Family states that she is
having difficult time maintaining the patient at home as she has been very weak. Caregiver is also been unable to really handle her. May need longer term placement in rehabilitation but hope to have improvement after treatment for UTI. Check
lactic and blood cultures. Check VBG to rule out hypercapnia
ED Attending Note
-
Portions of this chart may have been created with voice recognition software.� Occasional wrong word or��sound alike� substitutions may have occurred due to the inherent limitations of voice recognition software.
Discharge Plan
Departure
Prescriptions:
No Action
simvastatin 40 MG tablet
40 mg PO QPM
baclofen 10 MG tablet
10 mg PO TID
gabapentin 300 MG capsule
300 mg PO TID
duloxetine 60 MG capsule,delayed release(DR/EC)
60 mg PO NOON
carvedilol 3.125 MG tablet
3.125 mg PO BID
sennosides [Senna Lax] 8.6 mg Tablet
8.6 mg PO QPM
Eliquis 2.5 mg tablet
2.5 mg PO BID
therapeutic multivitamin Tablet
1 tab PO DAILY
omeprazole 20 mg Capsule,Delayed Release(Dr/Ec)
20 mg PO DAILY
cholecalciferol (vitamin D3) 125 mcg (5,000 unit) Tablet
125 mcg PO DAILY
budesonide 0.5 mg/2 mL Suspension For Nebulization
0.5 mg inhalation R BID Qty: 60 0RF
azithromycin 250 mg Tablet
250 mg PO MOWEFR@1200
acetaminophen [Tylenol Extra Strength] 500 mg Tablet
1,000 mg PO BIDPRN PRN (Reason: mild pain)
potassium chloride 20 mEq/15 mL Liquid
20 meq PO DAILY
ipratropium-albuterol 0.5 mg-3 mg(2.5 mg base)/3 mL solution for nebulization
3 ml inhalation R Q6HPRN PRN (Reason: shortness of breath or wheezing)
bumetanide 2 mg tablet
2 mg PO BID
prednisone 5 mg tablet
5 mg PO Q48H
prednisone 10 mg tablet
10 mg PO Q48H
ipratropium-albuterol 0.5 mg-3 mg(2.5 mg base)/3 mL solution for nebulization
3 ml inhalation R TID
miconazole nitrate [Miconazorb AF] 2 % powder
1 applic topical BIDPRN PRN (Reason: antifungal)
cephalexin 500 mg capsule
500 mg PO QID Qty: 28 0RF
glycopyrrolate 1 mg tablet
0.5 mg PO TID PRN (Reason: secretions) Qty: 14 0RF
Rx Instructions:
please use sparingly for loose cough
Referrals:
UNKNOWN,NO INTERVIEW [Family Provider] -
Interventions
Interventions:
*Risk Screen - Suicide Last Done: 07/09/24 17:27
*General Assessment Last Done: 07/09/24 17:27
*Neglect/Abuse Screening Last Done: 07/09/24 17:27
ED- Fall Risk Assessment Last Done: 07/09/24 17:27
*ED COVID-19 Vaccine History Last Done: 07/09/24 17:27
ED- Cardiac Assessment Last Done: 07/09/24 17:27
ED- Pulmonary Assessment Last Done: 07/09/24 17:27
Discharge Date and Time
Print Language: HEBREW
--- NOTE | 2024-07-09 21:31 | HPS.HSE ---
Family Physician
-
Family Physician: NO INTERVIEW UNKNOWN
Chief Complaint
-
weakness
History of Present Illness
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
past 3 days. She has been more lethargic. She has been shaking but no fevers or chills. She has been urinating more frequently. No vomiting or diarrhea. No cough or upper respiratory symptoms or noticeably difficulty breathing. Patient cannot
communicate due to prior stroke. No sick contacts.
Patient has gained 10 pounds recently but no swelling or shortness of breath. She does not use oxygen at home.
Does not smoke or drink alcohol.
Medical History
Past Medical History
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
Past Surgical History: Reports None
Social History
Tobacco: Non-smoker
Alcohol: None
Drug: None
Family History
Family History: Not pertinent
Allergies / Home Medications
Allergies reflects when Allergies were last updated in [employer].
Home Medications with original date entered in [employer]
Allergy/Medication List:
Allergies
Allergy/AdvReac Type Severity Reaction Status Date / Time
No Known Drug Allergies Allergy NONE Verified 11/16/23 17:03
Home Medications
baclofen 10 mg tablet 10 mg PO TID Muscle Spasms 10/08/11
duloxetine 60 mg capsule,delayed release 60 mg PO NOON Mental Health/Anxiety 10/08/11
gabapentin 300 mg capsule 300 mg PO TID Pain 10/08/11
simvastatin 40 mg tablet 40 mg PO QPM High Cholesterol 10/08/11
carvedilol 3.125 mg tablet 3.125 mg PO BID Heart Failure 05/30/19
apixaban 2.5 mg tablet (Eliquis) 2.5 mg PO BID Blood Clot Prevention/Tx 07/04/23
sennosides 8.6 mg tablet (Senna Lax) 8.6 mg PO QPM Constipation 07/04/23
cholecalciferol (vitamin D3) 125 mcg (5,000 unit) tablet 125 mcg PO DAILY Supplement 09/06/23
omeprazole 20 mg capsule,delayed release 20 mg PO DAILY Gastrointestinal Issue 09/06/23
therapeutic multivitamin 1 tab PO DAILY Supplement 09/06/23
budesonide 0.5 mg/2 mL suspension for nebulization 0.5 mg (2 mL) inhalation R BID #60 mL 09/24/23
acetaminophen 500 mg tablet (Tylenol Extra Strength) 1,000 mg PO BIDPRN PRN mild pain 11/16/23
azithromycin 250 mg tablet 250 mg PO MOWEFR@1200 Infection 11/16/23
ipratropium 0.5 mg-albuterol 3 mg (2.5 mg base)/3 mL nebulization soln 3 ml inhalation R Q6HPRN PRN shortness of breath or wheezing 11/16/23
potassium chloride 20 mEq/15 mL oral liquid 20 meq PO DAILY Electrolyte Repletion 11/16/23
bumetanide 2 mg tablet 2 mg PO BID 04/18/24
ipratropium 0.5 mg-albuterol 3 mg (2.5 mg base)/3 mL nebulization soln 3 ml inhalation R TID 04/18/24
miconazole nitrate 2 % topical powder (Miconazorb AF) 1 applic topical BIDPRN PRN antifungal 04/18/24
prednisone 10 mg tablet 10 mg PO Q48H alternating w/ 5mg 04/18/24
prednisone 5 mg tablet 5 mg PO Q48H alternating w/ 10mg 04/18/24
cephalexin 500 mg capsule 500 mg PO QID #28 caps 04/19/24
glycopyrrolate 1 mg tablet 0.5 mg (1/2 x 1 mg) PO TID PRN secretions #14 tabs 04/19/24
Review of Systems
-
History Source: Patient
A 12 point ROS was completed and negative except as noted: Yes
Constitutional: Reports No Symptoms
EENT: Reports No Symptoms
Respiratory: Reports No Symptoms
Cardiac: Reports No Symptoms
Abdomen/GI: Reports No Symptoms
: Reports No Symptoms
Musculoskeletal: Reports No Symptoms
Skin: Reports No Symptoms
Neurological: Reports No Symptoms
Endocrine: Reports No Symptoms
Hematologic/Lymphatic: Reports No Symptoms
Psych: Reports No Symptoms
Physical Exam
Vital Signs
Vital Signs
Temp Pulse Resp BP Pulse Ox
99.8 F 74 24 120/61 93
07/09/24 17:27 07/09/24 20:00 07/09/24 20:00 07/09/24 20:00 07/09/24 20:00
Physical Exam
General: Well Developed, Well Nourished and No Apparent Distress
HEENT: NormoCephalic, Moist mucous membranes and Atraumatic
Respiratory: Clear
Cardiac: S1/S2 and Regular Rhythm; No Murmur or Rub
GI: Soft, Non Tender, Non Distended and Normal Bowel Sounds; No Organomegaly
Rectal: Deferred by Provider
Musculoskeletal: No Clubbing, No Cyanosis and No Edema
Skin: No Rash
Neuro: Nonfocal/grossly intact
Laboratory Results
-
07/09/24 17:49
07/09/24 17:49
Laboratory Results
Total Bilirubin 0.8 mg/dl (0.2-1.3) 07/09/24 17:49
AST 26 U/L (14-36) 07/09/24 17:49
ALT 28 U/L (0-35) 07/09/24 17:49
Alkaline Phosphatase 95 U/L (38-126) 07/09/24 17:49
Data Reviewed
-
Lab Data: Labs Reviewed by me
Old Records: Reviewed
Impression/Plan
-
IMPRESSION:
PLAN:
# Metabolic encephalopathy secondary to UTI
-CT head no acute abnormality
-Chest x-ray unremarkable
-Leukocytosis
-Urinalysis shows +3 leukocyte esterase, 16-20 white blood cells
-Prior urine culture grew E. coli and Enterobacter sensitive to ceftriaxone
-Urine culture
-Blood cultures pending
-Ceftriaxone
-Check COVID and influenza
# Weight gain
-Chest x-ray unremarkable
-Not currently in heart failure
-Hold off fluids
Type 2 diabetes
-Insulin sliding scale
COPD
-Continue inhalers
-Continue chronic prednisone
-Continue prophylactic azithromycin
History of left-sided CVA with right hemiplegia/aphasia in 2009
-Patient only says the word 'away'normally
-Continue statin
-Continue Eliquis
Chronic right hand tremor/spasm/pain
-Continue baclofen, gabapentin
Chronic ambulatory dysfunction
Chronic HFpEF
-Continue Coreg
-Continue Bumex
Essential hypertension
History of superficial phlebitis
Anxiety/depression
-Continue duloxetine
Vitamin D deficiency
GERD
-Continue omeprazole
Obesity
Obstructive sleep apnea
-Patient uses CPAP
Full code
DVT prophylaxis�Eliquis
Cardiac diet/diabetic diet
[2024-07-09] MEDS: MAXIPIME 2000 MG IV (21:32)
[2024-07-09 21:47] LABS: Venous Blood Gas HCO3 39.6 mmol/L (22-27); Venous Blood Gas O2 Sat % 99.3 %; Venous Blood Gas pCO2 52 mmHg (35-48); Venous Blood Gas pH 7.49 (7.32-7.43); Venous Blood Gas pO2 155 mmHg (30-50)
[2024-07-09 21:54] LABS: Lactic Acid 1.9 mmol/L (0.7-2.0)
[2024-07-10] VITALS (14 sets, daily range): BP systolic 116–173; BP diastolic 54–148
[2024-07-10] MEDS: STERILE WATER FOR INJECTION 10 ML IV (02:05)
[2024-07-10] MEDS: ROCEPHIN 1000 MG IV (02:05)
[2024-07-10 06:58] LABS: % Basophils 0.1 % (0-2); % Immature Granulocytes 0.5 % (0-0.5); % Lymphocytes 7.2 % (20.5-51.1); % Monocytes 3.7 % (1.7-9.3); % Neutrophils 88.5 % (42.2-75.2); Absolute Immature Granulocytes 0.1 10^3/uL (0-0.05); Absolute Lymphocytes 0.8 10^3/uL (1.2-3.4); Absolute Monocytes 0.4 10^3/uL (0.1-0.6); Absolute Neutrophils 10.4 10^3/uL (1.4-6.5); Hematocrit 37.8 % (37.0-47.0); Hemoglobin 12.7 g/dL (12.0-16.0); Mean Corp Hgb Conc. 33.6 g/dL (33.0-37.0); Mean Corpuscular Hgb 30.6 pg (27.0-31.0); Mean Corpuscular Volume 91.1 fL (81.0-99.0); Mean Platelet Volume 9.5 fL (7.4-10.4); Nucleated Red Blood Cells % 0 %; Platelet Count 238 10^3/uL (130-400); Red Blood Cell Count 4.15 10^6/uL (4.20-5.40); Red Cell Dist. Width 15.5 % (11.5-14.5); White Blood Cell Count 11.7 10^3/uL (4.8-10.8)
[2024-07-10 07:00] LABS: ALT (SGPT) 26 U/L (0-35); AST (SGOT) 23 U/L (14-36); Albumin 3.7 g/dl (3.5-5.0); Alkaline Phosphatase 93 U/L (38-126); Blood Urea Nitrogen 50 mg/dl (7-17); Calcium 9.1 mg/dl (8.4-10.2); Carbon Dioxide 39 mmol/L (22-30); Chloride 88 mmol/L (98-107); Estimated Creatinine Clearance 52 ml/min; Glucose 245 mg/dl (70-99); Potassium 3.7 mmol/L (3.5-5.1); Sodium 134 mmol/L (135-145); Total Bilirubin 0.6 mg/dl (0.2-1.3); Total Protein 6.4 g/dl (6.3-8.2); eGFR 50.17
--- NOTE | 2024-07-10 08:19 | W.PN.HOSP.TC ---
Today's Communication/Plan
-
IV antibiotics.
Assessment / Plan
Assessment / Plan
Physical exam:
General: Well Developed, Well Nourished and No Apparent Distress
HEENT: Normocephalic, Atraumatic and Moist Mucous Membranes
Respiratory: Clear to Auscultation; Negative Wheezes, Rales or Rhonchi
Cardiac: Regular Rhythm and S1/S2
GI: Soft, Nontender and Nondistended
Musculoskeletal: No Clubbing, No Cyanosis and No Edema
Neuro: Awake, Alert, echolalia with right hemiparesis but appears to be baseline.
Psych: Calm
A/P:
# Metabolic encephalopathy secondary to UTI
-CT head no acute abnormality
-Chest x-ray unremarkable
-Leukocytosis, 13.9--> 11.7
-Urinalysis shows +3 leukocyte esterase, 16-20 white blood cells
-Prior urine culture grew E. coli and Enterobacter sensitive to ceftriaxone
-Urine culture pending
-Blood cultures pending
-Ceftriaxone to continue
# Weight gain
-Chest x-ray unremarkable
-Not currently in heart failure
-Hold off fluids
Type 2 diabetes
-Insulin sliding scale
COPD
-Continue inhalers
-Continue chronic prednisone
-Continue prophylactic azithromycin
History of left-sided CVA with right hemiplegia/aphasia in 2009
-Patient only says the word 'away'normally
-Continue statin
-Continue Eliquis
Chronic right hand tremor/spasm/pain
-Continue baclofen, gabapentin
Chronic ambulatory dysfunction
Chronic HFpEF
-Continue Coreg
-Continue Bumex
Essential hypertension
History of superficial phlebitis
Anxiety/depression
-Continue duloxetine
Vitamin D deficiency
GERD
-Continue omeprazole
Obesity
Obstructive sleep apnea
-Patient uses CPAP
Full code
DVT prophylaxis�Eliquis
Anticipated Discharge: > 48 hours
Subjective/Interval History
-
Date of Service: July 10, 2024
Not much information from patient. Afebrile.
Objective Data
-
Labs:
Laboratory Results
07/10/24
06:07
WBC 11.7 H
Hgb 12.7
Hct 37.8
Plt Count 238
Sodium 134 L
Potassium 3.7
Chloride 88 L
Carbon Dioxide 39 H
BUN 50 H
Creatinine 1.1 H
Glucose 245 H
Calcium 9.1
Total Bilirubin 0.6
AST 23
ALT 26
Alkaline Phosphatase 93
Vital Signs:
Vital Signs
Temp Pulse Resp BP Pulse Ox
99.8 F 71 28 153/79 98
07/09/24 17:27 07/10/24 07:30 07/10/24 07:45 07/10/24 07:00 07/10/24 07:45
[2024-07-10 08:43] LABS: Glycohemoglobin (HgbA1c) 7.3 % (4.0-5.6)
[2024-07-10 08:52] LABS: Glucose - Point of Care 212 mg/dl (70-99)
[2024-07-10] MEDS: ELIQUIS 2.5 MG PO ×2 (08:52→21:49)
[2024-07-10] MEDS: DUONEB 3 ML INH ×3 (08:52→20:46)
[2024-07-10] MEDS: NEURONTIN 300 MG PO ×3 (08:52→21:50)
[2024-07-10] MEDS: DELTASONE 10 MG PO (08:52)
[2024-07-10] MEDS: THERAGRAN 1 TABLET PO (08:52)
[2024-07-10] MEDS: PROTONIX 40 MG PO (08:52)
[2024-07-10] MEDS: BUMEX 2 MG PO ×2 (09:00→17:05)
[2024-07-10] MEDS: KCL ELIXIR 20 MEQ PO ×3 (09:01→21:50)
[2024-07-10] MEDS: LIORESAL 10 MG PO ×3 (09:02→21:50)
[2024-07-10] MEDS: VITAMIN D3 (cholecalciferol) 125 MCG PO (09:03)
[2024-07-10] MEDS: COREG 3.125 MG PO ×2 (09:04→21:49)
[2024-07-10] MEDS: NOVOLOG FLEXPEN-LOW RESISTANCE 2 UNITS SC ×2 (09:05→13:24)
[2024-07-10] MEDS: PULMICORT 0.5 MG INH ×2 (09:26→20:46)
[2024-07-10 11:45] LABS: Glucose - Point of Care 224 mg/dl (70-99)
[2024-07-10] MEDS: CYMBALTA DELAYED RELEASE 60 MG PO (13:29)
--- NOTE | 2024-07-10 16:19 | PHA.VAN.IN ---
Assessment
- Assessment
Renal Function: Appears elevated from baseline (SCR 1.1 vs ~0.7-1)
Concomitant Antimicrobials: ceftriaxone
Plan
- Plan
Initial / Loading Dose: 2000mg - administration pending
Maintenance Regimen: dosing by level
Monitoring: random 07/11 0600
Patient unlikely to follow population PK with weight and elevated SCR
Will obtain level ~12H after 2g load - may require additional load given weight
Pharmacokinetics Vancomycin I
- -
Patient Age: 83
Patient Sex: Female
Vancomycin Day #: 1
Indication: Bacteremia
Requesting Provider: Dr. Montanez
Pertinent Antimicrobial Allergies:
NKDA
Height / Weight:
Height 5 ft 4 in
Actual Weight 126.8 kg
Pertinent Past Medical History: BMI ~48, DM 2
- Vital Signs / Lab Results
Temp Pulse Resp BP Pulse Ox
99.8 F 76 18 156/67 97
07/09/24 17:27 07/10/24 14:45 07/10/24 14:45 07/10/24 14:45 07/10/24 14:45
Lab Results - Hematology
07/09/24 07/10/24
17:49 06:07
WBC 13.9 H 11.7 H
Lab Results - Chemistry
07/09/24 07/10/24
17:49 06:07
BUN 52 H 50 H
Creatinine 1.1 H 1.1 H
Estimated Creat Clear 52
Albumin 3.7 3.7
07/09/24 07/10/24
21:25 01:00
Lactic Acid 1.9 Cancelled
Lab Results - Urine
07/09/24
20:05
Urine Nitrite (Reflex) Negative
Leukocyte Esterase Rfl 3+ A
Urine WBC (Reflex) 16-20 A
Ur Squamous Epith Cells 0-2
Urine Bacteria (Reflex) Many A
Microbiology Results
07/09/24 21:25 Blood Culture - Preliminary
Blood/Venous Positive culture in progress
Gram Stain - Preliminary
[2024-07-10 16:59] LABS: Glucose - Point of Care 333 mg/dl (70-99)
[2024-07-10] MEDS: NOVOLOG FLEXPEN-LOW RESISTANCE 4 UNITS SC (17:03)
[2024-07-10] MEDS: VANCOCIN 540 MG IV (17:04)
[2024-07-10] MEDS: LIPITOR 20 MG PO (17:05)
[2024-07-10] MEDS: SENOKOT 8.6 MG PO (17:05)
[2024-07-10 21:29] LABS: Glucose - Point of Care 265 mg/dl (70-99)
[2024-07-11] VITALS (7 sets, daily range): BP systolic 111–155; BP diastolic 66–77; O2SAT 98; BMI 46.5
[2024-07-11] MEDS: ROCEPHIN 1000 MG IV (02:13)
[2024-07-11] MEDS: STERILE WATER FOR INJECTION 10 ML IV (02:13)
[2024-07-11 07:31] LABS: Glucose - Point of Care 171 mg/dl (70-99)
[2024-07-11] MEDS: DUONEB 3 ML INH ×3 (07:36→19:36)
[2024-07-11] MEDS: PULMICORT 0.5 MG INH ×2 (07:36→19:35)
[2024-07-11 09:19] LABS: % Basophils 0.5 % (0-2); % Eosinophils 0.9 % (0-6); % Immature Granulocytes 0.7 % (0-0.5); % Monocytes 8.7 % (1.7-9.3); % Neutrophils 75.2 % (42.2-75.2); Absolute Basophils 0.1 10^3/uL (0-0.2); Absolute Eosinophils 0.1 10^3/uL (0-0.7); Absolute Immature Granulocytes 0.1 10^3/uL (0-0.05); Absolute Lymphocytes 1.9 10^3/uL (1.2-3.4); Absolute Monocytes 1.2 10^3/uL (0.1-0.6); Absolute Neutrophils 10.3 10^3/uL (1.4-6.5); Hematocrit 38.2 % (37.0-47.0); Hemoglobin 12.7 g/dL (12.0-16.0); Mean Corp Hgb Conc. 33.2 g/dL (33.0-37.0); Mean Corpuscular Hgb 30.5 pg (27.0-31.0); Mean Corpuscular Volume 91.8 fL (81.0-99.0); Mean Platelet Volume 9.8 fL (7.4-10.4); Nucleated Red Blood Cells % 0 %; Platelet Count 263 10^3/uL (130-400); Red Blood Cell Count 4.16 10^6/uL (4.20-5.40); Red Cell Dist. Width 16.1 % (11.5-14.5); White Blood Cell Count 13.8 10^3/uL (4.8-10.8)
[2024-07-11 09:29] LABS: Blood Urea Nitrogen 52 mg/dl (7-17); Calcium 9.6 mg/dl (8.4-10.2); Carbon Dioxide 36 mmol/L (22-30); Chloride 91 mmol/L (98-107); Estimated Creatinine Clearance 47 ml/min; Glucose 154 mg/dl (70-99); Potassium 3.9 mmol/L (3.5-5.1); Sodium 135 mmol/L (135-145); eGFR 45.19
--- NOTE | 2024-07-11 09:34 | W.PN.HOSP.TC ---
Today's Communication/Plan
-
IV antibiotics. CT scan of the abdomen and pelvis.
Assessment / Plan
Assessment / Plan
Physical exam:
General: Well Developed, Well Nourished and No Apparent Distress
HEENT: Normocephalic, Atraumatic and Moist Mucous Membranes
Respiratory: Clear to Auscultation; Negative Wheezes, Rales or Rhonchi
Cardiac: Regular Rhythm and S1/S2
GI: Soft, Nontender and Nondistended
Musculoskeletal: No Clubbing, No Cyanosis and No Edema
Neuro: Awake, Alert, echolalia with right hemiparesis but appears to be baseline.
Psych: Calm
A/P:
# Metabolic encephalopathy likely secondary to UTI. Gram-positive bacteremia
-Awaiting for initial blood cultures identification
-Repeat blood cultures today
-Awaiting urine culture and final blood culture identification
-Continue IV Rocephin and IV vancomycin
-Will do CT scan of the abdomen and pelvis rather than ultrasound. Will also obtain echocardiogram.
-CT head no acute abnormality
-Chest x-ray unremarkable
-Leukocytosis, 13.9--> 11.7-->13.8 (keep in mind she is also on chronic steroids)
-Urinalysis shows +3 leukocyte esterase, 16-20 white blood cells
-Prior urine culture grew E. coli and Enterobacter sensitive to ceftriaxone
# Weight gain
-Chest x-ray unremarkable
-Not currently in heart failure
-Hold off fluids
-Continue diuretics
Type 2 diabetes
-Insulin sliding scale
COPD
-Continue inhalers
-Continue chronic prednisone
-Continue prophylactic azithromycin
History of left-sided CVA with right hemiplegia/aphasia in 2009
-Patient only says the word 'away'normally
-Continue statin
-Continue Eliquis
Chronic right hand tremor/spasm/pain
-Continue baclofen, gabapentin
Chronic ambulatory dysfunction
Chronic HFpEF
-Continue Coreg
-Continue Bumex
Essential hypertension
History of superficial phlebitis
Anxiety/depression
-Continue duloxetine
Vitamin D deficiency
GERD
-Continue omeprazole
Obesity
Obstructive sleep apnea
-Patient uses CPAP
Full code
DVT prophylaxis�Eliquis
Total time spent on today's encounter was 52 minutes which included time spent in counseling the patient/family regarding diagnosis and treatment plan as listed above, goals of care, and symptom management. Case was discussed with nursing staff,
specialists, and care coordinators/case management. All labs and imaging personally reviewed by me. Remainder the time spent in detailed review of previous records, lab data, imaging, and other medical provider documentation.
Anticipated Discharge: > 48 hours
Subjective/Interval History
-
Date of Service: July 11, 2024
Not much information from patient. Remains afebrile. The only word she says 'away'. Also friend at bedside today but does not speak [place] Sor[place].
Objective Data
-
Labs:
Laboratory Results
07/11/24
08:32
WBC 13.8 H
Hgb 12.7
Hct 38.2
Plt Count 263
Sodium 135
Potassium 3.9
Chloride 91 L
Carbon Dioxide 36 H
BUN 52 H
Creatinine 1.2 H
Glucose 154 H
Calcium 9.6
Vital Signs:
Vital Signs
Temp Pulse Resp BP Pulse Ox
98.1 F 79 18 112/72 92
07/11/24 07:42 07/11/24 07:42 07/11/24 07:42 07/11/24 07:42 07/11/24 07:42
I&O
07/10/24 07/11/24 07/12/24
06:59 06:59 06:59
Output Total 200 / 200
Balance -200 / -200
[2024-07-11] MEDS: ELIQUIS 2.5 MG PO ×2 (09:35→20:17)
[2024-07-11] MEDS: DELTASONE 5 MG PO (09:35)
[2024-07-11] MEDS: VITAMIN D3 (cholecalciferol) 125 MCG PO (09:35)
[2024-07-11] MEDS: NEURONTIN 300 MG PO ×3 (09:35→21:21)
[2024-07-11] MEDS: THERAGRAN 1 TABLET PO (09:35)
[2024-07-11] MEDS: LIORESAL 10 MG PO ×3 (09:35→21:21)
[2024-07-11] MEDS: PROTONIX 40 MG PO (09:35)
[2024-07-11] MEDS: BUMEX 2 MG PO ×2 (09:35→16:16)
[2024-07-11] MEDS: NOVOLOG FLEXPEN-LOW RESISTANCE 1 UNITS SC (09:36)
[2024-07-11] MEDS: KCL ELIXIR 20 MEQ PO ×3 (09:36→21:20)
[2024-07-11] MEDS: COREG 3.125 MG PO ×2 (09:36→20:17)
[2024-07-11 09:56] LABS: Vancomycin Random 18.9 ug/ml
--- NOTE | 2024-07-11 09:58 | PHA.VAN.FU ---
Vancomycin Assessment / Plan
- Assessment
Renal Function: Stable
WBC's are: Trending Up
In the past 24 hrs, patient has been: Afebrile
Concomitant Antimicrobials: ceftriaxone
- Assessment - Therapeutic Drug Monitoring
Random Level: 18.9 - drawn ~15.5H after previous dose 2g
- Dosing Plan
Dosing by Level: Hold off on dosing today (level higher than anticipated > 12H after loading dose)
- Monitoring Plan
Random Level: 07/12 599
- Follow Up
Pharmacy will continue to follow.
Vancomycin Follow UP
- -
Patient Age: 83
Patient Sex: Female
Vancomycin Day #: 2
Indication: Bacteremia
Requesting Provider: Dr. Montanez
Pertinent Antimicrobial Allergies:
NKDA
Height / Weight:
Height 5 ft 4 in
Actual Weight 122.697 kg
Pertinent Past Medical History: BMI ~48, DM 2
- Vital Signs / Lab Results
Temp Pulse Resp BP Pulse Ox
98.1 F 79 18 112/72 92
07/11/24 07:42 07/11/24 07:42 07/11/24 07:42 07/11/24 07:42 07/11/24 07:42
Lab Results - Hematology
07/09/24 07/10/24 07/11/24
17:49 06:07 08:32
WBC 13.9 H 11.7 H 13.8 H
Lab Results - Chemistry
07/09/24 07/10/24 07/11/24
17:49 06:07 08:32
BUN 52 H 50 H 52 H
Creatinine 1.1 H 1.1 H 1.2 H
Estimated Creat Clear 52 47
Albumin 3.7 3.7
07/09/24 07/10/24
21:25 01:00
Lactic Acid 1.9 Cancelled
Microbiology Results
07/09/24 21:25 Blood Culture - Preliminary
Blood/Venous No Growth in 24 hours- Final report to follow
07/09/24 21:25 Blood Culture - Preliminary
Blood/Venous Positive culture in progress
Gram Stain - Preliminary
Therapeutic Drug Monitoring
Random Vancomycin 18.9 ug/ml 07/11/24 08:32
[2024-07-11 11:17] LABS: Glucose - Point of Care 218 mg/dl (70-99)
[2024-07-11] MEDS: NOVOLOG FLEXPEN-LOW RESISTANCE 2 UNITS SC ×2 (11:30→16:17)
[2024-07-11] MEDS: CYMBALTA DELAYED RELEASE 60 MG PO (11:32)
[2024-07-11 15:38] LABS: Glucose - Point of Care 245 mg/dl (70-99)
--- NOTE | 2024-07-11 16:00 | PTCARENOTE ---
Right side of neck above clavicle more swollen than left, not previously noted on assessment. Soft, no crepitus noted, slightly tender on palpation. Dr. Montanez made aware, CT neck ordered.
[2024-07-11] MEDS: LIPITOR 20 MG PO (16:16)
[2024-07-11] MEDS: SENOKOT 8.6 MG PO (16:16)
[2024-07-11 21:09] LABS: Glucose - Point of Care 241 mg/dl (70-99)
[2024-07-12] MEDS: STERILE WATER FOR INJECTION 10 ML IV (02:00)
[2024-07-12] MEDS: ROCEPHIN 1000 MG IV (02:01)
[2024-07-12 03:26] VITALS: BP 139/64
[2024-07-12 06:00] VITALS: BMI 47.7
[2024-07-12 07:45] VITALS: BP 157/61
[2024-07-12 08:00] LABS: % Basophils 0.2 % (0-2); % Eosinophils 2.2 % (0-6); % Lymphocytes 7.1 % (20.5-51.1); % Monocytes 5.9 % (1.7-9.3); % Neutrophils 83.6 % (42.2-75.2); Absolute Eosinophils 0.3 10^3/uL (0-0.7); Absolute Immature Granulocytes 0.1 10^3/uL (0-0.05); Absolute Lymphocytes 0.9 10^3/uL (1.2-3.4); Absolute Monocytes 0.8 10^3/uL (0.1-0.6); Absolute Neutrophils 10.6 10^3/uL (1.4-6.5); Hemoglobin 12.9 g/dL (12.0-16.0); Mean Corp Hgb Conc. 33.1 g/dL (33.0-37.0); Mean Corpuscular Hgb 30.4 pg (27.0-31.0); Mean Corpuscular Volume 91.8 fL (81.0-99.0); Mean Platelet Volume 9.3 fL (7.4-10.4); Nucleated Red Blood Cells % 0 %; Platelet Count 248 10^3/uL (130-400); Red Blood Cell Count 4.25 10^6/uL (4.20-5.40); Red Cell Dist. Width 16.5 % (11.5-14.5); White Blood Cell Count 12.6 10^3/uL (4.8-10.8)
[2024-07-12 08:03] LABS: Vancomycin Random 10.9 ug/ml
[2024-07-12 08:04] LABS: Glucose - Point of Care 139 mg/dl (70-99)
[2024-07-12 08:10] LABS: Blood Urea Nitrogen 53 mg/dl (7-17); Calcium 9.3 mg/dl (8.4-10.2); Carbon Dioxide 34 mmol/L (22-30); Chloride 92 mmol/L (98-107); Estimated Creatinine Clearance 51 ml/min; Glucose 141 mg/dl (70-99); Potassium 4.3 mmol/L (3.5-5.1); Sodium 135 mmol/L (135-145); eGFR 50.17
[2024-07-12] MEDS: DUONEB INH (08:26)
[2024-07-12] MEDS: PULMICORT INH (08:26)
--- NOTE | 2024-07-12 08:58 | W.PN.HOSP.TC ---
Today's Communication/Plan
-
IV antibiotic
Assessment / Plan
Assessment / Plan
Physical exam:
General: Well Developed, Well Nourished and No Apparent Distress
HEENT: Normocephalic, Atraumatic and Moist Mucous Membranes
Respiratory: Clear to Auscultation; Negative Wheezes, Rales or Rhonchi
Cardiac: Regular Rhythm and S1/S2
GI: Soft, Nontender and Nondistended
Musculoskeletal: No Clubbing, No Cyanosis and No Edema
Neuro: Awake, Alert, echolalia with right hemiparesis but appears to be baseline.
Psych: Calm
A/P:
# Metabolic encephalopathy likely secondary to UTI. Gram-positive bacteremia
-Blood cultures with Enterococcus faecalis and urine culture with Enterococcus cloacae
-Repeated blood cultures no growth
-ID consult
-Continue IV Rocephin and IV vancomycin
-CT scan of the abdomen and pelvis no acute abnormalities related to urine infection. Echocardiogram no evidence of gross vegetation.
-CT head no acute abnormality
-Chest x-ray unremarkable
-Leukocytosis, 13.9--> 11.7-->13.8-->12.6 (keep in mind she is also on chronic steroids)
-Urinalysis shows +3 leukocyte esterase, 16-20 white blood cells
-Prior urine culture grew E. coli and Enterobacter sensitive to ceftriaxone
#Urinary retention
Straight cath as needed
#Neck abnormality per nurse and family report
No clear-cut palpable mass on my evaluation
Plan for CT of neck
# Weight gain
-Chest x-ray unremarkable
-Not currently in heart failure
-Hold off fluids
-Continue diuretics
Type 2 diabetes
-Insulin sliding scale
COPD
-Continue inhalers
-Continue chronic prednisone
-Continue prophylactic azithromycin
History of left-sided CVA with right hemiplegia/aphasia in 2009
-Patient only says the word 'away'normally
-Continue statin
-Continue Eliquis
Chronic right hand tremor/spasm/pain
-Continue baclofen, gabapentin
Chronic ambulatory dysfunction
Chronic HFpEF
-Continue Coreg
-Continue Bumex
Essential hypertension
History of superficial phlebitis
Anxiety/depression
-Continue duloxetine
Vitamin D deficiency
GERD
-Continue omeprazole
Obesity
Obstructive sleep apnea
-Patient uses CPAP
Full code
DVT prophylaxis�Eliquis
Total time spent on today's encounter was 52 minutes which included time spent in counseling the patient/family regarding diagnosis and treatment plan as listed above, goals of care, and symptom management. Case was discussed with nursing staff,
specialists, and care coordinators/case management. All labs and imaging personally reviewed by me. Remainder the time spent in detailed review of previous records, lab data, imaging, and other medical provider documentation.
Anticipated Discharge: 24 - 48 hours
Subjective/Interval History
-
Date of Service: July 12, 2024
Not much improved from patient. Discussed with son from caregiver.
Objective Data
-
Labs:
Laboratory Results
07/12/24
07:35
WBC 12.6 H
Hgb 12.9
Hct 39.0
Plt Count 248
Sodium 135
Potassium 4.3
Chloride 92 L
Carbon Dioxide 34 H
BUN 53 H
Creatinine 1.1 H
Glucose 141 H
Calcium 9.3
Vital Signs:
Vital Signs
Temp Pulse Resp BP Pulse Ox
97.8 F 80 20 157/61 96
07/12/24 07:45 07/12/24 07:45 07/12/24 07:45 07/12/24 07:45 07/12/24 07:45
I&O
07/11/24 07/12/24 07/13/24
06:59 06:59 06:59
Intake Total 720 / 720
Output Total 200 / 200 1100 / 1100
Balance -200 / -200 -380 / -380
[2024-07-12] MEDS: NOVOLOG FLEXPEN-LOW RESISTANCE SC ×2 (10:51→12:30)
[2024-07-12] MEDS: PROTONIX 40 MG PO (10:52)
[2024-07-12] MEDS: KCL ELIXIR 20 MEQ PO ×3 (10:52→20:54)
[2024-07-12] MEDS: BUMEX 2 MG PO ×2 (10:52→16:18)
[2024-07-12] MEDS: NEURONTIN 300 MG PO ×3 (10:53→20:53)
[2024-07-12] MEDS: COREG 3.125 MG PO ×2 (10:53→20:53)
[2024-07-12] MEDS: ELIQUIS 2.5 MG PO ×2 (10:53→20:53)
[2024-07-12] MEDS: THERAGRAN 1 TABLET PO (10:53)
[2024-07-12] MEDS: VITAMIN D3 (cholecalciferol) 125 MCG PO (10:54)
[2024-07-12] MEDS: LIORESAL 10 MG PO ×3 (10:54→20:53)
[2024-07-12] MEDS: DELTASONE 10 MG PO (10:54)
[2024-07-12] MEDS: ZOFRAN 4 MG IV ×2 (11:24→20:53)
[2024-07-12 11:58] VITALS: BP 148/68
[2024-07-12 12:08] LABS: Glucose - Point of Care 161 mg/dl (70-99)
[2024-07-12] MEDS: CYMBALTA DELAYED RELEASE 60 MG PO (12:30)
[2024-07-12] MEDS: DUONEB 3 ML INH ×2 (13:45→20:25)
--- NOTE | 2024-07-12 14:19 | CON.ID ---
Consultation
-
Date/Time Consultation Requested: 07/12/2024 0901
Date/Time Consultation Performed: 07/12/2024 1414
Requesting Provider: Dr. Montanez
Performing Provider: Dr. Bianchi
Reason for Consultation: Bacteremia
Chief Complaint / Past History
History of Present Illness
Amanda Willett is an 83-year-old female being evaluated at the request of Dr. Montanez in regards to bacteremia. History is obtained from chart review alone as the patient has a history of CVA with aphasia.
The patient was brought to the emergency room on 07/09/2024 following several days of reported weight gain (10 pounds). The family is also noted generalized decreased overall activity, and reports that she has not been 'behaving herself'.
Workup in the ER revealed a low-grade leukocytosis, along with a somewhat active urine. A blood culture obtained at the time of admission is now positive for Enterococcus, and urine culture has revealed growth of Enterobacter cloacae. Infectious
Diseases is asked to comment upon further antimicrobial therapy.
Past History
Additional Past Medical History:
Hx cervical cancer
COPD
Hx CVA (right residual; aphasia)
HTN
HTN
Hx DVT
Nephrolithiasis
Additional Past Surgical History:
Cholecystectomy
Allergy History:
No Known Drug Allergies Allergy (Verified 11/16/23 17:03)
NONE
Medications Reviewed: Yes
Current Antibiotics:
Ceftriaxone 1 g IV every 24 hours
Vancomycin (dosing per pharmacy)
Social History
Tobacco: Former Smoker
Alcohol: None
Drug: None
Personal:
Living: With Family
Employment: Retired
Family History
Family History: Not Pertinent
Review of Systems
Vital Signs
Temp Pulse Resp BP Pulse Ox
97.8 F 76 16 148/68 92
07/12/24 11:58 07/12/24 13:51 07/12/24 13:51 07/12/24 11:58 07/12/24 13:51
Physical Exam
Physical Exam
Constitutional: Comfortable, Chronically Ill, Non-toxic and Obese
Head: Normocephalic
Eyes: Pupils Equal, Pupils Round, No Conjunctival Hemorrhage and Sclera Anicteric
Oral: No Thrush and No Ulcers
Cardiovascular: Regular Rate and S1/S2; Negative S3/S4 or Murmur
Pulmonary: Symmetric, Wheezes (throughout), Coarse and Non Labored
Gastrointestinal: Soft, Non Tender and Non Distended
Genito-Urinary: Negative Suprapubic Tenderness or CVA Tenderness
Extremities: Edema; Negative Cyanosis, Erythema or Splinter Hemorrhage
Neurological: Awake and Alert
Psychological: Calm
.
Lab / Diagnostic Study Results
07/12/24 07:35
07/12/24 07:35
Abs Immat Gran (auto) 0.1 10^3/uL (0-0.05) H 07/12/24 07:35
Absolute Neuts (auto) 10.6 10^3/uL (1.4-6.5) H 07/12/24 07:35
Absolute Lymphs (auto) 0.9 10^3/uL (1.2-3.4) L 07/12/24 07:35
Absolute Monos (auto) 0.8 10^3/uL (0.1-0.6) H 07/12/24 07:35
Absolute Basos (auto) 0.0 10^3/uL (0-0.2) 07/12/24 07:35
Immature Gran % 1.0 % (0-0.5) H 07/12/24 07:35
Neutrophils % 83.6 % (42.2-75.2) H 07/12/24 07:35
Lymphocytes % 7.1 % (20.5-51.1) L 07/12/24 07:35
Monocytes % 5.9 % (1.7-9.3) 07/12/24 07:35
Eosinophils % 2.2 % (0-6) 07/12/24 07:35
Basophils % 0.2 % (0-2) 07/12/24 07:35
Lactic Acid Cancelled 07/10/24 01:00
Ur Squamous Epith Cells 0-2 /LPF (Few) 07/09/24 20:05
Microbiology Results
Micro:
07/09/24 21:25 Blood Culture - Preliminary
Blood/Venous Enterococcus faecalis (1 of 2 bottles)
Gram Stain - Preliminary
07/11/24 10:44 Blood Culture - Preliminary
Blood/Venous No Growth in 24 hours- Final report to follow
07/11/24 10:21 Blood Culture - Preliminary
Blood/Venous No Growth in 24 hours- Final report to follow
07/09/24 20:05 Urine Culture - Final
Urine Enterobacter cloacae
07/09/24 21:25 Blood Culture - Preliminary
Blood/Venous No Growth in 48 hours- Final report to follow
Imaging:
07/11/2024 CT abdomen/pelvis without contrast: A 3 mm nonobstructing calculus in the lower pole of the right kidney is noted. There is cortical scarring at the posterior midportion of the left kidney. There is mild left and moderate diffuse
bilateral renal cortical atrophy. Diverticuli are present in the colon without evidence of diverticulitis. Please see full dictation for additional detail. Film personally viewed.
Assessment / Plan
Enterococcal bacteremia
Complicated urinary tract infection secondary to Enterobacter cloacae
Leukocytosis
Hx cervical cancer
COPD
Hx CVA (right residual; aphasia)
HTN
HTN
Hx DVT
Nephrolithiasis
Recommendations:
Continue ceftriaxone for the present in the treatment of recovered Enterobacter
Discontinue further vancomycin. Began ampicillin 2 g IV every 6 hours in coverage of recovered Enterococcus.
Check echocardiogram to assess for any valvular vegetation.
Follow pending cultures.
Monitor white count and temperature curve.
Further recommendations as additional data is returned.
[2024-07-12 14:46] VITALS: BP 123/78
[2024-07-12] MEDS: AMPICILLIN 108 MG IV ×2 (16:17→22:19)
[2024-07-12] MEDS: LIPITOR 20 MG PO (16:20)
[2024-07-12] MEDS: SENOKOT 8.6 MG PO (16:20)
[2024-07-12 16:32] LABS: Glucose - Point of Care 179 mg/dl (70-99)
[2024-07-12] MEDS: NOVOLOG FLEXPEN-LOW RESISTANCE 1 UNITS SC (16:55)
[2024-07-12] MEDS: PULMICORT 0.5 MG INH (20:25)
[2024-07-12 21:27] LABS: Glucose - Point of Care 176 mg/dl (70-99)
[2024-07-12] MEDS: TYLENOL 1000 MG PO (23:10)
[2024-07-12 23:30] VITALS: BP 137/63
[2024-07-13] MEDS: STERILE WATER FOR INJECTION 10 ML IV (03:00)
[2024-07-13] MEDS: ROCEPHIN 1000 MG IV (03:00)
[2024-07-13] MEDS: AMPICILLIN 108 MG IV ×4 (03:01→21:09)
[2024-07-13 06:00] VITALS: BMI 46.5
[2024-07-13 07:35] VITALS: BP 127/67
[2024-07-13] MEDS: ZOFRAN 4 MG IV (07:37)
[2024-07-13] MEDS: PULMICORT 0.5 MG INH ×2 (07:39→19:34)
[2024-07-13] MEDS: DUONEB 3 ML INH ×3 (07:40→19:34)
[2024-07-13 07:47] LABS: Glucose - Point of Care 190 mg/dl (70-99)
[2024-07-13 08:21] LABS: % Basophils 0.2 % (0-2); % Eosinophils 0.8 % (0-6); % Immature Granulocytes 0.9 % (0-0.5); % Lymphocytes 3.5 % (20.5-51.1); % Monocytes 5.6 % (1.7-9.3); Absolute Eosinophils 0.1 10^3/uL (0-0.7); Absolute Immature Granulocytes 0.1 10^3/uL (0-0.05); Absolute Lymphocytes 0.3 10^3/uL (1.2-3.4); Absolute Monocytes 0.5 10^3/uL (0.1-0.6); Absolute Neutrophils 8.3 10^3/uL (1.4-6.5); Hematocrit 37.3 % (37.0-47.0); Hemoglobin 12.6 g/dL (12.0-16.0); Mean Corp Hgb Conc. 33.8 g/dL (33.0-37.0); Mean Corpuscular Hgb 30.9 pg (27.0-31.0); Mean Corpuscular Volume 91.4 fL (81.0-99.0); Mean Platelet Volume 9.8 fL (7.4-10.4); Nucleated Red Blood Cells % 0 %; Platelet Count 211 10^3/uL (130-400); Red Blood Cell Count 4.08 10^6/uL (4.20-5.40); Red Cell Dist. Width 16.6 % (11.5-14.5); White Blood Cell Count 9.3 10^3/uL (4.8-10.8)
[2024-07-13] MEDS: NOVOLOG FLEXPEN-LOW RESISTANCE 1 UNITS SC ×2 (08:56→17:15)
[2024-07-13 09:10] LABS: Blood Urea Nitrogen 52 mg/dl (7-17); Calcium 8.6 mg/dl (8.4-10.2); Carbon Dioxide 31 mmol/L (22-30); Chloride 96 mmol/L (98-107); Estimated Creatinine Clearance 47 ml/min; Glucose 194 mg/dl (70-99); Potassium 4.6 mmol/L (3.5-5.1); Sodium 137 mmol/L (135-145); eGFR 45.19
--- NOTE | 2024-07-13 09:17 | W.PN.HOSP.TC ---
Today's Communication/Plan
-
IV antibiotics. X-ray of the abdomen
Assessment / Plan
Assessment / Plan
Physical exam:
General: Well Developed, Well Nourished and No Apparent Distress
HEENT: Normocephalic, Atraumatic and Moist Mucous Membranes
Respiratory: Clear to Auscultation; Negative Wheezes, Rales or Rhonchi
Cardiac: Regular Rhythm and S1/S2
GI: Soft, Nontender and Nondistended
Musculoskeletal: No Clubbing, No Cyanosis and No Edema
Neuro: Awake, Alert, echolalia with right hemiparesis but appears to be baseline.
Psych: Calm
A/P:
# Metabolic encephalopathy likely secondary to UTI. Gram-positive bacteremia
-Blood cultures with Enterococcus faecalis and urine culture with Enterococcus cloacae. Follow-up blood cultures no growth from 07/11
-Repeated blood cultures no growth
-ID consult appreciated
-Continue IV Rocephin and changed IV vancomycin to IV ampicillin
-CT scan of the abdomen and pelvis no acute abnormalities related to urine infection. Echocardiogram no evidence of gross vegetation.
-CT head no acute abnormality
-Chest x-ray unremarkable
-Leukocytosis, 13.9--> 9.3 (despite being on chronic steroids)
-Discussed with daughter at bedside today
# History of urinary retention
She has not required any straight cath or Duarte catheter
She has a purewick has been voiding
#Nausea and vomiting
Will obtain x-ray of the abdomen to rule out SBO
Antiemetics for now
Will also start bowel regimen more aggressively
#Neck abnormality per nurse and family report
No clear-cut palpable mass on my evaluation
Plan for CT of neck
# Weight gain
-Chest x-ray unremarkable
-Not currently in heart failure
-Hold off fluids
-Continue diuretics
Type 2 diabetes
-Insulin sliding scale
COPD
-Continue inhalers
-Continue chronic prednisone
-Continue prophylactic azithromycin
History of left-sided CVA with right hemiplegia/aphasia in 2009
-Patient only says the word 'away'normally
-Continue statin
-Continue Eliquis
Chronic right hand tremor/spasm/pain
-Continue baclofen, gabapentin
Chronic ambulatory dysfunction
Chronic HFpEF
-Continue Coreg
-Continue Bumex
Essential hypertension
History of superficial phlebitis
Anxiety/depression
-Continue duloxetine
Vitamin D deficiency
GERD
-Continue omeprazole
Obesity
Obstructive sleep apnea
-Patient uses CPAP
Full code
DVT prophylaxis�Eliquis
Total time spent on today's encounter was 52 minutes which included time spent in counseling the patient/family regarding diagnosis and treatment plan as listed above, goals of care, and symptom management. Case was discussed with nursing staff,
specialists, and care coordinators/case management. All labs and imaging personally reviewed by me. Remainder the time spent in detailed review of previous records, lab data, imaging, and other medical provider documentation.
Anticipated Discharge: > 48 hours
Subjective/Interval History
-
Date of Service: July 13, 2024
Patient having nausea and vomiting today. She has not had any bowel movement for few days. Afebrile
Objective Data
-
Labs:
Laboratory Results
07/13/24
07:53
WBC 9.3
Hgb 12.6
Hct 37.3
Plt Count 211
Sodium 137
Potassium 4.6
Chloride 96 L
Carbon Dioxide 31 H
BUN 52 H
Creatinine 1.2 H
Glucose 194 H
Calcium 8.6
Vital Signs:
Vital Signs
Temp Pulse Resp BP Pulse Ox
98.2 F 79 16 127/67 91
07/13/24 07:35 07/13/24 07:46 07/13/24 07:46 07/13/24 07:35 07/13/24 07:46
I&O
07/12/24 07/13/24 07/14/24
06:59 06:59 06:59
Intake Total 720 / 720 50 / 50
Output Total 1100 / 1100 750 / 750
Balance -380 / -380 -700 / -700
[2024-07-13] MEDS: BUMEX 2 MG PO ×2 (10:35→17:14)
[2024-07-13] MEDS: VITAMIN D3 (cholecalciferol) 125 MCG PO (10:36)
[2024-07-13] MEDS: DELTASONE 5 MG PO (10:36)
[2024-07-13] MEDS: COREG 3.125 MG PO ×2 (10:36→20:56)
[2024-07-13] MEDS: NEURONTIN 300 MG PO ×3 (10:36→21:01)
[2024-07-13] MEDS: ELIQUIS 2.5 MG PO ×2 (10:37→20:56)
[2024-07-13] MEDS: LIORESAL 10 MG PO ×3 (10:37→21:01)
[2024-07-13] MEDS: PROTONIX 40 MG PO (10:37)
[2024-07-13] MEDS: KCL ELIXIR PO ×2 (10:37→17:15)
[2024-07-13] MEDS: THERAGRAN 1 TABLET PO (10:37)
[2024-07-13] MEDS: MILK OF MAGNESIA 30 ML PO (10:38)
[2024-07-13] MEDS: MIRALAX 17 GRAMS PO ×2 (10:44→20:57)
[2024-07-13] MEDS: SENOKOT 8.6 MG PO ×2 (10:57→17:14)
[2024-07-13 11:56] LABS: Glucose - Point of Care 209 mg/dl (70-99)
[2024-07-13] MEDS: CYMBALTA DELAYED RELEASE 60 MG PO (12:32)
[2024-07-13] MEDS: NOVOLOG FLEXPEN-LOW RESISTANCE 2 UNITS SC (12:32)
--- NOTE | 2024-07-13 14:42 | CM ---
Pt seen bedside w/ caregiver. Pt and caregiver could not participate in assessment due to language barrier. CM spoke w/ pt's son, Edwin for information. Pt lives w/ caregiver in a 2STH- no steps, ramp access. Pt is independent w/ cane for
ambulation. Pt has grab bars in the home, has nebulizer machine that is in good condition. Edwin shared pt receives neb treatments a few times a day.
Pt was prev at [facility] in the past for rehab. Prev known to [facility] and [facility] in the past.
Address, points of contact and insurance verified
PCP: Dr. Pito Dixon
Pharmacy: [facility]
Therapy evaluated pt and is currently recommending SNF at d/c. Edwin agreeable for pt to go to rehab and prefers referral sent to [facility] referral completed in [facility] for review
Plan: SNF recommended (prefers [facility]), await determination
--- NOTE | 2024-07-13 14:59 | W.PN.ID1 ---
Date of Service
Date of Service: July 13, 2024
Today's Communication
Continue antibiotics.
Assessment / Plan
Bacteremia with Enterococcus faecalis
Complicated urinary tract infection secondary to Enterobacter cloacae
Leukocytosis
Hx cervical cancer
COPD
Hx CVA (right residual; aphasia)
HTN
HTN
Hx DVT
Nephrolithiasis
Recommendations:
Continue ceftriaxone for the present in the treatment of recovered Enterobacter
Continue ampicillin 2 g IV every 6 hours in coverage of recovered Enterococcus.
- Echocardiogram (TTE) without valvular vegetation.
Follow pending cultures.
Monitor white count and temperature curve.
Further recommendations as additional data is returned.
����������������������������������������������������������
Chief Complaint
-: UTI and Bacteremia
Subjective / Review of Systems
Review of Systems: No Fever
Vital Signs / Physical Exam
Vital Signs
Vital Signs
Temp Pulse Resp BP Pulse Ox
98.2 F 76 16 127/63 94
07/13/24 07:35 07/13/24 14:29 07/13/24 14:29 07/13/24 10:35 07/13/24 14:29
Physical Exam
Constitutional: No Acute Distress, Comfortable, Chronically Ill and Obese
Eyes: No Conjunctival Hemorrhage and Sclera Anicteric
Cardiovascular: S1/S2; Negative S3/S4 or Murmur
Pulmonary: Non Labored
Gastrointestinal: Soft, Non Tender and Non Distended
Extremities: Negative Edema or Erythema
Neurological: Awake and Alert
Objective Data
Lab Data
Lab Results
07/13/24 07:53
07/13/24 07:53
Estimated Creat Clear 47 ml/min 07/13/24 07:53
Lactic Acid Cancelled 07/10/24 01:00
Total Bilirubin 0.6 mg/dl (0.2-1.3) 07/10/24 06:07
AST 23 U/L (14-36) 07/10/24 06:07
ALT 26 U/L (0-35) 07/10/24 06:07
Alkaline Phosphatase 93 U/L (38-126) 07/10/24 06:07
Most recent labs reviewed.
Micro Results:
07/09/24 21:25 Blood Culture - Preliminary
Blood/Venous Enterococcus faecalis
Gram Stain - Preliminary
07/11/24 10:44 Blood Culture - Preliminary
Blood/Venous No Growth in 48 hours- Final report to follow
07/11/24 10:21 Blood Culture - Preliminary
Blood/Venous No Growth in 48 hours- Final report to follow
07/09/24 21:25 Blood Culture - Preliminary
Blood/Venous No Growth in 72 hours- Final report to follow
07/09/24 20:05 Urine Culture - Final
Urine Enterobacter cloacae
Blood Culture 07/12/24-1220
1. Enterococcus faecalis
M.I.C. RX
--------- ---
Ampicillin <=2 S
Gentamicin Synergy Screen <=500 S
Vancomycin 2 S
Imaging:
07/11/2024 CT abdomen/pelvis without contrast: A 3 mm nonobstructing calculus in the lower pole of the right kidney is noted. There is cortical scarring at the posterior midportion of the left kidney. There is mild left and moderate diffuse
bilateral renal cortical atrophy. Diverticuli are present in the colon without evidence of diverticulitis. Please see full dictation for additional detail. Film personally viewed.
[2024-07-13 15:42] VITALS: BP 129/71
[2024-07-13 16:43] LABS: Glucose - Point of Care 169 mg/dl (70-99)
[2024-07-13] MEDS: LIPITOR 20 MG PO (17:14)
[2024-07-13] MEDS: SENOKOT PO (20:57)
[2024-07-13] MEDS: KCL ELIXIR 20 MEQ PO (21:01)
[2024-07-13 22:31] LABS: Glucose - Point of Care 155 mg/dl (70-99)
[2024-07-13 22:55] VITALS: BP 152/99
[2024-07-14] MEDS: ROCEPHIN 1000 MG IV (02:57)
[2024-07-14] MEDS: STERILE WATER FOR INJECTION 10 ML IV (02:57)
[2024-07-14] MEDS: AMPICILLIN 108 MG IV ×4 (02:59→21:29)
[2024-07-14 04:12] VITALS: BMI 46.5
[2024-07-14] MEDS: PULMICORT 0.5 MG INH ×2 (07:31→19:28)
[2024-07-14] MEDS: DUONEB 3 ML INH ×3 (07:31→19:28)
[2024-07-14 07:38] LABS: Glucose - Point of Care 134 mg/dl (70-99)
[2024-07-14] MEDS: NOVOLOG FLEXPEN-LOW RESISTANCE SC ×3 (07:44→16:44)
[2024-07-14 08:28] LABS: Hematocrit 36.3 % (37.0-47.0); Hemoglobin 12.1 g/dL (12.0-16.0); Mean Corp Hgb Conc. 33.3 g/dL (33.0-37.0); Mean Corpuscular Hgb 30.8 pg (27.0-31.0); Mean Corpuscular Volume 92.4 fL (81.0-99.0); Mean Platelet Volume 9.8 fL (7.4-10.4); Platelet Count 207 10^3/uL (130-400); Red Blood Cell Count 3.93 10^6/uL (4.20-5.40); Red Cell Dist. Width 16.5 % (11.5-14.5); White Blood Cell Count 8.7 10^3/uL (4.8-10.8)
[2024-07-14] MEDS: MIRALAX 17 GRAMS PO (08:29)
[2024-07-14] MEDS: KCL ELIXIR 20 MEQ PO ×3 (08:29→20:14)
[2024-07-14] MEDS: NEURONTIN 300 MG PO ×3 (08:29→20:14)
[2024-07-14] MEDS: ELIQUIS 2.5 MG PO ×2 (08:30→20:14)
[2024-07-14] MEDS: THERAGRAN 1 TABLET PO (08:30)
[2024-07-14] MEDS: PROTONIX 40 MG PO (08:30)
[2024-07-14] MEDS: BUMEX 2 MG PO ×2 (08:31→16:42)
[2024-07-14] MEDS: VITAMIN D3 (cholecalciferol) 125 MCG PO (08:31)
[2024-07-14] MEDS: LIORESAL 10 MG PO ×3 (08:31→20:14)
[2024-07-14] MEDS: DELTASONE 10 MG PO (08:31)
[2024-07-14] MEDS: COREG 3.125 MG PO ×2 (08:31→20:14)
[2024-07-14] MEDS: SENOKOT 8.6 MG PO ×2 (08:32→16:44)
[2024-07-14 09:01] LABS: Blood Urea Nitrogen 43 mg/dl (7-17); Calcium 8.1 mg/dl (8.4-10.2); Carbon Dioxide 35 mmol/L (22-30); Chloride 95 mmol/L (98-107); Estimated Creatinine Clearance 51 ml/min; Glucose 146 mg/dl (70-99); Potassium 4.4 mmol/L (3.5-5.1); Sodium 137 mmol/L (135-145); eGFR 50.17
[2024-07-14 09:02] LABS: Erythrocyte Sed Rate 67 mm/hour (0-20)
--- NOTE | 2024-07-14 09:47 | W.PN.HOSP.TC ---
Today's Communication/Plan
-
IV antibiotics.
Assessment / Plan
Assessment / Plan
Physical exam:
General: Well Developed, Well Nourished and No Apparent Distress
HEENT: Normocephalic, Atraumatic and Moist Mucous Membranes
Respiratory: Clear to Auscultation; Negative Wheezes, Rales or Rhonchi
Cardiac: Regular Rhythm and S1/S2
GI: Soft, Nontender and Nondistended
Musculoskeletal: No Clubbing, No Cyanosis and No Edema
Neuro: Awake, Alert, echolalia with right hemiparesis but appears to be baseline.
Psych: Calm
A/P:
# Metabolic encephalopathy likely secondary to UTI. Gram-positive bacteremia
-Blood cultures with Enterococcus faecalis and Aerococcus and urine culture with Enterobacter cloacae.
-Repeated blood cultures no growth
-ID consult appreciated
-Continue IV Rocephin and IV ampicillin
-CT scan of the abdomen and pelvis no acute abnormalities related to urine infection. Echocardiogram no evidence of gross vegetation.
-CT head no acute abnormality
-Chest x-ray unremarkable
-Leukocytosis, 13.9--> 9.3 (despite being on chronic steroids)
-Discussed with daughter at bedside yesterday and discussed with son prior to that.
-Noticed elevated sed rate and CRP. Continue follow-up further ID recommendation
# History of urinary retention
She has not required any straight cath or Duarte catheter
She has a purewick has been voiding
#Nausea and vomiting
Resolved after bowel regimen
X-ray no SBO.
#Neck abnormality per nurse and family report
No clear-cut palpable mass on my evaluation
CT of the neck no abnormalities.
# Weight gain
-Chest x-ray unremarkable
-Not currently in heart failure
-Hold off fluids
-Continue diuretics
Type 2 diabetes
-Insulin sliding scale
COPD
-Continue inhalers
-Continue chronic prednisone
-Continue prophylactic azithromycin
History of left-sided CVA with right hemiplegia/aphasia in 2009
-Patient only says the word 'away'normally
-Continue statin
-Continue Eliquis
Chronic right hand tremor/spasm/pain
-Continue baclofen, gabapentin
Chronic ambulatory dysfunction
Chronic HFpEF
-Continue Coreg
-Continue Bumex
Essential hypertension
History of superficial phlebitis
Anxiety/depression
-Continue duloxetine
Vitamin D deficiency
GERD
-Continue omeprazole
Obesity
Obstructive sleep apnea
-Patient uses CPAP
Full code
DVT prophylaxis�Eliquis
Total time spent on today's encounter was 52 minutes which included time spent in counseling the patient/family regarding diagnosis and treatment plan as listed above, goals of care, and symptom management. Case was discussed with nursing staff,
specialists, and care coordinators/case management. All labs and imaging personally reviewed by me. Remainder the time spent in detailed review of previous records, lab data, imaging, and other medical provider documentation.
Anticipated Discharge: > 48 hours
Subjective/Interval History
-
Date of Service: July 14, 2024
Patient is having bowel movements. No nausea or vomiting. Afebrile
Objective Data
-
Labs:
Laboratory Results
07/14/24
08:03
WBC 8.7
Hgb 12.1
Hct 36.3 L
Plt Count 207
Sodium 137
Potassium 4.4
Chloride 95 L
Carbon Dioxide 35 H
BUN 43 H
Creatinine 1.1 H
Glucose 146 H
Calcium 8.1 L
Vital Signs:
Vital Signs
Temp Pulse Resp BP Pulse Ox
98 F 79 16 152/99 93
07/13/24 22:55 07/14/24 07:36 07/14/24 07:36 07/13/24 22:55 07/14/24 07:36
I&O
07/13/24 07/14/24 07/15/24
06:59 06:59 06:59
Intake Total 50 / 50 340 / 340
Output Total 750 / 750 1350 / 1350
Balance -700 / -700 -1010 / -1010
[2024-07-14 12:03] LABS: Glucose - Point of Care 147 mg/dl (70-99)
[2024-07-14] MEDS: CYMBALTA DELAYED RELEASE 60 MG PO (12:20)
--- NOTE | 2024-07-14 14:34 | W.PN.ID1 ---
Date of Service
Date of Service: July 14, 2024
Today's Communication
Continue antibiotics. See below�
Assessment / Plan
Bacteremia with Enterococcus faecalis
Complicated urinary tract infection secondary to Enterobacter cloacae
Leukocytosis
Hx cervical cancer
COPD
Hx CVA (right residual; aphasia)
HTN
HTN
Hx DVT
Nephrolithiasis
Recommendations:
Repeat cultures negative.
Continue ceftriaxone in the treatment of recovered Enterobacter. Continue treatment through 07/22/2024
Continue ampicillin 2 g IV every 6 hours in coverage of recovered Enterococcus. Continue treatment through 07/24/2024 (14 days from first negative blood culture)
- Echocardiogram (TTE) without valvular vegetation.
Monitor white count and temperature curve.
����������������������������������������������������������
Chief Complaint
-: UTI and Bacteremia
Subjective / Review of Systems
Review of Systems: No Fever
Vital Signs / Physical Exam
Vital Signs
Vital Signs
Temp Pulse Resp BP Pulse Ox
98 F 71 16 152/99 93
07/13/24 22:55 07/14/24 14:22 07/14/24 14:22 07/13/24 22:55 07/14/24 14:22
Physical Exam
Constitutional: No Acute Distress, Comfortable, Chronically Ill and Obese
Eyes: No Conjunctival Hemorrhage and Sclera Anicteric
Cardiovascular: S1/S2; Negative S3/S4 or Murmur
Pulmonary: Non Labored
Gastrointestinal: Soft, Non Tender and Non Distended
Extremities: Negative Edema or Erythema
Neurological: Awake, Alert and Other (Aphasic)
Psychological: Calm
Objective Data
Lab Data
Lab Results
07/14/24 08:03
07/14/24 08:03
ESR 67 mm/hour (0-20) H 07/14/24 08:03
Estimated Creat Clear 51 ml/min 07/14/24 08:03
Lactic Acid Cancelled 07/10/24 01:00
Total Bilirubin 0.6 mg/dl (0.2-1.3) 07/10/24 06:07
AST 23 U/L (14-36) 07/10/24 06:07
ALT 26 U/L (0-35) 07/10/24 06:07
Alkaline Phosphatase 93 U/L (38-126) 07/10/24 06:07
C-Reactive Protein 48.90 mg/L (0.0-10.00) H 07/14/24 08:03
Most recent labs reviewed.
Micro Results:
07/11/24 10:44 Blood Culture - Preliminary
Blood/Venous No Growth in 72 hours- Final report to follow
07/11/24 10:21 Blood Culture - Preliminary
Blood/Venous No Growth in 72 hours- Final report to follow
07/09/24 21:25 Blood Culture - Final
Blood/Venous Enterococcus faecalis
Aerococcus Species
Gram Stain - Final
07/09/24 21:25 Blood Culture - Preliminary
Blood/Venous No Growth in 4 days- Final report to follow
07/09/24 20:05 Urine Culture - Final
Urine Enterobacter cloacae
Blood Culture 07/12/24-1220
1. Enterococcus faecalis
M.I.C. RX
--------- ---
Ampicillin <=2 S
Gentamicin Synergy Screen <=500 S
Vancomycin 2 S
Imaging:
07/11/2024 CT abdomen/pelvis without contrast: A 3 mm nonobstructing calculus in the lower pole of the right kidney is noted. There is cortical scarring at the posterior midportion of the left kidney. There is mild left and moderate diffuse
bilateral renal cortical atrophy. Diverticuli are present in the colon without evidence of diverticulitis. Please see full dictation for additional detail. Film personally viewed.
[2024-07-14] MEDS: LIPITOR 20 MG PO (16:43)
[2024-07-14 20:05] VITALS: BP 114/68
[2024-07-14] MEDS: MIRALAX PO (20:13)
[2024-07-14] MEDS: SENOKOT PO (20:14)
[2024-07-14 21:38] LABS: Glucose - Point of Care 147 mg/dl (70-99)
[2024-07-14 23:31] VITALS: BP 120/69
[2024-07-15] MEDS: ROCEPHIN 1000 MG IV (02:59)
[2024-07-15] MEDS: AMPICILLIN 108 MG IV ×2 (03:00→09:46)
[2024-07-15] MEDS: STERILE WATER FOR INJECTION 10 ML IV (03:00)
[2024-07-15 06:03] LABS: % Basophils 0.2 % (0-2); % Eosinophils 1.6 % (0-6); % Immature Granulocytes 0.6 % (0-0.5); % Lymphocytes 12.4 % (20.5-51.1); % Monocytes 6.6 % (1.7-9.3); % Neutrophils 78.6 % (42.2-75.2); Absolute Eosinophils 0.2 10^3/uL (0-0.7); Absolute Immature Granulocytes 0.1 10^3/uL (0-0.05); Absolute Lymphocytes 1.4 10^3/uL (1.2-3.4); Absolute Monocytes 0.7 10^3/uL (0.1-0.6); Absolute Neutrophils 8.9 10^3/uL (1.4-6.5); Hematocrit 36.6 % (37.0-47.0); Mean Corp Hgb Conc. 32.8 g/dL (33.0-37.0); Mean Corpuscular Hgb 30.5 pg (27.0-31.0); Mean Corpuscular Volume 93.1 fL (81.0-99.0); Nucleated Red Blood Cells % 0 %; Platelet Count 212 10^3/uL (130-400); Red Blood Cell Count 3.93 10^6/uL (4.20-5.40); Red Cell Dist. Width 16.2 % (11.5-14.5); White Blood Cell Count 11.3 10^3/uL (4.8-10.8)
[2024-07-15 06:07] LABS: Blood Urea Nitrogen 34 mg/dl (7-17); Calcium 7.9 mg/dl (8.4-10.2); Carbon Dioxide 34 mmol/L (22-30); Chloride 95 mmol/L (98-107); Estimated Creatinine Clearance 56 ml/min; Glucose 119 mg/dl (70-99); Potassium 3.7 mmol/L (3.5-5.1); Sodium 136 mmol/L (135-145); eGFR 56.25
[2024-07-15 07:00] VITALS: BP 115/71
[2024-07-15] MEDS: DUONEB 3 ML INH ×3 (07:53→19:25)
[2024-07-15] MEDS: PULMICORT 0.5 MG INH ×2 (07:54→19:25)
[2024-07-15 07:58] LABS: Glucose - Point of Care 115 mg/dl (70-99)
[2024-07-15] MEDS: NOVOLOG FLEXPEN-LOW RESISTANCE SC ×3 (08:01→16:53)
[2024-07-15] MEDS: SENOKOT 8.6 MG PO ×2 (08:31→17:21)
[2024-07-15] MEDS: MIRALAX 17 GRAMS PO (08:31)
[2024-07-15] MEDS: KCL ELIXIR 20 MEQ PO ×3 (08:31→21:39)
[2024-07-15] MEDS: THERAGRAN 1 TABLET PO (08:32)
[2024-07-15] MEDS: NEURONTIN 300 MG PO ×3 (08:33→21:41)
[2024-07-15] MEDS: BUMEX 2 MG PO ×2 (08:33→17:20)
[2024-07-15] MEDS: COREG 3.125 MG PO ×2 (08:33→20:38)
[2024-07-15] MEDS: VITAMIN D3 (cholecalciferol) 125 MCG PO (08:33)
[2024-07-15] MEDS: PROTONIX 40 MG PO (08:33)
[2024-07-15] MEDS: DELTASONE 5 MG PO (08:33)
[2024-07-15] MEDS: LIORESAL 10 MG PO ×3 (08:34→21:41)
[2024-07-15] MEDS: ELIQUIS 2.5 MG PO ×2 (08:34→20:38)
--- NOTE | 2024-07-15 08:49 | W.PN.HOSP.TC ---
Today's Communication/Plan
-
IV antibiotics.
Assessment / Plan
Assessment / Plan
Physical exam:
General: Well Developed, Well Nourished and No Apparent Distress
HEENT: Normocephalic, Atraumatic and Moist Mucous Membranes
Respiratory: Clear to Auscultation; Negative Wheezes, Rales or Rhonchi
Cardiac: Regular Rhythm and S1/S2
GI: Soft, Nontender and Nondistended
Musculoskeletal: No Clubbing, No Cyanosis and No Edema
Neuro: Awake, Alert, echolalia with right hemiparesis but appears to be baseline.
Psych: Calm
A/P:
# Metabolic encephalopathy secondary to UTI. Enterococcus bacteremia
-Blood cultures with Enterococcus faecalis and Aerococcus and urine culture with Enterobacter cloacae.
-Repeated blood cultures no growth
-ID consult appreciated. Discussed with ID today
-Continue IV Rocephin and IV ampicillin
-CT scan of the abdomen and pelvis no acute abnormalities related to urine infection. Echocardiogram no evidence of gross vegetation.
-CT head no acute abnormality
-Chest x-ray unremarkable
-Leukocytosis, 13.9--> 9.3-->11.3 (on chronic steroids)
-Discussed with daughter at bedside yesterday and discussed with son prior to that.
-Noticed elevated sed rate and CRP. Continue follow-up further ID recommendations
# History of urinary retention
She has not required any straight cath or Duarte catheter
She has a purewick has been voiding
#Nausea and vomiting
Resolved after bowel regimen
X-ray no SBO.
#Neck abnormality per nurse and family report
No clear-cut palpable mass on my evaluation
CT of the neck no abnormalities.
# Weight gain
-Chest x-ray unremarkable
-Not currently in heart failure
-Hold off fluids
-Continue diuretics
Type 2 diabetes
-Insulin sliding scale
COPD
-Continue inhalers
-Continue chronic prednisone
-Continue prophylactic azithromycin
History of left-sided CVA with right hemiplegia/aphasia in 2009
-Patient only says the word 'away'normally
-Continue statin
-Continue Eliquis
Chronic right hand tremor/spasm/pain
-Continue baclofen, gabapentin
Chronic ambulatory dysfunction
Chronic HFpEF
-Continue Coreg
-Continue Bumex
Essential hypertension
History of superficial phlebitis
Anxiety/depression
-Continue duloxetine
Vitamin D deficiency
GERD
-Continue omeprazole
Obesity
Obstructive sleep apnea
-Patient uses CPAP
Full code
DVT prophylaxis�Eliquis
Total time spent on today's encounter was 52 minutes which included time spent in counseling the patient/family regarding diagnosis and treatment plan as listed above, goals of care, and symptom management. Case was discussed with nursing staff,
specialists, and care coordinators/case management. All labs and imaging personally reviewed by me. Remainder the time spent in detailed review of previous records, lab data, imaging, and other medical provider documentation.
Anticipated Discharge: 24 - 48 hours
Subjective/Interval History
-
Date of Service: July 15, 2024
Aphasic at baseline but says 'away'. Does respond with facial expression to questions. Afebrile.
Objective Data
-
Labs:
Laboratory Results
07/15/24
05:24
WBC 11.3 H
Hgb 12.0
Hct 36.6 L
Plt Count 212
Sodium 136
Potassium 3.7
Chloride 95 L
Carbon Dioxide 34 H
BUN 34 H
Creatinine 1.0
Glucose 119 H
Calcium 7.9 L
Vital Signs:
Vital Signs
Temp Pulse Resp BP Pulse Ox
97.9 F 70 16 115/71 92
07/15/24 07:00 07/15/24 07:55 07/15/24 07:55 07/15/24 07:00 07/15/24 07:55
I&O
07/14/24 07/15/24 07/16/24
06:59 06:59 06:59
Intake Total 340 / 340 240 / 240
Output Total 1350 / 1350 2049
Balance -1010 / -1010 -1810 / -1809
[2024-07-15 11:39] LABS: Glucose - Point of Care 132 mg/dl (70-99)
--- NOTE | 2024-07-15 11:54 | CM ---
CM reviewed chart, spoke with patients daughter regarding discharge planning. CM reported awaiting response from facility, likely will not hear until Tuesday regarding ability to accept for rehab, no authorization needed. Patient remains on IV
antibiotics. CM will continue to follow for all discharge planning needs.
Plan; awaiting response from [facility] for rehab, no auth required.
[2024-07-15] MEDS: CYMBALTA DELAYED RELEASE 60 MG PO (12:46)
--- NOTE | 2024-07-15 14:26 | W.PN.ID1 ---
Date of Service
Date of Service: July 15, 2024
Today's Communication
Continue antibiotics. See below�
Assessment / Plan
Bacteremia with Enterococcus faecalis and Aerococcus
-Single set with multiple isolates is very suggestive of contamination
Complicated urinary tract infection secondary to Enterobacter cloacae
Leukocytosis
- Suspect steroid component
Hx cervical cancer
COPD
Hx CVA (right residual; aphasia)
HTN
HTN
Hx DVT
Nephrolithiasis
Recommendations:
Repeat cultures negative.
Narrow ceftriaxone to cefdinir, to continue through 07/22/2024
Given negative repeat blood cultures, and the fact that only a single set of cultures revealed multiple different isolates (suggesting contamination), will narrow to amoxicillin 500 mg p.o. 3 times daily.
- Echocardiogram (TTE) without valvular vegetation.
Monitor white count and temperature curve.
Daughter updated via telephone
����������������������������������������������������������
Chief Complaint
-: UTI and Bacteremia
Subjective / Review of Systems
No significant changes overnight.
Review of Systems: No Fever
Vital Signs / Physical Exam
Vital Signs
Vital Signs
Temp Pulse Resp BP Pulse Ox
97.9 F 73 18 115/71 95
07/15/24 07:00 07/15/24 13:25 07/15/24 13:25 07/15/24 07:00 07/15/24 13:25
Physical Exam
Constitutional: No Acute Distress, Comfortable, Chronically Ill and Obese
Eyes: No Conjunctival Hemorrhage and Sclera Anicteric
Cardiovascular: S1/S2; Negative S3/S4 or Murmur
Pulmonary: Non Labored
Gastrointestinal: Soft, Non Tender and Non Distended
Extremities: Negative Edema or Erythema
Neurological: Awake, Alert and Other (Aphasic)
Psychological: Calm
Objective Data
Lab Data
Lab Results
07/15/24 05:24
07/15/24 05:24
ESR 67 mm/hour (0-20) H 07/14/24 08:03
Estimated Creat Clear 56 ml/min 07/15/24 05:24
Lactic Acid Cancelled 07/10/24 01:00
Total Bilirubin 0.6 mg/dl (0.2-1.3) 07/10/24 06:07
AST 23 U/L (14-36) 07/10/24 06:07
ALT 26 U/L (0-35) 07/10/24 06:07
Alkaline Phosphatase 93 U/L (38-126) 07/10/24 06:07
C-Reactive Protein 48.90 mg/L (0.0-10.00) H 07/14/24 08:03
Most recent labs reviewed.
Micro Results:
07/11/24 10:44 Blood Culture - Preliminary
Blood/Venous No Growth in 4 days- Final report to follow
07/11/24 10:21 Blood Culture - Preliminary
Blood/Venous No Growth in 4 days- Final report to follow
07/09/24 21:25 Blood Culture - Final
Blood/Venous No Growth - Final Report
07/09/24 21:25 Blood Culture - Final
Blood/Venous Enterococcus faecalis
Aerococcus Species
Gram Stain - Final
07/09/24 20:05 Urine Culture - Final
Urine Enterobacter cloacae
Blood Culture 07/12/24-1220
1. Enterococcus faecalis
M.I.C. RX
--------- ---
Ampicillin <=2 S
Gentamicin Synergy Screen <=500 S
Vancomycin 2 S
Imaging:
07/11/2024 CT abdomen/pelvis without contrast: A 3 mm nonobstructing calculus in the lower pole of the right kidney is noted. There is cortical scarring at the posterior midportion of the left kidney. There is mild left and moderate diffuse
bilateral renal cortical atrophy. Diverticuli are present in the colon without evidence of diverticulitis. Please see full dictation for additional detail. Film personally viewed.
[2024-07-15 15:00] VITALS: BP 143/84
[2024-07-15 16:47] LABS: Glucose - Point of Care 137 mg/dl (70-99)
[2024-07-15] MEDS: AMOXIL 500 MG PO (17:20)
[2024-07-15] MEDS: LIPITOR 20 MG PO (17:20)
[2024-07-15 20:25] VITALS: BP 134/58
[2024-07-15] MEDS: OMNICEF 300 MG PO (20:37)
[2024-07-15] MEDS: MIRALAX PO (20:39)
[2024-07-15] MEDS: SENOKOT PO (20:39)
[2024-07-15] MEDS: TYLENOL 1000 MG PO (21:41)
[2024-07-15 21:57] LABS: Glucose - Point of Care 172 mg/dl (70-99)
[2024-07-15 23:45] VITALS: BP 123/76
[2024-07-16] MEDS: AMOXIL 500 MG PO ×4 (00:25→23:25)
[2024-07-16 06:00] VITALS: BMI 47.2
--- NOTE | 2024-07-16 06:47 | W.PN.HOSP.TC ---
Today's Communication/Plan
-
Check CT Neck with IV contrast
cont abx as per ID
cont PT/OT
discharge planning SNF rehab
Assessment / Plan
Assessment / Plan
Physical exam:
General: Well Developed, Well Nourished and No Apparent Distress
HEENT: Normocephalic, Atraumatic and Moist Mucous Membranes, right sided neck swelling supraclavicular mild tenderness
Respiratory: Clear to Auscultation; Negative Wheezes, Rales or Rhonchi
Cardiac: Regular Rhythm and S1/S2
GI: Soft, Nontender and Nondistended
Musculoskeletal: No Clubbing, No Cyanosis and No Edema
Neuro: Awake, Alert, echolalia with right hemiparesis baseline.
Psych: Calm
A/P:
# Metabolic encephalopathy secondary to UTI. Enterococcus bacteremia
-Blood cultures with Enterococcus faecalis and Aerococcus and urine culture with Enterobacter cloacae. (suspected contaminated)
-Repeated blood cultures no growth
-Noted elevated sed rate and CRP
-ID eval appreciated IV abx Rocephin and Ampicillin converted to PO abx cefdinir amoxicillin, to cont through 07/22/24
-CT abd/pelvis no acute abnormalities related to urine infection. Echocardiogram no evidence of gross vegetation.
-CT head no acute abnormality
-Chest x-ray unremarkable
-Leukocytosis resolved
# History of urinary retention
She has not required any straight cath or Duarte catheter
She has a purewick has been voiding
#Nausea and vomiting
Resolved after bowel regimen
X-ray no SBO.
#Right sided neck swelling supraclavicular with associate mild tenderness
CT w/o contrast of the neck noted no acute abnormalities 07/12/[address] neck with IV contrast ordered to further evaluate
Type 2 diabetes
-Insulin sliding scale
COPD
-Continue inhalers
-Continue chronic prednisone
-Continue prophylactic azithromycin
History of left-sided CVA with right hemiplegia/aphasia in 2009
-Patient only says the word 'away'normally
-Continue statin
-Continue Eliquis
Chronic right hand tremor/spasm/pain
-Continue baclofen, gabapentin
Chronic ambulatory dysfunction
Chronic HFpEF
-Continue Coreg
-Continue Bumex
Essential hypertension
History of superficial phlebitis
Anxiety/depression
-Continue duloxetine
Vitamin D deficiency
GERD
-Continue omeprazole
Obesity
Obstructive sleep apnea
-Patient uses CPAP
Full code
DVT prophylaxis�Eliquis
Medically stable for discharge SNF rehab pending placement
Discussed with patient and her son Edwin
I spent a total of 40 minutes with the patient or on the floor. More than 50% of this time involved counseling and coordination of care.
Anticipated Discharge: Within 24 hours
Subjective/Interval History
-
Date of Service: July 16, 2024
No acute distress sitting up comfortably in bed. Awake alert communicative to extent, limited d/t baseline aphasia.
Objective Data
-
Labs:
Laboratory Results
07/16/24
06:00
WBC Pending
Hgb Pending
Hct Pending
Plt Count Pending
Sodium Pending
Potassium Pending
Chloride Pending
Carbon Dioxide Pending
BUN Pending
Creatinine Pending
Glucose Pending
Calcium Pending
Vital Signs:
Vital Signs
Temp Pulse Resp BP Pulse Ox
97.3 F 75 16 123/76 94
07/15/24 23:45 07/15/24 23:45 07/15/24 23:45 07/15/24 23:45 07/15/24 23:45
I&O
07/14/24 07/15/24 07/16/24
06:59 06:59 06:59
Intake Total 340 / 340 240 / 240 540 / 540
Output Total 1350 / 1350 2049 / 2049 1400 / 1400
Balance -1010 / -1010 -1810 / -1810 -860 / -860
[2024-07-16 07:00] VITALS: BP 125/51
[2024-07-16] MEDS: DUONEB 3 ML INH ×3 (07:26→19:51)
[2024-07-16] MEDS: PULMICORT 0.5 MG INH ×2 (07:26→19:51)
[2024-07-16 07:53] LABS: Glucose - Point of Care 110 mg/dl (70-99)
[2024-07-16] MEDS: NOVOLOG FLEXPEN-LOW RESISTANCE SC ×2 (08:53→11:50)
[2024-07-16] MEDS: COREG 3.125 MG PO ×2 (08:54→21:12)
[2024-07-16] MEDS: ELIQUIS 2.5 MG PO ×2 (08:54→21:12)
[2024-07-16] MEDS: DELTASONE 10 MG PO (08:54)
[2024-07-16] MEDS: BUMEX 2 MG PO ×2 (08:54→15:37)
[2024-07-16] MEDS: KCL ELIXIR 20 MEQ PO ×3 (08:55→21:16)
[2024-07-16] MEDS: MIRALAX PO ×2 (08:55→21:12)
[2024-07-16] MEDS: NEURONTIN 300 MG PO ×3 (08:55→21:12)
[2024-07-16] MEDS: LIORESAL 10 MG PO ×3 (08:55→21:12)
[2024-07-16] MEDS: OMNICEF 300 MG PO ×2 (08:55→21:16)
[2024-07-16] MEDS: THERAGRAN 1 TABLET PO (08:56)
[2024-07-16] MEDS: SENOKOT PO ×2 (08:56→21:13)
[2024-07-16] MEDS: PROTONIX 40 MG PO (08:56)
[2024-07-16] MEDS: VITAMIN D3 (cholecalciferol) 125 MCG PO (08:56)
[2024-07-16 09:19] LABS: % Basophils 0.2 % (0-2); % Eosinophils 1.9 % (0-6); % Immature Granulocytes 0.4 % (0-0.5); % Monocytes 9.4 % (1.7-9.3); % Neutrophils 73.1 % (42.2-75.2); Absolute Eosinophils 0.2 10^3/uL (0-0.7); Absolute Lymphocytes 1.5 10^3/uL (1.2-3.4); Absolute Monocytes 0.9 10^3/uL (0.1-0.6); Absolute Neutrophils 7.3 10^3/uL (1.4-6.5); Hematocrit 34.9 % (37.0-47.0); Hemoglobin 11.4 g/dL (12.0-16.0); Mean Corp Hgb Conc. 32.7 g/dL (33.0-37.0); Mean Corpuscular Hgb 30.4 pg (27.0-31.0); Mean Corpuscular Volume 93.1 fL (81.0-99.0); Mean Platelet Volume 10.2 fL (7.4-10.4); Nucleated Red Blood Cells % 0 %; Platelet Count 204 10^3/uL (130-400); Red Blood Cell Count 3.75 10^6/uL (4.20-5.40); Red Cell Dist. Width 16.4 % (11.5-14.5)
[2024-07-16 09:45] LABS: Blood Urea Nitrogen 25 mg/dl (7-17); Calcium 7.8 mg/dl (8.4-10.2); Carbon Dioxide 33 mmol/L (22-30); Chloride 94 mmol/L (98-107); Estimated Creatinine Clearance 71 ml/min; Glucose 101 mg/dl (70-99); Potassium 3.7 mmol/L (3.5-5.1); Sodium 134 mmol/L (135-145); eGFR > 60.00
[2024-07-16 11:48] LABS: Glucose - Point of Care 132 mg/dl (70-99)
[2024-07-16] MEDS: CYMBALTA DELAYED RELEASE 60 MG PO (11:50)
--- NOTE | 2024-07-16 11:58 | W.PN.ID1 ---
Date of Service
Date of Service: July 16, 2024
Today's Communication
Continue antibiotics. See below�
Assessment / Plan
Bacteremia with Enterococcus faecalis and Aerococcus
-Single set with multiple isolates is very suggestive of contamination during blood draw.
Complicated urinary tract infection secondary to Enterobacter cloacae
Leukocytosis
- Suspect steroid component
Hx cervical cancer
COPD
Hx CVA (right residual; aphasia)
HTN
HTN
Hx DVT
Nephrolithiasis
Recommendations:
Repeat blood cultures negative.
Continue cefdinir through 07/22/2024
Given negative repeat blood cultures, and the fact that only a single set of cultures revealed multiple different isolates (suggesting contamination), will narrow to amoxicillin 500 mg p.o. 3 times daily, to continue through 07/22/2024
- Echocardiogram (TTE) without valvular vegetation.
����������������������������������������������������������
Chief Complaint
-: UTI and Bacteremia
Subjective / Review of Systems
Review of Systems: No Fever, No Chills and No Cough
Vital Signs / Physical Exam
Vital Signs
Vital Signs
Temp Pulse Resp BP Pulse Ox
97.9 F 72 15 125/51 98
07/16/24 07:00 07/16/24 07:28 07/16/24 07:28 07/16/24 07:00 07/16/24 07:28
Physical Exam
Constitutional: No Acute Distress, Comfortable, Chronically Ill and Obese
Eyes: No Conjunctival Hemorrhage and Sclera Anicteric
Cardiovascular: S1/S2; Negative S3/S4 or Murmur
Pulmonary: Non Labored
Gastrointestinal: Soft, Non Tender and Non Distended
Extremities: Negative Edema or Erythema
Neurological: Awake, Alert and Other (Aphasic)
Psychological: Calm
Objective Data
Lab Data
Lab Results
07/16/24 06:52
07/16/24 06:52
ESR 67 mm/hour (0-20) H 07/14/24 08:03
Estimated Creat Clear 71 ml/min 07/16/24 06:52
Lactic Acid Cancelled 07/10/24 01:00
Total Bilirubin 0.6 mg/dl (0.2-1.3) 07/10/24 06:07
AST 23 U/L (14-36) 07/10/24 06:07
ALT 26 U/L (0-35) 07/10/24 06:07
Alkaline Phosphatase 93 U/L (38-126) 07/10/24 06:07
C-Reactive Protein 48.90 mg/L (0.0-10.00) H 07/14/24 08:03
Most recent labs reviewed.
Micro Results:
07/11/24 10:44 Blood Culture - Final
Blood/Venous No Growth - Final Report
07/11/24 10:21 Blood Culture - Final
Blood/Venous No Growth - Final Report
07/09/24 21:25 Blood Culture - Final
Blood/Venous No Growth - Final Report
07/09/24 21:25 Blood Culture - Final
Blood/Venous Enterococcus faecalis
Aerococcus Species
Gram Stain - Final
07/09/24 20:05 Urine Culture - Final
Urine Enterobacter cloacae
Blood Culture 07/12/24-1220
1. Enterococcus faecalis
M.I.C. RX
--------- ---
Ampicillin <=2 S
Gentamicin Synergy Screen <=500 S
Vancomycin 2 S
Imaging:
07/11/2024 CT abdomen/pelvis without contrast: A 3 mm nonobstructing calculus in the lower pole of the right kidney is noted. There is cortical scarring at the posterior midportion of the left kidney. There is mild left and moderate diffuse
bilateral renal cortical atrophy. Diverticuli are present in the colon without evidence of diverticulitis. Please see full dictation for additional detail. Film personally viewed.
[2024-07-16 12:07] VITALS: BP 130/62; PULSE 70; O2SAT 93
[2024-07-16 12:20] VITALS: BP 130/62; PULSE 73; O2SAT 93
--- NOTE | 2024-07-16 13:04 | CM ---
Addendum entered by Calvin Holliday 07/16/24 16:03:
Per Ch[facility] admissions, doctor has denied pt for admission stating pt has not progressed in PT over the weekend and pt is 'too low level' and facility is not appropriate.
CM met w/ son, Edwin, at bedside, informing of [facility] denial. Edwin was disappointed as pt has been there in the past. Edwin stated pt has to go to a facility that actually provides therapy every day w/ her. Edwin requested referral to
be sent to [facility] and is agreeable to SNF list as additional options.
CM sent referral to [facility] via [employer] for review. CM provided SNF list to Edwin.
Addendum entered by Calvin Holliday 07/16/24 14:05:
Spoke w/ Adela/[facility] admissions who requested updated clinical notes and therapy notes. Per Adela once reviewed, will make a determination on if pt can be accepted. CM sent updates via [employer]
CM updated pt's daughter, rehab is still reviewing.
Original Note:
Chart reviewed for d/c planning. Therapy cont to recommend SNF at d/c. Pt referred to [facility] as preferred by daughter.
CM attempted call to Adela/[facility] admission, left message
Pt continues antibiotics
Plan: CM will cont to follow up for rehab placement
[2024-07-16 15:00] VITALS: BP 150/78
[2024-07-16 16:33] LABS: Glucose - Point of Care 158 mg/dl (70-99)
[2024-07-16] MEDS: NOVOLOG FLEXPEN-LOW RESISTANCE 1 UNITS SC (17:01)
[2024-07-16] MEDS: SENOKOT 8.6 MG PO ×2 (17:02→21:12)
[2024-07-16] MEDS: LIPITOR 20 MG PO (17:02)
--- NOTE | 2024-07-16 21:51 | PTCARENOTE ---
CT scan called to notify RN that pt is scheduled for ct scan with contrast tomorrow and pt has a #24 IV. Pt needs 22 or larger. IV nurse was notifed and said she will put on the list for tomorrow morning.
[2024-07-16 22:21] LABS: Glucose - Point of Care 158 mg/dl (70-99)
[2024-07-16 23:40] VITALS: BP 117/63
[2024-07-17] MEDS: DUONEB 3 ML INH ×3 (05:49→19:25)
[2024-07-17] MEDS: PULMICORT 0.5 MG INH ×2 (05:49→19:37)
[2024-07-17 06:00] VITALS: BMI 47.1
[2024-07-17 07:50] VITALS: BP 125/71
[2024-07-17 07:55] LABS: Glucose - Point of Care 106 mg/dl (70-99)
--- NOTE | 2024-07-17 08:05 | W.PN.HOSP.TC ---
Today's Communication/Plan
-
follow up CT Neck with IV contrast
cont abx as per ID
cont PT/OT
PMR eval requested for possible benefit Acute Rehab
Assessment / Plan
Assessment / Plan
Physical exam:
General: Well Developed, Well Nourished and No Apparent Distress
HEENT: Normocephalic, Atraumatic and Moist Mucous Membranes, right sided neck swelling supraclavicular mild tenderness
Respiratory: Clear to Auscultation; Negative Wheezes, Rales or Rhonchi
Cardiac: Regular Rhythm and S1/S2
GI: Soft, Nontender and Nondistended
Musculoskeletal: No Clubbing, No Cyanosis and No Edema
Neuro: Awake, Alert, echolalia with right hemiparesis baseline.
Psych: Calm
A/P: 83F CVA Rt side Hemiparesis Aphasia COPD Obesity JAYLA here for complicated UTI and possible bacteremia.
# Metabolic encephalopathy secondary to UTI. Enterococcus bacteremia
-Blood cultures with Enterococcus faecalis and Aerococcus and urine culture with Enterobacter cloacae. (suspected contaminated)
-Repeated blood cultures no growth
-Noted elevated sed rate and CRP
-ID eval appreciated IV abx Rocephin and Ampicillin converted to PO abx cefdinir amoxicillin, to cont through 07/22/24
-CT abd/pelvis no acute abnormalities related to urine infection. Echocardiogram no evidence of gross vegetation.
-CT head no acute abnormality
-Chest x-ray unremarkable
-Intermittent mild leukocytosis likely d/t home chronic steroids/prednisone
# History of urinary retention
She has not required any straight cath or Duarte catheter
She has a purewick has been voiding
#Nausea and vomiting
Resolved after bowel regimen
X-ray no SBO.
#Right sided neck swelling supraclavicular with associate mild tenderness
CT w/o contrast of the neck noted no acute abnormalities 07/12/[address] neck with IV contrast ordered to further evaluate
Type 2 diabetes
-Insulin sliding scale
COPD
-Continue inhalers
-Continue chronic prednisone
-[correction to prior documentation] prophylactic azithromycin on hold while on abx as above
History of left-sided CVA with right hemiplegia/aphasia in 2009
-Patient only says the word 'away'normally
-Continue statin
-Continue Eliquis
Chronic right hand tremor/spasm/pain
-Continue baclofen, gabapentin
Chronic ambulatory dysfunction
Chronic HFpEF
-Continue Coreg
-Continue Bumex
Essential hypertension
History of superficial phlebitis
Anxiety/depression
-Continue duloxetine
Vitamin D deficiency
GERD
-Continue omeprazole
Obesity
Obstructive sleep apnea
-cont bedtime CPAP
PT eval appreciated possible benefit Acute Rehab, PMR eval requested
Full code
DVT prophylaxis�Eliquis
I spent a total of 40 minutes with the patient or on the floor. More than 50% of this time involved counseling and coordination of care.
Anticipated Discharge: 24 - 48 hours
Subjective/Interval History
-
Date of Service: July 17, 2024
no acute distress resting comfortably in bed. Overall appears well. No new acute issues noted.
Objective Data
-
Labs:
Laboratory Results
07/17/24
06:00
WBC Pending
Hgb Pending
Hct Pending
Plt Count Pending
Sodium Pending
Potassium Pending
Chloride Pending
Carbon Dioxide Pending
BUN Pending
Creatinine Pending
Glucose Pending
Calcium Pending
Vital Signs:
Vital Signs
Temp Pulse Resp BP Pulse Ox
97.4 F 74 18 125/71 97
07/17/24 07:50 07/17/24 07:50 07/17/24 07:50 07/17/24 07:50 07/17/24 07:50
I&O
07/16/24 07/17/24 07/18/24
06:59 06:59 06:59
Intake Total 540 / 540 660 / 660
Output Total 1400 / 1400 100 / 100
Balance -860 / -860 560 / 560
[2024-07-17] MEDS: NOVOLOG FLEXPEN-LOW RESISTANCE SC ×2 (08:41→12:08)
[2024-07-17] MEDS: BUMEX 2 MG PO ×2 (08:42→15:36)
[2024-07-17] MEDS: AMOXIL 500 MG PO ×3 (08:42→23:59)
[2024-07-17] MEDS: COREG 3.125 MG PO ×2 (08:42→20:30)
[2024-07-17] MEDS: NEURONTIN 300 MG PO ×3 (08:43→20:31)
[2024-07-17] MEDS: DELTASONE 5 MG PO (08:43)
[2024-07-17] MEDS: MIRALAX 17 GRAMS PO ×2 (08:43→20:31)
[2024-07-17] MEDS: LIORESAL 10 MG PO ×3 (08:43→20:29)
[2024-07-17] MEDS: KCL ELIXIR 20 MEQ PO ×3 (08:43→20:32)
[2024-07-17] MEDS: ELIQUIS 2.5 MG PO ×2 (08:43→20:30)
[2024-07-17] MEDS: SENOKOT 8.6 MG PO ×4 (08:44→20:32)
[2024-07-17] MEDS: THERAGRAN 1 TABLET PO (08:44)
[2024-07-17] MEDS: OMNICEF 300 MG PO ×2 (08:44→20:30)
[2024-07-17] MEDS: VITAMIN D3 (cholecalciferol) 125 MCG PO (08:44)
[2024-07-17] MEDS: PROTONIX 40 MG PO (08:44)
[2024-07-17 10:51] LABS: Hematocrit 37.9 % (37.0-47.0); Hemoglobin 12.1 g/dL (12.0-16.0); Mean Corp Hgb Conc. 31.9 g/dL (33.0-37.0); Mean Corpuscular Hgb 30.6 pg (27.0-31.0); Mean Corpuscular Volume 95.9 fL (81.0-99.0); Red Blood Cell Count 3.95 10^6/uL (4.20-5.40); Red Cell Dist. Width 15.9 % (11.5-14.5)
[2024-07-17 10:59] LABS: Blood Urea Nitrogen 25 mg/dl (7-17); Calcium 8.5 mg/dl (8.4-10.2); Carbon Dioxide 27 mmol/L (22-30); Chloride 96 mmol/L (98-107); Estimated Creatinine Clearance 81 ml/min; Glucose 107 mg/dl (70-99); Potassium 3.8 mmol/L (3.5-5.1); Sodium 135 mmol/L (135-145); eGFR > 60.00
[2024-07-17 11:14] LABS: Platelet Count 141 10^3/uL (130-400)
[2024-07-17 11:15] LABS: Mean Platelet Volume 10.3 fL (7.4-10.4)
[2024-07-17] MEDS: CYMBALTA DELAYED RELEASE 60 MG PO (11:35)
[2024-07-17 11:46] LABS: Glucose - Point of Care 117 mg/dl (70-99)
--- NOTE | 2024-07-17 15:04 | CM ---
CM followed up w/ pt and family bedside to share [facility] is still reviewing referral. CM continues to wait on a determination as CM spoke w/ Samina from admissions. Family was visibly upset that [facility] denied pt admission yesterday though
CM informed them that pt is not being recommended for acute rehab and [facility] doctor that denied, mentioned pt has not progressed and is 'too low level' and not appropriate. Pt's son, Edwin, referred to pt being evaluated as a max assist x 2,
asking if PT who seen her can evaluate again as [facility] may not consider her either. CM shared due to pt being seen yesterday, PT may not be able to see her again but will ask due to their concerns.
CM reached out to PT office to discuss w/ Monique. Monique seen CM and pt's family discussing outside of room and assisted w/ clarification of the PT evaluation. PT evaluated pt again today and is now recommending acute rehab. Family was helpful
during evaluation.
CM TT hospitalist for PM&R order.
CM spoke w/ Chari/[facility] admissions to reconsider pt w/ updated PT note. [facility]ari agreed to review again
Plan: Acute rehab recommended. Physiatry assessment to be ordered. Await determinations from [facility] and [facility]
[2024-07-17 15:40] VITALS: BP 175/79
--- NOTE | 2024-07-17 16:04 | W.PN.ID1 ---
Date of Service
Date of Service: July 17, 2024
Today's Communication
Continue antibiotics. See below�
Assessment / Plan
Bacteremia with Enterococcus faecalis and Aerococcus
-Single set with multiple isolates is very suggestive of contamination during blood draw.
Complicated urinary tract infection secondary to Enterobacter cloacae
Leukocytosis
- Suspect steroid component
Hx cervical cancer
COPD
Hx CVA (right residual; aphasia)
HTN
HTN
Hx DVT
Nephrolithiasis
Recommendations:
Repeat blood cultures negative. Echocardiogram (TTE) without valvular vegetation.
Continue cefdinir through 07/22/2024
Given negative repeat blood cultures, and the fact that only a single set of cultures revealed multiple different isolates (suggesting contamination), will narrow to amoxicillin 500 mg p.o. 3 times daily, to continue through 07/22/2024
����������������������������������������������������������
Chief Complaint
-: UTI and Bacteremia
Subjective / Review of Systems
Review of Systems: No Fever and No Chills
Vital Signs / Physical Exam
Vital Signs
Vital Signs
Temp Pulse Resp BP Pulse Ox
98.1 F 78 18 175/79 96
07/17/24 15:40 07/17/24 15:40 07/17/24 15:40 07/17/24 15:40 07/17/24 15:40
Physical Exam
Constitutional: No Acute Distress, Comfortable, Chronically Ill and Obese
Cardiovascular: S1/S2; Negative S3/S4 or Murmur
Pulmonary: Non Labored
Gastrointestinal: Soft, Non Tender and Non Distended
Extremities: Negative Edema or Erythema
Neurological: Awake, Alert and Other (Aphasic)
Psychological: Calm
Objective Data
Lab Data
Lab Results
07/17/24 10:08
07/17/24 10:08
ESR 67 mm/hour (0-20) H 07/14/24 08:03
Estimated Creat Clear 81 ml/min 07/17/24 10:08
Lactic Acid Cancelled 07/10/24 01:00
Total Bilirubin 0.6 mg/dl (0.2-1.3) 07/10/24 06:07
AST 23 U/L (14-36) 07/10/24 06:07
ALT 26 U/L (0-35) 07/10/24 06:07
Alkaline Phosphatase 93 U/L (38-126) 07/10/24 06:07
C-Reactive Protein 48.90 mg/L (0.0-10.00) H 07/14/24 08:03
Most recent labs reviewed.
Micro Results:
07/11/24 10:44 Blood Culture - Final
Blood/Venous No Growth - Final Report
07/11/24 10:21 Blood Culture - Final
Blood/Venous No Growth - Final Report
07/09/24 21:25 Blood Culture - Final
Blood/Venous No Growth - Final Report
07/09/24 21:25 Blood Culture - Final
Blood/Venous Enterococcus faecalis
Aerococcus Species
Gram Stain - Final
07/09/24 20:05 Urine Culture - Final
Urine Enterobacter cloacae
Blood Culture 07/12/24-1220
1. Enterococcus faecalis
M.I.C. RX
--------- ---
Ampicillin <=2 S
Gentamicin Synergy Screen <=500 S
Vancomycin 2 S
Imaging:
07/11/2024 CT abdomen/pelvis without contrast: A 3 mm nonobstructing calculus in the lower pole of the right kidney is noted. There is cortical scarring at the posterior midportion of the left kidney. There is mild left and moderate diffuse
bilateral renal cortical atrophy. Diverticuli are present in the colon without evidence of diverticulitis. Please see full dictation for additional detail. Film personally viewed.
[2024-07-17 17:09] LABS: Glucose - Point of Care 196 mg/dl (70-99)
[2024-07-17 17:13] VITALS: BP 152/82
[2024-07-17] MEDS: LIPITOR 20 MG PO (17:16)
[2024-07-17] MEDS: NOVOLOG FLEXPEN-LOW RESISTANCE 1 UNITS SC (17:16)
[2024-07-17 21:38] LABS: Glucose - Point of Care 150 mg/dl (70-99)
[2024-07-17 23:26] VITALS: BP 137/68
--- NOTE | 2024-07-18 02:45 | DOWNTIME ---
There was a [employer] Downtime on 07/18/2024 from 0100 to 07/18/2023 at 0235 . Downtime documentation of patient's care, including medication administrations, has been reconciled in the electronic record per guidelines. Refer to the
patient's paper chart under the miscellaneous tab to see printed paper medication records and downtime forms.
[2024-07-18 05:53] VITALS: BMI 47.5
--- NOTE | 2024-07-18 06:53 | W.PN.HOSP.TC ---
Today's Communication/Plan
-
cont abx as per ID
ENT eval appreciated
case mgmt appreciated likely discharge [facility] tomorrow when bed is available.
Assessment / Plan
Assessment / Plan
Physical exam:
General: Well Developed, Well Nourished and No Apparent Distress
HEENT: Normocephalic, Atraumatic and Moist Mucous Membranes, right sided neck swelling supraclavicular mild tenderness
Respiratory: Clear to Auscultation; Negative Wheezes, Rales or Rhonchi
Cardiac: Regular Rhythm and S1/S2
GI: Soft, Nontender and Nondistended
Musculoskeletal: No Clubbing, No Cyanosis and No Edema
Neuro: Awake, Alert, echolalia with right hemiparesis baseline.
Psych: Calm
A/P: 83F CVA Rt side Hemiparesis Aphasia COPD Obesity JAYLA here for complicated UTI and possible bacteremia.
# Metabolic encephalopathy secondary to UTI. Enterococcus bacteremia
-Blood cultures with Enterococcus faecalis and Aerococcus and urine culture with Enterobacter cloacae. (suspected contaminated)
-Repeated blood cultures no growth
-Noted elevated sed rate and CRP
-ID eval appreciated IV abx Rocephin and Ampicillin converted to PO abx cefdinir amoxicillin, to cont through 07/22/24
-CT abd/pelvis no acute abnormalities related to urine infection. Echocardiogram no evidence of gross vegetation.
-CT head no acute abnormality
-Chest x-ray unremarkable
-Intermittent mild leukocytosis likely d/t home chronic steroids/prednisone
# History of urinary retention
She has not required any straight cath or Duarte catheter
She has a purewick has been voiding
#Nausea and vomiting
Resolved after bowel regimen
X-ray no SBO.
#Right sided neck swelling supraclavicular with associate mild tenderness
CT w/o contrast of the neck noted no acute abnormalities 07/12/[address] neck with IV contrast appreciated not acute abn's
ENT eval appreciated likely benign finding no further intervention/evaluation warranted at this time
Type 2 diabetes
-Insulin sliding scale
COPD
-Continue inhalers
-Continue chronic prednisone
-prophylactic azithromycin on hold while on abx as above
History of left-sided CVA with right hemiplegia/aphasia in 2009
-Patient only says the word 'away'normally
-Continue statin
-Continue Eliquis
Chronic right hand tremor/spasm/pain
-Continue baclofen, gabapentin
Chronic ambulatory dysfunction
Chronic HFpEF
-Continue Coreg
-Continue Bumex
Essential hypertension
History of superficial phlebitis
Anxiety/depression
-Continue duloxetine
Vitamin D deficiency
GERD
-Continue omeprazole
Obesity
Obstructive sleep apnea
-cont bedtime CPAP
PT eval appreciated possible benefit Acute Rehab, accepted [place] likely discharge tomorrow when bed is available
Full code
DVT prophylaxis�Eliquis
I spent a total of 40 minutes with the patient or on the floor. More than 50% of this time involved counseling and coordination of care.
Anticipated Discharge: Within 24 hours
Subjective/Interval History
-
Date of Service: July 18, 2024
no acute distress. patient appears comfortable at this time.
Objective Data
-
Labs:
Laboratory Results
07/18/24
06:42
WBC Pending
Hgb Pending
Hct Pending
Plt Count Pending
Sodium Pending
Potassium Pending
Chloride Pending
Carbon Dioxide Pending
BUN Pending
Creatinine Pending
Glucose Pending
Calcium Pending
Vital Signs:
Vital Signs
Temp Pulse Resp BP Pulse Ox
98.1 F 78 16 137/68 96
07/17/24 23:26 07/17/24 23:26 07/17/24 23:26 07/17/24 23:26 07/17/24 23:26
I&O
07/16/24 07/17/24 07/18/24
06:59 06:59 06:59
Intake Total 540 / 540 660 / 660 480 / 480
Output Total 1400 / 1400 100 / 100 1100 / 1100
Balance -860 / -860 560 / 560 -620 / -620
[2024-07-18 07:30] VITALS: BP 143/102
[2024-07-18] MEDS: DUONEB 3 ML INH ×3 (07:34→19:16)
[2024-07-18] MEDS: PULMICORT 0.5 MG INH ×2 (07:35→19:16)
[2024-07-18 07:46] LABS: Glucose - Point of Care 132 mg/dl (70-99)
[2024-07-18] MEDS: NOVOLOG FLEXPEN-LOW RESISTANCE SC (07:52)
[2024-07-18 07:54] LABS: Hematocrit 36.7 % (37.0-47.0); Mean Corp Hgb Conc. 32.7 g/dL (33.0-37.0); Mean Corpuscular Hgb 30.7 pg (27.0-31.0); Mean Corpuscular Volume 93.9 fL (81.0-99.0); Mean Platelet Volume 9.9 fL (7.4-10.4); Platelet Count 206 10^3/uL (130-400); Red Blood Cell Count 3.91 10^6/uL (4.20-5.40); Red Cell Dist. Width 16.3 % (11.5-14.5); White Blood Cell Count 12.7 10^3/uL (4.8-10.8)
[2024-07-18] MEDS: MIRALAX 17 GRAMS PO ×2 (07:54→20:02)
[2024-07-18] MEDS: OMNICEF 300 MG PO ×2 (07:55→20:03)
[2024-07-18] MEDS: NEURONTIN 300 MG PO ×3 (07:55→20:02)
[2024-07-18] MEDS: LIORESAL 10 MG PO ×3 (07:55→20:03)
[2024-07-18] MEDS: KCL ELIXIR 20 MEQ PO ×3 (07:56→20:03)
[2024-07-18] MEDS: DELTASONE 10 MG PO (07:56)
[2024-07-18] MEDS: VITAMIN D3 (cholecalciferol) 125 MCG PO (07:56)
[2024-07-18] MEDS: AMOXIL 500 MG PO ×3 (07:56→23:51)
[2024-07-18] MEDS: THERAGRAN 1 TABLET PO (07:56)
[2024-07-18] MEDS: PROTONIX 40 MG PO (07:56)
[2024-07-18] MEDS: ELIQUIS 2.5 MG PO ×2 (07:56→20:03)
[2024-07-18 08:33] LABS: Blood Urea Nitrogen 23 mg/dl (7-17); Calcium 8.4 mg/dl (8.4-10.2); Carbon Dioxide 34 mmol/L (22-30); Chloride 95 mmol/L (98-107); Estimated Creatinine Clearance 63 ml/min; Glucose 111 mg/dl (70-99); Magnesium 1.9 mg/dl (1.6-2.3); Phosphorus 3.5 mg/dl (2.5-4.5); Potassium 3.7 mmol/L (3.5-5.1); Sodium 137 mmol/L (135-145); eGFR > 60.00
[2024-07-18] MEDS: COREG 3.125 MG PO ×2 (09:22→20:03)
[2024-07-18] MEDS: BUMEX 2 MG PO ×2 (09:23→17:09)
[2024-07-18] MEDS: SENOKOT 8.6 MG PO ×3 (09:26→20:02)
[2024-07-18 12:23] LABS: Glucose - Point of Care 177 mg/dl (70-99)
[2024-07-18] MEDS: NOVOLOG FLEXPEN-LOW RESISTANCE 1 UNITS SC ×2 (12:40→17:21)
[2024-07-18] MEDS: CYMBALTA DELAYED RELEASE 60 MG PO (12:56)
--- NOTE | 2024-07-18 13:19 | CM ---
Spoke w/ Chari/[facility] rehab, pt has been accepted after review. Pt can admit tomorrow w/ available bed
CM faxed updated clinicals to admissions
CM updated pt's son, Edwin. Edwin inquired about a determination from [facility]. CM informed of communication w/ Samina from admissions this morning who said she would review, however, CM has not received an update at this time. Edwin
stated if [facility] calls and can accept pt, he would like to know so he can discuss w/ his sister on which facility would be better for pt.
Pt will need ambulance transport at d/c
[facility]
Report: [phone]

[facility]. Ambulance transport
--- NOTE | 2024-07-18 15:32 | W.PN.ID1 ---
Date of Service
Date of Service: July 18, 2024
Today's Communication
Continue antibiotics.
Assessment / Plan
Bacteremia with Enterococcus faecalis and Aerococcus
-Single set with multiple isolates is very suggestive of contamination during blood draw.
Complicated urinary tract infection secondary to Enterobacter cloacae
Leukocytosis
- Suspect steroid component
Hx cervical cancer
COPD
Hx CVA (right residual; aphasia)
HTN
HTN
Hx DVT
Nephrolithiasis
Recommendations:
Repeat blood cultures negative. Echocardiogram (TTE) without valvular vegetation.
Continue cefdinir through 07/22/2024
Given negative repeat blood cultures, and the fact that only a single set of cultures revealed multiple different isolates (suggesting contamination), will narrow to amoxicillin 500 mg p.o. 3 times daily, to continue through 07/22/2024
����������������������������������������������������������
Chief Complaint
-: UTI and Bacteremia
Subjective / Review of Systems
Review of Systems: No Fever
Vital Signs / Physical Exam
Vital Signs
Vital Signs
Temp Pulse Resp BP Pulse Ox
97.7 F 78 16 143/102 94
07/18/24 07:30 07/18/24 14:21 07/18/24 14:21 07/18/24 09:23 07/18/24 14:21
Physical Exam
Constitutional: No Acute Distress, Comfortable, Chronically Ill and Obese
Cardiovascular: S1/S2; Negative S3/S4 or Murmur
Pulmonary: Non Labored
Gastrointestinal: Soft, Non Tender and Non Distended
Extremities: Negative Edema or Erythema
Neurological: Awake, Alert and Other (Aphasic)
Psychological: Calm
Objective Data
Lab Data
Lab Results
07/18/24 06:42
07/18/24 06:42
ESR 67 mm/hour (0-20) H 07/14/24 08:03
Estimated Creat Clear 63 ml/min 07/18/24 06:42
Lactic Acid Cancelled 07/10/24 01:00
Total Bilirubin 0.6 mg/dl (0.2-1.3) 07/10/24 06:07
AST 23 U/L (14-36) 07/10/24 06:07
ALT 26 U/L (0-35) 07/10/24 06:07
Alkaline Phosphatase 93 U/L (38-126) 07/10/24 06:07
C-Reactive Protein 48.90 mg/L (0.0-10.00) H 07/14/24 08:03
Most recent labs reviewed.
Micro Results:
07/11/24 10:44 Blood Culture - Final
Blood/Venous No Growth - Final Report
07/11/24 10:21 Blood Culture - Final
Blood/Venous No Growth - Final Report
07/09/24 21:25 Blood Culture - Final
Blood/Venous No Growth - Final Report
07/09/24 21:25 Blood Culture - Final
Blood/Venous Enterococcus faecalis
Aerococcus Species
Gram Stain - Final
07/09/24 20:05 Urine Culture - Final
Urine Enterobacter cloacae
Blood Culture 07/12/24-1220
1. Enterococcus faecalis
M.I.C. RX
--------- ---
Ampicillin <=2 S
Gentamicin Synergy Screen <=500 S
Vancomycin 2 S
Imaging:
07/11/2024 CT abdomen/pelvis without contrast: A 3 mm nonobstructing calculus in the lower pole of the right kidney is noted. There is cortical scarring at the posterior midportion of the left kidney. There is mild left and moderate diffuse
bilateral renal cortical atrophy. Diverticuli are present in the colon without evidence of diverticulitis. Please see full dictation for additional detail. Film personally viewed.
[2024-07-18 15:54] VITALS: BP 158/72
[2024-07-18 16:59] LABS: Glucose - Point of Care 181 mg/dl (70-99)
[2024-07-18] MEDS: LIPITOR 20 MG PO (17:14)
--- NOTE | 2024-07-18 19:33 | CON.MD ---
Consultation - Medical
-
Chief complaint: Neck swelling
History of present illness: This patient is an 83-year-old woman who suffered a stroke years ago and presented to the hospital with a urinary tract infection. She was complaining of swelling and tenderness of her neck. Get a CT scan of the neck
yesterday which did not show significant abnormality in the neck. She has been eating and drinking okay. She is otherwise doing well. I was asked to see the patient regarding neck swelling.
Past medical history:
Allergies: No known drug allergies
Home medication: Acetaminophen 1000 mg p.o. twice daily as needed, azithromycin 250 mg p.o. Tuesday, baclofen 10 mg p.o. 3 times daily, budesonide 0.5 mg inhalation twice daily, bumetanide 2 mg p.o. twice daily, carvedilol 3.125 mg
p.o. twice daily, cholecalciferol 125 mcg p.o. daily, duloxetine 60 mg p.o. daily, Eliquis 2.5 mg p.o. twice daily, gabapentin 300 mg p.o. 3 times daily, ipratropium�albuterol 3 mL inhalation daily as needed, ipratropium albuterol 3 mg inhalation
3 times daily, metolazone 5 mg p.o. daily, omeprazole 20 mg p.o. daily, potassium chloride 20 mEq p.o. 3 times daily, prednisone 10 mg p.o. every 48 hours, senna lax 8.6 mg p.o. every afternoon, simvastatin 40 mg p.o. every afternoon, therapeutic
multivitamin 1 p.o. daily
Medical problems: COPD, anxiety with depression, metabolic encephalopathy, acute urinary tract infection, hemiplegia and hemiparesis following cerebral infarction affecting right dominant side, obstructive sleep apnea, depression, body mass index
45-49.9, morbid obesity, essential hypertension, aphasia, diastolic heart failure
Hospitalizations: The patient is currently hospitalized for urinary tract infection
Review of systems, mild neck tenderness and possible swelling, negative for respiratory distress
Physical examination: Head is atraumatic and normocephalic. Eyes are clear. Nose shows fairly normal mucosa. Mouth is clear. Patient cannot protrude tongue on command
Ears: Clear
Neck: Supple without swelling or mass palpable. Minimal to no tenderness is present
Cranial nerves II through XII show facial hemiparesis, patient cannot protrude tongue on command
Salivary glands: Normal to palpation
Voice: Patient has expressive aphasia
Thyroid gland: No thyromegaly present
Impression/plan: The patient through fairly reported neck swelling and tenderness but there is no evidence of significant abnormality in the neck. CT scan was normal yesterday. I discussed this with the patient's son and with the physician caring
for her. I will be available to examine again if changes occur.
[2024-07-18 21:18] LABS: Glucose - Point of Care 166 mg/dl (70-99)
[2024-07-18 23:03] VITALS: BP 143/64
[2024-07-19 06:00] VITALS: BMI 46.8
[2024-07-19] MEDS: PROTONIX 40 MG PO (07:23)
[2024-07-19] MEDS: NEURONTIN 300 MG PO (07:23)
[2024-07-19] MEDS: SENOKOT 8.6 MG PO (07:24)
[2024-07-19] MEDS: BUMEX 2 MG PO (07:24)
[2024-07-19] MEDS: THERAGRAN 1 TABLET PO (07:24)
[2024-07-19] MEDS: LIORESAL 10 MG PO (07:25)
[2024-07-19] MEDS: VITAMIN D3 (cholecalciferol) 125 MCG PO (07:25)
[2024-07-19] MEDS: ELIQUIS 2.5 MG PO (07:25)
[2024-07-19] MEDS: AMOXIL 500 MG PO (07:25)
[2024-07-19] MEDS: KCL ELIXIR 20 MEQ PO (07:25)
[2024-07-19] MEDS: OMNICEF 300 MG PO (07:25)
[2024-07-19] MEDS: MIRALAX 17 GRAMS PO (07:25)
[2024-07-19] MEDS: COREG 3.125 MG PO (07:25)
[2024-07-19] MEDS: DELTASONE 5 MG PO (07:26)
[2024-07-19 07:47] LABS: Glucose - Point of Care 113 mg/dl (70-99)
--- NOTE | 2024-07-19 07:59 | W.PN.HOSP.TC ---
Today's Communication/Plan
-
discharge
Assessment / Plan
Assessment / Plan
Physical exam:
General: Well Developed, Well Nourished and No Apparent Distress
HEENT: Normocephalic, Atraumatic and Moist Mucous Membranes, right sided neck swelling supraclavicular mild tenderness
Respiratory: Clear to Auscultation; Negative Wheezes, Rales or Rhonchi
Cardiac: Regular Rhythm and S1/S2
GI: Soft, Nontender and Nondistended
Musculoskeletal: No Clubbing, No Cyanosis and No Edema
Neuro: Awake, Alert, echolalia with right hemiparesis baseline.
Psych: Calm
A/P: 83F CVA Rt side Hemiparesis Aphasia COPD Obesity JAYLA here for complicated UTI and possible bacteremia.
# Metabolic encephalopathy secondary to UTI. Enterococcus bacteremia
-Blood cultures with Enterococcus faecalis and Aerococcus and urine culture with Enterobacter cloacae. (suspected contaminated)
-Repeated blood cultures no growth
-Noted elevated sed rate and CRP
-ID eval appreciated IV abx Rocephin and Ampicillin converted to PO abx cefdinir amoxicillin, to cont through 07/22/24
-CT abd/pelvis no acute abnormalities related to urine infection. Echocardiogram no evidence of gross vegetation.
-CT head no acute abnormality
-Chest x-ray unremarkable
-Intermittent mild leukocytosis likely d/t home chronic steroids/prednisone
# History of urinary retention
She has not required any straight cath or Duarte catheter
She has a purewick has been voiding
#Nausea and vomiting
Resolved after bowel regimen
X-ray no SBO.
#Right sided neck swelling supraclavicular with associate mild tenderness
CT w/o contrast of the neck noted no acute abnormalities 07/12/[address] neck with IV contrast appreciated not acute abn's
ENT eval appreciated likely benign finding no further intervention/evaluation warranted at this time
Type 2 diabetes
-Insulin sliding scale
COPD
-Continue inhalers
-Continue chronic prednisone
-prophylactic azithromycin on hold while on abx as above
History of left-sided CVA with right hemiplegia/aphasia in 2009
-Patient only says the word 'away'normally
-Continue statin
-Continue Eliquis
Chronic right hand tremor/spasm/pain
-Continue baclofen, gabapentin
Chronic ambulatory dysfunction
Chronic HFpEF
-Continue Coreg
-Continue Bumex
Essential hypertension
History of superficial phlebitis
Anxiety/depression
-Continue duloxetine
Vitamin D deficiency
GERD
-Continue omeprazole
Obesity
Obstructive sleep apnea
-cont bedtime CPAP
PT eval appreciated [facility], accepted [facility]
Full code
DVT prophylaxis�Eliquis
Medically stable for discharge with outpatient follow up recommendations.
discussed with patient and patient's son Edwin
Total Time Preparing Discharge ___40____ minutes including examination of the patient, summary of the hospital stay, instructions for continuing care to all relevant caregivers; and preparation of discharge records, prescriptions, and referral
forms if necessary.
Anticipated Discharge: Today
Subjective/Interval History
-
Date of Service: July 19, 2024
no acute distress. Overall reports feeling well. denies new acute issues at this time. Looking forward to rehab
Objective Data
-
Vital Signs:
Vital Signs
Temp Pulse Resp BP Pulse Ox
98.6 F 76 18 143/64 92
07/18/24 23:03 07/18/24 23:03 07/18/24 23:03 07/18/24 23:03 07/18/24 23:03
I&O
07/18/24 07/19/24 07/20/24
06:59 06:59 06:59
Intake Total 480 / 480 600 / 600
Output Total 1100 / 1100 2100 / 2100
Balance -620 / -620 -1500 / -1500
[2024-07-19] MEDS: PULMICORT 0.5 MG INH (08:06)
[2024-07-19] MEDS: DUONEB 3 ML INH ×2 (08:06→14:23)
[2024-07-19] MEDS: NOVOLOG FLEXPEN-LOW RESISTANCE SC ×2 (08:33→12:03)
--- NOTE | 2024-07-19 11:00 | CM ---
CM confirmed w/ [facility] admissions that there is a bed for pt today. CM followed up w/ son, Edwin, who is agreeable to [facility] instead of [facility].
Updated hospitalist to prep d/c
Pt will need ambulance transport. Forms on chart
IMM reviewed, copy on chart
[facility]
Report: [phone]

Plan: [facility] today. Ambulance transport
[2024-07-19 11:30] VITALS: BP 99/64
--- NOTE | 2024-07-19 11:44 | W.DCSUMMARY ---
Discharge Summary
Discharge Data
Date of Admission: 07/09/24
Date of Discharge: 07/19/24
-
Pending Results: No
Discharge Plan
-
Patient Disposition: Acute Rehab Facility
Discharge Diagnosis/Procedures: Metabolic encephalopathy secondary to urinary tract infection
Possible Bacteremia vs contamination (repeat blood cultures note no growth >72 hr)
Right sided neck swelling unclear etiology, likely benign finding however
Type 2 diabetes
COPD
History of left-sided CVA with right hemiplegia/aphasia in 2009
Chronic right hand tremor/spasm/pain
Chronic ambulatory dysfunction
Chronic Heart Failure with preserved ejection fraction
Essential hypertension
Anxiety/depression
Vitamin D deficiency
GERD
Obesity
Obstructive sleep apnea
Condition: Fair
Diet: Low Cholesterol, 2 Gram Sodium and Diabetic, Carb Controlled
Activity: With assistance and As tolerated
Driving Restrictions: No driving
Bathing Restrictions: None
Other Services: PT and OT
Specialty Instructions: Weigh Daily- Call MD for wt gain/loss 3 lbs overnight/5 lbs in 1 week
Activity Restrictions/Additional Instructions:
Please follow up with primary care provider in 1 week of discharge.
Amoxicillin and Cefdinir have been prescribed for complicated urinary tract infection, last day for these antibiotics is 07/22/24.
Home prophylactic azithromycin has been placed on hold while on above antibiotics. ok to resume when above antibiotics are completed.
Miralax has been prescribed to promote regular bowel movements. Hold if diarrhea. Ok to convert to as needed if bowel movements are consistently regular.
Please take medications as prescribed/recommended and follow up with primary care provider and/or other healthcare provider involved in your care for refills and/or further adjustment to your medication regimen as necessary.
Referrals:
Alfredo Harris MD [Active] - in one month
UNKNOWN,NO INTERVIEW [Family Provider] -
Prescriptions:
New
amoxicillin 500 mg Capsule
500 mg PO Q8 Qty: 12 0RF
Rx Instructions:
07/22/24 last day for this antibiotic
polyethylene glycol 3350 17 gram Powder In Packet
17 g PO BID Qty: 30 0RF
Rx Instructions:
Hold if Diarrhea.
Ok to convert to as needed if bowel movements are regular
cefdinir 300 mg Capsule
300 mg PO Q12 Qty: 7 0RF
Rx Instructions:
07/22/24 last day for this antibiotic
Continued
simvastatin 40 MG tablet
40 mg PO QPM
baclofen 10 MG tablet
10 mg PO TID
gabapentin 300 MG capsule
300 mg PO TID
duloxetine 60 MG capsule,delayed release(DR/EC)
60 mg PO NOON
carvedilol 3.125 MG tablet
3.125 mg PO BID
sennosides [Senna Lax] 8.6 mg Tablet
8.6 mg PO QPM
Eliquis 2.5 mg tablet
2.5 mg PO BID
therapeutic multivitamin Tablet
1 tab PO DAILY
omeprazole 20 mg Capsule,Delayed Release(Dr/Ec)
20 mg PO DAILY
cholecalciferol (vitamin D3) 125 mcg (5,000 unit) Tablet
125 mcg PO DAILY
budesonide 0.5 mg/2 mL Suspension For Nebulization
0.5 mg inhalation R BID Qty: 60 0RF
acetaminophen [Tylenol Extra Strength] 500 mg Tablet
1,000 mg PO BIDPRN PRN (Reason: mild pain)
potassium chloride 20 mEq/15 mL Liquid
20 meq PO TID
ipratropium-albuterol 0.5 mg-3 mg(2.5 mg base)/3 mL solution for nebulization
3 ml inhalation R DAILYPRN PRN (Reason: shortness of breath or wheezing)
bumetanide 2 mg tablet
2 mg PO BID
prednisone 5 mg tablet
5 mg PO Q48H
prednisone 10 mg tablet
10 mg PO Q48H
ipratropium-albuterol 0.5 mg-3 mg(2.5 mg base)/3 mL solution for nebulization
3 ml inhalation R TID
metolazone 5 mg Tablet
5 mg PO DAILYPRN PRN (Reason: swelling)
Held
azithromycin 250 mg Tablet
250 mg PO MOWEFR
Hold Instructions: resume after 07/22/24 when antibiotics for complicated UTI complete
Discharge Orders:
Discharge Patient (As Directed); Ordered 07/19/24
Ordered By: Mariana Coronado
Discharge Date and Time
Print Language: VENEZUELAN
[2024-07-19 11:51] LABS: Glucose - Point of Care 145 mg/dl (70-99)
[2024-07-19] MEDS: CYMBALTA DELAYED RELEASE 60 MG PO (12:05)
--- NOTE | 2024-07-19 15:02 | W.PN.ID1 ---
Date of Service
Date of Service: July 19, 2024
Today's Communication
Continue antibiotics. See below�
Assessment / Plan
Bacteremia with Enterococcus faecalis and Aerococcus
-Single set with multiple isolates is very suggestive of contamination during blood draw.
Complicated urinary tract infection secondary to Enterobacter cloacae
Leukocytosis
- Suspect steroid component
Hx cervical cancer
COPD
Hx CVA (right residual; aphasia)
HTN
HTN
Hx DVT
Nephrolithiasis
Recommendations:
Repeat blood cultures negative. Echocardiogram (TTE) without valvular vegetation.
Continue cefdinir through 07/22/2024
Continue amoxicillin 500 mg p.o. 3 times daily, to continue through 07/22/2024
����������������������������������������������������������
Chief Complaint
-: UTI and Bacteremia
Subjective / Review of Systems
Review of Systems: No Fever
Vital Signs / Physical Exam
Vital Signs
Vital Signs
Temp Pulse Resp BP Pulse Ox
98.1 F 71 17 99/64 95
07/19/24 11:30 07/19/24 14:26 07/19/24 14:26 07/19/24 11:30 07/19/24 14:26
Physical Exam
Constitutional: No Acute Distress, Comfortable, Chronically Ill and Obese
Cardiovascular: S1/S2; Negative S3/S4 or Murmur
Pulmonary: Non Labored
Gastrointestinal: Soft, Non Tender and Non Distended
Extremities: Negative Edema or Erythema
Neurological: Awake, Alert and Other (Aphasic)
Psychological: Calm
Objective Data
Lab Data
Lab Results
07/18/24 06:42
07/18/24 06:42
ESR 67 mm/hour (0-20) H 07/14/24 08:03
Estimated Creat Clear 63 ml/min 07/18/24 06:42
Lactic Acid Cancelled 07/10/24 01:00
Total Bilirubin 0.6 mg/dl (0.2-1.3) 07/10/24 06:07
AST 23 U/L (14-36) 07/10/24 06:07
ALT 26 U/L (0-35) 07/10/24 06:07
Alkaline Phosphatase 93 U/L (38-126) 07/10/24 06:07
C-Reactive Protein 48.90 mg/L (0.0-10.00) H 07/14/24 08:03
Most recent labs reviewed.
Micro Results:
07/11/24 10:44 Blood Culture - Final
Blood/Venous No Growth - Final Report
07/11/24 10:21 Blood Culture - Final
Blood/Venous No Growth - Final Report
07/09/24 21:25 Blood Culture - Final
Blood/Venous No Growth - Final Report
07/09/24 21:25 Blood Culture - Final
Blood/Venous Enterococcus faecalis
Aerococcus Species
Gram Stain - Final
07/09/24 20:05 Urine Culture - Final
Urine Enterobacter cloacae
Blood Culture 07/12/24-1220
1. Enterococcus faecalis
M.I.C. RX
--------- ---
Ampicillin <=2 S
Gentamicin Synergy Screen <=500 S
Vancomycin 2 S
Imaging:
07/11/2024 CT abdomen/pelvis without contrast: A 3 mm nonobstructing calculus in the lower pole of the right kidney is noted. There is cortical scarring at the posterior midportion of the left kidney. There is mild left and moderate diffuse
bilateral renal cortical atrophy. Diverticuli are present in the colon without evidence of diverticulitis. Please see full dictation for additional detail. Film personally viewed.
== END 2024-07-19 15:08 | DRG 689 ==
LOC: 4 WEST ACU 22:02
PROVIDERS: Hospitalist; ADMITTING PHYSICIAN Hospitalist; ATTENDING PHYSICIAN Internal Medicine; CONSULT PHYSICIAN Internal Medicine Infectious Disease; CONSULT PHYSICIAN Otolaryngology Facial Plastic Surgery; EMERGENCY PHYSICIAN Emergency Medicine
DX: N39.0 Urinary tract infection, site not specified (principal); G93.41 Metabolic encephalopathy; I69.351 Hemiplegia and hemiparesis following cerebral infarction affecting right dominant side; I50.32 Chronic diastolic (congestive) heart failure; R78.81 Bacteremia; Z68.42 Body mass index [BMI] 45.0-49.9, adult; E66.01 Morbid (severe) obesity due to excess calories; I11.0 Hypertensive heart disease with heart failure; J44.9 Chronic obstructive pulmonary disease, unspecified; F32.A Depression, unspecified; F41.9 Anxiety disorder, unspecified; G47.33 Obstructive sleep apnea (adult) (pediatric); E11.9 Type 2 diabetes mellitus without complications; B95.2 Enterococcus as the cause of diseases classified elsewhere; B96.89 Other specified bacterial agents as the cause of diseases classified elsewhere; K21.9 Gastro-esophageal reflux disease without esophagitis; E55.9 Vitamin D deficiency, unspecified; R33.8 Other retention of urine; R11.2 Nausea with vomiting, unspecified; I69.320 Aphasia following cerebral infarction; Z86.72 Personal history of thrombophlebitis; Z87.891 Personal history of nicotine dependence; Z86.718 Personal history of other venous thrombosis and embolism; Z85.41 Personal history of malignant neoplasm of cervix uteri; Z79.52 Long term (current) use of systemic steroids; Z79.01 Long term (current) use of anticoagulants; Z79.84 Long term (current) use of oral hypoglycemic drugs; Z79.899 Other long term (current) drug therapy
CPT/HCPCS: 70450; 70490; 70491; 71046; 74018; 74176; 80048; 80053; 80202; 81003; 81015; 82805; 82962; 83036; 83605; 83735; 83880; 84100; 85025; 85027; 85652; 86140; 87040; 87077; 87086; 87186; 87205; 93005; 93306; 94640; 97116; 97163; 97167; 97530; 97535; 99285; Q9967

== ENCOUNTER → 2024-08-08 08:17 | Outpatient (REF) | payer MEDICARE, OTHER, SELFPAY | LOC: DHSLP 08:17 | PROVIDERS: ATTENDING PHYSICIAN Internal Medicine Critical Care Medicine; FAMILY PHYSICIAN Family Medicine | DX: G47.33 Obstructive sleep apnea (adult) (pediatric) (principal) | CPT/HCPCS: 95811 ==

== ENCOUNTER → 2024-09-13 14:02 | Outpatient (REF) | payer MEDICARE, OTHER, SELFPAY | LOC: RAD 14:02 | PROVIDERS: ATTENDING PHYSICIAN Internal Medicine Cardiovascular Disease; FAMILY PHYSICIAN Family Medicine | DX: I50.30 Unspecified diastolic (congestive) heart failure (principal); Z87.01 Personal history of pneumonia (recurrent) | CPT/HCPCS: 71046 ==

== ENCOUNTER 2024-11-18 12:46 | Inpatient (IN) | payer MEDICARE, OTHER, SELFPAY ==
[2024-11-18] VITALS (8 sets, daily range): BP systolic 98–155; BP diastolic 45–107
[2024-11-18 10:24] LABS: % Basophils 0.5 % (0-2); % Eosinophils 3.4 % (0-6); % Immature Granulocytes 0.4 % (0-0.5); % Lymphocytes 11.4 % (20.5-51.1); % Monocytes 8.2 % (1.7-9.3); % Neutrophils 76.1 % (42.2-75.2); Absolute Basophils 0.1 10^3/uL (0-0.2); Absolute Eosinophils 0.4 10^3/uL (0-0.7); Absolute Lymphocytes 1.2 10^3/uL (1.2-3.4); Absolute Monocytes 0.8 10^3/uL (0.1-0.6); Absolute Neutrophils 7.9 10^3/uL (1.4-6.5); Hematocrit 34.7 % (37.0-47.0); Hemoglobin 11.8 g/dL (12.0-16.0); Mean Corpuscular Hgb 30.4 pg (27.0-31.0); Mean Corpuscular Volume 89.4 fL (81.0-99.0); Mean Platelet Volume 10.2 fL (7.4-10.4); Nucleated Red Blood Cells % 0 %; Platelet Count 221 10^3/uL (130-400); Red Blood Cell Count 3.88 10^6/uL (4.20-5.40); Red Cell Dist. Width 15.2 % (11.5-14.5); White Blood Cell Count 10.3 10^3/uL (4.8-10.8)
[2024-11-18 10:25] LABS: Urine Albumin 2+ (Neg - Trace); Urine Bilirubin Negative (Negative); Urine Character Cloudy (Clear); Urine Color Yellow; Urine Glucose Negative (Negative); Urine Ketone Negative (Negative); Urine Leukocyte 3+ (Negative); Urine Nitrite Negative (Negative); Urine Occult Blood 3+ (Negative); Urine Specific Gravity 1.015 (<1.030); Urine Urobilinogen Negative (Neg - 1+)
[2024-11-18 10:32] LABS: Urine Squamous Cell >30 /LPF (Few)
[2024-11-18 10:33] LABS: Urine Bacteria Many (Negative); Urine White Cell >100 /HPF (0-5)
--- NOTE | 2024-11-18 10:43 | ED.GENMED ---
History of Present Illness
General
Chief Complaint: Change in Mental Status
Source: family and care mgr
Exam Limitations: non verbal-adult
Time Seen by Provider: 11/18/24 10:29
Nursing documentation reviewed up to this point in time: agreed with
History of Present Illness
History of Present Illness:
84-year-old female patient with history of previous stroke with current expressive aphasia unable to speak to any significant extent, presenting to the emergency department today with concerns of increased lethargy weakness leg swelling specifically
today but ongoing to some extent over the past few days. The family felt that she was gaining some fluid and give her increased dose of her diuretic yesterday.
Past History
Past History
ED Past Medical History: Cancer (Cervical), COPD, CVA (Left-sided CVA with right hemiplegia), HTN and Other (Previous stroke with right hemiparesthesias and aphasia, hypertension, DVT, Kidney stones, Urosepsis)
ED Past Surgical History: Cholecystectomy and Other (Noncontributory)
Social History
Tobacco: Former smoker
Alcohol: None
Drug: None
Personal: ( July 2023)
Living: with family
Employment: Not employed
Family History
Family History: Other (Noncontributory); Negative Diabetes, Hypertension or CAD
Review of Systems
Review of Systems
Allergies reviewed?: Yes
All Other Systems: ROS reviewed and negative except as documented in HPI and ROS
Phy Exam
Physical Exam
Physical Exam:
GENERAL: Alert , in no apparent distress
EYE: pupils equal and reactive
NECK: Supple, no significant adenopathy.
ENT: o/p clr, mmm.
CARDIAC: Regular rate and rhythm .
LUNGS: Clear breath sounds bilaterally, no acute respiratory distress, no wheezes/rales/rhonchi
ABDOMEN: Soft, without focal tenderness, no r/g, no cvat
NEUROLOGICAL: Alert following basic commands
SKIN: Warm and dry, skin intact.
MUSCULOSKELETAL: +1 pitting edema distal to the knees bilaterally well perfused.
PSYCH: Patient does not speak
Course
Orders/Labs/Results
Orders:
Orders
11/18/24 09:48
EKG [Electrocardiogram (*1)] Urgent
Reason for Study: Fatigue / Weakness
EKG- Treatment ONCE
11/18/24 10:12
Cardiac Monitoring- Treatment ONCE
IV Insert/Care/Rem.- Treatment PRN
11/18/24 10:15
Basic Metabolic Panel Urgent
Complete Blood Count/With Diff Urgent
Urinalysis Reflex To Culture Urgent
Date Specimen was Collected: 11/18/24
Time Specimen was Collected: 10:13
Urine Microscopic Reflex Cult Urgent
Urine Culture Urgent
LAURA Source: U
Specimen Description:
Date Specimen was Collected: 11/18/24
Time Specimen was Collected: 10:13
11/18/24 10:42
Ipratropium/Albuterol Sulfate [Duoneb] 3 ml INH R NOW ONE
Chest [CR Chest - 2 Views ] Urgent
Comment:
Reason For Exam: sob
11/18/24 10:46
BNP [NT-proBNP] Urgent
Troponin I Urgent
11/18/24 11:02
Comprehensive Metabolic Panel Urgent
11/18/24 11:59
CefTRIAXone [Rocephin] 1,000 mg IV NOW STA
Dexamethasone Sod Phosphate [Decadron] 10 mg IV NOW STA
Abnormal Lab Results
11/18/24 11/18/24
10:15 11:02
RBC 3.88 L 10^6/uL
(4.20-5.40)
Hgb 11.8 L g/dL
(12.0-16.0)
Hct 34.7 L %
(37.0-47.0)
RDW 15.2 H %
(11.5-14.5)
Absolute Neuts (auto) 7.9 H 10^3/uL
(1.4-6.5)
Absolute Monos (auto) 0.8 H 10^3/uL
(0.1-0.6)
Neutrophils % 76.1 H %
(42.2-75.2)
Lymphocytes % 11.4 L %
(20.5-51.1)
Potassium 3.2 L mmol/L
(3.5-5.1)
Chloride 96 L mmol/L 95 L mmol/L
(98-107) (98-107)
Carbon Dioxide 36 H mmol/L 40 H mmol/L
(22-30) (22-30)
BUN 43 H mg/dl 43 H mg/dl
(7-17) (7-17)
Glucose 150 H mg/dl 146 H mg/dl
(70-99) (70-99)
Total Protein 6.1 L g/dl
(6.3-8.2)
Ur Occult Blood Reflex 3+ A
(Negative)
Leukocyte Esterase Rfl 3+ A
(Negative)
Urine RBC 7-10 A /HPF
(0-2)
Urine WBC (Reflex) >100 A /HPF
(0-5)
Urine Bacteria (Reflex) Many A
(Negative)
Urine Albumin (Reflex) 2+ A
(Neg - Trace)
11/18/24 10:15
11/18/24 11:02
Vital Signs
Initial and Last Documented VS:
Initial Vital Signs
Temp Pulse Resp BP Pulse Ox
98.6 F 75 16 141/51 96
11/18/24 09:43 11/18/24 09:43 11/18/24 09:43 11/18/24 09:43 11/18/24 09:43
Last Documented Vital Signs
Temp Pulse Resp BP Pulse Ox
98.8 F 73 17 135/107 100
11/18/24 10:32 11/18/24 11:03 11/18/24 11:03 11/18/24 11:03 11/18/24 11:03
MDM/Problems Addressed
MDM/Problems Addressed:
84-year-old female presenting to the emergency department today with concerns of increased lethargy. Lives at home with her son difficulty ambulating at all today typically walks with a cane and assistance at baseline. On arrival here vital signs
are normal patient does have a very significant wheeze that can be heard audibly and also is significant throughout all lung centeno. Patient was given a DuoNeb. Additionally seem to have increased weight recently concern for potential heart
failure as well. Here mainly wheezing seems to consistent with COPD started on dexamethasone as well as DuoNeb. Additionally urinalysis potentially infected though there was a large amount of squamous epithelial cells. Patient was started on
antibiotics plan to admit concerning significant alteration from baseline.
*Pulse Oximetry
SaO2: 96
Oxygen Mode of Delivery: Room air
Patient hypoxic: no
*Critical Care Note
Total Time (30-74mins, 75-104mins- exclusive of procedures): Not Applicable
ED Attending Note
-
Portions of this chart may have been created with voice recognition software.� Occasional wrong word or��sound alike� substitutions may have occurred due to the inherent limitations of voice recognition software.
Discharge Plan
Departure
Patient Disposition: Admit
Date of Disposition: 11/18/24
Time of Disposition: 12:04
Admit to: Telemetry
Admit to doctor: Myray
Presentation/result/management discussed w/ accepting MD/DO: Hospitalist
Patient with high blood pressure during this ER visit?: No
Condition: Good
Covid-19: Not Applicable
Discharge Problem:
COPD (chronic obstructive pulmonary disease), Acute UTI
Prescriptions:
No Action
simvastatin 40 MG tablet
40 mg PO QPM
baclofen 10 MG tablet
10 mg PO TID
gabapentin 300 MG capsule
300 mg PO TID
duloxetine 60 MG capsule,delayed release(DR/EC)
60 mg PO NOON
carvedilol 3.125 MG tablet
3.125 mg PO BID
sennosides [Senna Lax] 8.6 mg Tablet
8.6 mg PO QPM
Eliquis 2.5 mg tablet
2.5 mg PO BID
therapeutic multivitamin Tablet
1 tab PO DAILY
omeprazole 20 mg Capsule,Delayed Release(Dr/Ec)
20 mg PO DAILY
cholecalciferol (vitamin D3) 125 mcg (5,000 unit) Tablet
125 mcg PO DAILY
budesonide 0.5 mg/2 mL Suspension For Nebulization
0.5 mg inhalation R BID Qty: 60 0RF
azithromycin 250 mg Tablet
250 mg PO MOWEFR
acetaminophen [Tylenol Extra Strength] 500 mg Tablet
1,000 mg PO BIDPRN PRN (Reason: mild pain)
potassium chloride 20 mEq/15 mL Liquid
20 meq PO TID
ipratropium-albuterol 0.5 mg-3 mg(2.5 mg base)/3 mL solution for nebulization
3 ml inhalation R DAILYPRN PRN (Reason: shortness of breath or wheezing)
bumetanide 2 mg tablet
2 mg PO BID
prednisone 5 mg tablet
5 mg PO Q48H
prednisone 10 mg tablet
10 mg PO Q48H
ipratropium-albuterol 0.5 mg-3 mg(2.5 mg base)/3 mL solution for nebulization
3 ml inhalation R TID
metolazone 5 mg Tablet
5 mg PO DAILYPRN PRN (Reason: swelling)
amoxicillin 500 mg Capsule
500 mg PO Q8 Qty: 12 0RF
Rx Instructions:
07/22/24 last day for this antibiotic
polyethylene glycol 3350 17 gram Powder In Packet
17 g PO BID Qty: 30 0RF
Rx Instructions:
Hold if Diarrhea.
Ok to convert to as needed if bowel movements are regular
cefdinir 300 mg Capsule
300 mg PO Q12 Qty: 7 0RF
Rx Instructions:
07/22/24 last day for this antibiotic
Referrals:
Pito Betts DO [Family Provider, Family Practice]
Interventions
Interventions:
*Risk Screen - Suicide Last Done: 11/18/24 09:43
*General Assessment Last Done: 11/18/24 10:27
*Neglect/Abuse Screening Last Done: 11/18/24 09:43
*ED- Fall Risk Assessment Last Done: 11/18/24 10:27
*ED COVID-19 Vaccine History Last Done: 11/18/24 10:27
ED- Neurological Assessment Last Done: 11/18/24 10:27
ED Swallowing Screen Last Done: 11/18/24 10:27
Discharge Date and Time
Print Language: GREEK
[2024-11-18 10:45] LABS: Blood Urea Nitrogen 43 mg/dl (7-17); Calcium 9.3 mg/dl (8.4-10.2); Carbon Dioxide 36 mmol/L (22-30); Chloride 96 mmol/L (98-107); Glucose 150 mg/dl (70-99); Sodium 139 mmol/L (135-145)
[2024-11-18] MEDS: DUONEB 3 ML INH ×3 (10:49→19:54)
[2024-11-18 11:38] LABS: ALT (SGPT) 17 U/L (0-35); AST (SGOT) 21 U/L (14-36); Albumin 3.5 g/dl (3.5-5.0); Alkaline Phosphatase 83 U/L (38-126); Blood Urea Nitrogen 43 mg/dl (7-17); Calcium 9.1 mg/dl (8.4-10.2); Carbon Dioxide 40 mmol/L (22-30); Chloride 95 mmol/L (98-107); Glucose 146 mg/dl (70-99); Potassium 3.2 mmol/L (3.5-5.1); Sodium 138 mmol/L (135-145); Total Bilirubin 0.9 mg/dl (0.2-1.3); Total Protein 6.1 g/dl (6.3-8.2)
[2024-11-18 11:39] LABS: NT-proBNP 262 pg/ml; Troponin I < 0.012 ng/ml
--- NOTE | 2024-11-18 12:07 | HPS.HSE ---
Addendum entered and electronically signed by Jake Rosenthal MD 11/18/24 13:57:
VBG:
VBG
07/09/24 11/18/24 11/18/24
21: 11:02 12:59
VBG pH 7.49 H 7.53 H
VBG pCO2 52 H 56 H
VBG pO2 155 H 56 H
VBG HCO3 39.6 H 46.8 H
Sodium 138
Chloride 95 L
IMP:
Primary metabolic alkalosis with secondary respiratory alkalosis
suspect contraction alkalosis due to recent Metolazone diuretics plus chr Prednisone
- Hold Metolazone
- low threshold to ABG with any AMS
Original Note:
Family Physician
-
Family Physician: Pito Betts
Chief Complaint
-
weakness, AMS
History of Present Illness
I could not get any information from the patient as she is non verbal
Information gathered by chart review and speaking with the ER staff.
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
- weakness, unable to even stand today, Normally able to ambulate with assistance
- diffuse wheeze on exam but POx is fine
- abn UA concern for recurrent UTI
- associated AMS per son
Medical History
Past Medical History
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
Past Surgical History: Reports None
Social History
Tobacco: Non-smoker
Alcohol: None
Drug: None
Family History
Family History: Not pertinent
Allergies / Home Medications
Allergies reflects when Allergies were last updated in [facility].
Home Medications with original date entered in [facility]
Allergy/Medication List:
Allergies
Allergy/AdvReac Type Severity Reaction Status Date / Time
No Known Drug Allergies Allergy NONE Verified 11/16/23 17:03
Home Medications
baclofen 10 mg tablet 10 mg PO TID Muscle Spasms 10/08/11
duloxetine 60 mg capsule,delayed release 60 mg PO NOON Mental Health/Anxiety 10/08/11
gabapentin 300 mg capsule 300 mg PO TID Pain 10/08/11
simvastatin 40 mg tablet 40 mg PO QPM High Cholesterol 10/08/11
carvedilol 3.125 mg tablet 3.125 mg PO BID Heart Failure 05/30/19
apixaban 2.5 mg tablet (Eliquis) 2.5 mg PO BID Blood Clot Prevention/Tx 07/04/23
sennosides 8.6 mg tablet (Senna Lax) 8.6 mg PO QPM Constipation 07/04/23
cholecalciferol (vitamin D3) 125 mcg (5,000 unit) tablet 125 mcg PO DAILY Supplement 09/06/23
omeprazole 20 mg capsule,delayed release 20 mg PO DAILY Gastrointestinal Issue 09/06/23
therapeutic multivitamin 1 tab PO DAILY Supplement 09/06/23
budesonide 0.5 mg/2 mL suspension for nebulization 0.5 mg (2 mL) inhalation R BID #60 mL 09/24/23
acetaminophen 500 mg tablet (Tylenol Extra Strength) 1,000 mg PO BIDPRN PRN mild pain 11/16/23
azithromycin 250 mg tablet 250 mg PO MOWEFR@1200 Infection 11/16/23
ipratropium 0.5 mg-albuterol 3 mg (2.5 mg base)/3 mL nebulization soln 3 ml inhalation R Q6HPRN PRN shortness of breath or wheezing 11/16/23
potassium chloride 20 mEq/15 mL oral liquid 20 meq PO DAILY Electrolyte Repletion 11/16/23
bumetanide 2 mg tablet 2 mg PO BID 04/18/24
ipratropium 0.5 mg-albuterol 3 mg (2.5 mg base)/3 mL nebulization soln 3 ml inhalation R TID 04/18/24
miconazole nitrate 2 % topical powder (Miconazorb AF) 1 applic topical BIDPRN PRN antifungal 04/18/24
prednisone 10 mg tablet 10 mg PO Q48H alternating w/ 5mg 04/18/24
prednisone 5 mg tablet 5 mg PO Q48H alternating w/ 10mg 04/18/24
cephalexin 500 mg capsule 500 mg PO QID #28 caps 04/19/24
glycopyrrolate 1 mg tablet 0.5 mg (1/2 x 1 mg) PO TID PRN secretions #14 tabs 04/19/24
Review of Systems
-
Unable to obtain full review of systems at this time due to: Patient Non-verbal
History Source: Patient
A 12 point ROS was completed and negative except as noted: Yes
Constitutional: Reports No Symptoms
EENT: Reports No Symptoms
Respiratory: Reports No Symptoms
Cardiac: Reports No Symptoms
Abdomen/GI: Reports No Symptoms
: Reports No Symptoms
Musculoskeletal: Reports No Symptoms
Skin: Reports No Symptoms
Neurological: Reports No Symptoms
Endocrine: Reports No Symptoms
Hematologic/Lymphatic: Reports No Symptoms
Psych: Reports No Symptoms
Physical Exam
Vital Signs
Vital Signs
Temp Pulse Resp BP Pulse Ox
98.8 F 73 17 135/107 100
11/18/24 10:32 11/18/24 11:03 11/18/24 11:03 11/18/24 11:03 11/18/24 11:03
Physical Exam
General: No Apparent Distress and Conversant (non verbal )
HEENT: NormoCephalic, Moist mucous membranes and Atraumatic
Respiratory: Wheezes (diffuse )
Cardiac: S1/S2 and Regular Rhythm; No Murmur or Rub
GI: Soft, Non Tender, Non Distended and Normal Bowel Sounds; No Organomegaly
Rectal: Deferred by Provider
Musculoskeletal: No Clubbing, No Cyanosis and No Edema
Skin: No Rash
Neuro: Other (chrninc Lt sided hemiparesis )
Laboratory Results
-
11/18/24 10:15
11/18/24 11:02
Laboratory Results
Total Bilirubin 0.9 mg/dl (0.2-1.3) 11/18/24 11:02
AST 21 U/L (14-36) 11/18/24 11:02
ALT 17 U/L (0-35) 11/18/24 11:02
Alkaline Phosphatase 83 U/L (38-126) 11/18/24 11:02
Troponin I < 0.012 ng/ml 11/18/24 10:46
Data Reviewed
-
Diagnostic Radiology: Other (pending final CXR final report )
Medical Tests (Nuc Med, Echo, EKG etc): Report Reviewed by me
Lab Data: Labs Reviewed by me
Old Records: Requested
Impression/Plan
-
VSS
11/18/24
09:43
Temp 98.6 F
Temp route: Axillary
Pulse 75
Resp Rate 16
Blood pressure 141/51
SaO2 96
Oxygen Mode of Delivery Room air
Relevant Data
07/18/24 11/18/24 11/18/24
06:42 10:15 10:46
WBC 10.3
Hgb 12.0 11.8 L
Potassium 3.3
Carbon Dioxide 36 H 40
BUN 43 H 43
Creatinine 1.0 1.0
eGFR 55.90 55.90
Troponin I < 0.012
Kjs-P-Ykodfymdtkh Pept 262
UA
07/09/24 11/18/24
20:05 10:15
Leukocyte Esterase Rfl 3+ A
Urine RBC 7-10 A
Urine WBC (Reflex) 16-20 A >100 A
Ur Squamous Epith Cells >30
Urine Bacteria (Reflex) Many A Many A
Pending CXR:
EKG
NORMAL SINUS RHYTHM
LOW VOLTAGE QRS
NONSPECIFIC ST AND T WAVE ABNORMALITY
ABNORMAL ECG
WHEN COMPARED WITH ECG OF 09-JUL-2024 17:42,
BORDERLINE CRITERIA FOR ANTERIOR INFARCT ARE NO LONGER PRESENT
BORDERLINE CRITERIA FOR ANTEROLATERAL INFARCT ARE NO LONGER PRESENT
NO SIGNIFICANT CHANGE WAS FOUND
Confirmed by BRYAN BELTRÁN MD ([id number]) on 11/18/2024 12:03:09 PM
07/11/24 TTE
Normal left ventricular size, wall thickness and systolic function.
No regional wall motion abnormalities are seen.
LV ejection fraction is 60-65%
Diastolic function indeterminate.
Mitral valve opens normally. Posterior mitral annular calcification. Trace mitral regurgitation is seen.
Tricuspid valve opens normally. Mild tricuspid regurgitation.
Estimated pulmonary artery pressure of 37 mmHg, assuming a right atrial pressure of 3 mmHg.
There is no vegetations seen.
Since echocardiogram 11/18/2023, there is no significant change.
Last hospitalist admission: 07/09/24 -07/19/24
Discharge Diagnosis/Procedures:
Metabolic encephalopathy secondary to urinary tract infection
Possible Bacteremia vs contamination (repeat blood cultures note no growth >72 hr)
Right sided neck swelling unclear etiology, likely benign finding however
ASSESSMENT & PLAN
Pending Rx reconciliation
weakness with worsening general debility and acute on chr gait dysfunction
- suspect TME due to multifactorial origins( AE COPD, UTI, acid base dysfunction)
- Hold parameters for [employer] Meds such as Gabapentin
- plan as below
AE COPD with bronchospasm
Acceptable POx on RA
Worsening hypercarbia - Alkalosis ( contraction vs compensatory) vs Acute resp acidosis
HX chr PO prednisone dependent
- f/u final CXR
- check VBG
- c/w IV Decadron 4mg q12h
- hold of chronic prednisone
- c/w prophylactic azithromycin
Abnormal UA concerning for UTI
UTI with HX VSE POS BCx and HX POS UCx for Enterobacter cloacae. (suspected contaminated)
HX of urinary retention
- Bladder scan
- Pending UCX
- c/w IV CFTX for now
Hypokalemia - alkalosis ?
- KCL 20 at ER
- Hold Metolazone
- c/w Bumex and KCL supplement
Obstructive sleep apnea
- CPAP HS to bring her own
Chronic HFpEF with EF 60-65
Diastolic dysfunction
- c/w Coreg
- c/w Bumex
Essential hypertension
- c/w Coreg
Type 2 diabetes
- add ISS low
HX left-sided CVA with right hemiplegia/aphasia in 2009
Chronic ambulatory dysfunction
Chronic right hand tremor/spasm/pain
-Patient only says the word 'away'normally
- on statin
- on Eliquis
HX Right sided neck swelling supraclavicular with associate mild tenderness
CT w/o contrast of the neck noted no acute abnormalities 07/12/24
Prior ENT eval appreciated likely benign finding no further intervention/evaluation warranted at this time
Anxiety/depression
-Continue duloxetine
Obesity suspect class II BMI
Vitamin D deficiency
GERD
DVT Px: on chr Eliquis
Full code per son
IP MS
[2024-11-18] MEDS: DECADRON 10 MG IV (13:00)
[2024-11-18] MEDS: ROCEPHIN 1000 MG IV (13:00)
[2024-11-18 13:15] LABS: Venous Blood Gas B.E. 21.1 mmol/L (-4 to +4); Venous Blood Gas HCO3 46.8 mmol/L (22-27); Venous Blood Gas O2 Therapy 98; Venous Blood Gas pCO2 56 mmHg (35-48); Venous Blood Gas pH 7.53 (7.32-7.43); Venous Blood Gas pO2 56 mmHg (30-50)
[2024-11-18 14:19] LABS: Glucose - Point of Care 148 mg/dl (70-99)
--- NOTE | 2024-11-18 14:50 | PTCARENOTE ---
Addendum entered by Hemalatah Bauer RN 11/18/24 14:52:
family and patient oriented to the room.
Original Note:
Rec'd pt from ER. transferred to the bed. pt is awake and alert with expressive aphasia. Right sided hemiparesis. pt's family at the bedside. Family ordered her meals for today and breakfast for tomorrow.
[2024-11-18] MEDS: NOVOLOG FLEXPEN-LOW RESISTANCE SC (15:18)
[2024-11-18] MEDS: NEURONTIN 300 MG PO ×2 (16:10→22:33)
[2024-11-18] MEDS: BUMEX 2 MG PO (16:11)
[2024-11-18] MEDS: KCL ELIXIR 20 MEQ PO ×2 (16:11→22:33)
[2024-11-18] MEDS: LIPITOR 20 MG PO (18:39)
[2024-11-18] MEDS: COREG 3.125 MG PO (20:26)
[2024-11-18] MEDS: ELIQUIS 2.5 MG PO (20:26)
[2024-11-18 21:28] LABS: Glucose - Point of Care 304 mg/dl (70-99)
[2024-11-19] MEDS: DECADRON 4 MG IV ×2 (00:44→12:09)
[2024-11-19 06:00] VITALS: BMI 45.3
[2024-11-19 07:29] VITALS: BP 111/62
[2024-11-19] MEDS: DUONEB 3 ML INH ×4 (07:37→20:16)
[2024-11-19 08:21] LABS: Glucose - Point of Care 211 mg/dl (70-99)
[2024-11-19] MEDS: BUMEX 2 MG PO ×2 (08:29→16:38)
[2024-11-19] MEDS: COREG 3.125 MG PO ×2 (08:30→21:25)
[2024-11-19] MEDS: KCL ELIXIR 20 MEQ PO ×3 (08:30→21:26)
[2024-11-19] MEDS: NEURONTIN 300 MG PO ×3 (08:30→21:25)
[2024-11-19] MEDS: ELIQUIS 2.5 MG PO ×2 (08:30→21:25)
[2024-11-19 08:49] LABS: Glycohemoglobin (HgbA1c) 6.4 % (4.0-5.6)
[2024-11-19] MEDS: NOVOLOG FLEXPEN-LOW RESISTANCE 2 UNITS SC ×3 (09:36→16:47)
[2024-11-19 10:06] VITALS: BP 139/60; PULSE 77; O2SAT 92
[2024-11-19 11:49] LABS: Glucose - Point of Care 228 mg/dl (70-99)
[2024-11-19] MEDS: CYMBALTA DELAYED RELEASE 60 MG PO (12:09)
[2024-11-19] MEDS: STERILE WATER FOR INJECTION 10 ML IV (12:10)
[2024-11-19] MEDS: ROCEPHIN 1000 MG IV (12:10)
--- NOTE | 2024-11-19 14:19 | CM ---
Initial assessment completed. 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
ER for weakness.
Patient resides w/ son and caregiver in a 2STH, no steps, ramp access. Patient is assisted w/ ambulation and utilizes a cane, assisted w/ ADLs. Has neb machine at home that is in good condition. Patient was at [place] for rehab earlier this year.
[facility] and [facility] in the past.
Address, points of contact and insurance verified
PCP: Dr. Pito Dixon
Pharmacy: [facility]
Therapy evaluated patient and is currently recommending SNF at d/c. Will discuss w/ son
Plan: SNF recommended
--- NOTE | 2024-11-19 14:59 | W.PN.HOSP.TC ---
Today's Communication/Plan
-
Cardio consult, ?repeat Echocardiogram
Assessment / Plan
Assessment / Plan
weakness with worsening general debility and acute on chr gait dysfunction
- suspect TME due to multifactorial origins( AE COPD, UTI, acid base dysfunction)
- Hold parameters for [employer]ED PH[employer]ACIST Meds such as Gabapentin
- As per son, was given a dose of Metolazone on 11/13 in cardio office, lost >10 lbs of fluid acutely over 24hrs and then became overwhelmingly weak
wt now 119.75 kg. Will consult cardio, sees Dr. Membreno in office
AE COPD with bronchospasm
Acceptable POx on RA
Worsening hypercarbia - Alkalosis ( contraction vs compensatory) vs Acute resp acidosis
HX chr PO prednisone dependent
- CXR:1. Mild to moderate cardiomegaly.
2. Mild interstitial cardiogenic pulmonary edema.
3. Moderately decreased bilateral lung volumes.
4. Mild chronic subsegmental atelectasis/scarring in the lingula.
- VB.53/pCO2 56/pO2 56
- c/w IV Decadron 4mg q12h
- hold chronic prednisone
- c/w prophylactic azithromycin
Abnormal UA concerning for UTI
UTI with HX VSE POS BCx and HX POS UCx for Enterobacter cloacae. (suspected contaminated)
HX of urinary retention
- Bladder scan
- UCX - Gm neg Bacilli
- c/w IV CFTX for now
Hypokalemia - alkalosis ?
K 3.2
- KCL 20 at ER
- Hold Metolazone
- c/w Bumex and KCL supplement
Obstructive sleep apnea
- CPAP HS to bring her own
Chronic HFpEF with EF 60-65
Diastolic dysfunction
- c/w Coreg
- c/w Bumex
Essential hypertension
- c/w Coreg
Type 2 diabetes
- add ISS low
HX left-sided CVA with right hemiplegia/aphasia in 2009
Chronic ambulatory dysfunction
Chronic right hand tremor/spasm/pain
-Patient only says the word 'away'normally
- on statin
- on Eliquis
HX Right sided neck swelling supraclavicular with associate mild tenderness
CT w/o contrast of the neck noted no acute abnormalities 07/12/24
Prior ENT eval appreciated likely benign finding no further intervention/evaluation warranted at this time
Anxiety/depression
-Continue duloxetine
Obesity suspect class II BMI
Vitamin D deficiency
GERD
DVT Px: on chr Eliquis
Full code per son
IP MS
reviewed with Rubén, condenser winder in room and call placed to Edwin, son and reviewed situation [phone]
time 55 minutes
Anticipated Discharge: > 48 hours
Subjective/Interval History
-
Date of Service: November 19, 2024
Feels better than when initially admitted
Objective Data
-
Vital Signs:
Vital Signs
Temp Pulse Resp BP Pulse Ox
97.9 F 81 18 111/62 92
11/19/24 07:29 11/19/24 11:27 11/19/24 11:27 11/19/24 08:29 11/19/24 11:27
I&O
11/18/24 11/19/24 11/20/24
06:59 06:59 06:59
Intake Total 240 / 240 480 / 480
Output Total 375 / 375
Balance -135 / -135 480 / 480
Review of Systems
-
History Source: Patient (only able to nod), Family (reviewed with son Edwin, by phone) and Guardian (reviewed with home health aiderubén, in room)
Constitutional: Reports Weakness; Denies Fever
EENT: Reports No Symptoms Reported
Respiratory: Reports No Symptoms
Cardiac: Reports No Symptoms
Genitourinary: Reports No Symptoms
Musculoskeletal: Reports No Symptoms
Physical Exam
-
General: Well Developed, Well Nourished, No Apparent Distress and Morbidly Obese
HEENT: Normocephalic, Atraumatic and Moist Mucous Membranes
Respiratory: Clear to Auscultation; Negative Wheezes, Rales or Rhonchi
Cardiac: Regular Rhythm and S1/S2
GI: Soft, Nontender and Nondistended
Musculoskeletal: No Clubbing, No Cyanosis and No Edema
Neuro: Awake and Alert; Negative No Motor Deficits (Rt hemiparesis, aphasic, able to nod)
[2024-11-19 15:18] VITALS: BP 124/53
--- NOTE | 2024-11-19 15:46 | CON.CAR ---
Addendum entered and electronically signed by Alexi Membreno MD 11/19/24 18:26:
84-year-old woman with history of HFpEF and severe expressive aphasia and right hemiparesis following CVA many years ago, admitted now with dyspnea, edema with serous drainage from right thigh, and weakness which typically occurs after she takes
metolazone.
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
SH: , son and daughter are caretakers, remote smoker, no alcohol
Current medications: Apixaban 2.5 mg twice daily, Bumex 2 mg p.o. twice daily, carvedilol 3.125 mg twice daily, Cymbalta 60 mg daily, Neurontin 300 mg 3 times daily, DuoNebs, potassium 20 mill equivalents 3 times daily, as patient is twice daily,
atorvastatin 20 mg a day, insulin, ceftriaxone, dexamethasone
Rest of history as below
111/62, resp rate 18, pulse 81, afebrile, sats are 92%, weight is 119.7 kg if accurate was 127 kg on admission and 123.5 kg at discharge in June, obese, dense right hemiparesis and expressive aphasia (can only respond with 'Oooh-A') but seems to
have comprehension), no distress, eating with the left hand, head neck exam unremarkable, lungs are somewhat diminished, no obvious murmurs JVD difficult to assess, truncal edema/anasarca, lower extremities are relatively free of edema below the
knees
ECG sinus rhythm, low voltage, nonspecific ST and T wave changes
White count 10.3, hemoglobin 11.8, platelets are 221, BUN and creatinine are 43 and 1.0, proBNP is 262, troponin is less than 0.012, highest troponin ever was 491, was 351 in June
Chest x-ray cardiomegaly, obesity, possible vascular congestion, some blunting of left costophrenic angle
Impression:
Presented 11/18/2024 with lethargy and weakness
Heart failure preserved EF
COPD exacerbation
Hypokalemia, K3.2 11/18/2024
UTI
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
Hypertension
Hyperlipidemia
JAYLA
History of DVT
History of cervical cancer
Echo 07/11/2024: Normal LV/RV size and function, LVEF 60 to 65%, mild TR, PAP 37 mmHg
Echo 11/18/2023: Normal LV size and function, LVEF 55%, mild TR, PAP 35 mmHg
Echo 08/28/2020: EF 55 to 60%, stage I DD, mild MR
Lexiscan Nuclear Stress test 08/28/20: EKG is inconclusive for ischemia given pharmacologic study. Arrhythmia: PVCs. Perfusion is normal and no fixed or reversible defects are seen. The transient dilation is not present. The ratio is 1.26. Functional
imaging shows normal contractility. Gated images revealed an EF of 68%.
Echo 07/11/2024: Normal LV/RV size and function, LVEF 60 to 65%, mild TR, PAP 37 mmHg
Echo 11/18/2023: Normal LV size and function, LVEF 55%, mild TR, PAP 35 mmHg
Plan:
She presents with what is probably predominantly right-sided heart failure which may be difficult if not impossible to optimize. Her weakness and dizziness could potentially relate to hypokalemia.
She is a poor candidate for SGLT2 antagonist given her frequent UTIs.
She is on Eliquis not for atrial fibrillation but for DVT prophylaxis.
Potassium is 3.2. Will add spironolactone 25mg daily. This may permit de-escalation of potassium and reduce the likelihood of hypokalemia which could have been one of the major prompts of her admission this time around.
Short-term will switch bumetanide to 2 mg IV every 12, monitoring potassium.
Original Note:
Consultation
Consultation Request
Date/Time Consultation Requested: 11/19/2024, 1530
Date/Time Consultation Performed: 11/19/2024, 1545
Requesting Provider: Dr Wesley
Performing Provider: KOLE Rowe for Dr Membreno
Reason for Consultation: h/o HF
Medical History
-
Chief Complaint: shortness of breath
History of Present Illness:
.
84-year-old female with a history of CVA and residual right hemiparesis, expressive aphasia, presented to the emergency room 11/18/2024 with worsening lethargy, weakness since taking a dose of Metolazone 5 mg on 11/13/2024 for wt gain and increased LE
edema. History provided by her son at bedside. Pt lost 10 pounds after taking metolazone and has become progressively more weak over past few days. Yesterday 11/18/24 was not able to stand due to weakness, prompting ED evaluation. No
lightheadedness, syncope, shortness of breath, chest pain. Last week she had a 5 pound weight gain in the home setting to 273 pounds (baseline weight 268 pounds) and increased lower extremity edema with weeping from excoriation site above the knee.
She was advised to uptitrate home Bumex which she typically takes 2 mg twice daily. Added a third dose for a couple days with no response and then took metolazone 5 mg on 11/13/2024. Since then she lost at least 10 pounds of fluid and became
overwhelmingly weak after metolazone. She has had weakness and brisk diuresis with metolazone in the past.
ED evaluation: proBNP 262. Troponin less than 0.012
BUN/creatinine 43/1.0, K3.2, NA 138
Chest x-ray: Mild interstitial cardiogenic pulmonary edema
EKG: Normal sinus rhythm, low voltage, nonspecific ST-T wave abnormality
Cardiology is consulted for evaluation of acute diastolic dysfunction.
Past medical history
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
HFpEF
Hypertension
Hyperlipidemia
CAD (based on MIBI)
depression
Chronic UTIs
COPD
History of DVT
History of cervical cancer
Nephrolithiasis
Cholecystectomy history
Past Medical History
Past Medical History: Other (as above )
Social History
Tobacco: Former Smoker
Alcohol: None
Drug: None
Personal:
Family History
Family History: Reviewed & Not Pertinent
Allergies / Home Medications
Allergy/AdvReac Type Severity Reaction Status Date / Time
No Known Drug Allergies Allergy NONE Verified 11/16/23 17:03
�Medication �Instructions �Recorded �Confirmed �Type
baclofen 10 mg tablet 10 mg PO TID Muscle Spasms 10/08/11 11/18/24 History
duloxetine 60 mg capsule,delayed 60 mg PO NOON Mental Health/Anxiety 10/08/11 11/18/24 History
release
gabapentin 300 mg capsule 300 mg PO TID Neurological 10/08/11 11/18/24 History
Condition
simvastatin 40 mg tablet 40 mg PO QPM High Cholesterol 10/08/11 11/18/24 History
carvedilol 3.125 mg tablet 3.125 mg PO BID Heart Failure 05/30/19 11/18/24 History
apixaban 2.5 mg tablet (Eliquis) 2.5 mg PO BID Blood Clot 07/04/23 11/18/24 History
Prevention/Tx
sennosides 8.6 mg tablet (Senna 8.6 mg PO QPM Constipation 07/04/23 11/18/24 History
Lax)
cholecalciferol (vitamin D3) 125 125 mcg PO DAILY Supplement 09/06/23 11/18/24 History
mcg (5,000 unit) tablet
omeprazole 20 mg capsule,delayed 20 mg PO HS Gastrointestinal Issue 09/06/23 11/18/24 History
release
therapeutic multivitamin 1 tab PO DAILY Supplement 09/06/23 11/18/24 History
ipratropium 0.5 mg-albuterol 3 mg 3 ml inhalation R TID 11/16/23 11/18/24 History
(2.5 mg base)/3 mL nebulization Lung/Breathing Issues
soln
bumetanide 2 mg tablet 2 mg PO BID Fluid 04/18/24 11/18/24 History
Retention/Swelling
prednisone 5 mg tablet 5 mg PO DAILY Anti-Inflammatory 04/18/24 11/18/24 History
metolazone 5 mg tablet 5 mg PO DAILYPRN PRN swelling 07/09/24 11/18/24 History
albuterol sulfate 2.5 mg/3 mL 2.5 mg inhalation R TID 11/18/24 11/18/24 History
(0.083 %) solution for nebulization Lung/Breathing Issues
cranberry fruit 450 mg tablet 450 mg PO DAILY Supplement 11/18/24 11/18/24 History
(cranberry)
methenamine hippurate 1 gram tablet 1 g PO BID Urinary Issue 11/18/24 11/18/24 History
potassium chloride 20 mEq/15 mL 20 meq PO BID Diabetes 11/18/24 11/18/24 History
oral liquid
budesonide 0.5 mg/2 mL suspension 0.5 mg inhalation R BID 11/19/24 11/18/24 History
for nebulization Lung/Breathing Issues
Review of Systems
-
History Source: Patient and Family
All other systems: Negative unless noted
Physical Exam
Vital Signs
Temp Pulse Resp BP Pulse Ox
97.9 F 81 18 111/62 92
11/19/24 07:29 11/19/24 11:27 11/19/24 15:07 11/19/24 08:29 11/19/24 15:07
Lab Results
11/18/24 10:15
11/18/24 11:02
Troponin I < 0.012 ng/ml 11/18/24 10:46
Tkd-Y-Dyywmiiyaxu Pept 262 pg/ml 11/18/24 10:46
GEN: No distress, awake, Ox3
HEENT: supple, anicteric, mmm
LUNGS:decreased at bases, exp wheezing
CV: Reg, S1/S2, no murmur
ABD: soft, BS+, NT/ND
EXT: tr LE edema
NEURO: Gross non-focal
SKIN: excoriation R thigh
Impression / Plan
-
Family Physician:� Riaz Sorensen
Fuse Assembler:Dr. ROSALIA Membreno
Impression:
Presented 11/18/2024 with lethargy and weakness
Heart failure preserved EF
COPD exacerbation
Hypokalemia, K3.2 11/18/2024
UTI
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
Hypertension
Hyperlipidemia
JAYLA
History of DVT
History of cervical cancer
Echo 07/11/2024: Normal LV/RV size and function, LVEF 60 to 65%, mild TR, PAP 37 mmHg
Echo 11/18/2023: Normal LV size and function, LVEF 55%, mild TR, PAP 35 mmHg
Echo 08/28/2020: EF 55 to 60%, stage I DD, mild MR
Lexiscan Nuclear Stress test 08/28/20: EKG is inconclusive for ischemia given pharmacologic study. Arrhythmia: PVCs. Perfusion is normal and no fixed or reversible defects are seen. The transient dilation is not present. The ratio is 1.26. Functional
imaging shows normal contractility. Gated images revealed an EF of 68%.
Echo 07/11/2024: Normal LV/RV size and function, LVEF 60 to 65%, mild TR, PAP 37 mmHg
Echo 11/18/2023: Normal LV size and function, LVEF 55%, mild TR, PAP 35 mmHg
Plan:
84-year-old female with a history of CVA and residual right hemiparesis, expressive aphasia, presented to the emergency room 11/18/2024 with progressively worsening lethargy, weakness after taking a dose of Metolazone 5 mg on 11/13/2024 for 5 lb wt
gain and increased LE edema. Pt lost 10 pounds after taking metolazone and has become progressively more weak over past few days to the point that she could not stand.
proBNP 262. Troponin less than 0.012
BUN/creatinine 43/1.0, K3.2, NA 138
Chest x-ray: Mild interstitial cardiogenic pulmonary edema
EKG: Normal sinus rhythm, low voltage, nonspecific ST-T wave abnormality
Cardiology is consulted for evaluation of acute diastolic dysfunction.
1. HFpEF
- Had brisk diuresis after metolazone 5 mg dose with associated weakness/lethargy. Labs notable for hypokalemia. Creatinine stable at 1.0. proBNP not elevated.
- Would continue outpatient diuretic dose, BUmex 2 mg bid
- avoid metolazone in future, or if absolutely needed would give lower dose of 1.25 mg or 2.5 mg
- Consider adding spironolactone
-Continue carvedilol for heart failure
- Not a candidate for SGLT2 inhibitor given frequent UTIs
- Replete K-KCl increased to TID
-check BMP in am
- Echo 06/2024 with normal LV/RV size and function and no significant valvular heart disease, no need to repeat echo at this time
- Troponin negative
- I/O,
-daily wt, standing if possible
-dry wt at home 268 lbs
EKG personally reviewedL NSR ,low voltage, nonspec ST-T abnl
2.History of prior stroke and DVT
-continue Eliquis for stroke prophylaxis
3. HTN
-BP well controlled on Carvedilol
4. COPD exacerbation
-treatment per prim team
Data Reviewed
-
EKG: Tracing Personally Visualized and interpreted
Labs: Labs Reviewed by me
[2024-11-19 16:38] LABS: Glucose - Point of Care 244 mg/dl (70-99)
[2024-11-19] MEDS: LIPITOR 20 MG PO (16:48)
[2024-11-19 20:15] VITALS: BP 111/58
[2024-11-19 21:25] LABS: Glucose - Point of Care 254 mg/dl (70-99)
[2024-11-19] MEDS: ALDACTONE 25 MG PO (23:59)
[2024-11-20] VITALS (8 sets, daily range): BP systolic 120–133; BP diastolic 50–85; PULSE 77; O2SAT 93; BMI 45.2
[2024-11-20] MEDS: DECADRON 4 MG IV ×2 (00:01→12:56)
[2024-11-20] MEDS: DUONEB 3 ML INH ×4 (07:23→19:59)
[2024-11-20 07:31] LABS: Glucose - Point of Care 190 mg/dl (70-99)
[2024-11-20 08:14] LABS: Blood Urea Nitrogen 37 mg/dl (7-17); Calcium 9.1 mg/dl (8.4-10.2); Carbon Dioxide 33 mmol/L (22-30); Chloride 100 mmol/L (98-107); Estimated Creatinine Clearance 54 ml/min; Glucose 220 mg/dl (70-99); Sodium 140 mmol/L (135-145)
[2024-11-20] MEDS: KCL ELIXIR 20 MEQ PO (09:34)
[2024-11-20] MEDS: ALDACTONE 25 MG PO (09:35)
[2024-11-20] MEDS: NEURONTIN 300 MG PO ×3 (09:35→23:11)
[2024-11-20] MEDS: ELIQUIS 2.5 MG PO ×2 (09:36→20:24)
[2024-11-20] MEDS: BUMEX 2 MG IV ×2 (09:36→16:18)
[2024-11-20] MEDS: COREG 3.125 MG PO ×2 (09:36→20:23)
[2024-11-20] MEDS: NOVOLOG FLEXPEN-LOW RESISTANCE 1 UNITS SC (09:38)
[2024-11-20 11:53] LABS: Glucose - Point of Care 331 mg/dl (70-99)
--- NOTE | 2024-11-20 12:07 | CM ---
Chart reviewed. Per PT/OT, patient being rec for acute rehab at d/c
Spoke w/ patient's son/POA, Edwin, who prefers [facility]. Patient was prev there in June
Referral to [facility] sent in [facility] for review
CM will cont to follow patient's progress
Plan: Acute rehab ([facility] preferred)
[2024-11-20] MEDS: NOVOLOG FLEXPEN-LOW RESISTANCE 4 UNITS SC (12:56)
[2024-11-20] MEDS: CYMBALTA DELAYED RELEASE 60 MG PO (12:56)
[2024-11-20] MEDS: STERILE WATER FOR INJECTION 10 ML IV (12:57)
[2024-11-20] MEDS: ROCEPHIN 1000 MG IV (12:57)
--- NOTE | 2024-11-20 13:45 | W.PN.HOSP.TC ---
Today's Communication/Plan
-
Aldactone started, will decrease Potassium supplement
stop Decadron and resume Prednisone as of tomorrow
Assessment / Plan
Assessment / Plan
weakness with worsening general debility and acute on chr gait dysfunction
- suspect TME due to multifactorial origins( AE COPD, UTI, acid base dysfunction)
- Hold parameters for FIRE PATROL Meds such as Gabapentin
- As per son, was given a dose of Metolazone on 11/13 in cardio office, lost >10 lbs of fluid acutely over 24hrs and then became overwhelmingly weak
wt now 119.75-->119.4 kg. Will consult cardio, sees Dr. Membreno in office
AE COPD with bronchospasm
Acceptable POx on RA
Worsening hypercarbia - Alkalosis ( contraction vs compensatory) vs Acute resp acidosis
HX chr PO prednisone dependent
- CXR:1. Mild to moderate cardiomegaly.
2. Mild interstitial cardiogenic pulmonary edema.
3. Moderately decreased bilateral lung volumes.
4. Mild chronic subsegmental atelectasis/scarring in the lingula.
- VB.53/pCO2 56/pO2 56
- change IV Decadron 4mg q12h back to preadmit oral Prednisone
- c/w prophylactic azithromycin
Abnormal UA concerning for UTI
UTI POS UCx for Enterobacter cloacae, sens to Ceftriaxone
HX of urinary retention
- Bladder scan
Hypokalemia - alkalosis ?
K 3.2-->4.0
with starting on Aldactone, will decrease dose of Potassium supplement
- KCL 20 at ER
- Hold Metolazone
- c/w Bumex and KCL supplement
Obstructive sleep apnea
- CPAP HS to bring her own
Chronic HFpEF with EF 60-65
Diastolic dysfunction
- c/w Coreg
- c/w Bumex
Essential hypertension
- c/w Coreg
Type 2 diabetes
- add ISS low
HX left-sided CVA with right hemiplegia/aphasia in 2009
Chronic ambulatory dysfunction
Chronic right hand tremor/spasm/pain
-Patient only says the word 'away'normally
- on statin
- on Eliquis
HX Right sided neck swelling supraclavicular with associate mild tenderness
CT w/o contrast of the neck noted no acute abnormalities 07/12/24
Prior ENT eval appreciated likely benign finding no further intervention/evaluation warranted at this time
Anxiety/depression
-Continue duloxetine
Obesity suspect class II BMI
Vitamin D deficiency
GERD
DVT Px: on chr Eliquis
Full code per son
IP MS
reviewed with Rubén vessel slag worker in room and call placed to Edwin, son and reviewed situation [phone]
Anticipated Discharge: > 48 hours
Subjective/Interval History
-
Date of Service: November 20, 2024
Generally looks better today
Objective Data
-
Labs:
Laboratory Results
11/20/24
06:40
Sodium 140
Potassium 4.0
Chloride 100
Carbon Dioxide 33 H
BUN 37 H
Creatinine 1.0
Glucose 220 H
Calcium 9.1
Vital Signs:
Vital Signs
Temp Pulse Resp BP Pulse Ox
98 F 82 18 130/50 94
11/20/24 11:10 11/20/24 11:13 11/20/24 11:13 11/20/24 11:10 11/20/24 11:13
I&O
11/19/24 11/20/24 11/21/24
06:59 06:59 06:59
Intake Total 240 / 240 1320 / 1320
Output Total 375 / 375
Balance -135 / -135 1320 / 1320
Review of Systems
-
History Source: Patient (only able to nod), Family (reviewed with son, Edwin, by phone) and Guardian (reviewed with home health aiderubén, in room)
Constitutional: Reports Weakness; Denies Fever
EENT: Reports No Symptoms Reported
Respiratory: Reports No Symptoms
Cardiac: Reports No Symptoms
Genitourinary: Reports No Symptoms
Musculoskeletal: Reports No Symptoms
Physical Exam
-
General: Well Developed, Well Nourished, No Apparent Distress (voice is stronger) and Morbidly Obese
HEENT: Normocephalic, Atraumatic and Moist Mucous Membranes
Respiratory: Clear to Auscultation; Negative Wheezes, Rales or Rhonchi
Cardiac: Regular Rhythm and S1/S2
GI: Soft, Nontender and Nondistended
Musculoskeletal: No Clubbing, No Cyanosis and No Edema
Neuro: Awake and Alert; Negative No Motor Deficits (Rt hemiparesis, aphasic, able to nod)
--- NOTE | 2024-11-20 14:07 | W.PN.CARDCBS ---
Addendum entered and electronically signed by Alexi Membreno MD 11/20/24 19:31:
84-year-old woman with history of HFpEF and severe expressive aphasia and right hemiparesis following CVA many years ago, admitted now with dyspnea, edema with serous drainage from right thigh, and weakness which typically occurs after she takes
metolazone.
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
Medications: DuoNebs, apixaban 2.5 twice daily, carvedilol 3.125 twice daily, Cymbalta 60 mg a day, gabapentin, atorvastatin 20 mg a day, insulin, ceftriaxone, dexamethasone, spironolactone 25 mg a day which is new, bumetanide 2 mg IV twice daily,
potassium 20 meq daily and prednisone 5 mg daily
133/57, pulse 82, respiratory 20, right hemiparesis, expressive aphasia, lungs are relatively clear, patient appears comfortable and smiling, abdomen benign, some edema but not severe
BUN/creatinine are 37 and 1. Potassium is 4,
Impression
As below per Katja Gold. Reviewed in detail. Agree with assessments, findings and recommendations unless specifically noted below.
Plan:
Volume status is improved. Will continue IV Bumex. Continue spironolactone. She is a poor candidate for Jardiance, etc.
It may be that her episodes of weakness with metolazone relate more to hypokalemia rather than volume depletion itself, with spironolactone and potassium supplementation, hopefully additional episodes of weakness can be avoided.
Hopeful transition to oral Bumex in 24 to 48 hours.
Original Note:
Today's Communication / Plan
-
continue IV bumex
K improved, follow with addition of spironolactone
Impression / Plan
-
Family Physician:� Riaz Sorensen
Loan Review Analyst:Dr. ROSALIA Membreno
Impression:
Presented 11/18/2024 with lethargy and weakness
Heart failure preserved EF
COPD exacerbation
Hypokalemia, K3.2 11/18/2024
UTI
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
Hypertension
Hyperlipidemia
JAYLA
History of DVT
History of cervical cancer
Echo 08/28/2020: EF 55 to 60%, stage I DD, mild MR
Lexiscan Nuclear Stress test 08/28/20: EKG is inconclusive for ischemia given pharmacologic study. Arrhythmia: PVCs. Perfusion is normal and no fixed or reversible defects are seen. The transient dilation is not present. The ratio is 1.26. Functional
imaging shows normal contractility. Gated images revealed an EF of 68%.
Echo 11/18/2023: Normal LV size and function, LVEF 55%, mild TR, PAP 35 mmHg
Echo 07/11/2024: Normal LV/RV size and function, LVEF 60 to 65%, mild TR, PAP 37 mmHg
Plan:
-84-year-old female with a history of CVA and residual right hemiparesis, expressive aphasia, presented to the emergency room 11/18/2024 with progressively worsening lethargy, weakness after taking a dose of Metolazone 5 mg on 11/13/2024 for 5 lb wt
gain and increased LE edema. Pt lost 10 pounds after taking metolazone and has become progressively more weak over past few days to the point that she could not stand.
-continue diuresis with IV bumex 2mg BID. Cr stable at 1.0. weight trending down overnight if accurate, follow. will need to establish new dry weight
-will attempt to avoid metolazone in future, or if absolutely needed would give lower dose of 1.25 mg or 2.5 mg
-spironolactone added 11/19. K improved to 4.0 on 11/20. will need BMP in 1 week upon DC
-continue OP coreg. in SR on review of tele overnight
-not candidate for SGLT2 inhibitor given frequent UTIs
-Echo 06/2024 with normal LV/RV size and function and no significant valvular heart disease, no need to repeat echo at this time
-Troponin negative
-continue Eliquis for stroke prophylaxis
-d/w patient and daughter at bedside
Progress Note - Loan Review Analyst
Subjective
Date of Service: November 20, 2024
with residual speech deficits post CVA, so unable to assess complaints. in no distress
Objective
Labs:
11/18/24 10:15
11/20/24 06:40
Labs
Hgb 11.8 g/dL (12.0-16.0) L 11/18/24 10:15
Hct 34.7 % (37.0-47.0) L 11/18/24 10:15
Plt Count 221 10^3/uL (130-400) 11/18/24 10:15
Sodium 140 mmol/L (135-145) 11/20/24 06:40
Potassium 4.0 mmol/L (3.5-5.1) 11/20/24 06:40
BUN 37 mg/dl (7-17) H 11/20/24 06:40
Creatinine 1.0 mg/dL (0.6-1.0) 11/20/24 06:40
Glucose 220 mg/dl (70-99) H 11/20/24 06:40
Troponins
11/18/24
10:46
Troponin I < 0.012
Vital Signs and I&O:
Vital Signs
Temp Pulse Resp BP Pulse Ox
98 F 82 18 130/50 94
11/20/24 11:10 11/20/24 11:13 11/20/24 11:13 11/20/24 11:10 11/20/24 11:13
Vital Signs
Temp Pulse Resp BP Pulse Ox
98 F 82 18 130/50 94
11/20/24 11:10 11/20/24 11:13 11/20/24 11:13 11/20/24 11:10 11/20/24 11:13
Intake & Output
11/18/24 11/19/24 11/20/24 11/21/24
07:59 07:59 07:59 07:59
Intake Total 240 / 240 1320 / 1320
Output Total 375 / 375
Balance -135 / -135 1320 / 1320
Physical Exam
Physical Exam
GEN: No distress, awake, alert. obese. sitting in chair
HEENT: supple, anicteric, mmm, eomi
LUNGS: Few scattered crackles, no wheezes
CV: Reg, S1/S2, no murmur
ABD: soft, BS+, NT/ND
EXT: No cyanosis, clubbing. 1+ edema of B/L LE
NEURO: Gross non-focal
SKIN: Warm, pink, dry. No rash
[2024-11-20 16:57] LABS: Glucose - Point of Care 254 mg/dl (70-99)
[2024-11-20] MEDS: NOVOLOG FLEXPEN-LOW RESISTANCE 3 UNITS SC (16:57)
[2024-11-20] MEDS: LIPITOR 20 MG PO (16:59)
[2024-11-20 21:54] LABS: Glucose - Point of Care 316 mg/dl (70-99)
[2024-11-21 03:00] VITALS: BP 118/50
[2024-11-21 06:00] VITALS: BMI 45.1
[2024-11-21] MEDS: DUONEB 3 ML INH ×4 (07:54→19:15)
[2024-11-21 08:03] LABS: Glucose - Point of Care 179 mg/dl (70-99)
[2024-11-21 08:09] VITALS: BP 123/67
[2024-11-21] MEDS: NOVOLOG FLEXPEN-LOW RESISTANCE 1 UNITS SC ×3 (09:51→17:04)
[2024-11-21] MEDS: KCL ELIXIR 20 MEQ PO (09:52)
[2024-11-21] MEDS: ALDACTONE 25 MG PO (09:52)
[2024-11-21] MEDS: COREG 3.125 MG PO ×2 (09:52→20:18)
[2024-11-21] MEDS: DELTASONE 5 MG PO (09:52)
[2024-11-21] MEDS: NEURONTIN 300 MG PO ×3 (09:52→22:01)
[2024-11-21] MEDS: BUMEX 2 MG IV ×2 (09:53→16:16)
[2024-11-21] MEDS: ELIQUIS 2.5 MG PO ×2 (09:53→20:18)
[2024-11-21 11:00] VITALS: BP 122/71
[2024-11-21 12:05] LABS: Glucose - Point of Care 186 mg/dl (70-99)
[2024-11-21] MEDS: ROCEPHIN 1000 MG IV (12:13)
[2024-11-21] MEDS: STERILE WATER FOR INJECTION 10 ML IV (12:13)
[2024-11-21] MEDS: CYMBALTA DELAYED RELEASE 60 MG PO (12:15)
--- NOTE | 2024-11-21 12:40 | W.PN.HOSP.TC ---
Today's Communication/Plan
-
recheck labs
recheck CXR
Assessment / Plan
Assessment / Plan
weakness with worsening general debility and acute on chr gait dysfunction
- suspect TME due to multifactorial origins( AE COPD, UTI, acid base dysfunction)
- Hold parameters for [employer] Meds such as Gabapentin
- As per son, was given a dose of Metolazone on 11/13 in cardio office, lost >10 lbs of fluid acutely over 24hrs and then became overwhelmingly weak
wt now 119.75-->119.4-->119.0 kg. consulted cardio, sees Dr. Membreno in office, input appreciated
AE COPD with bronchospasm
Acceptable POx on RA
Worsening hypercarbia - Alkalosis ( contraction vs compensatory) vs Acute resp acidosis
HX chr PO prednisone dependent
- CXR:1. Mild to moderate cardiomegaly.
2. Mild interstitial cardiogenic pulmonary edema.
3. Moderately decreased bilateral lung volumes.
4. Mild chronic subsegmental atelectasis/scarring in the lingula.
- VB.53/pCO2 56/pO2 56
- change IV Decadron 4mg q12h back to preadmit oral Prednisone
- c/w prophylactic azithromycin
Abnormal UA concerning for UTI
UTI POS UCx for Enterobacter cloacae, sens to Ceftriaxone
HX of urinary retention
Hypokalemia - alkalosis ?
K 3.2-->4.0
with starting on Aldactone, will decrease dose of Potassium supplement
- KCL 20 at ER
- Hold Metolazone
- c/w Bumex and KCL supplement
Obstructive sleep apnea
- CPAP HS to bring her own
Chronic HFpEF with EF 60-65
Diastolic dysfunction
- c/w Coreg
- c/w Bumex
Essential hypertension
- c/w Coreg
Type 2 diabetes
- add ISS low
HX left-sided CVA with right hemiplegia/aphasia in 2009
Chronic ambulatory dysfunction
Chronic right hand tremor/spasm/pain
-Patient only says the word 'away'normally
- on statin
- on Eliquis
HX Right sided neck swelling supraclavicular with associate mild tenderness
CT w/o contrast of the neck noted no acute abnormalities 07/12/24
Prior ENT eval appreciated likely benign finding no further intervention/evaluation warranted at this time
Anxiety/depression
-Continue duloxetine
Obesity suspect class II BMI
Vitamin D deficiency
GERD
DVT Px: on chr Eliquis
Full code per son
IP MS
reviewed with Rubén pension examiner in room (and call placed to daniela Pineda and reviewed situation [phone] yesterday)
recheck labs in AM
Awaiti timing when Bumex will be changed to oral as per cardio
Anticipated Discharge: 24 - 48 hours
Subjective/Interval History
-
Date of Service: November 21, 2024
sitting up in a chair
Objective Data
-
Vital Signs:
Vital Signs
Temp Pulse Resp BP Pulse Ox
98.5 F 74 18 122/71 94
11/21/24 11:00 11/21/24 11:13 11/21/24 11:13 11/21/24 11:00 11/21/24 11:13
I&O
11/20/24 11/21/24 11/22/24
06:59 06:59 06:59
Intake Total 1320 / 1320 120 / 120
Balance 1320 / 1320 120 / 120
Review of Systems
-
History Source: Patient (only able to nod), Family (reviewed with sonEdwin, by phone 11/20) and Guardian (reviewed with home health aiderubén, in room)
Constitutional: Reports Weakness; Denies Fever
EENT: Reports No Symptoms Reported
Respiratory: Reports No Symptoms
Cardiac: Reports No Symptoms
Genitourinary: Reports No Symptoms
Musculoskeletal: Reports No Symptoms
Physical Exam
-
General: Well Developed, Well Nourished, No Apparent Distress (voice is stronger) and Morbidly Obese
HEENT: Normocephalic, Atraumatic and Moist Mucous Membranes
Respiratory: Clear to Auscultation; Negative Wheezes, Rales or Rhonchi
Cardiac: Regular Rhythm and S1/S2
GI: Soft, Nontender and Nondistended
Musculoskeletal: No Clubbing, No Cyanosis and No Edema
Neuro: Awake and Alert; Negative No Motor Deficits (Rt hemiparesis, aphasic, able to nod)
[2024-11-21] MEDS: LIPITOR 20 MG PO (16:16)
[2024-11-21 16:19] VITALS: BP 131/59
[2024-11-21 17:00] LABS: Glucose - Point of Care 198 mg/dl (70-99)
--- NOTE | 2024-11-21 17:03 | W.PN.CARDCBS ---
Addendum entered and electronically signed by Sage Yen MD 11/21/24 18:03:
I saw and examined the patient.
The Senior Mortgage Loan Processor's note was reviewed and I agree with the note.
Comment:
GEN: No distress, awake, Ox3
HEENT: supple, anicteric, mmm
LUNGS: scatt rhonchi
CV: Reg, S1/S2, / syst LSB, no gallop
ABD: soft, BS+, NT/ND
EXT: No edema
NEURO: Gross non-focal
SKIN: No rash
Plan:
She is diuresing. Will continue IV Bumex today and switch to oral in a.m.
Repeat labs in a.m. to follow potassium and creatinine.
Continue Coreg, spironolactone.
No SGLT2 due to frequent UTIs.
Continue Eliquis.
Original Note:
Today's Communication / Plan
-
continue IV bumex, likely transition to po in AM
repeat labs in AM
Impression / Plan
-
Family Physician:� Riaz Sorensen
Horticulture Supervisor:Dr. ROSALIA Membreno
Impression:
Presented 11/18/2024 with lethargy and weakness
Heart failure preserved EF
COPD exacerbation
Hypokalemia, K3.2 11/18/2024
UTI
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
Hypertension
Hyperlipidemia
JAYLA
History of DVT
History of cervical cancer
Echo 08/28/2020: EF 55 to 60%, stage I DD, mild MR
Lexiscan Nuclear Stress test 08/28/20: EKG is inconclusive for ischemia given pharmacologic study. Arrhythmia: PVCs. Perfusion is normal and no fixed or reversible defects are seen. The transient dilation is not present. The ratio is 1.26. Functional
imaging shows normal contractility. Gated images revealed an EF of 68%.
Echo 11/18/2023: Normal LV size and function, LVEF 55%, mild TR, PAP 35 mmHg
Echo 07/11/2024: Normal LV/RV size and function, LVEF 60 to 65%, mild TR, PAP 37 mmHg
Plan:
-84-year-old female with a history of CVA and residual right hemiparesis, expressive aphasia, presented to the emergency room 11/18/2024 with progressively worsening lethargy, weakness after taking a dose of Metolazone 5 mg on 11/13/2024 for 5 lb wt
gain and increased LE edema. Pt lost 10 pounds after taking metolazone and has become progressively more weak over past few days to the point that she could not stand.
- Weight slowly trending down. Continue IV Bumex 2 mg twice daily. Will need to establish new dry weight. CXR today with improving interstitial edema. consider transition to p.o. Bumex in a.m., prior to admission was on 2 mg p.o. twice daily
-will attempt to avoid metolazone in future, or if absolutely needed would give lower dose of 1.25 mg or 2.5 mg
-spironolactone added 11/19. No labs checked today. Will repeat in AM. Will need BMP in 1 week upon DC
-continue OP coreg. in SR with several brief runs of atach on review of tele overnight
-not candidate for SGLT2 inhibitor given frequent UTIs
-Echo 06/2024 with normal LV/RV size and function and no significant valvular heart disease, no need to repeat echo at this time
-Troponin negative
-continue Eliquis for stroke prophylaxis
-Will arrange outpatient cardiac follow-up
Progress Note - Horticulture Supervisor
Subjective
Date of Service: November 21, 2024
pleasant, in chair
Objective
Labs:
11/18/24 10:15
11/20/24 06:40
Labs
Hgb 11.8 g/dL (12.0-16.0) L 11/18/24 10:15
Hct 34.7 % (37.0-47.0) L 11/18/24 10:15
Plt Count 221 10^3/uL (130-400) 11/18/24 10:15
Sodium 140 mmol/L (135-145) 11/20/24 06:40
Potassium 4.0 mmol/L (3.5-5.1) 11/20/24 06:40
BUN 37 mg/dl (7-17) H 11/20/24 06:40
Creatinine 1.0 mg/dL (0.6-1.0) 11/20/24 06:40
Glucose 220 mg/dl (70-99) H 11/20/24 06:40
Vital Signs and I&O:
Vital Signs
Temp Pulse Resp BP Pulse Ox
98.3 F 73 17 131/59 94
11/21/24 16:19 11/21/24 16:19 11/21/24 16:19 11/21/24 16:19 11/21/24 16:19
Vital Signs
Temp Pulse Resp BP Pulse Ox
98.3 F 73 17 131/59 94
11/21/24 16:19 11/21/24 16:19 11/21/24 16:19 11/21/24 16:19 11/21/24 16:19
Intake & Output
11/19/24 11/20/24 11/21/24 11/22/24
07:59 07:59 07:59 07:59
Intake Total 240 / 240 1320 / 1320 120 / 120
Output Total 375 / 375
Balance -135 / -135 1320 / 1320 120 / 120
[2024-11-21 19:26] VITALS: BP 139/66
[2024-11-21] MEDS: TYLENOL 650 MG PO (20:46)
[2024-11-21] MEDS: TUMS CHEWABLE TABLET 200 MG PO (20:46)
[2024-11-21 21:11] LABS: Glucose - Point of Care 214 mg/dl (70-99)
[2024-11-21 22:48] VITALS: BP 125/57
[2024-11-22] VITALS (8 sets, daily range): BP systolic 111–176; BP diastolic 50–80; PULSE 68–69; O2SAT 92–93; BMI 45.8
[2024-11-22 07:06] LABS: Glucose - Point of Care 127 mg/dl (70-99)
[2024-11-22] MEDS: NOVOLOG FLEXPEN-LOW RESISTANCE SC ×2 (07:08→11:21)
[2024-11-22] MEDS: DUONEB 3 ML INH ×2 (07:18→11:10)
[2024-11-22 07:33] LABS: % Basophils 0.1 % (0-2); % Eosinophils 1.7 % (0-6); % Immature Granulocytes 0.4 % (0-0.5); % Lymphocytes 22.3 % (20.5-51.1); % Monocytes 9.6 % (1.7-9.3); % Neutrophils 65.9 % (42.2-75.2); Absolute Eosinophils 0.2 10^3/uL (0-0.7); Absolute Monocytes 0.9 10^3/uL (0.1-0.6); Absolute Neutrophils 5.9 10^3/uL (1.4-6.5); Hematocrit 34.3 % (37.0-47.0); Hemoglobin 11.4 g/dL (12.0-16.0); Mean Corp Hgb Conc. 33.2 g/dL (33.0-37.0); Mean Corpuscular Hgb 30.4 pg (27.0-31.0); Mean Corpuscular Volume 91.5 fL (81.0-99.0); Mean Platelet Volume 10.1 fL (7.4-10.4); Nucleated Red Blood Cells % 0 %; Platelet Count 211 10^3/uL (130-400); Red Blood Cell Count 3.75 10^6/uL (4.20-5.40); Red Cell Dist. Width 15.3 % (11.5-14.5); White Blood Cell Count 8.9 10^3/uL (4.8-10.8)
[2024-11-22 08:08] LABS: ALT (SGPT) 21 U/L (0-35); AST (SGOT) 19 U/L (14-36); Albumin 3.5 g/dl (3.5-5.0); Alkaline Phosphatase 86 U/L (38-126); Blood Urea Nitrogen 42 mg/dl (7-17); Carbon Dioxide 34 mmol/L (22-30); Chloride 101 mmol/L (98-107); Estimated Creatinine Clearance 46 ml/min; Glucose 120 mg/dl (70-99); Potassium 3.6 mmol/L (3.5-5.1); Sodium 139 mmol/L (135-145); Total Bilirubin 0.4 mg/dl (0.2-1.3); eGFR 44.91
[2024-11-22] MEDS: ELIQUIS 2.5 MG PO ×2 (09:02→20:05)
[2024-11-22] MEDS: COREG 3.125 MG PO ×2 (09:02→20:05)
[2024-11-22] MEDS: DELTASONE 5 MG PO (09:02)
[2024-11-22] MEDS: KCL ELIXIR 20 MEQ PO (09:02)
[2024-11-22] MEDS: NEURONTIN 300 MG PO ×3 (09:03→21:58)
--- NOTE | 2024-11-22 10:52 | CM ---
Patient seen at bedside with caregiver and son present. Patient son Bessie requested physician to review with him updates, CM updated physician. Patient son stated that he wanted to have patient go to [facility] re[facility] in [place]. CM will continue
to follow for discharge planning needs.
Plan; Acute [facility] at [place] pending bed and physician assessment
--- NOTE | 2024-11-22 11:07 | CON.PUL ---
Consultation
Consultation Request
Date/Time Consultation Requested: 11/22/2024
Date/Time Consultation Performed: 11/22/2024
Requesting Provider: David Wesley
Performing Provider: Temi Colbert
Reason for Consultation: COPD
Medical History
-
Chief Complaint: Weakness, increased leg swelling
History of Present Illness:
Patient is a very pleasant 84-year-old female with known history of stroke and expressive aphasia. History was obtained from patient's son at bedside, discussion with primary hospitalist as well as review of records. Reportedly patient was brought
to the emergency room on 11/18 for increased pedal edema and weakness. Patient was noted to have pulmonary edema on imaging and was admitted to the hospital service for concern for acute exacerbation of underlying chronic congestive heart failure.
Patient was evaluated by cardiology service and has continued to improve. She has known history of underlying moderate obstructive airway disease/COPD as well as sleep apnea for which she uses CPAP at home and has been on nebulized therapy.
Pulmonary service was consulted for further input regarding underlying COPD and obstructive sleep apnea.
No reported increased cough, wheezing, increased expectoration or change in the color of her phlegm. No reported fever or chills either. Patient has responded well to diuresis with improving symptoms.
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
Past Surgical History: Reports None
Social History
Tobacco: Non-smoker
Alcohol: None
Drug: None
Family History
Family History: Not pertinent
Allergies / Home Medications
Allergies reflects when Allergies were last updated in [facility].
Allergies / Home Medications
Allergies
Allergy/AdvReac Type Severity Reaction Status Date / Time
No Known Drug Allergies Allergy NONE Verified 11/16/23 17:03
Home Medications
�Medication �Instructions �Recorded �Confirmed �Last Taken �Type
baclofen 10 mg tablet 10 mg PO TID Muscle Spasms 10/08/11 11/18/24 11/17/24 History
duloxetine 60 mg capsule,delayed 60 mg PO NOON Mental Health/Anxiety 10/08/11 11/18/24 11/17/24 History
release
gabapentin 300 mg capsule 300 mg PO TID Neurological 10/08/11 11/18/24 11/17/24 History
Condition
simvastatin 40 mg tablet 40 mg PO QPM High Cholesterol 10/08/11 11/18/24 11/17/24 History
carvedilol 3.125 mg tablet 3.125 mg PO BID Heart Failure 05/30/19 11/18/24 11/17/24 History
apixaban 2.5 mg tablet (Eliquis) 2.5 mg PO BID Blood Clot 07/04/23 11/18/24 11/17/24 History
Prevention/Tx
sennosides 8.6 mg tablet (Senna 8.6 mg PO QPM Constipation 07/04/23 11/18/24 11/17/24 History
Lax)
cholecalciferol (vitamin D3) 125 125 mcg PO DAILY Supplement 09/06/23 11/18/24 11/17/24 History
mcg (5,000 unit) tablet
omeprazole 20 mg capsule,delayed 20 mg PO HS Gastrointestinal Issue 09/06/23 11/18/24 11/17/24 History
release
therapeutic multivitamin 1 tab PO DAILY Supplement 09/06/23 11/18/24 11/17/24 History
ipratropium 0.5 mg-albuterol 3 mg 3 ml inhalation R TID 11/16/23 11/18/24 11/16/23 History
(2.5 mg base)/3 mL nebulization Lung/Breathing Issues
soln
bumetanide 2 mg tablet 2 mg PO BID Fluid 04/18/24 11/18/24 11/17/24 History
Retention/Swelling
prednisone 5 mg tablet 5 mg PO DAILY Anti-Inflammatory 04/18/24 11/18/24 11/17/24 History
metolazone 5 mg tablet 5 mg PO DAILYPRN PRN swelling 07/09/24 11/18/24 Unknown History
albuterol sulfate 2.5 mg/3 mL 2.5 mg inhalation R TID 11/18/24 11/18/24 11/17/24 History
(0.083 %) solution for nebulization Lung/Breathing Issues
cranberry fruit 450 mg tablet 450 mg PO DAILY Supplement 11/18/24 11/18/24 11/17/24 History
(cranberry)
methenamine hippurate 1 gram tablet 1 g PO BID Urinary Issue 11/18/24 11/18/24 11/17/24 History
potassium chloride 20 mEq/15 mL 20 meq PO BID Diabetes 11/18/24 11/18/24 11/17/24 History
oral liquid
budesonide 0.5 mg/2 mL suspension 0.5 mg inhalation R BID 11/19/24 11/18/24 11/17/24 History
for nebulization Lung/Breathing Issues
Review of Systems
-
Unable to Obtain full review of systems at this time due to: Other (Patient has expressive aphasia)
Vitals / Labs / Diagnostic Testing
Vital Signs
Temp Pulse Resp BP Pulse Ox
97.7 F 65 17 111/66 94
11/22/24 07:33 11/22/24 07:33 11/22/24 07:33 11/22/24 07:33 11/22/24 07:33
Lab Data
11/22/24 06:57
11/22/24 06:57
Microbiology
11/18/24 10:15 Urine Urine Culture - Final
Enterobacter cloacae
Diagnostic Testing:
Physical Exam
-
HEENT: Normocephalic
Cardiovascular: S1/S2
Respiratory: Wheeze (Faint end expiratory wheezing, work of breathing normal, no cough or expectoration noted)
GI: Soft and Non Distended
Neurology: Awake and Alert
Skin: Warm
General: Comfortable
Assessment
-
#1. Chronic underlying COPD
- Patient has known history of COPD, at least moderate obstructive airway disease
- Patient does not report any increased cough, expectoration or change in her phlegm. Normal WBC count, patient is afebrile, chest x-ray without any consolidation noted. Known COPD appears to be at baseline
- Admission x-ray suggestive of pulmonary edema, improving on follow-up imaging, presentation more suggestive of volume overload rather than COPD exacerbation
- Continue patient's home regimen of budesonide nebulized twice a day, DuoNeb 3-4 times daily, azithromycin on Tuesday and Tuesday, prednisone 5 mg daily
- Patient will resume outpatient follow-up with [facility] pulmonary clinic
- Sit in chair as tolerated, increase activity as tolerated, incentive spirometry
- Assess for need for home oxygen prior to discharge
#2. Obesity with history of obstructive sleep apnea
- Patient follows up with pulmonary/sleep clinic at [facility]
- Continue nightly CPAP
- Admission VBG reviewed, no evidence of acute CO2 retention
- Patient appears to have chronically elevated bicarb as well as increased CO2 likely related to underlying obesity, COPD and JAYLA
#3. Pulmonary hypertension, mild.
- Echocardiogram in 06/2024 showed a pulmonary artery systolic pressure around 37.
- RV otherwise normal and mild tricuspid regurgitation noted
- Suspect this is multifactorial with underlying congestive heart failure, COPD, obstructive sleep apnea as well as obesity
- Keep oxygen saturation above 90%, assess for home oxygen need prior to discharge
- Optimize volume status and continue bronchodilator therapy, continue CPAP nightly
- Can follow-up echocardiogram in 1 year
Other medical diagnoses:
- History of stroke with right hemiparesis and expressive aphasia
- Acute on chronic heart failure with preserved ejection fraction, cardiology service on case, currently on diuretics, follow-up chest x-ray improving
- Hypertension, hyperlipidemia
- History of DVT, currently on Eliquis
- UTI ()
Discussed with patient's son at bedside and also conference call with daughter.
Total time spent on this consultation/encounter __65__ minutes which includes review of history, physical exam, medications, laboratory data, personal review of imaging, extensive review of outpatient records, discussion with care team and
respiratory therapy.
Data:
Spirometry, 07/2019. Moderate obstructive lung disease with FEV1 of 52%, 960 mL. FVC was 1.49 L, probably has concomitant restrictive disease as well
CXR 10/2024: No acute cardiopulmonary abnormality.
Improving interstitial edema.
ECHO 06/2024: Normal left ventricular size, wall thickness and systolic function. No regional
wall motion abnormalities are seen. LV ejection fraction is 60-65% by visual
assessment. Diastolic function indeterminate.
Mitral valve opens normally. Posterior mitral annular calcification. Trace
mitral regurgitation is seen.
Tricuspid valve opens normally. Mild tricuspid regurgitation. Estimated
pulmonary artery pressure of 37 mmHg, assuming a right atrial pressure of 3
mmHg.
There is no vegetations seen. However if clinical suspicion for endocarditis
is high would suggest DEXTER.
Since echocardiogram 11/18/2023, there is no significant change.
[2024-11-22 11:17] LABS: Glucose - Point of Care 134 mg/dl (70-99)
[2024-11-22] MEDS: TYLENOL 650 MG PO (11:38)
[2024-11-22] MEDS: CYMBALTA DELAYED RELEASE 60 MG PO (11:42)
[2024-11-22] MEDS: ROCEPHIN 1000 MG IV (11:43)
[2024-11-22] MEDS: STERILE WATER FOR INJECTION 10 ML IV (11:43)
[2024-11-22] MEDS: ALDACTONE 25 MG PO (11:43)
[2024-11-22] MEDS: BUMEX IV (12:01)
--- NOTE | 2024-11-22 12:38 | W.PN.HOSP.TC ---
Today's Communication/Plan
-
BMP in AM
Pulm consult
potential dc pending input from cardio next 1-2 days
Assessment / Plan
Assessment / Plan
weakness with worsening general debility and acute on chr gait dysfunction
- suspect TME due to multifactorial origins( AE COPD, UTI, acid base dysfunction, profound diuresis)
- Hold parameters for [employer] Meds such as Gabapentin
- As per son, was given a dose of Metolazone on 11/13 in cardio office, lost >10 lbs of fluid acutely over 24hrs and then became overwhelmingly weak
wt now 119.75-->119.4-->119.0-->120.9 kg. consulted cardio, sees Dr. Membreno in office, input appreciated
AE COPD with bronchospasm
Acceptable POx on RA
Worsening hypercarbia - Alkalosis ( contraction vs compensatory) vs Acute resp acidosis, better
HX chr PO prednisone dependent
- CXR:1. Mild to moderate cardiomegaly.
2. Mild interstitial cardiogenic pulmonary edema.
3. Moderately decreased bilateral lung volumes.
4. Mild chronic subsegmental atelectasis/scarring in the lingula.
- VB.53/pCO2 56/pO2 56
- change IV Decadron 4mg q12h back to preadmit oral Prednisone
- c/w prophylactic azithromycin
Abnormal UA concerning for UTI
UTI POS UCx for Enterobacter cloacae, sens to Ceftriaxone
HX of urinary retention
Hypokalemia - alkalosis ?
K 3.2-->4.0
with starting on Aldactone, will decrease dose of Potassium supplement-->3.6
- KCL 20 at ER
- Hold Metolazone
- c/w Bumex and KCL supplement
Obstructive sleep apnea
- CPAP HS to bring her own
Chronic HFpEF with EF 60-65
Diastolic dysfunction
- c/w Coreg
- c/w Bumex, now changed to oral
Essential hypertension
- c/w Coreg
Type 2 diabetes
- add ISS low
HX left-sided CVA with right hemiplegia/aphasia in 2009
Chronic ambulatory dysfunction
Chronic right hand tremor/spasm/pain
-Patient only says the word 'away'normally
- on statin
- on Eliquis
HX Right sided neck swelling supraclavicular with associate mild tenderness
CT w/o contrast of the neck noted no acute abnormalities 07/12/24
Prior ENT eval appreciated likely benign finding no further intervention/evaluation warranted at this time
Anxiety/depression
-Continue duloxetine
Obesity suspect class II BMI
Vitamin D deficiency
GERD
DVT Px: on chr Eliquis
Full code per son
IP MS
reviewed with Rubén food and beverage intern in room (and on second visit, discussed with Edwin, son and reviewed situation [phone] 11/20)
recheck labs in AM
son is requesting evaluation by jyoti, she see Denny in office, discussed with Dr. Colbert
Anticipated Discharge: 24 - 48 hours
Subjective/Interval History
-
Date of Service: November 22, 2024
appears more alert, more comfortable
Objective Data
-
Labs:
Laboratory Results
11/22/24
06:57
WBC 8.9
Hgb 11.4 L
Hct 34.3 L
Plt Count 211
Sodium 139
Potassium 3.6
Chloride 101
Carbon Dioxide 34 H
BUN 42 H
Creatinine 1.2 H
Glucose 120 H
Calcium 9.0
Total Bilirubin 0.4
AST 19
ALT 21
Alkaline Phosphatase 86
Vital Signs:
Vital Signs
Temp Pulse Resp BP Pulse Ox
98.1 F 65 16 147/67 98
11/22/24 11:20 11/22/24 11:20 11/22/24 11:20 11/22/24 11:20 11/22/24 11:20
I&O
11/21/24 11/22/24 11/23/24
06:59 06:59 06:59
Intake Total 120 / 120 240 / 240
Balance 120 / 120 240 / 240
Review of Systems
-
History Source: Patient (only able to nod), Family (reviewed with sonEdwin, in room 11/22) and Guardian (reviewed with home health aide, rubén, in room)
Constitutional: Reports Weakness; Denies Fever
EENT: Reports No Symptoms Reported
Respiratory: Denies Trouble Breathing (breathing better)
Cardiac: Reports No Symptoms
Genitourinary: Reports No Symptoms
Musculoskeletal: Reports No Symptoms
Physical Exam
-
General: Well Developed, Well Nourished, No Apparent Distress (voice is stronger) and Morbidly Obese
HEENT: Normocephalic, Atraumatic and Moist Mucous Membranes
Respiratory: Clear to Auscultation and Wheezes (improved air movement with mid to end expiratory wheeze); Negative Rales or Rhonchi
Cardiac: Regular Rhythm and S1/S2
GI: Soft, Nontender and Nondistended
Musculoskeletal: No Clubbing, No Cyanosis and No Edema
Neuro: Awake and Alert; Negative No Motor Deficits (Rt hemiparesis, aphasic, able to nod)
--- NOTE | 2024-11-22 13:01 | WOUNDNOTE ---
Addendum entered by Trinity Obrien RN 11/22/24 13:05:
This sports writer called [employer] and ordered bariatric air cushion for chair. NEDA Bridges aware.
Original Note:
WO RN NOTE: Reviewed chart and met with patient. WO RN consulted for possible stage 2 of gluteal cleft. Upon assessment wound appears to be MASD of gluteal cleft. Heels intact and new adhesive foam applied. Patients caregiver reports good
appetite. Patient is on a Versa Care bed with turning schedule. Will recommend to continue use of barrier ointment as patient is frequently incontinent. Will sign off.
--- NOTE | 2024-11-22 13:04 | WOUNDNOTE ---
GLUTEAL CLEFT(VERTICAL)
--- NOTE | 2024-11-22 13:51 | W.PN.CARDCBS ---
Addendum entered and electronically signed by Ari Anton MD 11/22/24 14:27:
Patient seen and examined
Agree with LENNY Hanson note assessment
Agree with LENNY Hanson plan
PA-C back spent time with family and taking time to answer all questions
Exam:
She has stable but present neurological sequelae from her prior stroke
H&T normocephalic atraumatic
BMI 45
JVP 6
Cor regular no murmur
Lungs clear
Abdomen soft obese abdomen
Impression:
Presented 11/18/2024 with lethargy and weakness
Heart failure preserved EF
COPD exacerbation
Hypokalemia, K3.2 11/18/2024
UTI
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
Hypertension
Hyperlipidemia
JAYLA
History of DVT
History of cervical cancer
Echo 08/28/2020: EF 55 to 60%, stage I DD, mild MR
Lexiscan Nuclear Stress test 08/28/20: EKG is inconclusive for ischemia given pharmacologic study. Arrhythmia: PVCs. Perfusion is normal and no fixed or reversible defects are seen. The transient dilation is not present. The ratio is 1.26. Functional
imaging shows normal contractility. Gated images revealed an EF of 68%.
Echo 11/18/2023: Normal LV size and function, LVEF 55%, mild TR, PAP 35 mmHg
Echo 07/11/2024: Normal LV/RV size and function, LVEF 60 to 65%, mild TR, PAP 37 mmHg
Plan:
-84-year-old female with a history of CVA and residual right hemiparesis, expressive aphasia, presented to the emergency room 11/18/2024 with progressively worsening lethargy, weakness after taking a dose of Metolazone 5 mg on 11/13/2024 for 5 lb wt
gain and increased LE edema. Pt lost 10 pounds after taking metolazone and became progressively more weak over past few days to the point that she could not stand.
-discussed diastolic congestive heart failure with family at bedside. reviewed echo from 06/2024. also reviewed daily weights, fluid and salt restrictions with family
-Cr up to 1.2. will transition to po bumex 2mg BID. weight 266 pounds.
-will attempt to avoid metolazone in future, or if absolutely needed would give lower dose of 1.25 mg or 2.5 mg
-spironolactone added 11/19. Will need BMP in 1 week upon DC
-continue OP coreg. in SR on review of tele overnight
-not candidate for SGLT2 inhibitor given frequent UTIs
-Echo 06/2024 with normal LV/RV size and function and no significant valvular heart disease, no need to repeat echo at this time
-Troponin negative
-continue Eliquis for stroke prophylaxis
-Outpatient cardiac follow-up arranged
-d/w nursing
-will plan to sign off
Original Note:
Today's Communication / Plan
-
transition to po bumex 2mg BID
spironolactone new
BMP in 1 week
OP cardiac follow up arranged
sign off
Impression / Plan
-
Family Physician:� Riaz Sorensen
Tank Tester:Dr. ROSALIA Membreno
Impression:
Presented 11/18/2024 with lethargy and weakness
Heart failure preserved EF
COPD exacerbation
Hypokalemia, K3.2 11/18/2024
UTI
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
Hypertension
Hyperlipidemia
JAYLA
History of DVT
History of cervical cancer
Echo 08/28/2020: EF 55 to 60%, stage I DD, mild MR
Lexiscan Nuclear Stress test 08/28/20: EKG is inconclusive for ischemia given pharmacologic study. Arrhythmia: PVCs. Perfusion is normal and no fixed or reversible defects are seen. The transient dilation is not present. The ratio is 1.26. Functional
imaging shows normal contractility. Gated images revealed an EF of 68%.
Echo 11/18/2023: Normal LV size and function, LVEF 55%, mild TR, PAP 35 mmHg
Echo 07/11/2024: Normal LV/RV size and function, LVEF 60 to 65%, mild TR, PAP 37 mmHg
Plan:
-84-year-old female with a history of CVA and residual right hemiparesis, expressive aphasia, presented to the emergency room 11/18/2024 with progressively worsening lethargy, weakness after taking a dose of Metolazone 5 mg on 11/13/2024 for 5 lb wt
gain and increased LE edema. Pt lost 10 pounds after taking metolazone and became progressively more weak over past few days to the point that she could not stand.
-discussed diastolic congestive heart failure with family at bedside. reviewed echo from 06/2024. also reviewed daily weights, fluid and salt restrictions with family
-Cr up to 1.2. will transition to po bumex 2mg BID. weight 266 pounds.
-will attempt to avoid metolazone in future, or if absolutely needed would give lower dose of 1.25 mg or 2.5 mg
-spironolactone added 11/19. Will need BMP in 1 week upon DC
-continue OP coreg. in SR on review of tele overnight
-not candidate for SGLT2 inhibitor given frequent UTIs
-Echo 06/2024 with normal LV/RV size and function and no significant valvular heart disease, no need to repeat echo at this time
-Troponin negative
-continue Eliquis for stroke prophylaxis
-Outpatient cardiac follow-up arranged
-d/w nursing
-will plan to sign off
Progress Note - Tank Tester
Subjective
Date of Service: November 22, 2024
no complaints
Objective
Labs:
11/22/24 06:57
11/22/24 06:57
Labs
Hgb 11.4 g/dL (12.0-16.0) L 11/22/24 06:57
Hct 34.3 % (37.0-47.0) L 11/22/24 06:57
Plt Count 211 10^3/uL (130-400) 11/22/24 06:57
Sodium 139 mmol/L (135-145) 11/22/24 06:57
Potassium 3.6 mmol/L (3.5-5.1) 11/22/24 06:57
BUN 42 mg/dl (7-17) H 11/22/24 06:57
Creatinine 1.2 mg/dL (0.6-1.0) H 11/22/24 06:57
Glucose 120 mg/dl (70-99) H 11/22/24 06:57
Vital Signs and I&O:
Vital Signs
Temp Pulse Resp BP Pulse Ox
98.1 F 65 16 147/67 98
11/22/24 11:20 11/22/24 11:20 11/22/24 11:20 11/22/24 11:20 11/22/24 11:20
Vital Signs
Temp Pulse Resp BP Pulse Ox
98.1 F 65 16 147/67 98
11/22/24 11:20 11/22/24 11:20 11/22/24 11:20 11/22/24 11:20 11/22/24 11:20
Intake & Output
11/20/24 11/21/24 11/22/24 11/23/24
07:59 07:59 07:59 07:59
Intake Total 1320 / 1320 120 / 120 240 / 240
Balance 1320 / 1320 120 / 120 240 / 240
Physical Exam
Physical Exam
GEN: No distress, awake, alert. sitting in chair. obese
HEENT: supple, anicteric, mmm, eomi
LUNGS: CTA B/L, no wheezes/rales
CV: Reg, S1/S2, no murmur
ABD: soft, BS+, NT/ND
EXT: No cyanosis, clubbing, edema
NEURO: Gross non-focal
SKIN: Warm, pink, dry. No rash
[2024-11-22] MEDS: LIPITOR 20 MG PO (16:25)
[2024-11-22] MEDS: BUMEX 2 MG PO (16:25)
[2024-11-22 16:28] LABS: Glucose - Point of Care 189 mg/dl (70-99)
[2024-11-22] MEDS: NOVOLOG FLEXPEN-LOW RESISTANCE 1 UNITS SC (16:28)
[2024-11-22 21:08] LABS: Glucose - Point of Care 167 mg/dl (70-99)
--- NOTE | 2024-11-22 23:04 | RESPNOTE ---
Pt refused their own CPAP. Pt was instructed if they should change their mind to let us know and we will come back to help assist putting on their CPAP. RN made aware.
[2024-11-23 03:00] VITALS: BP 112/58
[2024-11-23 05:19] VITALS: BMI 44.3
[2024-11-23 07:02] VITALS: BP 112/53
[2024-11-23 07:37] LABS: Glucose - Point of Care 103 mg/dl (70-99)
[2024-11-23] MEDS: NOVOLOG FLEXPEN-LOW RESISTANCE SC (07:37)
[2024-11-23 07:50] LABS: Blood Urea Nitrogen 44 mg/dl (7-17); Calcium 8.7 mg/dl (8.4-10.2); Carbon Dioxide 34 mmol/L (22-30); Chloride 102 mmol/L (98-107); Estimated Creatinine Clearance 49 ml/min; Glucose 114 mg/dl (70-99); Potassium 3.5 mmol/L (3.5-5.1); Sodium 142 mmol/L (135-145); eGFR 49.86
[2024-11-23] MEDS: ALDACTONE 25 MG PO (08:36)
[2024-11-23] MEDS: KCL ELIXIR 20 MEQ PO (08:36)
[2024-11-23] MEDS: DELTASONE 5 MG PO (08:36)
[2024-11-23] MEDS: NEURONTIN 300 MG PO ×3 (08:36→22:33)
[2024-11-23] MEDS: BUMEX 2 MG PO ×2 (08:36→16:03)
[2024-11-23] MEDS: COREG 3.125 MG PO ×2 (08:36→20:46)
[2024-11-23] MEDS: ELIQUIS 2.5 MG PO ×2 (08:36→20:45)
[2024-11-23 11:06] VITALS: BP 131/62
[2024-11-23 11:12] LABS: Glucose - Point of Care 153 mg/dl (70-99)
--- NOTE | 2024-11-23 11:42 | CM ---
Per hospitalist, patient stable for d/c. [facility] accepted.
Spoke w/ [facility]/admissions, there are no beds available today, possibly will have a bed over the weekend
Updated hospitalist and son, Edwin
Plan: [facility], pending bed availability
[2024-11-23] MEDS: CYMBALTA DELAYED RELEASE 60 MG PO (11:45)
[2024-11-23] MEDS: STERILE WATER FOR INJECTION 10 ML IV (11:45)
[2024-11-23] MEDS: ROCEPHIN 1000 MG IV (11:45)
[2024-11-23] MEDS: NOVOLOG FLEXPEN-LOW RESISTANCE 1 UNITS SC ×2 (12:31→17:27)
--- NOTE | 2024-11-23 14:01 | W.PN.HOSP.TC ---
Today's Communication/Plan
-
dc Rocephin
Assessment / Plan
Assessment / Plan
weakness with worsening general debility and acute on chr gait dysfunction
- suspect TME due to multifactorial origins( AE COPD, UTI, acid base dysfunction, profound diuresis)
- Hold parameters for TOBACCO STRIPPER Meds such as Gabapentin
- As per son, was given a dose of Metolazone on 11/13 in cardio office, lost >10 lbs of fluid acutely over 24hrs and then became overwhelmingly weak
wt now 119.75-->119.4-->119.0-->120.9-->117 kg. consulted cardio, sees Dr. Membreno in office, input appreciated
AE COPD with bronchospasm
Acceptable POx on RA
Worsening hypercarbia - Alkalosis ( contraction vs compensatory) vs Acute resp acidosis, better
HX chr PO prednisone dependent
- CXR:1. Mild to moderate cardiomegaly.
2. Mild interstitial cardiogenic pulmonary edema.
3. Moderately decreased bilateral lung volumes.
4. Mild chronic subsegmental atelectasis/scarring in the lingula.
- VB.53/pCO2 56/pO2 56
- changed IV Decadron 4mg q12h back to preadmit oral Prednisone
- c/w prophylactic azithromycin
Abnormal UA concerning for UTI
UTI POS UCx for Enterobacter cloacae, sens to Ceftriaxone
HX of urinary retention. Will dc Rocephin
Hypokalemia - alkalosis ?
K 3.2-->4.0
with starting on Aldactone, will decrease dose of Potassium supplement-->3.6
- KCL 20 at ER
- Hold Metolazone
- c/w Bumex and KCL supplement
Obstructive sleep apnea
- CPAP HS to bring her own
Chronic HFpEF with EF 60-65
Diastolic dysfunction
- c/w Coreg
- c/w Bumex, now changed to oral
Essential hypertension
- c/w Coreg
Type 2 diabetes
- add ISS low
HX left-sided CVA with right hemiplegia/aphasia in 2009
Chronic ambulatory dysfunction
Chronic right hand tremor/spasm/pain
-Patient only says the word 'away'normally
- on statin
- on Eliquis
HX Right sided neck swelling supraclavicular with associate mild tenderness
CT w/o contrast of the neck noted no acute abnormalities 07/12/24
Prior ENT eval appreciated likely benign finding no further intervention/evaluation warranted at this time
Anxiety/depression
-Continue duloxetine
Obesity suspect class II BMI
Vitamin D deficiency
GERD
DVT Px: on chr Eliquis
Full code per son
IP MS
reviewed with Rubén netbackup admin in room (and on second visit, discussed with Edwin, son and reviewed situation [phone] 11/20)
son is requesting evaluation by jyoti, she see Denny in office, discussed with Dr. Colbert, who saw the patient and agreed with current Tx. Will follow up with jyoti in office
Plan is to dc to [facility] once bed available, hopefully over weekend
Anticipated Discharge: Within 24 hours
Subjective/Interval History
-
Date of Service: November 23, 2024
Mentation better, as per aide back to baseline status
Objective Data
-
Labs:
Laboratory Results
11/23/24
06:55
Sodium 142
Potassium 3.5
Chloride 102
Carbon Dioxide 34 H
BUN 44 H
Creatinine 1.1 H
Glucose 114 H
Calcium 8.7
Vital Signs:
Vital Signs
Temp Pulse Resp BP Pulse Ox
98.1 F 64 20 131/62 95
11/23/24 11:06 11/23/24 11:06 11/23/24 11:06 11/23/24 11:06 11/23/24 11:06
I&O
11/22/24 11/23/24 11/24/24
06:59 06:59 06:59
Intake Total 240 / 240 1080 / 1080 480 / 480
Balance 240 / 240 1080 / 1080 480 / 480
Review of Systems
-
History Source: Patient (only able to nod), Family (reviewed with sonEdwin, in room 11/22) and Guardian (reviewed with home health aide, rubén, in room)
Constitutional: Reports Weakness; Denies Fever
EENT: Reports No Symptoms Reported
Respiratory: Denies Trouble Breathing (breathing better)
Cardiac: Reports No Symptoms
Genitourinary: Reports No Symptoms
Musculoskeletal: Reports No Symptoms
Physical Exam
-
General: Well Developed, Well Nourished, No Apparent Distress (voice is stronger) and Morbidly Obese
HEENT: Normocephalic, Atraumatic and Moist Mucous Membranes
Respiratory: Clear to Auscultation and Wheezes (improved air movement with mid to end expiratory wheeze); Negative Rales or Rhonchi
Cardiac: Regular Rhythm and S1/S2
GI: Soft, Nontender and Nondistended
Musculoskeletal: No Clubbing, No Cyanosis and No Edema
Neuro: Awake and Alert; Negative No Motor Deficits (Rt hemiparesis, aphasic, able to nod)
[2024-11-23 15:10] VITALS: BP 132/56
[2024-11-23 16:14] LABS: Glucose - Point of Care 165 mg/dl (70-99)
[2024-11-23] MEDS: DUONEB INH (16:15)
--- NOTE | 2024-11-23 16:52 | PN.CDI ---
CDI
- -
CDI:
Physician Documentation Request
Admit Date: 11/18/24 12:46
Dear Doctor, Lupillo,
Patient admitted with alkalosis.
11/21 Nursing skin assessment, 'Stage 2 bilateral buttock pressure injuries.'
Physician documentation of the type and location of wounds is required for compliant documentation. Based on the above clinical findings and your assessment, please provide the following in your progress note:
Type (etiology) of ulcer/wound:
- Pressure (decubitus) ulcer
- Other
- Unable to determine
For a pressure ulcer, please also include the stage* of the ulcer:
- Stage 1 - Skin intact, non-blanchable redness
- Stage 2 - Partial thickness loss of dermis, includes intact or open blister
- Stage 3 - Full thickness tissue not including bone, tendon or muscle
- Stage 4 - Full thickness tissue loss, including exposed bone, tendon or muscle
- Unstageable - Full thickness loss in which the base of the ulcer is covered by slough (yellow, donohue, young, green or brown) and/or eschar (donohue, brown or black) in the wound bed.
- Unable to determine
Use of terms such as suspected, likely, concern for, or probable (associated with a specific diagnosis that is being evaluated, monitored, or treated as if it exists) are acceptable and can be coded in the inpatient setting, when documented at the
time of discharge.
Thank you,
Petra KENYON,RN,CCDS
CDI Specialist
Available via [place] text
Please use your independent medical judgment in providing your response.
*Source: National Pressure Ulcer Advisory Panel (NPUAP)
[2024-11-23] MEDS: LIPITOR 20 MG PO (17:26)
[2024-11-23] MEDS: DUONEB 3 ML INH (19:05)
[2024-11-23 21:50] LABS: Glucose - Point of Care 134 mg/dl (70-99)
[2024-11-23 23:08] VITALS: BP 120/53
--- NOTE | 2024-11-23 23:14 | RESPNOTE ---
Pt placed on their own home CPAP. Pt is resting comfortably on it. CPAP is setup and functioning appropriately. RN made aware.
[2024-11-24 06:00] VITALS: BMI 43.9
[2024-11-24 07:06] VITALS: BP 109/40
[2024-11-24 07:13] LABS: Glucose - Point of Care 94 mg/dl (70-99)
[2024-11-24] MEDS: DUONEB 3 ML INH ×4 (07:41→19:22)
[2024-11-24] MEDS: ALDACTONE 25 MG PO (08:57)
[2024-11-24] MEDS: NEURONTIN 300 MG PO ×3 (08:57→21:25)
[2024-11-24] MEDS: COREG 3.125 MG PO ×2 (08:57→19:50)
[2024-11-24] MEDS: BUMEX 2 MG PO ×2 (08:57→17:10)
[2024-11-24] MEDS: NOVOLOG FLEXPEN-LOW RESISTANCE SC ×2 (08:57→12:51)
[2024-11-24] MEDS: DELTASONE 5 MG PO (08:58)
[2024-11-24] MEDS: ELIQUIS 2.5 MG PO ×2 (08:58→19:50)
[2024-11-24] MEDS: KCL ELIXIR 20 MEQ PO (08:58)
[2024-11-24 12:20] LABS: Glucose - Point of Care 136 mg/dl (70-99)
[2024-11-24] MEDS: CYMBALTA DELAYED RELEASE 60 MG PO (12:51)
[2024-11-24] MEDS: STERILE WATER FOR INJECTION IV (12:54)
--- NOTE | 2024-11-24 14:14 | W.PN.HOSP.TC ---
Today's Communication/Plan
-
continue current Tx
Await rehab bed availability
Assessment / Plan
Assessment / Plan
weakness with worsening general debility and acute on chr gait dysfunction
- suspect TME due to multifactorial origins( AE COPD, UTI, acid base dysfunction, profound diuresis)
- Hold parameters for ROAD ROLLER ENGINEER Meds such as Gabapentin
- As per son, was given a dose of Metolazone on 11/13 in cardio office, lost >10 lbs of fluid acutely over 24hrs and then became overwhelmingly weak
wt now 119.75-->119.4-->119.0-->120.9-->117-->115.9 kg. consulted cardio, sees Dr. Membreno in office, input appreciated
AE COPD with bronchospasm
Acceptable POx on RA
Worsening hypercarbia - Alkalosis ( contraction vs compensatory) vs Acute resp acidosis, better
HX chr PO prednisone dependent
- CXR:1. Mild to moderate cardiomegaly.
2. Mild interstitial cardiogenic pulmonary edema.
3. Moderately decreased bilateral lung volumes.
4. Mild chronic subsegmental atelectasis/scarring in the lingula.
- VB.53/pCO2 56/pO2 56
- changed IV Decadron 4mg q12h back to preadmit oral Prednisone
- c/w prophylactic azithromycin
Stage 2 bilateral buttock pressure injuries.
Abnormal UA concerning for UTI
UTI POS UCx for Enterobacter cloacae, sens to Ceftriaxone
HX of urinary retention. Will dc Rocephin
Hypokalemia - alkalosis ?
K 3.2-->4.0
with starting on Aldactone, will decrease dose of Potassium supplement-->3.6
- KCL 20 at ER
- Hold Metolazone
- c/w Bumex and KCL supplement
Obstructive sleep apnea
- CPAP HS to bring her own
Chronic HFpEF with EF 60-65
Diastolic dysfunction
- c/w Coreg
- c/w Bumex, now changed to oral
Essential hypertension
- c/w Coreg
Type 2 diabetes
- add ISS low
HX left-sided CVA with right hemiplegia/aphasia in 2009
Chronic ambulatory dysfunction
Chronic right hand tremor/spasm/pain
-Patient only says the word 'away'normally
- on statin
- on Eliquis
HX Right sided neck swelling supraclavicular with associate mild tenderness
CT w/o contrast of the neck noted no acute abnormalities 07/12/24
Prior ENT eval appreciated likely benign finding no further intervention/evaluation warranted at this time
Anxiety/depression
-Continue duloxetine
Obesity suspect class II BMI
Vitamin D deficiency
GERD
DVT Px: on chr Eliquis
Full code per son
IP MS
reviewed with Pastora strategy analyst in room (and on second visit, discussed with Edwin, son and reviewed situation [phone] 11/20)
son is requesting evaluation by jyoti, she see Denny in office, discussed with Dr. Colbert, who saw the patient and agreed with current Tx. Will follow up with jyoti in office
Plan is to dc to [facility] once bed available, hopefully over weekend, discussed with JACOB, bed not available
Anticipated Discharge: 24 - 48 hours
Subjective/Interval History
-
Date of Service: November 24, 2024
Appears comfortable
Objective Data
-
Vital Signs:
Vital Signs
Temp Pulse Resp BP Pulse Ox
98.6 F 66 16 109/40 96
11/24/24 07:06 11/24/24 11:06 11/24/24 11:06 11/24/24 07:06 11/24/24 11:06
I&O
11/23/24 11/24/24 11/25/24
06:59 06:59 06:59
Intake Total 1080 / 1080 960 / 960
Balance 1080 / 1080 960 / 960
Review of Systems
-
History Source: Patient (only able to nod), Family (reviewed with son, Edwin, in room 11/22) and Guardian (reviewed with home health aide in room)
Constitutional: Reports Weakness; Denies Fever
EENT: Reports No Symptoms Reported
Respiratory: Denies Trouble Breathing (breathing better)
Cardiac: Reports No Symptoms
Genitourinary: Reports No Symptoms
Musculoskeletal: Reports No Symptoms
Physical Exam
-
General: Well Developed, Well Nourished, No Apparent Distress (voice is stronger) and Morbidly Obese
HEENT: Normocephalic, Atraumatic and Moist Mucous Membranes
Respiratory: Clear to Auscultation and Wheezes (improved air movement with mid to end expiratory wheeze); Negative Rales or Rhonchi
Cardiac: Regular Rhythm and S1/S2
GI: Soft, Nontender and Nondistended
Musculoskeletal: No Clubbing, No Cyanosis and No Edema
Neuro: Awake and Alert; Negative No Motor Deficits (Rt hemiparesis, aphasic, able to nod)
[2024-11-24 15:35] VITALS: BP 138/51
[2024-11-24 16:26] LABS: Glucose - Point of Care 165 mg/dl (70-99)
[2024-11-24] MEDS: LIPITOR 20 MG PO (16:32)
[2024-11-24] MEDS: NOVOLOG FLEXPEN-LOW RESISTANCE 1 UNITS SC (16:56)
[2024-11-24 20:57] LABS: Glucose - Point of Care 176 mg/dl (70-99)
[2024-11-25 00:04] VITALS: BP 115/55
[2024-11-25 06:00] VITALS: BMI 44.8
[2024-11-25 06:49] LABS: % Basophils 0.4 % (0-2); % Eosinophils 3.9 % (0-6); % Immature Granulocytes 0.7 % (0-0.5); % Lymphocytes 15.8 % (20.5-51.1); % Monocytes 7.7 % (1.7-9.3); % Neutrophils 71.5 % (42.2-75.2); Absolute Eosinophils 0.4 10^3/uL (0-0.7); Absolute Immature Granulocytes 0.1 10^3/uL (0-0.05); Absolute Lymphocytes 1.7 10^3/uL (1.2-3.4); Absolute Monocytes 0.9 10^3/uL (0.1-0.6); Absolute Neutrophils 7.9 10^3/uL (1.4-6.5); Hematocrit 34.2 % (37.0-47.0); Hemoglobin 11.4 g/dL (12.0-16.0); Mean Corp Hgb Conc. 33.3 g/dL (33.0-37.0); Mean Corpuscular Hgb 30.6 pg (27.0-31.0); Mean Corpuscular Volume 91.9 fL (81.0-99.0); Nucleated Red Blood Cells % 0 %; Platelet Count 203 10^3/uL (130-400); Red Blood Cell Count 3.72 10^6/uL (4.20-5.40); Red Cell Dist. Width 15.1 % (11.5-14.5)
[2024-11-25 07:00] VITALS: BP 133/55
[2024-11-25 07:17] LABS: Glucose - Point of Care 102 mg/dl (70-99)
[2024-11-25 07:18] LABS: Blood Urea Nitrogen 40 mg/dl (7-17); Calcium 8.7 mg/dl (8.4-10.2); Carbon Dioxide 33 mmol/L (22-30); Chloride 105 mmol/L (98-107); Estimated Creatinine Clearance 54 ml/min; Glucose 112 mg/dl (70-99); Potassium 3.5 mmol/L (3.5-5.1); Sodium 142 mmol/L (135-145)
[2024-11-25] MEDS: DUONEB 3 ML INH ×4 (07:40→19:30)
[2024-11-25] MEDS: ALDACTONE 25 MG PO (09:03)
[2024-11-25] MEDS: KCL ELIXIR 20 MEQ PO (09:03)
[2024-11-25] MEDS: CYMBALTA DELAYED RELEASE 60 MG PO (09:03)
[2024-11-25] MEDS: NOVOLOG FLEXPEN-LOW RESISTANCE SC (09:03)
[2024-11-25] MEDS: DELTASONE 5 MG PO (09:04)
[2024-11-25] MEDS: NEURONTIN 300 MG PO ×3 (09:04→21:45)
[2024-11-25] MEDS: ELIQUIS 2.5 MG PO ×2 (09:04→20:05)
[2024-11-25] MEDS: COREG 3.125 MG PO ×2 (09:04→20:05)
[2024-11-25] MEDS: BUMEX 2 MG PO ×2 (09:04→16:45)
--- NOTE | 2024-11-25 09:32 | CM ---
Per [facility] admissions, a bed will be available for patient tomorrow
Will need an ambulance transport
Updated hospitalist
[facility]
Report: [phone]

Plan: D/c to [facility] tomorrow
[2024-11-25 11:59] LABS: Glucose - Point of Care 189 mg/dl (70-99)
[2024-11-25] MEDS: NOVOLOG FLEXPEN-LOW RESISTANCE 1 UNITS SC ×2 (12:25→17:10)
--- NOTE | 2024-11-25 14:34 | W.PN.HOSP.TC ---
Today's Communication/Plan
-
hopefully dc to [facility] on Tuesday
Assessment / Plan
Assessment / Plan
weakness with worsening general debility and acute on chr gait dysfunction
HFpEF
- suspect TME due to multifactorial origins( AE COPD, UTI, acid base dysfunction, profound diuresis)
- Hold parameters for MEDICAL AFFAIRS SPECIALIST Meds such as Gabapentin
- As per son, was given a dose of Metolazone on 11/13 in cardio office, lost >10 lbs of fluid acutely over 24hrs and then became overwhelmingly weak
wt now 119.75-->119.4-->119.0-->120.9-->117-->115.9-->118.2 kg. consulted cardio, sees Dr. Membreno in office, input appreciated
AE COPD with bronchospasm
Acceptable POx on RA
Worsening hypercarbia - Alkalosis ( contraction vs compensatory) vs Acute resp acidosis, better
HX chr PO prednisone dependent
- CXR:1. Mild to moderate cardiomegaly.
2. Mild interstitial cardiogenic pulmonary edema.
3. Moderately decreased bilateral lung volumes.
4. Mild chronic subsegmental atelectasis/scarring in the lingula.
- VB.53/pCO2 56/pO2 56
- changed IV Decadron 4mg q12h back to preadmit oral Prednisone
- c/w prophylactic azithromycin
Stage 2 bilateral buttock pressure injuries.
Abnormal UA concerning for UTI
UTI POS UCx for Enterobacter cloacae, sens to Ceftriaxone
HX of urinary retention. Will dc Rocephin, treatment should have been adequate
Hypokalemia - alkalosis ?
K 3.2-->4.0-->3.5
with starting on Aldactone, will decrease dose of Potassium supplement to 1 daily
- Hold Metolazone
- c/w Bumex and KCL supplement
Obstructive sleep apnea
- CPAP HS to bring her own
Chronic HFpEF with EF 60-65
Diastolic dysfunction
- c/w Coreg
- c/w Bumex, now changed to oral
Essential hypertension
- c/w Coreg
Type 2 diabetes
- add ISS low
HX left-sided CVA with right hemiplegia/aphasia in 2009
Chronic ambulatory dysfunction
Chronic right hand tremor/spasm/pain
-Patient only says the word 'away'normally
- on statin
- on Eliquis
HX Right sided neck swelling supraclavicular with associate mild tenderness
CT w/o contrast of the neck noted no acute abnormalities 07/12/24
Prior ENT eval appreciated likely benign finding no further intervention/evaluation warranted at this time
Anxiety/depression
-Continue duloxetine
Obesity suspect class II BMI
Vitamin D deficiency
GERD
DVT Px: on chr Eliquis
Full code per son
IP MS
reviewed with medical management specialist in room (and on second visit, discussed with Edwin, son and reviewed situation [phone] 11/20)
son is requesting evaluation by jyoti, she see Denny in office, discussed with Dr. Colbert, who saw the patient and agreed with current Tx. Will follow up with jyoti in office
Plan is to dc to [facility] once bed available, discussed with CM, bed not available, she believes will be Tuesday
Anticipated Discharge: Within 24 hours
Subjective/Interval History
-
Date of Service: November 25, 2024
Mentation ~same
Objective Data
-
Labs:
Laboratory Results
11/25/24
06:33
WBC 11.0 H
Hgb 11.4 L
Hct 34.2 L
Plt Count 203
Sodium 142
Potassium 3.5
Chloride 105
Carbon Dioxide 33 H
BUN 40 H
Creatinine 1.0
Glucose 112 H
Calcium 8.7
Vital Signs:
Vital Signs
Temp Pulse Resp BP Pulse Ox
97.9 F 69 16 133/55 94
11/25/24 07:00 11/25/24 11:18 11/25/24 11:18 11/25/24 07:00 11/25/24 11:18
I&O
11/24/24 11/25/24 11/26/24
06:59 06:59 06:59
Intake Total 960 / 960 1900 / 1900 480 / 480
Balance 960 / 960 1900 / 1900 480 / 480
Review of Systems
-
History Source: Patient (only able to nod), Family (reviewed with son, Edwin, in room 11/22) and Guardian (reviewed with home health aide in room)
Constitutional: Reports Weakness; Denies Fever
EENT: Reports No Symptoms Reported
Respiratory: Denies Trouble Breathing (breathing better)
Cardiac: Reports No Symptoms
Genitourinary: Reports No Symptoms
Musculoskeletal: Reports No Symptoms
Physical Exam
-
General: Well Developed, Well Nourished, No Apparent Distress (voice is stronger) and Morbidly Obese
HEENT: Normocephalic, Atraumatic and Moist Mucous Membranes
Respiratory: Clear to Auscultation and Wheezes (improved air movement with mid to end expiratory wheeze); Negative Rales or Rhonchi
Cardiac: Regular Rhythm and S1/S2
GI: Soft, Nontender and Nondistended
Musculoskeletal: No Clubbing, No Cyanosis and No Edema
Neuro: Awake and Alert; Negative No Motor Deficits (Rt hemiparesis, aphasic, able to nod)
[2024-11-25 15:00] VITALS: BP 134/58
[2024-11-25] MEDS: LIPITOR 20 MG PO (16:45)
[2024-11-25 16:59] LABS: Glucose - Point of Care 198 mg/dl (70-99)
[2024-11-25 20:01] VITALS: BP 125/48
[2024-11-25 21:53] LABS: Glucose - Point of Care 177 mg/dl (70-99)
[2024-11-25 23:10] VITALS: BP 129/53
[2024-11-26 06:00] VITALS: BMI 44.5
[2024-11-26 07:10] LABS: Glucose - Point of Care 116 mg/dl (70-99)
[2024-11-26] MEDS: DUONEB 3 ML INH ×3 (07:25→15:54)
[2024-11-26 07:43] VITALS: BP 141/64
[2024-11-26] MEDS: NOVOLOG FLEXPEN-LOW RESISTANCE SC (07:52)
[2024-11-26] MEDS: DELTASONE 5 MG PO (07:53)
[2024-11-26] MEDS: KCL ELIXIR 20 MEQ PO (07:53)
[2024-11-26] MEDS: BUMEX 2 MG PO (07:53)
[2024-11-26] MEDS: NEURONTIN 300 MG PO ×2 (07:54→16:34)
[2024-11-26] MEDS: COREG 3.125 MG PO (07:54)
[2024-11-26] MEDS: ALDACTONE 25 MG PO (07:54)
[2024-11-26] MEDS: ELIQUIS 2.5 MG PO (07:54)
[2024-11-26 08:15] VITALS: BMI 44.8
[2024-11-26] MEDS: CYMBALTA DELAYED RELEASE 60 MG PO (11:17)
[2024-11-26 11:18] LABS: Glucose - Point of Care 228 mg/dl (70-99)
--- NOTE | 2024-11-26 12:24 | W.DCSUMMARY ---
Discharge Summary
Discharge Data
Date of Admission: 11/18/24
Date of Discharge: 11/26/24
Total time spent discharging patient (in min): 45
-
Pending Results: No
Hospital Course
Ms. Willett is an 84-year-old female with a medical history of HFpEF, COPD, cerebrovascular disease (right hemiparesis and expressive aphasia following left-sided CVA), and JAYLA (CPAP at night) who presented with generalized weakness following
aggressive diuresis with metolazone in the outpatient setting. Chest x-ray at time of admission showed pulmonary edema. She was continued on diuresis with IV Bumex while inpatient. She was also found to have bronchospasm and was treated for acute
exacerbation of COPD. Her urinalysis grew Enterobacter cloacae a sensitive to ceftriaxone. She completed a course of antibiotics. She made significant clinical improvement with the above-mentioned treatments. She was able to be transition to
diuresis with oral Bumex. Metolazone should be discontinued indefinitely. Spironolactone was added and her potassium supplementation was decreased to 20 mEq daily. Her gabapentin was continued but with hold parameters for changes in mental
status. She was evaluated by pulmonology who recommended continuing her home scheduled nebulizer regimen and azithromycin on Tuesday and Tuesday. She should also follow-up in the outpatient pulmonology clinic. She was evaluated by PT/OT
who recommended SNF after hospital discharge. At time of hospital discharge she was medically stable. Arrangements have been made for PT/OT at [facility] rehab.
General: No Apparent Distress, Comfortable
HEENT: NormoCephalic, Moist mucous membranes, Atraumatic
Respiratory: Clear and Non Labored Respirations
Cardiac: S1/S2 and Regular Rhythm; No Rub or Gallop
GI: Soft, Non Tender, Non Distended and Normal Bowel Sounds
Musculoskeletal: No Edema, no deformity
: NO Duarte
Neuro: Awake, Alert, aphasic, right hemiparesis
Psych: Calm and cooperative
Discharge Plan
-
Patient Disposition: [facility]/SNF
Discharge Diagnosis/Procedures: Generalized weakness, COPD exacerbation, acute on chronic HFpEF
Diet: 2 Gram Sodium and Restrict fluids to 48 oz
Activity: As tolerated
Blood Work: BMP in 1 week
Specialty Instructions: Weigh Daily- Call MD for wt gain/loss 3 lbs overnight/5 lbs in 1 week
Activity Restrictions/Additional Instructions:
Ms. Willett is an 84-year-old female with a medical history of HFpEF, COPD, cerebrovascular disease (right hemiparesis and expressive aphasia following left-sided CVA), and JAYLA (CPAP at night) who presented with generalized weakness following
aggressive diuresis with metolazone in the outpatient setting. Chest x-ray at time of admission showed pulmonary edema. She was continued on diuresis with IV Bumex while inpatient. She was also found to have bronchospasm and was treated for acute
exacerbation of COPD. Her urinalysis grew Enterobacter cloacae a sensitive to ceftriaxone. She completed a course of antibiotics. She made significant clinical improvement with the above-mentioned treatments. She was able to be transition to
diuresis with oral Bumex. Metolazone should be discontinued indefinitely. Spironolactone was added and her potassium supplementation was decreased to 20 mEq daily. Her gabapentin was continued but with hold parameters for changes in mental
status. She was evaluated by pulmonology who recommended continuing her home scheduled nebulizer regimen and azithromycin on Tuesday and Tuesday. She should also follow-up in the outpatient pulmonology clinic. She was evaluated by PT/OT
who recommended SNF after hospital discharge. At time of hospital discharge she was medically stable. Arrangements have been made for PT/OT at [facility] rehab.
Instructions: *[facility] Heart Failure Instructions
Referrals:
Pito Betts DO [Family Provider, Family Practice]
Alexi Membreno MD [Active, Cardiology] - 12/24/24 11:20 am
Referral Note: You have a cardiology follow up appointment at the [facility]. Please call with questions.
Alf Baldwin MD [Active, Pulmonary Medicine] - in two to four weeks
Prescriptions:
New
spironolactone 25 mg Tablet
25 mg PO DAILY 30 Days Qty: 30 0RF
azithromycin 250 mg tablet
250 mg PO MOWEFR 30 Days Qty: 13 0RF
Continued
simvastatin 40 MG tablet
40 mg PO QPM
baclofen 10 MG tablet
10 mg PO TID
duloxetine 60 MG capsule,delayed release(DR/EC)
60 mg PO NOON
carvedilol 3.125 MG tablet
3.125 mg PO BID
sennosides [Senna Lax] 8.6 mg Tablet
8.6 mg PO QPM
Eliquis 2.5 mg tablet
2.5 mg PO BID
therapeutic multivitamin Tablet
1 tab PO DAILY
omeprazole 20 mg Capsule,Delayed Release(Dr/Ec)
20 mg PO HS
cholecalciferol (vitamin D3) 125 mcg (5,000 unit) Tablet
125 mcg PO DAILY
bumetanide 2 mg tablet
2 mg PO BID
prednisone 5 mg tablet
5 mg PO DAILY
albuterol sulfate 2.5 mg /3 mL (0.083 %) Solution For Nebulization
2.5 mg INHALATION R TID
methenamine hippurate 1 gram Tablet
1 g PO BID
cranberry 450 mg Tablet
450 mg PO DAILY
budesonide 0.5 mg/2 mL suspension for nebulization
0.5 mg inhalation R BID
gabapentin 300 MG capsule
300 mg PO TID Qty: 0 0RF
Rx Instructions:
Hold for changes in mental status
Changed
ipratropium-albuterol 0.5 mg-3 mg(2.5 mg base)/3 mL solution for nebulization
3 ml inhalation QID Qty: 0 0RF
potassium chloride 20 mEq/15 mL Liquid
20 meq PO DAILY Qty: 0 0RF
Discontinued
metolazone 5 mg Tablet
5 mg PO DAILYPRN PRN (Reason: swelling)
Discharge Orders:
Discharge Patient (As Directed); Ordered 11/26/24
Ordered By: Juan R De La Torre
Discharge Date and Time
Print Language: ARMENIAN
--- NOTE | 2024-11-26 12:40 | CM ---
Addendum entered by Dian Kate 11/26/24 12:59:
[facility]
Report: [phone]

Original Note:
Patient has been medically cleared for discharge to [facility]. Patient and private jeep driver notified. Attempted to call son and daughter. No answers and both voice mails were full. Drop Machine Operator said she will text the son who is primary
contact. Transport requested for 4:30PM. IM signed.
[2024-11-26] MEDS: NOVOLOG FLEXPEN-LOW RESISTANCE 2 UNITS SC (12:43)
--- NOTE | 2024-11-26 15:03 | PTCARENOTE ---
[facility]
[2024-11-26 15:15] VITALS: BP 141/65
[2024-11-26] MEDS: BUMEX PO (16:35)
--- NOTE | 2024-11-26 16:37 | PTCARENOTE ---
patient did not take afternoon dose of bumex, due to d/c and transporting. MD De La Torre notified. patient will take dose when she arrives to [facility]. Nurse Chapman has been notified that patient will need dose upon arrival.
== END 2024-11-26 17:13 | DRG 190 ==
LOC: 4 WEST ACU 12:46
PROVIDERS: Internal Medicine; Physician Assistant; ADMITTING PHYSICIAN Internal Medicine; ATTENDING PHYSICIAN Internal Medicine; CONSULT PHYSICIAN Internal Medicine; CONSULT PHYSICIAN Internal Medicine Cardiovascular Disease; EMERGENCY PHYSICIAN Emergency Medicine; FAMILY PHYSICIAN Family Medicine
DX: J44.1 Chronic obstructive pulmonary disease with (acute) exacerbation (principal); G92.8 Other toxic encephalopathy; I50.43 Acute on chronic combined systolic (congestive) and diastolic (congestive) heart failure; E87.3 Alkalosis; Z68.41 Body mass index [BMI] 40.0-44.9, adult; N39.0 Urinary tract infection, site not specified; I69.351 Hemiplegia and hemiparesis following cerebral infarction affecting right dominant side; I11.0 Hypertensive heart disease with heart failure; I69.320 Aphasia following cerebral infarction; Z87.891 Personal history of nicotine dependence; E87.6 Hypokalemia; E11.9 Type 2 diabetes mellitus without complications; F32.A Depression, unspecified; F41.9 Anxiety disorder, unspecified; E66.01 Morbid (severe) obesity due to excess calories; Z79.01 Long term (current) use of anticoagulants; K21.9 Gastro-esophageal reflux disease without esophagitis; E55.9 Vitamin D deficiency, unspecified; L89.322 Pressure ulcer of left buttock, stage 2; L89.312 Pressure ulcer of right buttock, stage 2
CPT/HCPCS: 71046; 80048; 80053; 81003; 81015; 82805; 82962; 83036; 83880; 84484; 85025; 87077; 87086; 87186; 93005; 94640; 96374; 96375; 97116; 97163; 97167; 97530; 97535; 99285

== ENCOUNTER → 2025-04-24 11:01 | Outpatient (REF) | payer MEDICARE, OTHER, SELFPAY | LOC: REG 11:01 | PROVIDERS: ATTENDING PHYSICIAN Physician Assistant | DX: M25.562 Pain in left knee (principal); M25.561 Pain in right knee; M25.552 Pain in left hip; M25.551 Pain in right hip | CPT/HCPCS: 73523; 73564 ==